=== PATIENT | female | born 1940 | race Caucasian/White ===

== ENCOUNTER 2019-09-02 13:02 | Outpatient (CLI) | payer MEDICARE, SELFPAY ==
--- NOTE | 2019-09-02 13:06 | ECG_ITS ---
Measurements Intervals [place] Rate: 77 P: 85 SD: 179 QRS: 9 QRSD: 94 T: 28 QT: 394 QTc: 448 Interpretive Statements SINUS RHYTHM SUPRAVENTRICULAR BIGEMINY BASELINE ARTIFACT- I, II, III, AVR, AVL, AVF ABNORMAL ECG Electronically Signed On 09-02-2019 16:05:01 DIRECTOR BANKING by Teodoro Azevedo D.O.
[2019-09-02 13:47] LABS: Blood Urea Nitrogen 15 mg/dL (7-17); Calcium 9.4 mg/dL (8.4-10.2); Carbon Dioxide 32 mmol/L (22-30); Chloride 91 mmol/L (98-107); Estimated Glomerular Filt Rate 43; Glucose 80 mg/dL (65-105); Potassium 3.4 mmol/L (3.4-5.0); Sodium 132 mmol/L (137-145)
== END 2019-09-02 13:03 | disposition home or self-care (01) ==
LOC: ANHSURGERY 13:06
PROVIDERS: Anesthesiology; PCP Internal Medicine; Visit Provider Surgery
DX: I10 Essential (primary) hypertension (principal); Z79.899 Other long term (current) drug therapy
CPT/HCPCS: 36415; 80048; 93005

== ENCOUNTER 2019-09-10 00:28 | Day surgery (SDC) | payer MEDICARE, SELFPAY ==
[2019-08-27 09:49] VITALS: BMI 27.9
--- NOTE | 2019-09-08 11:34 | PM.SD ---
Same Day Admit/Disch: HPI History of Present Illness Chief complaint: Left Breast Cancer, Right Nipple Discharge Narrative: Mariia Stanton is a 79 year old female Who presented to the office in June with complaints of discomfort and bloody discharge from the right breast nipple. She had also had an MRI of the breast before I saw her. This showed an abnormality in the left breast as well as subareolar erickson ductal enhancement on the right breast. A 5 mm oval mass just below the nipple on the right side was also noted. This mass demonstrated rapid enhancement and washout kinetics. The left breast lesion was a 6 mm irregular spiculated mass at the 1 at the 2 o'clock position 4-5 mm from the nipple. It demonstrated rapid enhancement and washout kinetics as well. Targeted bilateral ultrasound was then performed. On the right side, intraluminal filling defects in a mildly dilated subareolar ductal system was noted. 1 May well be a papilloma. Otherwise it may be debris. On ultrasound, the left breast showed a 6 mm irregular hypoechoic mass at the 2:00 a.m. location 4 cm from the nipple corresponding to the MRI. Ultrasound-guided core biopsy of the left breast lesion was then performed on 07/23/2019. This biopsy showed a left breast lesion to be well differentiated invasive ductal carcinoma. 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 This tumor is ER and [place] positive. After thorough discussion with the patient and her family, she is taken to surgery now for left breast lumpectomy with left axillary sentinel lymph node biopsy. She will also have right breast nipple and subareolar exploration and biopsy due to her persistent nipple discharge and the ultrasound findings in the subareolar tissue on the right breast. [facility] Past Medical History Medical History (Updated 09/08/19 @ 12:02 by Enio Arguello MD) Abnormal finding of blood chemistry, unspecified Benign essential hypertension BMI 27.0-27.9,adult Chronic recurrent sinusitis Ectatic aorta Elevated glucose FH: ANDRE-BSO (total abdominal hysterectomy and bilateral salpingo-oophorectomy) GERD (gastroesophageal reflux disease) GERD (gastroesophageal reflux disease) Glaucoma History of hypothyroidism History of trigeminal neuralgia Underwent surgical treatment in 1989 Hyperlipidemia Hyperlipidemia Ingrown toenail Lung nodule Macular degeneration Macular degeneration TIA (transient ischemic attack) Trigeminal neuralgia Venous insufficiency Surgical History Surgical History H/O medial meniscus repair of left knee History of repair of right rotator cuff Family History Family History Father Patient's father is Acute myocardial infarction Family history of heart disease in male family member before age 55 Family history of cardiovascular disease Mother Family history of dementia Sibling Family history of throat cancer Acute myocardial infarction Family history of heart disease in male family member before age 55 Family history of cardiovascular disease Family history of arthritis Multiple myeloma Other Carcinoma of colon Cerebrovascular accident Family history of malignant melanoma Family history of malignant neoplasm of stomach Family history of malignant neoplasm of urinary bladder Family history of multiple sclerosis Hypertension Social History Social History Smoking status: Never smoker Alcohol intake: never Gender identity (if verbalized by the patient): Female Same Day Admit/Disch: Med Pre-admit Medications Home Medications Medication Instructions Recorded Confirmed Type aspirin 81 mg tablet,delayed 81 mg PO DAILY 06/11/19 09/10/19 History release bimatoprost 0.01 % eye drops 1 drop EACH EYE HS 06/11/19 09/10/19 History omega-3 fat
[2019-09-10] VITALS (8 sets, daily range): BP systolic 126–166; BP diastolic 56–83; PULSE 55–84; RESP 14–18; TEMP 36.1–36.2; O2SAT 95–100
--- NOTE | ~2019-09-10 | MM_ITS ---
EXAMINATION: MM needle loc LT, MM surgical specimen LT DATE: 09/10/2019 10:31 (accession [id number]), 09/10/2019 14:36 (accession [id number]) INDICATION: Left breast cancer TECHNIQUE: The procedure for a mammography-guided needle localization was discussed with the patient. Risks and benefits were detailed including risks of bleeding and infection. The patient verbalized u nderstanding and agreed to proceed. A time out was performed to verify the patient's name, date of , and site of procedure. The nell ent was placed in mediolateral compression, and the skin overlying the outer left breast was prepare d in usual fashion. The skin and subcutaneous soft tissues were infiltrated with 1% lidocaine for loc al anesthesia. Utilizing mammography guidance, a needle was advanced into the left breast. Two confir matory films were obtained. The patient tolerated procedure without immediate complication. A specimen radiograph was performed. FINDINGS: Two view confirmatory films of the left breast demonstrate a needle with tip adjacent to th e biopsy marker in the upper outer quadrant of the breast. The wire and biopsy marker are contained w ithin the surgical specimen. IMPRESSION: 1. Successful mammography-guided left breast needle localization. Reviewed, dictated and finalized at location A. BILITATION THERAPIST IMPRESSION: 1. Successful mammography-guided left breast needle localization.
--- NOTE | ~2019-09-10 | NM_ITS ---
EXAMINATION: NM sentinel node inject only INDICATION: Left breast cancer TECHNIQUE: 0.998 mCi Tc 99m Lymphoseek were injected in 4 aliquots in the upper outer quadrant of the breast near the areola. No images were obtained. IMPRESSION: 1. Status post left breast sentinel lymph node radiopharmaceutical injection. Reviewed, dictated and finalized at location A. RONMENTAL ENGINEER SCIENTIST
--- NOTE | 2019-09-10 10:14 | SUR.PREOP ---
0933 TO MAMMS PER WHEELCHAIR
--- NOTE | 2019-09-10 10:19 | SUR.PREOP ---
1015 PT RETURNED FROM MAMMS PER W/C
[2019-09-10] MEDS: LACTATED RINGERS 1,000 ML 30 ML IV CONT ×2 (10:22→14:55)
--- NOTE | 2019-09-10 11:04 | SUR.PREOP ---
1055 PT TO NUC. MED. PER WHEELCHAIR.
--- NOTE | 2019-09-10 11:48 | SUR.PREOP ---
1122 PT RETURNEDFROM NUC. MED PER WHEELCHAIR
--- NOTE | 2019-09-10 11:49 | WPDHPUPDATE1 ---
History and Physical Update Update Date/Time: 09/10/19 11:49 History and Physical has been reviewed, including an updated exam of the patient. There are NO changes in the patient's condition. Risks, benefits, and alternatives have been discussed and questions answered. Patient agrees to proceed with procedure.
--- NOTE | 2019-09-10 12:01 | WPDANESEPPF ---
Anes - Initial Pre Proc Eval Procedure: Operation Date: 09/10/19 12:00 Proposed Procedures p Left Breast Lumpectomy, Left Axillary Palmer Lymph Node Biopsy, Right Breast Duct Exploration, - Enio Arguello MD s Ultrasound and/ or Mammogram Guided Needle Localization Left Breast - Enio Arguello MD Date/Time: 09/10/19 12:01 Surgeon: Enio Arguello MD Pre Op Diagnosis: Left Breast Cancer, Right Nipple Discharge Patient Data Age: 79 Gender: F Height: 5 ft 5 in Weight: 72.5 kg Last Vital Signs Temp 97.2 F L 09/10/19 08:58 Pulse 84 09/10/19 08:58 Resp 18 09/10/19 08:58 BP 126/56 L 09/10/19 08:58 Pulse Ox 99 09/10/19 08:58 Allergies Allergy/AdvReac Type Severity Reaction Status Date / Time almotriptan [From Axert] AdvReac Unknown Nausea and Verified 09/10/19 10:06 Vomiting cefaclor [From Ceclor] AdvReac Unknown Nausea and Verified 09/10/19 10:06 Vomiting cefuroxime AdvReac Unknown Nausea and Verified 09/10/19 10:06 Vomiting levofloxacin AdvReac Unknown Nausea And Verified 09/10/19 10:06 Vomiting morphine AdvReac Unknown Nausea and Verified 09/10/19 10:06 Vomiting Home Medications Medication Instructions Recorded Confirmed Type aspirin 81 mg tablet,delayed 81 mg PO DAILY 06/11/19 09/10/19 History release bimatoprost 0.01 % eye drops 1 drop EACH EYE HS 06/11/19 09/10/19 History omega-3 fatty acids 1,000 mg 1,000 mg PO BID 06/11/19 09/10/19 History capsule timolol maleate 0.5 % eye drops 1 drop EACH EYE DAILY 06/11/19 09/10/19 History clopidogrel 75 mg tablet 75 mg PO DAILY #90 tablet 06/12/19 09/10/19 Rx vitamin E (dl, acetate) 400 unit 400 unit PO DAILY 06/15/19 09/10/19 History capsule amlodipine 2.5 mg tablet 2.5 mg PO DAILY #90 tablet 07/08/19 09/10/19 Rx calcium carbonate-vitamin D3 1 tablet PO BID 08/27/19 09/10/19 History [Calcium 600 + D(3)] famotidine 40 mg PO DAILY 08/27/19 09/10/19 History indapamide 1.25 mg PO DAILY 08/27/19 09/10/19 History olmesartan [Benicar] 40 mg PO HS 08/27/19 09/10/19 History rosuvastatin [Crestor] 20 mg PO HS 08/27/19 09/10/19 History vit C 250 mg-E 200 unit-zinc 40 1 tablet PO BID 09/02/19 09/10/19 History mg-copper 1 [id number] capsule Patient hx anesthesia problems: post op nausea/vomiting Family hx anesthesia problems: none PMFSH Past Medical History Medical History (Updated 09/08/19 @ 12:02 by Enio Arguello MD) Abnormal finding of blood chemistry, unspecified Benign essential hypertension BMI 27.0-27.9,adult Chronic recurrent sinusitis Ectatic aorta Elevated glucose FH: ANDRE-BSO (total abdominal hysterectomy and bilateral salpingo-oophorectomy) GERD (gastroesophageal reflux disease) GERD (gastroesophageal reflux disease) Glaucoma History of hypothyroidism History of trigeminal neuralgia Underwent surgical treatment in 1989 Hyperlipidemia Hyperlipidemia Ingrown toenail Lung nodule Macular degeneration Macular degeneration TIA (transient ischemic attack) Trigeminal neuralgia Venous insufficiency Surgical History Surgical History H/O medial meniscus repair of left knee History of repair of right rotator cuff Family History Family History Father Patient's father is Acute myocardial infarction Family history of heart disease in male family member before age 55 Family history of cardiovascular disease Mother Family history of dementia Sibling Family history of throat cancer Acute myocardial infarction Family history of heart disease in male family member before age 55 Family history of cardiovascular disease Family history of arthritis Multiple myeloma Other Carcinoma of colon Cerebrovascular accident Family history of malignant melanoma Family history of malignant neoplasm of stomach Family history of malignant neoplasm of urinary bladder Fa
[2019-09-10] MEDS: ONDANSETRON INJ 4 MG/2 ML VIAL IV PUSH (12:12)
[2019-09-10] MEDS: ceFAZolin 2 GM/D5W 50 ML 2 GM/50 ML BAG IVPB (12:17)
[2019-09-10] MEDS: IBUPROFEN IV 800 MG/200 ML 800 MG/200 ML BAG 400 MG IVPB (12:25)
[2019-09-10] MEDS: BUPIVACAINE/EPINEPHRINE 0.5% 30 ML VIAL INFILTRATE (13:10)
[2019-09-10] MEDS: ISOSULFAN BLUE 1% INJ 5 ML VIAL SUB-Q (13:11)
--- NOTE | 2019-09-10 15:16 | PM.PROC ---
Procedure Note - Detailed Date of procedure: 09/10/19 Pre-op diagnosis: Left Breast Cancer, Right Nipple Discharge Bloody nipple discharge right breast, estrogen sensitive left breast upper outer quadrant invasive ductal cancer Post-op diagnosis: same Procedure performed: Subareolar exploration with duct excision of the right breast; needle localization, left breast lumpectomy with left axillary sentinel lymph node biopsy Description of procedure: The patient was taken to surgery and induced into general anesthesia. She had already been to Radiology where wire localization of the left breast tumor had been performed. She also had radioisotope injection under the left nipple in Radiology for sentinel lymph node biopsy. After induced into general anesthesia, both breasts were prepped and draped. Care was taken to avoid moving the localizing wire in the left breast. We quarantined off the left breast and started on the right side. I was able to reproduce the nipple discharge from the right breast. It was serous. I cannulated it with a lacrimal duct probe. I was able to advance the probe beyond the nipple to the offending duct. Keeping the probe in place, I then marked a circumareolar incision on the breast. Local was infiltrated into the area of this anticipated incision. Incision was made and deepened through the superficial subcutaneous tissue. I then angled the dissection towards the probe and the duct causing the discharge. I dissected distal to the probe and was able to slowly bring this tissue up to the wound. I dissected all around the area where the probe led. I dissected back up to the area of the nipple. Nearing the nipple, I went ahead and excised the ductal tissue up to the area of the probe. There was some bloody serous drainage noted during this dissection. Eventually I freed all of this tissue from the nipple. It was sent to pathology labeled subareolar ductal tissue. By palpation and inspection, there was no evidence of malignancy in the tissue. This wound was then inspected. It was made hemostatic with the cautery. The wound was closed in layers with interrupted 3 0 Monocryl suture. The skin was closed with running 4 0 Monocryl skin suture. The wound was dressed with Exofin surgical adhesive. We then changed our outer gloves and went to the patient's left side. The right breast was quarantined with a towel. I injected Isosulfan Blue dye subareolar in the left breast. General breast massage was carried out for a couple of minutes. I then used the navigator to locate the area of high isotope emission in the left axilla. This was marked on the skin. The proposed incision was marked at the edge of the hairline of the left axilla. Local was infiltrated here as well. Incision was made and then dissection was carried down through the subcutaneous and to the axillary tissue. I again used the navigator and found the general area of highest isotope emission. Dissection was carried out in this area and eventually a green stained slightly enlarged lymph node was found. It was checked again with the navigator and had very high isotope emission. I dissected around this lymph node using both sharp dissection and cautery. Vascular structures were doubly clipped and divided. Lymphatics were clipped and divided. Eventually the lymph node was harvested. I checked it again with the navigator and indeed it did have both blue staining and very high isotope emission. This was sent to pathology fresh labeled sentinel lymph node 1. I replaced the navigator and found for more sentinel lymph nodes. Each of these was found separately and dissected out separately using the same technique. None of these lymph nodes were enlarged. In fact some were quite small. None of these lymph nodes had blue dye staining. They were harvested solely based on their high isotope emission. No bleeding occurred during the dissection. After now having removed 5 sentinel
== END 2019-09-10 17:05 | disposition home or self-care (01) ==
PROVIDERS: PCP Internal Medicine; Visit Provider Surgery
PROC: (CPT 19110; principal; 2019-09-10 12:00)
PROC: (CPT 19110; 2019-09-10 12:00)
DX: C50.412 Malignant neoplasm of upper-outer quadrant of left female breast (principal); D24.1 Benign neoplasm of right breast; N60.31 Fibrosclerosis of right breast; N60.32 Fibrosclerosis of left breast; N60.41 Mammary duct ectasia of right breast; N60.42 Mammary duct ectasia of left breast; N60.82 Other benign mammary dysplasias of left breast; Z17.0 Estrogen receptor positive status [ER+]; I10 Essential (primary) hypertension; E78.5 Hyperlipidemia, unspecified; K21.9 Gastro-esophageal reflux disease without esophagitis; H40.9 Unspecified glaucoma; H35.30 Unspecified macular degeneration; Z86.73 Personal history of transient ischemic attack (TIA), and cerebral infarction without residual deficits; Z79.82 Long term (current) use of aspirin; Z79.02 Long term (current) use of antithrombotics/antiplatelets
CPT/HCPCS: 19110; 19301; 38525; 19281; 38792; 76098; 88305; 88307; A9270; A9520; C1713; C1769; J0690; J1100; J1741; J2405; J2704; J3010; J7120; Q9968

== ENCOUNTER 2019-10-13 14:26 | Outpatient (CLI) | payer MEDICARE, SELFPAY ==
[2019-10-13 14:40] LABS: Basophils Absolute Auto 0.1 K/mm3 (0.0-0.1); Eosinophils Absolute Auto 0.2 K/mm3 (0-0.3); Eosinophils Percent Auto 3.9 % (0-4.4); Hematocrit 39.1 % (37.0-47.0); Immature Granulocyte Absolute 0.01 K/mm3 (0.00-0.031); Immature Granulocyte Percent A 0.2 % (0-0.5); Lymphocytes Absolute Auto 1.55 K/mm3 (0.9-3.2); Mean Corpuscular HGB Conc 33.2 g/dl (32-36); Mean Corpuscular Hemoglobin 30.3 pg (26-34); Mean Corpuscular Volume 91.1 fl (80-100); Mean Platelet Volume 9.5 fl (7.4-10.4); Monocytes Percent Auto 19.6 % (2.6-8.5); Neutrophils Absolute Auto 2.3 K/mm3 (1.3-6.7); Neutrophils Percent Auto 45.3 % (45.5-73.1); Platelet Count Result 338 k/mm3 (150-375); Red Blood Count 4.29 M/mm3 (4.2-5.4); Red Cell Distribution Width 13.9 % (11.5-14.5); White Blood Count 5.2 K/mm3 (4.5-10.0)
[2019-10-13 16:41] LABS: Alanine Aminotransferase 18 U/L (4-35); Albumin Level 4.1 g/dL (3.5-5.1); Alkaline Phosphatase 72 U/L (38-126); Aspartate Amino Transferase 28 U/L (14-36); Bilirubin,Total 0.3 mg/dL (0.2-1.3); Blood Urea Nitrogen 18 mg/dL (7-17); Calcium 9.4 mg/dL (8.4-10.2); Carbon Dioxide 32 mmol/L (22-30); Chloride 93 mmol/L (98-107); Estimated Glomerular Filt Rate > 60; Glucose 88 mg/dL (65-105); Potassium 3.4 mmol/L (3.4-5.0); Sodium 134 mmol/L (137-145)
== END 2019-10-13 14:27 | disposition home or self-care (01) ==
PROVIDERS: Visit Provider Internal Medicine Hematology & Oncology
DX: C50.912 Malignant neoplasm of unspecified site of left female breast (principal); Z17.0 Estrogen receptor positive status [ER+]
CPT/HCPCS: 36415; 80053; 85025

== ENCOUNTER 2019-11-02 09:35 | Outpatient (CLI) | payer MEDICARE, SELFPAY ==
[2019-11-02 09:49] LABS: Basophils Percent Auto 0.8 % (0.2-1.2); Eosinophils Absolute Auto 0.2 K/mm3 (0-0.3); Eosinophils Percent Auto 3.4 % (0-4.4); Hemoglobin 12.9 g/dL (12.0-15.0); Immature Granulocyte Absolute 0.01 K/mm3 (0.00-0.031); Immature Granulocyte Percent A 0.2 % (0-0.5); Lymphocytes Absolute Auto 1.51 K/mm3 (0.9-3.2); Lymphocytes Percent Auto 28.3 % (18.3-44.2); Mean Corpuscular HGB Conc 33.9 g/dl (32-36); Mean Corpuscular Hemoglobin 30.7 pg (26-34); Mean Corpuscular Volume 90.5 fl (80-100); Mean Platelet Volume 9.8 fl (7.4-10.4); Monocytes Absolute Auto 1.1 K/mm3 (0.1-0.6); Monocytes Percent Auto 19.7 % (2.6-8.5); Neutrophils Absolute Auto 2.5 K/mm3 (1.3-6.7); Neutrophils Percent Auto 47.6 % (45.5-73.1); Platelet Count Result 313 k/mm3 (150-375); Red Cell Distribution Width 13.7 % (11.5-14.5); White Blood Count 5.3 K/mm3 (4.5-10.0)
[2019-11-02 09:53] LABS: Blood Urea Nitrogen 14 mg/dL (8-26); Carbon Dioxide 31 mmol/L (22-30); Chloride 90 mmol/L (98-109); Estimated Glomerular Filt Rate > 60; Glucose 97 mg/dL (70-105); Potassium 3.6 mmol/L (3.5-4.9); Sodium 133 mmol/L (138-146)
[2019-11-02 11:32] LABS: Alanine Aminotransferase 14 U/L (4-35); Albumin Level 4.1 g/dL (3.5-5.1); Alkaline Phosphatase 62 U/L (38-126); Aspartate Amino Transferase 25 U/L (14-36); Bilirubin,Total 0.3 mg/dL (0.2-1.3); Blood Urea Nitrogen 14 mg/dL (7-17); Calcium 9.9 mg/dL (8.4-10.2); Carbon Dioxide 34 mmol/L (22-30); Chloride 93 mmol/L (98-107); Estimated Glomerular Filt Rate > 60; Glucose 94 mg/dL (65-105); Potassium 3.6 mmol/L (3.4-5.0); Sodium 131 mmol/L (137-145)
== END 2019-11-02 09:36 | disposition home or self-care (01) ==
PROVIDERS: Visit Provider Internal Medicine Hematology & Oncology
DX: C50.912 Malignant neoplasm of unspecified site of left female breast (principal); Z17.0 Estrogen receptor positive status [ER+]
CPT/HCPCS: 36415; 80048; 80053; 85025

== ENCOUNTER 2019-11-30 10:24 | Outpatient (CLI) | payer MEDICARE, SELFPAY ==
[2019-11-30 10:37] LABS: Basophils Absolute Auto 0.1 K/mm3 (0.0-0.1); Eosinophils Absolute Auto 0.1 K/mm3 (0-0.3); Eosinophils Percent Auto 2.9 % (0-4.4); Hematocrit 38.8 % (37.0-47.0); Hemoglobin 12.9 g/dL (12.0-15.0); Immature Granulocyte Absolute 0.01 K/mm3 (0.00-0.031); Immature Granulocyte Percent A 0.2 % (0-0.5); Lymphocytes Absolute Auto 0.93 K/mm3 (0.9-3.2); Lymphocytes Percent Auto 19.3 % (18.3-44.2); Mean Corpuscular HGB Conc 33.2 g/dl (32-36); Mean Corpuscular Hemoglobin 30.8 pg (26-34); Mean Corpuscular Volume 92.6 fl (80-100); Monocytes Absolute Auto 1.3 K/mm3 (0.1-0.6); Monocytes Percent Auto 26.8 % (2.6-8.5); Neutrophils Absolute Auto 2.4 K/mm3 (1.3-6.7); Neutrophils Percent Auto 49.8 % (45.5-73.1); Platelet Count Result 312 k/mm3 (150-375); Red Blood Count 4.19 M/mm3 (4.2-5.4); Red Cell Distribution Width 14.1 % (11.5-14.5); White Blood Count 4.8 K/mm3 (4.5-10.0)
[2019-11-30 10:43] LABS: Blood Urea Nitrogen 13 mg/dL (8-26); Carbon Dioxide 32 mmol/L (22-30); Chloride 91 mmol/L (98-109); Estimated Glomerular Filt Rate 60; Glucose 91 mg/dL (70-105); Potassium 3.2 mmol/L (3.5-4.9); Sodium 135 mmol/L (138-146)
[2019-11-30 12:31] LABS: Alanine Aminotransferase 15 U/L (4-35); Alkaline Phosphatase 67 U/L (38-126); Aspartate Amino Transferase 26 U/L (14-36); Bilirubin,Total 0.3 mg/dL (0.2-1.3); Blood Urea Nitrogen 13 mg/dL (7-17); Calcium 9.8 mg/dL (8.4-10.2); Carbon Dioxide 35 mmol/L (22-30); Chloride 93 mmol/L (98-107); Estimated Glomerular Filt Rate > 60; Glucose 89 mg/dL (65-105); Potassium 3.4 mmol/L (3.4-5.0); Sodium 133 mmol/L (137-145)
== END 2019-11-30 10:25 | disposition home or self-care (01) ==
LOC: ANHLAB 10:26
PROVIDERS: Visit Provider Internal Medicine Hematology & Oncology
DX: C50.912 Malignant neoplasm of unspecified site of left female breast (principal); Z17.0 Estrogen receptor positive status [ER+]
CPT/HCPCS: 36415; 80048; 80053; 85025

== ENCOUNTER 2019-12-07 14:17 | Outpatient (CLI) | payer MEDICARE, SELFPAY ==
--- NOTE | ~2019-12-07 | XR_ITS ---
EXAMINATION: XR ankle RT min 3V, XR foot RT standing 2V DATE: 12/07/2019 14:55 INDICATION: Lateral right foot and ankle pain post fall TECHNIQUE: 1. Anteroposterior, mortise, additional oblique and lateral view of the right ankle were obtained. 2. Dorsoplantar and lateral views of the right foot were obtained. COMPARISON: None. FINDINGS: Mild displacement with up to 304 mm separation of the cortical margins at an oblique intra-articular fracture at the lateral base of the right fifth metatarsal. There appears be a hammertoe deformity at the right second toe as well as mild joint space widening and lateral subluxation at the second dist al interphalangeal joint. Alignment of the remainder of the right foot and ankle remain normal. No ot her fractures identified. Mild polyarticular osteoarthritis at the first metatarsophalangeal and summer ral interphalangeal joints. Bone island at the neck of the fourth metatarsal. Small plantar calcaneal spur. No ankle joint effusion. IMPRESSION: 1. Mildly displaced articular fracture at the base of the right fifth metatarsal. 2. Suggestion of hammertoe deformity at the second toe including mild lateral subluxation and widenin g of the second distal interphalangeal joint. Reviewed, dictated and finalized at location A. IMPRESSION: 1. Mildly displaced articular fracture at the base of the right fifth metatarsa l. 2. Suggestion of hammertoe deformity at the second toe including mild lateral s ubluxation and widening of the second distal interphalangeal joint.
== END 2019-12-07 14:18 | disposition home or self-care (01) ==
LOC: ANHIMG 14:22
PROVIDERS: PCP Internal Medicine; Visit Provider Internal Medicine
DX: S92.351A Displaced fracture of fifth metatarsal bone, right foot, initial encounter for closed fracture (principal); X58.XXXA Exposure to other specified factors, initial encounter
CPT/HCPCS: 73610; 73620

== ENCOUNTER 2019-12-23 09:40 | Outpatient (CLI) | payer MEDICARE, SELFPAY ==
[2019-12-23 10:37] LABS: Hemoglobin A1C 5.4 % (<5.7)
[2019-12-23 10:46] LABS: Blood Urea Nitrogen 14 mg/dL (7-17); Calcium 9.3 mg/dL (8.4-10.2); Carbon Dioxide 32 mmol/L (22-30); Chloride 93 mmol/L (98-107); Cholesterol 141 mg/dL (0-200); Estimated Glomerular Filt Rate > 60; Glucose 100 mg/dL (65-105); HDL Direct 55 mg/dL; Potassium 3.4 mmol/L (3.4-5.0); Sodium 133 mmol/L (137-145); Triglycerides 121 mg/dL (<150)
[2019-12-23 10:57] LABS: LDL Cholesterol Direct 57 mg/dL
== END 2019-12-23 09:41 | disposition home or self-care (01) ==
PROVIDERS: PCP Internal Medicine; Visit Provider Internal Medicine
DX: R73.09 Other abnormal glucose (principal); E78.2 Mixed hyperlipidemia; I10 Essential (primary) hypertension; Z79.899 Other long term (current) drug therapy
CPT/HCPCS: 36415; 80048; 80061; 83036; 84443

== ENCOUNTER 2020-01-21 16:26 | Outpatient (CLI) | payer MEDICARE, SELFPAY ==
--- NOTE | ~2020-01-21 | US_ITS ---
EXAMINATION: US carotid duplex BI DATE: 01/21/2020 16:58 INDICATION: Carotid atherosclerosis and stenosis. Transient ischemic episode. TECHNIQUE: Grayscale, color Doppler, and pulsed Doppler images of the cervical carotid arteries were obtained. The degree of vessel stenosis is placed in one of the following categories: normal, <50%, 5 0-69%, >=70% but less than near-occlusion, near-occlusion, or total occlusion. Note that percent sten osis relative to normal distal artery lumen diameter is indirectly measured from velocity measurement s as described by Noel, et al. Radiology 2003; 229:340-346. COMPARISON: 05/19/2019 FINDINGS: RIGHT: The right common carotid artery (CCA) peak systolic velocity (PSV) is 60 cm/s. The right internal car otid artery (ICA) PSV is 119 cm/s. The right ICA end-diastolic velocity (EDV) is 28 cm/s. The right I CA/CCA PSV ratio is 2.0. Grayscale and color Doppler images yield an estimate of <50% diameter reduct ion from plaque in the ICA. The external carotid artery (ECA) PSV is 72 cm/s. There is antegrade flow in the right vertebral artery. LEFT: The left CCA PSV is 52 cm/s. The left ICA PSV is 97 cm/s. The left ICA EDV is 23 cm/s. The left ICA/C CA PSV ratio is 1.9. Grayscale and color Doppler images yield an estimate of <50% diameter reduction from plaque in the ICA. The ECA PSV is 88 cm/s. There is antegrade flow in the left vertebral artery. IMPRESSION: 1. <50% stenosis in the right internal carotid artery. 2. <50% stenosis in the left internal carotid artery. 3. Cardiac arrhythmias present. Correlate with EKG. Reviewed, dictated and finalized at location A.
== END 2020-01-21 16:27 | disposition home or self-care (01) ==
PROVIDERS: PCP Internal Medicine; Visit Provider Internal Medicine
DX: I65.23 Occlusion and stenosis of bilateral carotid arteries (principal)
CPT/HCPCS: 93880

== ENCOUNTER 2020-02-01 00:05 | Outpatient (CLI) | payer MEDICARE, SELFPAY ==
[2020-02-01 18:54] LABS: SARS-CoV-2 RNA PCR Negative
== END 2020-02-01 00:06 | disposition home or self-care (01) ==
LOC: ANHCOVIDDT 00:06
PROVIDERS: PCP Internal Medicine; Visit Provider Internal Medicine Gastroenterology
DX: Z01.818 Encounter for other preprocedural examination (principal); Z11.59 Encounter for screening for other viral diseases
CPT/HCPCS: 87635; C9803; U0003

== ENCOUNTER 2020-02-03 01:48 | Day surgery (SDC) | payer MEDICARE, SELFPAY ==
[2020-01-27 13:53] VITALS: BMI 25.9
[2020-02-03 07:26] VITALS: BP 124/63; PULSE 55; RESP 14; TEMP 36.7; O2SAT 100
[2020-02-03] MEDS: LACTATED RINGERS 1,000 ML 150 ML IV CONT (07:47)
--- NOTE | 2020-02-03 07:49 | ECG_ITS ---
Measurements Intervals [place] Rate: 66 P: 81 [place]: 197 QRS: -7 QRSD: 97 T: 20 QT: 398 QTc: 417 Interpretive Statements SINUS RHYTHM SUPRAVENTRICULAR BIGEMINY INCOMPLETE RIGHT BUNDLE BRANCH BLOCK ABNORMAL ECG Electronically Signed On 02-03-2020 8:47:49 CDT by Teodoro Azevedo D.O.
--- NOTE | 2020-02-03 07:55 | PM.HPGS ---
History of Present Illness History of Present Illness Consent: Risks, benefits, and alternatives have been discussed and questions answered. Patient agrees to proceed with procedure. Chief complaint: hx of polyps Narrative: Mariia Stanton is a 79 year old female with a history of colon polyps [facility] Past Medical History Medical History Abnormal finding of blood chemistry, unspecified Ankle pain, right Benign essential hypertension Chronic recurrent sinusitis Colon cancer screening Ectatic aorta Elevated glucose Encounter for routine adult health examination without abnormal findings FH: ANDRE-BSO (total abdominal hysterectomy and bilateral salpingo-oophorectomy) GERD (gastroesophageal reflux disease) GERD (gastroesophageal reflux disease) Glaucoma History of hypothyroidism History of trigeminal neuralgia Underwent surgical treatment in 1989 Hx of colonic polyps Hyperlipidemia Hyperlipidemia Ingrown toenail Lung nodule Macular degeneration Macular degeneration 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 TIA (transient ischemic attack) Trigeminal neuralgia Venous insufficiency Family History Family History Father Patient's father is Acute myocardial infarction Family history of heart disease in male family member before age 55 Family history of cardiovascular disease Mother Family history of dementia Sibling Family history of throat cancer Acute myocardial infarction Family history of heart disease in male family member before age 55 Family history of cardiovascular disease Family history of arthritis Multiple myeloma Other Carcinoma of colon Cerebrovascular accident Family history of malignant melanoma Family history of malignant neoplasm of stomach Family history of malignant neoplasm of urinary bladder Family history of multiple sclerosis Hypertension Social History Social History Smoking status: Never smoker Alcohol intake: never Gender identity (if verbalized by the patient): Female Spiritual care concerns: No Meds Home Medications and Allergies Home Medications Medication Instructions Recorded Confirmed Type aspirin 81 mg tablet,delayed 81 mg PO DAILY 06/11/19 02/03/20 History release bimatoprost 0.01 % eye drops 1 drop EACH EYE HS 06/11/19 02/03/20 History omega-3 fatty acids 1,000 mg 1,000 mg PO BID 06/11/19 02/03/20 History capsule timolol maleate 0.5 % eye drops 1 drop EACH EYE DAILY 06/11/19 02/03/20 History vitamin E (dl, acetate) 400 unit 400 unit PO DAILY 06/15/19 02/03/20 History capsule amlodipine 2.5 mg tablet 2.5 mg PO DAILY #90 tablet 07/08/19 02/03/20 Rx calcium carbonate-vitamin D3 1 tablet PO BID 08/27/19 02/03/20 History [Calcium 600 + D(3)] rosuvastatin [Crestor] 20 mg PO HS 08/27/19 02/03/20 History anastrozole 1 mg tablet 1 mg PO DAILY 12/07/19 02/03/20 History potassium chloride 10 mEq 10 meq PO DAILY #90 cap 12/24/19 02/03/20 Rx capsule,extended release clopidogrel 75 mg tablet 75 mg PO DAILY #90 tablet 01/05/20 02/03/20 Rx vit C 250 mg-E 200 unit-zinc 40 1 tablet PO BID 01/13/20 02/03/20 History mg-copper 1 [id number] capsule indapamide 1.25 mg tablet See Rx Instructions .ROUTE 01/14/20 02/03/20 Rx .COMPLEX #30 tablet olmesartan 40 mg tablet 40 mg PO DAILY #90 tablet 02/01/20 02/03/20 Rx Allergies Allergy/AdvReac Type Severity Reaction Status Date / Time almotriptan [From Axert] AdvReac Unknown Nausea and Verified 02/03/20 07:22 Vomiting cefaclor [From Ceclor] AdvReac Unknown Nausea and Verified 02/03/20 07:22 Vomiting cefuroxime AdvReac Unknown Nausea and Verified 02/03/20 07:22 Vomiting levofloxacin AdvReac Unknown Nausea And Verified 02/03/20 07:22 Vomiting morphine AdvReac Unknown Nausea and Verified 02/03/20 07:22 Vomiting
--- NOTE | 2020-02-03 07:57 | SUR.PREOP ---
PATIENTS HEART RATE FROM HIGH 30'S TO 70'S. DR. CASTELLANOS AWARE. EKG ORDERED. 0750 -EKG BEING PERFORMED
--- NOTE | 2020-02-03 08:22 | WPDANESEPPF ---
Anes - Initial Pre Proc Eval Procedure: Operation Date: 02/03/20 08:30 Proposed Procedures p Screening Colonoscopy - Jose Bedolla MD Date/Time: 02/03/20 08:22 Surgeon: Jose Bedolla MD Pre Op Diagnosis: hx of polyps Patient Data Age: 79 Gender: F Height: 5 ft 6 in Weight: 70.6 kg Last Vital Signs Temp 98.1 F 02/03/20 07:26 Pulse 55 L 02/03/20 07:26 Resp 14 02/03/20 07:26 BP 124/63 02/03/20 07:26 Pulse Ox 100 02/03/20 07:26 Allergies Allergy/AdvReac Type Severity Reaction Status Date / Time almotriptan [From Axert] AdvReac Unknown Nausea and Verified 02/03/20 07:22 Vomiting cefaclor [From Ceclor] AdvReac Unknown Nausea and Verified 02/03/20 07:22 Vomiting cefuroxime AdvReac Unknown Nausea and Verified 02/03/20 07:22 Vomiting levofloxacin AdvReac Unknown Nausea And Verified 02/03/20 07:22 Vomiting morphine AdvReac Unknown Nausea and Verified 02/03/20 07:22 Vomiting Home Medications Medication Instructions Recorded Confirmed Type aspirin 81 mg tablet,delayed 81 mg PO DAILY 06/11/19 02/03/20 History release bimatoprost 0.01 % eye drops 1 drop EACH EYE HS 06/11/19 02/03/20 History omega-3 fatty acids 1,000 mg 1,000 mg PO BID 06/11/19 02/03/20 History capsule timolol maleate 0.5 % eye drops 1 drop EACH EYE DAILY 06/11/19 02/03/20 History vitamin E (dl, acetate) 400 unit 400 unit PO DAILY 06/15/19 02/03/20 History capsule amlodipine 2.5 mg tablet 2.5 mg PO DAILY #90 tablet 07/08/19 02/03/20 Rx calcium carbonate-vitamin D3 1 tablet PO BID 08/27/19 02/03/20 History [Calcium 600 + D(3)] rosuvastatin [Crestor] 20 mg PO HS 08/27/19 02/03/20 History anastrozole 1 mg tablet 1 mg PO DAILY 12/07/19 02/03/20 History potassium chloride 10 mEq 10 meq PO DAILY #90 cap 12/24/19 02/03/20 Rx capsule,extended release clopidogrel 75 mg tablet 75 mg PO DAILY #90 tablet 01/05/20 02/03/20 Rx vit C 250 mg-E 200 unit-zinc 40 1 tablet PO BID 01/13/20 02/03/20 History mg-copper 1 pm-ebcugg-ldiyhp capsule indapamide 1.25 mg tablet See Rx Instructions .ROUTE 01/14/20 02/03/20 Rx .COMPLEX #30 tablet olmesartan 40 mg tablet 40 mg PO DAILY #90 tablet 02/01/20 02/03/20 Rx Patient hx anesthesia problems: none Family hx anesthesia problems: none PMFSH Past Medical History Medical History Abnormal finding of blood chemistry, unspecified Ankle pain, right Benign essential hypertension Chronic recurrent sinusitis Colon cancer screening Ectatic aorta Elevated glucose Encounter for routine adult health examination without abnormal findings FH: ANDRE-BSO (total abdominal hysterectomy and bilateral salpingo-oophorectomy) GERD (gastroesophageal reflux disease) GERD (gastroesophageal reflux disease) Glaucoma History of hypothyroidism History of trigeminal neuralgia Underwent surgical treatment in 1989 Hx of colonic polyps Hyperlipidemia Hyperlipidemia Ingrown toenail Lung nodule Macular degeneration Macular degeneration On intermediate designer drug therapy TIA (transient ischemic attack) Trigeminal neuralgia Venous insufficiency Family History Family History Father Patient's father is Acute myocardial infarction Family history of heart disease in male family member before age 55 Family history of cardiovascular disease Mother Family history of dementia Sibling Family history of throat cancer Acute myocardial infarction Family history of heart disease in male family member before age 55 Family history of cardiovascular disease Family history of arthritis Multiple myeloma Other Carcinoma of colon Cerebrovascular accident Family history of malignant melanoma Family history of malignant neoplasm of stomach Family history of malignant neoplasm of urinary bladder Family history of multiple sclerosis Hypertension Social History So
[2020-02-03 08:42] VITALS: BP 96/47; PULSE 67; RESP 28; O2SAT 99
[2020-02-03 08:52] VITALS: BP 113/48; PULSE 58; RESP 15; O2SAT 98
[2020-02-03 09:07] VITALS: BP 127/64; PULSE 56; RESP 16; O2SAT 98
--- NOTE | 2020-02-03 09:27 | SUR.PHASEII ---
Addendum entered by Maricarmen Funk RN 02/03/20 09:36: Ok to discharge Original Note: pt's heart rate stable post operatively. Updated Dr. Rand (anesthesiologist). No further order for discharge per Dr. Rand.
== END 2020-02-03 09:24 | disposition home or self-care (01) ==
PROVIDERS: PCP Internal Medicine; Visit Provider Internal Medicine Gastroenterology
PROC: 0DJD8ZZ Inspection of Lower Intestinal Tract, Via Natural or Artificial Opening Endoscopic (ICD-10-PCS; CPT 45378; principal; 2020-02-03 08:30)
DX: Z12.11 Encounter for screening for malignant neoplasm of colon (principal); K63.89 Other specified diseases of intestine; Z86.010 Personal history of colon polyps; E78.5 Hyperlipidemia, unspecified; I10 Essential (primary) hypertension; K21.9 Gastro-esophageal reflux disease without esophagitis; Z86.73 Personal history of transient ischemic attack (TIA), and cerebral infarction without residual deficits; Z79.02 Long term (current) use of antithrombotics/antiplatelets; Z79.82 Long term (current) use of aspirin
CPT/HCPCS: 45378; 93005; J2704; J7120

== ENCOUNTER 2020-02-10 10:24 | Outpatient (CLI) | payer MEDICARE, SELFPAY ==
--- NOTE | 2020-02-16 15:43 | WPDHOLTEREM ---
Holter/Event Monitor Holter/Event Monitor Date of procedure: 02/10/20 Procedure Type: 48 hour holter monitor Indications: Bradycardia Conclusion: 1. 48 hour holter monitor on 02/10/20. 2. Predominant rhythm is sinus rhythm. HR range 44-121 bpm; average HR 79 bpm. 3. There are 13,571 premature supraventricular complexes, 2,108 supraventricular couplets, 35,057 supraventricular bigeminy and 116 supraventricular trigeminy. There are 138 runs of atrial tachycardia; fastest at 169 bpm and longest lasting 7 beats. 4. There are 516 premature ventricular complexes, 4 ventricular couplets, 9 ventricular bigeminy and 6 ventricular trigeminy. No ventricular tachycardia. 5. No sinoatrial or atrioventricular blocks. No significant pauses greater than 2 seconds. 6. Patient reports symptoms of fatigue, heartburn, shortness of breath, chest pressure, squeezing episode and nausea which demonstrate Sinus rhythm, HR range 65-110 bpm with PAC's and supraventricular bigeminy.
== END 2020-02-10 10:25 | disposition home or self-care (01) ==
PROVIDERS: PCP Internal Medicine; Visit Provider Internal Medicine
DX: R00.1 Bradycardia, unspecified (principal)
CPT/HCPCS: 93225; 93226

== ENCOUNTER 2020-02-24 07:56 | Outpatient (CLI) | payer MEDICARE, SELFPAY ==
--- NOTE | 2020-02-24 | EST_ITS ---
Patient Info Name: Mariia Stanton Age: 79 years : 1940 Gender: Female Ht: 66 in Wt: 155 lbs BSA: 1.82 m2 HR: 64 bpm BP: 144 / 87 mmHg Heart Rhythm: Sinus Rhythm Exam Date: 02/24/2020 9:51 AM Exam Location: [facility] Stress Patient Status: Outpatient Admit Date: 02/24/2020 Staff Ordering Physician: Jordy Connolly MD Attending Provider: Jordy Connolly MD Exercise Technologist: Tami Ellison RDCS Nurse: Dorina Guillermo, EMILEE, ACNP-BC Exam Type: CA stress royer w NM Study Info Indications R06.02 - Shortness of breath R07.89 - Other chest pain A regadenoson stress test was performed. Summary 1. Please correlate with nuclear medicine images, reported separately. 2. No abnormal ST-T wave changes with lexiscan. Protocol: Lexiscan Stress ECG Details Stage: REST Duration (min): 5 min : 12 sec HR (bpm): 65 SBP (mmHg): 144 DBP (mmHg): 87 Stage: REST Duration (min): 10 min : 49 sec HR (bpm): 68 SBP (mmHg): 144 DBP (mmHg): 87 Stage: STAGE 1 Duration (min): 1 min : 0 sec HR (bpm): 81 SBP (mmHg): 144 DBP (mmHg): 87 Stage: RECOVERY Duration (min): 1 min : 0 sec HR (bpm): 89 SBP (mmHg): 144 DBP (mmHg): 87 Stage: RECOVERY Duration (min): 2 min : 0 sec HR (bpm): 85 SBP (mmHg): 100 DBP (mmHg): 60 Stage: RECOVERY Duration (min): 3 min : 0 sec HR (bpm): 80 SBP (mmHg): 110 DBP (mmHg): 61 Stage: RECOVERY Duration (min): 4 min : 0 sec HR (bpm): 83 SBP (mmHg): 110 DBP (mmHg): 61 Stage: RECOVERY Duration (min): 5 min : 0 sec HR (bpm): 77 SBP (mmHg): 116 DBP (mmHg): 63 Stage: RECOVERY Duration (min): 6 min : 0 sec HR (bpm): 85 SBP (mmHg): 116 DBP (mmHg): 63 Stage: RECOVERY Duration (min): 6 min : 42 sec HR (bpm): 75 SBP (mmHg): 125 DBP (mmHg): 63 Rest HR: 68 bpm Peak HR: 91 bpm Rest Sys BP: 144 mmHg Peak Sys BP: 125 mmHg Max Pred HR: 140 bpm % Max Pred HR: 65 % Target HR: 119 bpm Max RPP: 11,375 bpm*mmHg Target HR Summary: Hemodynamic response to exercise was normal BP Response: Normal blood pressure response Termination Reason: Completed protocol Cardiac Symptoms: None Total Time: 1 min : 0 sec Rest Self BP: 87 mmHg Peak Self BP: 63 mmHg Total Dose: 0.4 mg Resting ECG Normal sinus rhythm. PACs. Stress ECG No abnormal ST/T wave changes with exercise. Arrhythmias Frequent PACs. Report Signatures
--- NOTE | ~2020-02-24 | NM_ITS ---
EXAMINATION: NM royer stress w perfusion DATE: 02/24/2020 11:30 INDICATION: Chest pressure. TECHNIQUE: Rest images were obtained following intravenous administration of 11.5 mCi Tc99m tetrofosm in (Myoview). The patient was infused intravenously with Lexiscan (regadenoson). Then, 33.2 mCi Tc99m tetrofosmin (Myoview) was administered intravenously, and stress images were obtained. Data was keyanna nstructed into short axis and horizontal and vertical long axis SPECT images. Gated SPECT images were also obtained. COMPARISON: Chest CT 02/28/2015 FINDINGS: There is no definite reversible or fixed perfusion abnormality to suggest ischemia or infar ction. There is no segmental wall motion abnormality. Left ventricular ejection fraction measures > 70%. IMPRESSION: 1. No definite ischemia or infarct. 2. Normal left ventricular ejection fraction measuring >70%. Reviewed, dictated and finalized at location A.
== END 2020-02-24 07:57 | disposition home or self-care (01) ==
PROVIDERS: PCP Internal Medicine; Visit Provider Internal Medicine
DX: R06.02 Shortness of breath (principal); R07.89 Other chest pain
CPT/HCPCS: 78452; 93017; A9502; J2785

== ENCOUNTER 2020-04-06 09:35 | Outpatient (CLI) | payer MEDICARE, SELFPAY ==
[2020-04-06 11:05] LABS: Anion Gap 6 mmol/L (8-16); Blood Urea Nitrogen 13 mg/dL (7-17); Calcium 9.7 mg/dL (8.4-10.2); Carbon Dioxide 32 mmol/L (22-30); Chloride 95 mmol/L (98-107); Cholesterol 132 mg/dL (0-200); Estimated Glomerular Filt Rate 60; Glucose 103 mg/dL (65-105); HDL Direct 55 mg/dL; Sodium 133 mmol/L (137-145); Triglycerides 92 mg/dL (<150)
[2020-04-06 11:10] LABS: Hemoglobin A1C 5.4 % (<5.7)
[2020-04-06 11:15] LABS: LDL Cholesterol Direct 49 mg/dL
== END 2020-04-06 09:36 | disposition home or self-care (01) ==
PROVIDERS: PCP Internal Medicine; Visit Provider Internal Medicine
DX: R73.09 Other abnormal glucose (principal); I10 Essential (primary) hypertension; E78.2 Mixed hyperlipidemia
CPT/HCPCS: 36415; 80048; 80061; 83036

== ENCOUNTER 2020-05-31 11:14 | Outpatient (CLI) | payer MEDICARE, SELFPAY ==
[2020-05-31 11:30] LABS: Basophils Absolute Auto 0.1 K/mm3 (0.0-0.1); Eosinophils Absolute Auto 0.2 K/mm3 (0-0.3); Eosinophils Percent Auto 2.9 % (0-4.4); Hematocrit 38.5 % (37.0-47.0); Hemoglobin 12.8 g/dL (12.0-15.0); Lymphocytes Absolute Auto 1.25 K/mm3 (0.9-3.2); Lymphocytes Percent Auto 24.4 % (18.3-44.2); Mean Corpuscular HGB Conc 33.2 g/dl (32-36); Mean Corpuscular Hemoglobin 30.5 pg (26-34); Mean Corpuscular Volume 91.9 fl (80-100); Mean Platelet Volume 9.8 fl (7.4-10.4); Monocytes Absolute Auto 0.9 K/mm3 (0.1-0.6); Monocytes Percent Auto 17.4 % (2.6-8.5); Neutrophils Absolute Auto 2.8 K/mm3 (1.3-6.7); Neutrophils Percent Auto 54.3 % (45.5-73.1); Platelet Count Result 316 k/mm3 (150-375); Red Blood Count 4.19 M/mm3 (4.2-5.4); Red Cell Distribution Width 13.8 % (11.5-14.5); White Blood Count 5.1 K/mm3 (4.5-10.0)
[2020-05-31 16:43] LABS: Alanine Aminotransferase 20 U/L (4-35); Albumin Level 4.1 g/dL (3.5-5.1); Alkaline Phosphatase 70 U/L (38-126); Anion Gap 6 mmol/L (8-16); Aspartate Amino Transferase 32 U/L (14-36); Bilirubin,Total 0.4 mg/dL (0.2-1.3); Blood Urea Nitrogen 13 mg/dL (7-17); Calcium 9.9 mg/dL (8.4-10.2); Carbon Dioxide 35 mmol/L (22-30); Chloride 93 mmol/L (98-107); Estimated Glomerular Filt Rate > 60; Glucose 91 mg/dL (65-105); Potassium 3.5 mmol/L (3.4-5.0); Sodium 134 mmol/L (137-145)
[2020-06-03 06:24] LABS: CA 27.29 23 U/mL (<38)
== END 2020-05-31 11:15 | disposition home or self-care (01) ==
PROVIDERS: PCP Internal Medicine; Visit Provider Internal Medicine Hematology & Oncology
DX: C50.912 Malignant neoplasm of unspecified site of left female breast (principal); Z17.0 Estrogen receptor positive status [ER+]
CPT/HCPCS: 36415; 80053; 85025; 86300

== ENCOUNTER 2020-05-31 11:30 | Outpatient (CLI) | payer MEDICARE, SELFPAY ==
--- NOTE | ~2020-05-31 | MM_ITS ---
EXAMINATION: MM diagnostic wiliam BI w joel HISTORY: History of interval lumpectomy for left breast cancer and duct exploration on the right. TECHNIQUE: Craniocaudal, mediolateral, and mediolateral oblique 3-D tomosynthesis images of the breas ts were performed and synthetic 2-D images were generated. CAD analysis was submitted and interpreted . COMPARISON: 05/28/2019, 12/24/2018, 12/17/2017, 11/20/2016 BREAST PARENCHYMAL COMPOSITION: There are scattered areas of fibroglandular density. FINDINGS: There are expected changes of interval lumpectomy and axillary lymph node dissection on the left and duct exploration of the right breast. No suspicious mass, calcification, or architectural d istortion are identified. There has been no suspicious interval change. IMPRESSION: 1. Expected postsurgical changes without mammographic evidence of malignancy. 2. Routine follow-up is recommended. BI-RADS Category 2: Benign finding(s). Reviewed, dictated and finalized at location A.
== END 2020-05-31 11:31 | disposition home or self-care (01) ==
PROVIDERS: PCP Internal Medicine; Visit Provider Internal Medicine Hematology & Oncology
DX: C50.912 Malignant neoplasm of unspecified site of left female breast (principal); Z17.0 Estrogen receptor positive status [ER+]; R92.8 Other abnormal and inconclusive findings on diagnostic imaging of breast; Z98.890 Other specified postprocedural states
CPT/HCPCS: 36415; 77062; 77066; 80053; 85025; 86300; G0279

== ENCOUNTER 2020-06-03 16:09 | Outpatient (CLI) | payer MEDICARE, SELFPAY ==
--- NOTE | ~2020-06-03 | CT_ITS ---
EXAMINATION: CT chest wo con DATE: 06/03/2020 16:49 INDICATION: Follow-up pulmonary nodule TECHNIQUE: Computed tomography (CT) of the chest was performed without intravenous contrast. The dose -length product was 68.77 mGy-cm. Automated exposure control and iterative reconstruction technique w ere employed. COMPARISON: CT dated 02/28/2015 FINDINGS: No thoracic lymphadenopathy. Heart size normal. No pleural or pericardial effusion. 2.9 cm left renal cyst. There are multiple calcified granulomas in the left lung. Atherosclerosis without an eurysm. There are multiple small subpleural nodules of the left upper lobe, largest measuring 8 mm, i mage 64. There is an 8 mm nodule in the right middle lobe, image 64. There are densely calcified nodu les in the left lower lobe. There is a cluster of nodules in the lingula as well as multiple subpleur al nodules in the lower lobes. No osteolytic or osteoblastic lesions. IMPRESSION: 1. Multiple bilateral pulmonary nodules, largest measuring up to 8 mm in the left upper and right mid dle lobes. Follow-up low dose CT chest in 3 months or PET/CT scan may be performed. Differential diag nosis includes infectious/inflammatory etiologies versus neoplasm/metastatic disease. Reviewed, dictated and finalized at location A. IMPRESSION: 1. Multiple bilateral pulmonary nodules, largest measuring up to 8 mm in the le ft upper and right middle lobes. Follow-up low dose CT chest in 3 months or PET /CT scan may be performed. Differential diagnosis includes infectious/inflammat ory etiologies versus neoplasm/metastatic disease.
== END 2020-06-03 16:10 | disposition home or self-care (01) ==
PROVIDERS: PCP Internal Medicine; Visit Provider Internal Medicine
DX: R91.8 Other nonspecific abnormal finding of lung field (principal)
CPT/HCPCS: 71250

== ENCOUNTER 2020-06-09 09:04 | Outpatient (CLI) | payer MEDICARE, SELFPAY ==
--- NOTE | ~2020-06-09 | PE_ITS ---
EXAMINATION: PET skull to mid thigh DATE: 06/09/2020 11:11 INDICATION: Lung nodule TECHNIQUE: Blood glucose level was 105 mg/dL. 9.42 mCi of 18-fluorodeoxyglucose (18-FDG) was administ ered i.v. Low dose computed tomography (CT) images were acquired from the base of the brain to the pr oximal thighs for attenuation correction and anatomic localization. Positron emission tomography (PET ) images were acquired in the same distribution beginning 66 minutes after injection. Images includin g fused PET/CT images were reconstructed in axial, coronal, and sagittal planes. Automated exposure c ontrol technique was employed. The dose-length product was 512.65mGy-cm. COMPARISON: Chest CT dated 06/03/2020 and 02/28/2015 FINDINGS: Head/neck: There is symmetric increased activity in the oral and nasal cavities, palatine tonsils, parotid gland s, submandibular glands, laryngeal muscles and ocular muscles without CT correlate, likely physiolog ic. No pathologically enlarged cervical lymphadenopathy or suspicious foci of increased FDG uptake in the visualized head or neck. Chest: Minimal FDG activity with maximal SUV of 1.5 associated with the 8 mm nodule at the posterior inferio r left lower lobe. No evident FDG activity associated with the remaining smaller nodules clustered th roughout predominantly peripheral regions of the left and right lung. No increased FDG uptake is fiss ure with a second 8 mm flat lenticular nodule along the right minor fissure likely representing an a normal intrafissural lymph node. Couple calcified nodules in the left lower lobe along with calcified bilateral hilar and mediastinal lymph nodes consistent with old granulomatous disease. No pleural ef fusion. Heart size is normal. No pericardial effusion. Ectatic ascending thoracic aorta measuring up to 4.0 cm in diameter. There is mild FDG activity with maximal SUV of 1.8 on a linear band of likely postoperative scarring at the lateral left breast. The more discrete nodular soft tissue density or m ore intense FDG uptake to suggest residual/recurrent breast cancer. No pathologically enlarged or FDG avid thoracic lymphadenopathy. Abdomen/pelvis/proximal thighs: Physiologic renal accumulation and excretion of FDG activity in the kidneys, bladder and along portio ns of ureters. Bilateral renal cysts the largest on the left measuring 2.7 cm. Normal degree and hete rogenous pattern of increased uptake throughout the liver without radiologic correlate or dominant FD G avid lesion. The gallbladder, pancreas, spleen and bilateral adrenal glands are normal. 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 Mild uptake scattered throughout the bowels without radiologic corre late, also likely physiologic. Scattered predominantly sigmoid diverticulosis. The uterus is not iden tified and has likely been surgically resected. No other abnormal foci of increased FDG uptake or pathologically enlarged lymphadenopathy in the abdomen, pelvis or proximal thighs. Musculoskeletal: Mild thoracolumbar levorotoscoliosis with mild compensatory thoracic dextrocurvature. Moderate cervic al and lumbar spondylosis. 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 No suspicious lytic, b lastic or FDG avid bone lesions. IMPRESSION: 1. Minimal uptake associated with the largest 8 mm nodule at the left upper lobe with the remaining s maller nodules demonstrating no discernible FDG activity. While reassuring and suggesting an infectio us etiology would recommend 3 month follow-up low-dose noncontrast chest CT. 2. Minimal uptake along a likely postoperative scar at the left breast at the site of a reported prio r excisional biopsy for breast cancer. No discrete soft tissue nodule or more focal uptake to suggest residual/recurrent disease. Recommend continued mammographic fo
[2020-06-09 09:45] LABS: Glucose Point of Care 105 (65-105)
== END 2020-06-09 09:05 | disposition home or self-care (01) ==
PROVIDERS: PCP Internal Medicine; Visit Provider Internal Medicine
DX: R91.8 Other nonspecific abnormal finding of lung field (principal)
CPT/HCPCS: 78815; A9552

== ENCOUNTER 2020-07-06 07:32 | Outpatient (CLI) | payer MEDICARE, SELFPAY ==
--- NOTE | ~2020-07-06 | XR_ITS ---
EXAMINATION: XR UGIAC sm bowel esophagram EXAM DATE: 07/06/2020 09:16 INDICATION: K21.9 - Gastro-esophageal reflux disease without esophagitis. TECHNIQUE: Skip Tracer radiograph was acquired. Standard single and double contrast barium esophagram, uppe r GI examination was performed followed by small bowel series. Spot images of the terminal ileum wer e acquired. The DAP for this procedure was 6.8 Gycm2. Comparison is made to prior examination from 02/18/2014. FINDINGS: There is no esophageal stricture, diverticulum or mass identified. There is small sliding gastroesophageal hiatal hernia. Gastroesophageal reflux was demonstrated during the examination. The stomach has a normal appearance without evidence of mass lesion, ulceration or filling defect. T here is normal rugal fold pattern. The duodenum and duodenal sweep are normal in appearance. Ileal and jejunal fold patterns are normal. There is no small bowel wall thickening or mass effect d isplacing small bowel. There are no intraluminal filling defects identified. There is no small mt l dilation. Terminal ileum is normal in appearance. Contrast reached the colon by 15 minutes, rapid transit time. IMPRESSION: 1. Small sliding gastroesophageal hiatal hernia. Reflux. 2. Rapid transit time. Reviewed, dictated and finalized at location A. ANALYST
--- NOTE | ~2020-07-06 | US_ITS ---
EXAMINATION: US abdomen complete EXAM DATE: 07/06/2020 08:13 INDICATION: R10.11 - Right upper quadrant pain . TECHNIQUE: Multiple grayscale and Doppler images of the complete abdomen were obtained (by a technolo gist who performed the scan) and subsequently reviewed. Comparison is made to prior examination from 02/18/2014. FINDINGS: The abdominal aorta is normal in caliber. Visualized portion IVC is patent. The pancreatic head a nd body are normal in appearance. The pancreatic tail is not visualized. The liver has normal echogenicity and contour. There are no focal liver lesions identified. There is no evidence of intrahepatic biliary duct dilation. Portal venous flow was seen in the hepatopedal , normal direction and has normal Doppler waveform. Common bile duct measures 4 mm, which is normal. The gallbladder wall is normal in thickness, with ex pected amount of distention. No sonographic evidence of pericholecystic fluid. There is no cholelit hiases. Technologist performing exam reports patient did not demonstrate sonographic Rodriguez's sign. Please note that this sign is less reliable in patients who have received pain medication. Right kidney: There is normal contour and echogenicity. It measures 10.1 x 4.3 x 4.5 centimeters. There are no focal renal lesions identified. There is no hydronephrosis. Left kidney: There is normal contour and echogenicity. It measures 9.6 x 4.5 x 4.4 centimeters. The re is a cyst measuring 2.8 cm. There is no hydronephrosis. The spleen measures 7.7 centimeters and is morphologically normal. IMPRESSION: 1. Unremarkable complete abdominal ultrasound exam. Reviewed, dictated and finalized at location A. RESS FILLING MACHINE TENDER
== END 2020-07-06 07:33 | disposition home or self-care (01) ==
PROVIDERS: PCP Internal Medicine; Visit Provider Internal Medicine
DX: R10.11 Right upper quadrant pain (principal); K21.9 Gastro-esophageal reflux disease without esophagitis; K44.9 Diaphragmatic hernia without obstruction or gangrene
CPT/HCPCS: 74246; 74248; 76700

== ENCOUNTER 2020-08-09 10:28 | Outpatient (CLI) | payer MEDICARE, SELFPAY ==
--- NOTE | ~2020-08-09 | XR_ITS ---
XR abdomen/kub 1V 08/09/2020 11:02 Indication: Hematuria Procedure: KUB Comparison: No prior studies for comparison. Findings: Bowel gas pattern is nonobstructive. Moderate colonic fecal loading. There are pelvic calci fications, most of which are compatible with phleboliths. There is a shelflike calcification in the u pper pelvis, likely calcified fibroid. Levoscoliosis of the lumbar spine. No acute osseous abnormalit y. Impression: 1: No acute abdominal abnormality. Reviewed, dictated and finalized at location A. CIATE CHIEF NURSE Impression: 1: No acute abdominal abnormality.
[2020-08-09 10:53] LABS: Basophils Percent Auto 0.6 % (0.2-1.2); Eosinophils Absolute Auto 0.1 K/mm3 (0-0.3); Eosinophils Percent Auto 1.6 % (0-4.4); Hematocrit 39.3 % (37.0-47.0); Hemoglobin 12.9 g/dL (12.0-15.0); Immature Granulocyte Absolute 0.02 K/mm3 (0.00-0.031); Immature Granulocyte Percent A 0.3 % (0-0.5); Lymphocytes Absolute Auto 1.15 K/mm3 (0.9-3.2); Lymphocytes Percent Auto 18.2 % (18.3-44.2); Mean Corpuscular HGB Conc 32.8 g/dl (32-36); Mean Corpuscular Hemoglobin 31.1 pg (26-34); Mean Corpuscular Volume 94.7 fl (80-100); Mean Platelet Volume 10.5 fl (7.4-10.4); Monocytes Absolute Auto 0.9 K/mm3 (0.1-0.6); Monocytes Percent Auto 14.9 % (2.6-8.5); Neutrophils Absolute Auto 4.1 K/mm3 (1.3-6.7); Neutrophils Percent Auto 64.4 % (45.5-73.1); Platelet Count Result 264 k/mm3 (150-375); Red Blood Count 4.15 M/mm3 (4.2-5.4); Red Cell Distribution Width 13.8 % (11.5-14.5); White Blood Count 6.3 K/mm3 (4.5-10.0)
[2020-08-09 10:57] LABS: Add Urine Microscopic? YES; Appearance Urine Cloudy (Clear); Bacteria Urine 4+ /hpf; Bilirubin Urine Negative (Negative); Blood Urine 1+ (Negative); Color Urine Yellow (Yellow); Glucose Urine UA Negative (Negative); Ketones Urine Negative (Negative); Leukocyte Esterase Ur 3+ LEU/UL (NEGATIVE); Mucus Urine Rare /lpf; Nitrate Urine Negative (Negative); Protein Urine Negative (Negative); Specific Grav Ur 1.006 (1.001-1.035); Squamous Epithelial Cell Urine Rare /hpf (Few); Urobilinogen Urine Negative mg/dL (<2.0); WBC Urine >75 /hpf (0-3)
== END 2020-08-09 10:29 | disposition home or self-care (01) ==
PROVIDERS: PCP Internal Medicine; Visit Provider Internal Medicine
DX: R39.9 Unspecified symptoms and signs involving the genitourinary system (principal); R31.9 Hematuria, unspecified
CPT/HCPCS: 36415; 74018; 81001; 85025; 87077; 87086; 87088; 87186

== ENCOUNTER 2020-08-29 08:24 | Outpatient (CLI) | payer MEDICARE, SELFPAY ==
--- NOTE | ~2020-08-29 | DEXA_ITS ---
Bone Density Report Name: Mariia Stanton Age: 80 Sex: Female Ethnicity: White Date of : 1940 Indication: osteopenia; parental hip fracture; height loss; prior fracture; cancer; hysterectomy; postmenopausal Referring Provider: Bob Price Study: Bone densitometry was performed. Exam Date: August 29, 2020 Accession number: [id number] Bone Density: Region BMD T-score Z-score Classification AP Spine (L1, L2, L3) 0.928 -0.8 1.8 Normal Femoral Neck (Left) 0.620 -2.1 0.3 Osteopenia Total Hip (Left) 0.697 -2.0 0.1 Osteopenia Total Hip Bilateral Avg 0.741 -1.7 0.5 Osteopenia Femoral Neck (Right) 0.661 -1.7 0.7 Osteopenia Total Hip (Right) 0.784 -1.3 0.8 Osteopenia World Health Organization criteria for BMD impression classify patients as: Normal (T-score at or above -1.0), Osteopenia (T-score between -1.0 and -2.5), or Osteoporosis (T-score at or below -2.5). 10-year Fracture Risk(1): Major Osteoporotic Fracture 39% Hip Fracture 25% Reported Risk Factors: [place] (), Neck BMD=0.620, BMI=26.3, previous fracture, parental fracture (1) FRAX(R) Version 3.08. Fracture probability calculated for an untreated patient. Fracture probability may be lower if the patient has received treatment. Previous Exams: Region Exam Age BMD T-score BMD Change BMD Change Date g/cm2 vs Baseline vs Previous AP Spine(L1, L2, L3) 08/29/2020 80 0.928 -0.8 -0.107(-10.4%) -0.060(-6.1%)# 04/04/2018 77 0.988 -0.3 -0.047(-4.5%)# -0.015(-1.5%)# 03/21/2016 75 1.004 -0.1 -0.032(-3.1%)# 0.052(5.4%)* 03/09/2014 73 0.952 -0.6 -0.083(-8.1%)# 0.008(0.8%) 02/19/2012 71 0.944 -0.7 -0.091(-8.8%)# -0.029(-3.0%)# 01/21/2008 67 0.973 -0.4 -0.062(-6.0%)* -0.002(-0.2%) 01/18/2006 65 0.975 -0.4 -0.060(-5.8%)* -0.037(-3.6%)* 02/10/2003 62 1.012 -0.1 -0.023(-2.3%)* -0.023(-2.3%)* 01/26/2002 61 1.035 0.2 Total Hip(Left) 08/29/2020 80 0.697 -2.0 -0.152(-17.9%) -0.100(-12.5%) 04/04/2018 77 0.797 -1.2 -0.052(-6.1%)# -0.013(-1.6%)# 03/21/2016 75 0.810 -1.1 -0.039(-4.6%)# 0.005(0.7%) 03/09/2014 73 0.805 -1.1 -0.044(-5.2%)# 0.027(3.4%) 02/19/2012 71 0.778 -1.3 -0.071(-8.4%)# -0.016(-2.0%)# 02/16/2010 69 0.794 -1.2 -0.055(-6.5%)* 0.009(1.1%) 01/21/2008 67 0.785 -1.3 -0.064(-7.6%)* -0.051(-6.1%)* 01/18/2006 65 0.836 -0.9 -0.013(-1.6%) -0.008(-0.9%) 02/10/2003 62 0.844 -0.8 -0.006(-0.7%) -0.006(-0.7%) 01/26/2002 61 0.849 -0.8 Total Hip(Right) 08/29/2020 80 0.784 -1.3 -0.113(-12.6%) -0.078(-9.0%)# 04/04/2018 77 0.862 -0.7 -0.035(-3.9%)# -0.044
== END 2020-08-29 08:25 | disposition home or self-care (01) ==
PROVIDERS: Family Provider Internal Medicine; PCP Internal Medicine; Visit Provider Internal Medicine Hematology & Oncology
DX: M85.852 Other specified disorders of bone density and structure, left thigh (principal); M85.851 Other specified disorders of bone density and structure, right thigh
CPT/HCPCS: 77080

== ENCOUNTER 2020-09-06 13:19 | Outpatient (CLI) | payer MEDICARE, SELFPAY ==
[2020-09-06 13:39] LABS: Basophils Percent Auto 0.8 % (0.2-1.2); Eosinophils Absolute Auto 0.2 K/mm3 (0-0.3); Eosinophils Percent Auto 3.1 % (0-4.4); Hematocrit 40.5 % (37.0-47.0); Hemoglobin 13.2 g/dL (12.0-15.0); Lymphocytes Absolute Auto 1.09 K/mm3 (0.9-3.2); Lymphocytes Percent Auto 22.8 % (18.3-44.2); Mean Corpuscular HGB Conc 32.6 g/dl (32-36); Mean Corpuscular Hemoglobin 30.4 pg (26-34); Mean Corpuscular Volume 93.3 fl (80-100); Mean Platelet Volume 10.2 fl (7.4-10.4); Monocytes Absolute Auto 1.2 K/mm3 (0.1-0.6); Monocytes Percent Auto 24.4 % (2.6-8.5); Neutrophils Absolute Auto 2.3 K/mm3 (1.3-6.7); Neutrophils Percent Auto 48.9 % (45.5-73.1); Platelet Count Result 266 k/mm3 (150-375); Red Blood Count 4.34 M/mm3 (4.2-5.4); White Blood Count 4.8 K/mm3 (4.5-10.0)
[2020-09-06 13:42] LABS: Blood Urea Nitrogen 15 mg/dL (8-26); Carbon Dioxide 32 mmol/L (22-30); Chloride 98 mmol/L (98-109); Estimated Glomerular Filt Rate 48; Glucose 68 mg/dL (70-105); Potassium 3.7 mmol/L (3.5-4.9); Sodium 139 mmol/L (138-146)
[2020-09-06 16:48] LABS: Alanine Aminotransferase 24 U/L (4-35); Alkaline Phosphatase 71 U/L (38-126); Anion Gap 6 mmol/L (8-16); Aspartate Amino Transferase 36 U/L (14-36); Bilirubin,Total 0.4 mg/dL (0.2-1.3); Blood Urea Nitrogen 16 mg/dL (7-17); Calcium 9.6 mg/dL (8.4-10.2); Carbon Dioxide 34 mmol/L (22-30); Chloride 100 mmol/L (98-107); Estimated Glomerular Filt Rate 53; Glucose 70 mg/dL (65-105); Sodium 140 mmol/L (137-145)
[2020-09-08 10:30] LABS: CA 15-3 10 U/mL (<32)
== END 2020-09-06 13:20 | disposition home or self-care (01) ==
LOC: ANHLAB 13:21
PROVIDERS: PCP Internal Medicine; Visit Provider Internal Medicine Hematology & Oncology
DX: C50.412 Malignant neoplasm of upper-outer quadrant of left female breast (principal); Z17.0 Estrogen receptor positive status [ER+]
CPT/HCPCS: 36415; 80048; 80053; 85025; 86300

== ENCOUNTER 2020-09-29 08:25 | Outpatient (CLI) | payer MEDICARE, SELFPAY ==
[2020-09-29 09:07] LABS: Basophils Absolute Auto 0.1 K/mm3 (0.0-0.1); Basophils Percent Auto 1.2 % (0.2-1.2); Eosinophils Absolute Auto 0.2 K/mm3 (0-0.3); Eosinophils Percent Auto 3.6 % (0-4.4); Hematocrit 40.7 % (37.0-47.0); Hemoglobin 13.2 g/dL (12.0-15.0); Immature Granulocyte Absolute 0.01 K/mm3 (0.00-0.031); Immature Granulocyte Percent A 0.2 % (0-0.5); Lymphocytes Absolute Auto 1.08 K/mm3 (0.9-3.2); Lymphocytes Percent Auto 26.2 % (18.3-44.2); Mean Corpuscular HGB Conc 32.4 g/dl (32-36); Mean Corpuscular Hemoglobin 30.6 pg (26-34); Mean Corpuscular Volume 94.2 fl (80-100); Mean Platelet Volume 10.5 fl (7.4-10.4); Monocytes Absolute Auto 0.8 K/mm3 (0.1-0.6); Monocytes Percent Auto 18.2 % (2.6-8.5); Neutrophils Absolute Auto 2.1 K/mm3 (1.3-6.7); Neutrophils Percent Auto 50.6 % (45.5-73.1); Platelet Count Result 284 k/mm3 (150-375); Red Blood Count 4.32 M/mm3 (4.2-5.4); Red Cell Distribution Width 13.8 % (11.5-14.5); White Blood Count 4.1 K/mm3 (4.5-10.0)
[2020-09-29 09:23] LABS: Anion Gap 2 mmol/L (8-16); Blood Urea Nitrogen 13 mg/dL (7-17); Calcium 9.4 mg/dL (8.4-10.2); Carbon Dioxide 35 mmol/L (22-30); Chloride 102 mmol/L (98-107); Cholesterol 127 mg/dL (0-200); Estimated Glomerular Filt Rate 60; Glucose 98 mg/dL (65-105); HDL Direct 54 mg/dL; Potassium 3.8 mmol/L (3.4-5.0); Sodium 139 mmol/L (137-145); Triglycerides 99 mg/dL (<150)
[2020-09-29 09:25] LABS: Hemoglobin A1C 5.1 % (<5.7)
[2020-09-29 09:33] LABS: LDL Cholesterol Direct 48 mg/dL
[2020-09-29 10:17] LABS: Free T4 Free Thyroxine 1.06 ng/mL (0.78-2.19); Vitamin D 25 Hydroxy 59.1 ng/mL
== END 2020-09-29 08:26 | disposition home or self-care (01) ==
PROVIDERS: PCP Internal Medicine; Visit Provider Internal Medicine
DX: E78.2 Mixed hyperlipidemia (principal); G45.9 Transient cerebral ischemic attack, unspecified; Z78.0 Asymptomatic menopausal state; R73.09 Other abnormal glucose; Z79.899 Other long term (current) drug therapy
CPT/HCPCS: 36415; 80048; 80061; 82306; 83036; 84439; 84443; 85025

== ENCOUNTER 2020-10-03 11:47 | Outpatient (CLI) | payer MEDICARE, SELFPAY ==
--- NOTE | ~2020-10-03 | MMUS_ITS ---
EXAMINATION: MM diagnostic wiliam LT w joel, US breast LT limited HISTORY: Follow-up cancer surgery in 09/2019. TECHNIQUE: Additional 3-D tomosynthesis images of the left breast were performed and synthetic 2-D im ages were generated. CAD analysis was submitted and interpreted. High resolution Limited left breast ultrasound was performed. COMPARISON: 12/24/2018 BREAST PARENCHYMAL COMPOSITION: Breast composed of scattered areas of fibroglandular density. FINDINGS: MAMMOGRAPHIC FINDINGS: There is focal asymmetry in the upper aspect of the left breast in the area of previous surgery, like ly fibrosis. No significant change from 05/31/2020 allowing differences of technique. No new masses o r calcifications. ULTRASOUND: Left breast ultrasound: At 1-2:00, 4 cm from the nipple in the area of surgical scarring there is irr egular hypoechoic soft tissue with mixed posterior attenuation and ill-defined margins, likely postsu rgical scarring/fibrosis. This corresponds to the area of asymmetry seen on mammography. IMPRESSION: 1. Probable benign postsurgical changes at the 1-2:00 position of the left breast, 4 cm from the nipp le. 2. Recommend 6 month follow-up diagnostic left mammogram. BI-RADS category 3, probably benign findings. Reviewed, dictated and finalized at location A. NHOUSE GROWER IMPRESSION: 1. Probable benign postsurgical changes at the 1-2:00 position of the left sabrina st, 4 cm from the nipple. 2. Recommend 6 month follow-up diagnostic left mammogram. BI-RADS category 3, probably benign findings.
== END 2020-10-03 11:48 | disposition home or self-care (01) ==
PROVIDERS: PCP Internal Medicine; Visit Provider Internal Medicine Hematology & Oncology
DX: C50.412 Malignant neoplasm of upper-outer quadrant of left female breast (principal); Z17.0 Estrogen receptor positive status [ER+]
CPT/HCPCS: 76642; 77061; 77065; G0279

== ENCOUNTER 2020-10-05 16:59 | Outpatient (CLI) | payer MEDICARE, SELFPAY | END 2020-10-05 17:00 | disposition home or self-care (01) | LOC: ANHCOVIDVC 16:59 | PROVIDERS: PCP Internal Medicine | DX: Z23 Encounter for immunization (principal) | CPT/HCPCS: 0001A; 91300 ==

== ENCOUNTER 2020-10-06 09:41 | Outpatient (CLI) | payer MEDICARE, SELFPAY ==
--- NOTE | ~2020-10-06 | CT_ITS ---
EXAMINATION:CT diagnostic chest wo con DATE: 10/06/2020 10:01 INDICATION: Solitary pulmonary nodule. TECHNIQUE: Computed tomography (CT) of the chest was performed without intravenous contrast. Automate d exposure control and iterative reconstruction technique were employed. The dose-length product (DLP ) was 62.07 mGy-cm. COMPARISON: PET/CT 06/09/2020, chest CT 06/03/2020, 02/28/2015 FINDINGS: There is mild scarring at the lung apices. There are scattered centrilobular nodules and tr ee-in-bud opacities involving all lobes measuring up to 9 mm in the lingula, likely infection. Calcif ied left lung nodules and calcified left hilar lymph nodes are consistent with old granulomatous dise ase. There is mild bronchiectasis in the inferior lungs. No pleural effusion. The heart size is jose r l. No pericardial effusion. There is a 2.8 cm cyst in left kidney. There is thoracic dextrocurvature and moderate thoracic spondylosis. IMPRESSION: 1. Stable pulmonary nodules, likely benign. Noncontrast low-dose chest CT is recommended in one year. Reviewed, dictated and finalized at location A. O REPAIRER IMPRESSION: 1. Stable pulmonary nodules, likely benign. Noncontrast low-dose chest CT is re commended in one year.
== END 2020-10-06 09:42 | disposition home or self-care (01) ==
PROVIDERS: PCP Internal Medicine; Visit Provider Internal Medicine
DX: R91.8 Other nonspecific abnormal finding of lung field (principal)
CPT/HCPCS: 71250

== ENCOUNTER 2020-10-26 16:51 | Outpatient (CLI) | payer MEDICARE, SELFPAY | END 2020-10-26 16:52 | disposition home or self-care (01) | LOC: ANHCOVIDVC 16:51 | PROVIDERS: PCP Internal Medicine | DX: Z23 Encounter for immunization (principal) | CPT/HCPCS: 0002A; 91300 ==

== ENCOUNTER 2020-11-29 09:54 | Outpatient (CLI) | payer MEDICARE, SELFPAY ==
[2020-11-29 10:19] LABS: Basophils Percent Auto 0.9 % (0.2-1.2); Eosinophils Absolute Auto 0.1 K/mm3 (0-0.3); Eosinophils Percent Auto 2.9 % (0-4.4); Hematocrit 39.5 % (37.0-47.0); Hemoglobin 12.8 g/dL (12.0-15.0); Immature Granulocyte Absolute 0.01 K/mm3 (0.00-0.031); Immature Granulocyte Percent A 0.2 % (0-0.5); Lymphocytes Absolute Auto 1.18 K/mm3 (0.9-3.2); Mean Corpuscular HGB Conc 32.4 g/dl (32-36); Mean Corpuscular Hemoglobin 30.4 pg (26-34); Mean Corpuscular Volume 93.8 fl (80-100); Mean Platelet Volume 10.3 fl (7.4-10.4); Monocytes Absolute Auto 0.8 K/mm3 (0.1-0.6); Neutrophils Absolute Auto 2.4 K/mm3 (1.3-6.7); Platelet Count Result 288 k/mm3 (150-375); Red Blood Count 4.21 M/mm3 (4.2-5.4); Red Cell Distribution Width 14.1 % (11.5-14.5); White Blood Count 4.5 K/mm3 (4.5-10.0)
[2020-11-29 12:18] LABS: Anion Gap 4 mmol/L (8-16); Blood Urea Nitrogen 14 mg/dL (7-17); Calcium 9.2 mg/dL (8.4-10.2); Carbon Dioxide 34 mmol/L (22-30); Chloride 103 mmol/L (98-107); Estimated Glomerular Filt Rate > 60; Glucose 95 mg/dL (65-105); Potassium 3.9 mmol/L (3.4-5.0); Sodium 141 mmol/L (137-145)
[2020-12-02 08:52] LABS: CA 15-3 13 U/mL (<32)
== END 2020-11-29 09:55 | disposition home or self-care (01) ==
LOC: ANHLAB 09:57
PROVIDERS: PCP Internal Medicine; Visit Provider Internal Medicine Hematology & Oncology
DX: C50.412 Malignant neoplasm of upper-outer quadrant of left female breast (principal); Z17.0 Estrogen receptor positive status [ER+]
CPT/HCPCS: 36415; 80048; 85025; 86300

== ENCOUNTER 2021-02-13 09:42 | Outpatient (CLI) | payer MEDICARE, SELFPAY ==
[2021-02-13 17:20] LABS: Potassium 4.5 mmol/L (3.4-5.0)
[2021-02-13 17:27] LABS: Alanine Aminotransferase 15 U/L (4-35); Albumin Level 4.1 g/dL (3.5-5.1); Alkaline Phosphatase 74 U/L (38-126); Anion Gap 6 mmol/L (8-16); Aspartate Amino Transferase 27 U/L (14-36); Bilirubin,Total 0.4 mg/dL (0.2-1.3); Blood Urea Nitrogen 14 mg/dL (7-17); Calcium 9.8 mg/dL (8.4-10.2); Carbon Dioxide 31 mmol/L (22-30); Chloride 103 mmol/L (98-107); Cholesterol 130 mg/dL (0-200); Estimated Glomerular Filt Rate > 60; Glucose 96 mg/dL (65-105); HDL Direct 63 mg/dL; Sodium 140 mmol/L (137-145); Triglycerides 96 mg/dL (<150)
[2021-02-13 17:31] LABS: LDL Cholesterol Direct 47 mg/dL
[2021-02-13 19:18] LABS: Hemoglobin A1C 5.2 % (<5.7)
== END 2021-02-13 09:43 | disposition home or self-care (01) ==
LOC: ANHWCLAB 09:48
PROVIDERS: PCP Internal Medicine; Visit Provider Internal Medicine
DX: G45.9 Transient cerebral ischemic attack, unspecified (principal); E78.2 Mixed hyperlipidemia; I10 Essential (primary) hypertension; Z79.899 Other long term (current) drug therapy; R73.09 Other abnormal glucose
CPT/HCPCS: 36415; 80053; 80061; 83036

== ENCOUNTER 2021-03-03 10:48 | Outpatient (CLI) | payer MEDICARE, SELFPAY ==
--- NOTE | ~2021-03-03 | XR_ITS ---
EXAMINATION:XR cervical spine min 6V DATE: 03/03/2021 11:26 INDICATION: Right hand pencil sorter weakness and right hand tremor TECHNIQUE: AP, lateral in neutral, flexion, extension, lateral swimmers and odontoid views of the cer vical spine are provided. COMPARISON: None FINDINGS: Alignment is normal. There is no laxity with flexion or extension. There is reversal of the normal cervical lordosis. The odontoid is intact. No fracture is identified. The vertebral body heig hts are normal. There is unchanged severe loss of intervertebral disc space height throughout the cer vical spine. Small degenerative osteophytes project from the anterior endplates of multiple vertebral bodies. There is severe multilevel facet and uncovertebral joint osteoarthritis. Prevertebral soft t issues are normal. IMPRESSION: 1. Severe cervical spondylosis without acute findings or significant interval change. Reviewed, dictated and finalized at location A. IMPRESSION: 1. Severe cervical spondylosis without acute findings or significant interval garo silva
== END 2021-03-03 10:49 | disposition home or self-care (01) ==
LOC: ANHIMG 10:57
PROVIDERS: PCP Internal Medicine; Visit Provider Internal Medicine
DX: M47.812 Spondylosis without myelopathy or radiculopathy, cervical region (principal); R29.898 Other symptoms and signs involving the musculoskeletal system; R25.1 Tremor, unspecified
CPT/HCPCS: 72052

== ENCOUNTER 2021-04-05 12:53 | Outpatient (CLI) | payer MEDICARE, SELFPAY ==
[2021-04-05 13:09] LABS: Basophils Absolute Auto 0.1 K/mm3 (0.0-0.1); Basophils Percent Auto 1.1 % (0.2-1.2); Eosinophils Absolute Auto 0.1 K/mm3 (0-0.3); Eosinophils Percent Auto 2.1 % (0-4.4); Hematocrit 40.6 % (37.0-47.0); Hemoglobin 13.3 g/dL (12.0-15.0); Immature Granulocyte Absolute 0.01 K/mm3 (0.00-0.031); Immature Granulocyte Percent A 0.2 % (0-0.5); Lymphocytes Absolute Auto 1.26 K/mm3 (0.9-3.2); Mean Corpuscular HGB Conc 32.8 g/dl (32-36); Mean Corpuscular Hemoglobin 30.5 pg (26-34); Mean Corpuscular Volume 93.1 fl (80-100); Mean Platelet Volume 10.3 fl (7.4-10.4); Monocytes Absolute Auto 0.9 K/mm3 (0.1-0.6); Monocytes Percent Auto 17.1 % (2.6-8.5); Neutrophils Absolute Auto 2.9 K/mm3 (1.3-6.7); Neutrophils Percent Auto 55.5 % (45.5-73.1); Platelet Count Result 279 k/mm3 (150-375); Red Blood Count 4.36 M/mm3 (4.2-5.4); Red Cell Distribution Width 13.6 % (11.5-14.5); White Blood Count 5.3 K/mm3 (4.5-10.0)
[2021-04-05 16:47] LABS: Alanine Aminotransferase 19 U/L (4-35); Albumin Level 4.2 g/dL (3.5-5.1); Alkaline Phosphatase 76 U/L (38-126); Anion Gap 7 mmol/L (8-16); Aspartate Amino Transferase 28 U/L (14-36); Bilirubin,Total 0.5 mg/dL (0.2-1.3); Blood Urea Nitrogen 20 mg/dL (7-17); Calcium 9.8 mg/dL (8.4-10.2); Carbon Dioxide 29 mmol/L (22-30); Chloride 101 mmol/L (98-107); Estimated Glomerular Filt Rate > 60; Glucose 91 mg/dL (65-110); Potassium 4.6 mmol/L (3.4-5.0); Sodium 137 mmol/L (137-145)
[2021-04-08 08:10] LABS: CA 15-3 14 U/mL (<32)
== END 2021-04-05 12:54 | disposition home or self-care (01) ==
LOC: ANHLAB 12:58
PROVIDERS: PCP Internal Medicine; Visit Provider Internal Medicine Hematology & Oncology
DX: C50.412 Malignant neoplasm of upper-outer quadrant of left female breast (principal); Z17.0 Estrogen receptor positive status [ER+]
CPT/HCPCS: 36415; 80053; 85025; 86300

== ENCOUNTER 2021-05-02 11:53 | Outpatient (CLI) | payer MEDICARE, SELFPAY ==
--- NOTE | ~2021-05-02 | MM_ITS ---
EXAMINATION: MM diagnostic wiliam BI w joel HISTORY: History of left breast cancer TECHNIQUE: Additional 3-D tomosynthesis images of the breasts were performed and synthetic 2-D images were generated. CAD analysis was submitted and interpreted. COMPARISON: Comparison to multiple prior studies sequentially, with oldest reviewed study dated 07/05. BREAST PARENCHYMAL COMPOSITION: Breast composed of scattered areas of fibroglandular density. FINDINGS: There are no suspicious masses, calcifications or architectural distortion in either breast to suggest malignancy. Stable distortion in the outer aspect of the left breast, consistent with pre vious lumpectomy. IMPRESSION: 1. No mammographic evidence for malignancy in either breast. 2. Routine yearly screening mammogram and regular clinical breast examination are recommended. BI-RADS Category 2: Benign finding(s). Reviewed, dictated and finalized at location A. IMPRESSION: 1. No mammographic evidence for malignancy in either breast. 2. Routine yearly screening mammogram and regular clinical breast examination a re recommended. BI-RADS Category 2: Benign finding(s).
== END 2021-05-02 11:54 | disposition home or self-care (01) ==
LOC: ANHIMG 11:56
PROVIDERS: PCP Internal Medicine; Visit Provider Internal Medicine Hematology & Oncology
DX: C50.412 Malignant neoplasm of upper-outer quadrant of left female breast (principal); Z17.0 Estrogen receptor positive status [ER+]
CPT/HCPCS: 77062; 77066; G0279

== ENCOUNTER 2021-05-10 10:16 | Outpatient (CLI) | payer MEDICARE, SELFPAY ==
--- NOTE | 2021-05-10 08:36 | NEURO_ITS ---
PATIENT NUMBER: [id number] IMPRESSION: # Complains of pain and numbness. History of left sided radiation therapy for malignancy.. # Mild left Carpal tunnel syndrome. # Normal needle exam particularly of left upper extremity. Nerve Conduction Studies Anti Sensory Summary Table Stim Site NR Peak (ms) P-T Amp (?V) Site1 Site2 Delta-P (ms) Dist (cm) Travis (m/s) Left Median Anti Sensory (2-3nd Digit) Wrist 3.9 54.5 Wrist 2-3nd Digit 3.9 14.0 36 Wrist 4.1 81.8 Wrist 2-3nd Digit 3.9 14.0 36 Right Median Anti Sensory (2-3nd Digit) Wrist 4.1 65.5 Wrist 2-3nd Digit 4.1 14.0 34 Wrist 3.5 71.6 Wrist 2-3nd Digit 4.1 14.0 34 Left Radial Anti Sensory (Base 1st Digit) Wrist 2.4 30.1 Wrist Base 1st Digit 2.4 0.0 Right Radial Anti Sensory (Base 1st Digit) Wrist 3.0 39.5 Wrist Base 1st Digit 3.0 0.0 Left Ulnar Anti Sensory (5th Digit) Wrist 3.6 61.4 Wrist 5th Digit 3.6 14.0 39 Right Ulnar Anti Sensory (5th Digit) Wrist 3.2 94.6 Wrist 5th Digit 3.2 14.0 44 Motor Summary Table Stim Site NR Onset (ms) O-P Amp (mV) Site1 Site2 Delta-0 (ms) Dist (cm) Travis (m/s) Left Median Motor (Abd Poll Brev) Wrist 4.5 3.2 Elbow Wrist 6.0 30.0 50 Elbow 10.5 2.9 Right Median Motor (Abd Poll Brev) Wrist 3.4 3.5 Elbow Wrist 5.4 29.0 54 Elbow 8.8 3.6 Left Ulnar Motor (Abd Dig Minimi) Wrist 3.0 5.2 A Elbow Wrist 5.8 32.0 55 A Elbow 8.8 3.4 Right Ulnar Motor (Abd Dig Minimi) Wrist 3.6 3.0 A Elbow Wrist 4.5 29.0 64 A Elbow 8.1 2.4 F Wave Studies NR F-Lat (ms) L-R F-Lat (ms) Left Median (Mrkrs) (Abd Poll Brev) 30.47 1.35 Right Median (Mrkrs) (Abd Poll Brev) 29.12 1.35 Left Ulnar (Mrkrs) (Abd Dig Min) 30.55 0.00 Right Ulnar (Mrkrs) (Abd Dig Min) 30.55 0.00 EMG Side Muscle Nerve Root Ins Act Fibs Amp Dur Recrt Comment Right 1stDorInt Ulnar C8-T1 Nml Nml Nml Nml Nml Right Ext Indicis Radial (Post Int) C7-8 Nml Nml Nml Nml Nml Right Ext Digitorum Radial (Post Int) C7-8 Nml Nml Nml Nml Nml Right BrachioRad Radial C5-6 Nml Nml Nml Nml Nml Right PronatorTeres Median C6-7 Nml Nml Nml Nml Nml Right Abd Poll Brev Median C8-T1 Nml Nml Nml Nml Nml Left 1stDorInt Ulnar C8-T1 Nml Nml Nml Nml Nml Left Ext Indicis Radial (Post Int) C7-8 Nml Nml Nml Nml Nml Left Ext Digitorum Radial (Post Int) C7-8 Nml Nml Nml Nml Nml Left BrachioRad Radial C5-6 Nml Nml Nml Nml Nml Left PronatorTeres Median C6-7 Nml Nml Nml Nml Nml Left Abd Poll Brev Median C8-T1 Nml Nml Nml Nml Nml Left Deltoid Axillary C5-6 Nml Nml Nml Nml Nml Right Deltoid Axillary C5-6 Nml Nml Nml Nml Nml Right Biceps Musculocut C5-6 Nml Nml Nml Nml Nml Left Biceps Musculocut C5-6 Nml Nml Nml Nml Nml Left Triceps Radial C6-7-8 Nml Nml Nml Nml Nml Right Triceps Radial C6-7-8 Nml Nml Nml Nml Nml Right ABD Dig Min Ulnar C8-T1 Nml Nml Nml Nml Nml Right Abd Poll Long Radial (Post Int) C7-8 Nml Nml Nml Nml Nml Left Abd Poll Long Radial (Post Int) C7-8 Nml Nml Nml Nml Nml MTDD
== END 2021-05-10 10:17 | disposition home or self-care (01) ==
PROVIDERS: PCP Internal Medicine; Visit Provider Internal Medicine
DX: M62.81 Muscle weakness (generalized) (principal); G56.02 Carpal tunnel syndrome, left upper limb
CPT/HCPCS: 95886; 95911

== ENCOUNTER 2021-07-14 08:06 | Outpatient (CLI) | payer MEDICARE, SELFPAY ==
[2021-07-14 09:21] LABS: Alanine Aminotransferase 18 U/L (4-35); Albumin Level 4.2 g/dL (3.5-5.1); Alkaline Phosphatase 71 U/L (38-126); Anion Gap 7 mmol/L (8-16); Aspartate Amino Transferase 30 U/L (14-36); Bilirubin,Total 0.4 mg/dL (0.2-1.3); Blood Urea Nitrogen 13 mg/dL (7-17); Calcium 9.6 mg/dL (8.4-10.2); Carbon Dioxide 29 mmol/L (22-30); Chloride 100 mmol/L (98-107); Cholesterol 126 mg/dL (0-200); Estimated Glomerular Filt Rate > 60; Glucose 104 mg/dL (65-110); HDL Direct 61 mg/dL; Potassium 3.7 mmol/L (3.4-5.0); Sodium 136 mmol/L (137-145); Triglycerides 76 mg/dL (<150)
[2021-07-14 09:32] LABS: LDL Cholesterol Direct 45 mg/dL
[2021-07-14 09:41] LABS: Hemoglobin A1C 5.2 % (<5.7)
[2021-07-22 09:19] LABS: Folic Acid 12.8 ng/mL (2.76->20)
== END 2021-07-14 08:07 | disposition home or self-care (01) ==
PROVIDERS: PCP Internal Medicine; Visit Provider Internal Medicine
DX: E78.2 Mixed hyperlipidemia (principal); I10 Essential (primary) hypertension; Z79.899 Other long term (current) drug therapy; E53.8 Deficiency of other specified B group vitamins; R73.09 Other abnormal glucose
CPT/HCPCS: 36415; 80053; 80061; 82607; 82746; 83036; 84439; 84443

== ENCOUNTER 2021-07-17 12:47 | Outpatient (NON) | payer MEDICARE, SELFPAY ==
[2021-07-17 13:40] LABS: Creatinine Urine 77.5 mg/dL
[2021-07-17 13:45] LABS: MALB Creatinine Ratio 39.7 mg/g (0-30); Microalbumin Urine Random 30.8 mg/L (0-16.7)
== END 2021-07-17 12:48 | disposition home or self-care (01) ==
PROVIDERS: PCP Internal Medicine; Visit Provider Internal Medicine
DX: Z51.81 Encounter for therapeutic drug level monitoring (principal); Z79.899 Other long term (current) drug therapy
CPT/HCPCS: 82043

== ENCOUNTER 2021-08-07 10:44 | Outpatient (CLI) | payer MEDICARE, SELFPAY ==
--- NOTE | ~2021-08-07 | MR_ITS ---
EXAMINATION: MR cervical spine wo con DATE: 08/07/2021 11:52 INDICATION: Other symptoms and signs involving the musculoskeletal system. Right hand tremor. TECHNIQUE: Magnetic resonance imaging (MRI) of the cervical spine was performed without intravenous c ontrast. Sequences included sagittal T2-weighted FSE, sagittal T2-weighted FS FSE, sagittal T1-weight ed FSE, axial MERGE, and axial T2-weighted FSE. COMPARISON: Cervical spine MRI 05/21/2005, radiographs 03/03/2021 FINDINGS: There is 12 degrees levoscoliosis of cervical spine. There is kyphosis of cervical spine. V ertebral body heights are normal. There is severely decreased disc height at C3-C4 and C4-C5 with int erbody fusion. There is severely decreased disc height at C5-C6 and moderately decreased disc height at C6-C7 and C7-T1 with endplate remodeling. The spinal cord signal intensity is normal. The followin g disc levels are specifically discussed: C2-C3: There is a central protrusion. There is mild bilateral uncovertebral joint osteoarthritis. The re is severe bilateral facet joint osteoarthritis. There is no neural foraminal stenosis. There is no central canal stenosis. C3-C4: The disc does not extend beyond the endplate margin. There is ankylosis of the uncovertebral j oints without hypertrophy. There is ankylosis of the facet joints with mild hypertrophy. There is mil d bilateral neural foraminal stenosis. There is no central canal stenosis. C4-C5: The disc does not extend beyond the endplate margin. There is ankylosis of the uncovertebral j oints with mild hypertrophy. There is mild left facet joint osteoarthritis. There is ankylosis of rig ht facet joint with moderate hypertrophy. There is mild right neural foraminal stenosis. There is mil d central canal stenosis. C5-C6: The disc is bulging. There is severe right and moderate left uncovertebral joint osteoarthriti s. There is severe right and mild left facet joint osteoarthritis. There is mild bilateral neural for aminal stenosis. There is mild central canal stenosis. C6-C7: The disc is bulging. There is mild bilateral uncovertebral joint osteoarthritis. There is mode rate right and mild left facet joint osteoarthritis. There is no neural foraminal stenosis. There is mild central canal stenosis. C7-T1: The disc is bulging. There is mild bilateral uncovertebral joint osteoarthritis. There is mode rate bilateral facet joint osteoarthritis. There is mild bilateral neural foraminal stenosis. There i s no central canal stenosis. IMPRESSION: 1. Severe cervical spondylosis. 2. Anterior and posterior fusion from C3 to C5. Reviewed, dictated and finalized at location A. STER
== END 2021-08-07 10:45 | disposition home or self-care (01) ==
LOC: ANHIMG 10:53
PROVIDERS: PCP Internal Medicine; Visit Provider Internal Medicine
DX: R29.898 Other symptoms and signs involving the musculoskeletal system (principal); R20.2 Paresthesia of skin; M47.812 Spondylosis without myelopathy or radiculopathy, cervical region; Z98.1 Arthrodesis status
CPT/HCPCS: 72141

== ENCOUNTER 2021-08-09 12:34 | Outpatient (CLI) | payer MEDICARE, SELFPAY ==
[2021-08-09 13:13] LABS: Basophils Percent Auto 0.8 % (0.2-1.2); Eosinophils Absolute Auto 0.1 K/mm3 (0-0.3); Eosinophils Percent Auto 2.5 % (0-4.4); Hematocrit 40.7 % (37.0-47.0); Hemoglobin 12.8 g/dL (12.0-15.0); Immature Granulocyte Absolute 0.01 K/mm3 (0.00-0.031); Immature Granulocyte Percent A 0.2 % (0-0.5); Lymphocytes Absolute Auto 1.34 K/mm3 (0.9-3.2); Lymphocytes Percent Auto 27.5 % (18.3-44.2); Mean Corpuscular HGB Conc 31.4 g/dl (32-36); Mean Corpuscular Hemoglobin 30.5 pg (26-34); Mean Corpuscular Volume 97.1 fl (80-100); Mean Platelet Volume 10.1 fl (7.4-10.4); Monocytes Absolute Auto 0.8 K/mm3 (0.1-0.6); Monocytes Percent Auto 16.2 % (2.6-8.5); Neutrophils Absolute Auto 2.6 K/mm3 (1.3-6.7); Neutrophils Percent Auto 52.8 % (45.5-73.1); Platelet Count Result 297 k/mm3 (150-375); Red Blood Count 4.19 M/mm3 (4.2-5.4); Red Cell Distribution Width 13.9 % (11.5-14.5); White Blood Count 4.9 K/mm3 (4.5-10.0)
[2021-08-09 15:10] LABS: Alanine Aminotransferase 21 U/L (4-35); Albumin Level 4.4 g/dL (3.5-5.1); Alkaline Phosphatase 77 U/L (38-126); Anion Gap 7 mmol/L (8-16); Aspartate Amino Transferase 29 U/L (14-36); Bilirubin,Total 0.4 mg/dL (0.2-1.3); Blood Urea Nitrogen 15 mg/dL (7-17); Calcium 9.9 mg/dL (8.4-10.2); Carbon Dioxide 31 mmol/L (22-30); Chloride 100 mmol/L (98-107); Estimated Glomerular Filt Rate 53; Glucose 88 mg/dL (65-110); Potassium 3.5 mmol/L (3.4-5.0); Sodium 138 mmol/L (137-145)
[2021-08-12 15:13] LABS: CA 15-3 14 U/mL (<32)
== END 2021-08-09 12:35 | disposition home or self-care (01) ==
PROVIDERS: PCP Internal Medicine; Visit Provider Internal Medicine Hematology & Oncology
DX: C50.412 Malignant neoplasm of upper-outer quadrant of left female breast (principal); Z17.0 Estrogen receptor positive status [ER+]
CPT/HCPCS: 36415; 80053; 85025; 86300

== ENCOUNTER 2021-10-02 13:59 | Outpatient (CLI) | payer MEDICARE, SELFPAY ==
--- NOTE | ~2021-10-02 | MR_ITS ---
EXAMINATION: MR lumbar spine wo con DATE: 10/02/2021 14:55 INDICATION: Right lower limb pain. Right-sided tremors. TECHNIQUE: Magnetic resonance imaging (MRI) of the lumbar spine was performed without intravenous con trast. Sequences included sagittal T2-weighted FSE, sagittal T2-weighted FS FSE, sagittal T1-weighted FSE, and axial T2-weighted FSE. COMPARISON: PET/CT 06/09/20 FINDINGS: There is 13 degrees levoscoliosis of lumbar spine. There is 4 mm anterolisthesis of L4 on L 5. Vertebral body heights are normal. There is moderately decreased disc height at L1-L2 and L2-L3, s everely decreased disc height at L3-L4, and moderately decreased disc height at L4-L5 and L5-S1 with endplate remodeling. The distal spinal cord signal intensity is normal. The conus medullaris is at L2 . 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 At S3, there is a chronic 3.5 x 3.6 x 1.7 cm nonaggressive lytic lesi on containing fat, likely a hemangioma. The following disc levels are specifically discussed: L1-L2: The disc is bulging. There is severe bilateral facet joint osteoarthritis. There is mild bilat eral neural foraminal stenosis. There is mild central canal stenosis. L2-L3: The disc is bulging. There is severe bilateral facet joint osteoarthritis. There is mild bilat eral neural foraminal stenosis. There is mild central canal stenosis. L3-L4: The disc is bulging and has an annular fissure. There is severe bilateral facet joint osteoart hritis. There is mild bilateral neural foraminal stenosis. There is mild central canal stenosis. L4-L5: The disc is bulging and has an annular fissure. There is severe bilateral facet joint osteoart hritis. There is mild bilateral neural foraminal stenosis. There is mild central canal stenosis. L5-S1: The disc is bulging and has an annular fissure. There is severe bilateral facet joint osteoart hritis. There is mild bilateral neural foraminal stenosis. There is mild central canal stenosis. IMPRESSION: 1. Severe lumbar spondylosis. 2. Lumbar levoscoliosis. Reviewed, dictated and finalized at location A. OLOGY TECHNOLOGIST
--- NOTE | ~2021-10-02 | MR_ITS ---
EXAMINATION: MR brain/brain stem wo con DATE: 10/02/2021 14:55 INDICATION: Right hand paresthesias. Right leg pain. TECHNIQUE: Magnetic resonance imaging (MRI) of the brain and brainstem was performed without intraven ous contrast. Sequences included sagittal and axial T1-weighted FSE, axial diffusion-weighted FS EPI, axial T2*-weighted GRE, axial T2-weighted FLAIR Propeller, and axial T2-weighted Propeller. Apparent diffusion coefficient (ADC) maps were created. COMPARISON: Brain MRI 06/16/2018 FINDINGS: There are scattered areas of nonspecific increased T2-weighted signal intensity in the cere bral white matter and federico, which is within normal limits for the patient's age. Again seen is a 12 x 3 mm extra-axial mass overlying left frontal lobe that enhanced on the prior MRI, consistent with a meningioma. There is no intracranial hemorrhage or acute infarction. The ventricles are normal in siz e. The paranasal sinuses are clear. The mastoid air cells are normal. There are likely changes of ocu lar lens replacement surgeries. IMPRESSION: 1. Stable 12 x 3 mm meningioma overlying left frontal lobe. Reviewed, dictated and finalized at location A. SSMENT CONSULTANT
== END 2021-10-02 14:00 | disposition home or self-care (01) ==
LOC: ANHIMG 14:00
PROVIDERS: PCP Internal Medicine
DX: R20.2 Paresthesia of skin (principal); M79.604 Pain in right leg; M47.816 Spondylosis without myelopathy or radiculopathy, lumbar region; M41.86 Other forms of scoliosis, lumbar region; D32.0 Benign neoplasm of cerebral meninges
CPT/HCPCS: 70551; 72148

== ENCOUNTER 2021-11-23 09:11 | Outpatient (CLI) | payer MEDICARE, SELFPAY ==
[2021-11-23 13:08] LABS: Basophils Percent Auto 0.7 % (0.2-1.2); Eosinophils Absolute Auto 0.1 K/mm3 (0-0.3); Eosinophils Percent Auto 1.7 % (0-4.4); Hematocrit 41.7 % (37.0-47.0); Hemoglobin 13.4 g/dL (12.0-15.0); Immature Granulocyte Absolute 0.01 K/mm3 (0.00-0.031); Immature Granulocyte Percent A 0.2 % (0-0.5); Lymphocytes Absolute Auto 1.12 K/mm3 (0.9-3.2); Lymphocytes Percent Auto 20.7 % (18.3-44.2); Mean Corpuscular HGB Conc 32.1 g/dl (32-36); Mean Corpuscular Hemoglobin 31.2 pg (26-34); Mean Platelet Volume 10.7 fl (7.4-10.4); Monocytes Absolute Auto 0.8 K/mm3 (0.1-0.6); Neutrophils Absolute Auto 3.3 K/mm3 (1.3-6.7); Neutrophils Percent Auto 61.7 % (45.5-73.1); Platelet Count Result 328 k/mm3 (150-375); Red Cell Distribution Width 14.2 % (11.5-14.5); White Blood Count 5.4 K/mm3 (4.5-10.0)
[2021-11-23 13:32] LABS: Hemoglobin A1C 5.3 % (<5.7)
[2021-11-23 13:33] LABS: Free T4 Free Thyroxine 1.16 ng/mL (0.78-2.19); LDL Cholesterol Direct 45 mg/dL; Vitamin D 25 Hydroxy 51.9 ng/mL
[2021-11-23 13:35] LABS: Alanine Aminotransferase 20 U/L (4-35); Albumin Level 4.6 g/dL (3.5-5.1); Alkaline Phosphatase 79 U/L (38-126); Anion Gap 4 mmol/L (8-16); Aspartate Amino Transferase 82 U/L (14-36); Bilirubin,Total 0.6 mg/dL (0.2-1.3); Blood Urea Nitrogen 16 mg/dL (7-17); Calcium 9.2 mg/dL (8.4-10.2); Carbon Dioxide 31 mmol/L (22-30); Chloride 101 mmol/L (98-107); Cholesterol 159 mg/dL (0-200); Estimated Glomerular Filt Rate > 60; Glucose 104 mg/dL (65-110); HDL Direct 73 mg/dL; Potassium 3.4 mmol/L (3.4-5.0); Sodium 136 mmol/L (137-145); Triglycerides 72 mg/dL (<150)
== END 2021-11-23 09:12 | disposition home or self-care (01) ==
LOC: ANHWCLAB 09:15
PROVIDERS: PCP Internal Medicine; Referring Provider Internal Medicine; Visit Provider Internal Medicine
DX: R73.09 Other abnormal glucose (principal); Z51.81 Encounter for therapeutic drug level monitoring; Z79.899 Other long term (current) drug therapy; E55.9 Vitamin D deficiency, unspecified; I10 Essential (primary) hypertension
CPT/HCPCS: 36415; 80053; 80061; 82306; 83036; 84439; 84443; 85025

== ENCOUNTER 2021-12-22 08:48 | Outpatient (CLI) | payer MEDICARE, SELFPAY ==
[2021-12-22 09:16] LABS: Alanine Aminotransferase 18 U/L (6-35); Albumin Level 4.2 g/dL (3.5-5.1); Alkaline Phosphatase 71 U/L (38-126); Aspartate Amino Transferase 31 U/L (14-36); Bilirubin,Total 0.6 mg/dL (0.2-1.3)
[2021-12-22 10:36] LABS: Hepatitis B Surface Antigen Negative (Negative)
[2021-12-22 10:42] LABS: HAV RESULT Negative (Negative); Hepatitis B Core IgM Result Negative (Negative)
[2021-12-22 10:53] LABS: Hepatitis C Virus Antibody Negative (Negative)
[2021-12-24 13:20] LABS: GGT 9 U/L (3-65)
== END 2021-12-22 08:49 | disposition home or self-care (01) ==
PROVIDERS: PCP Internal Medicine; Visit Provider Internal Medicine
DX: R79.89 Other specified abnormal findings of blood chemistry (principal); R10.11 Right upper quadrant pain; Z51.81 Encounter for therapeutic drug level monitoring; Z79.899 Other long term (current) drug therapy
CPT/HCPCS: 36415; 80074; 80076; 82977

== ENCOUNTER 2022-02-06 09:22 | Outpatient (CLI) | payer MEDICARE, SELFPAY ==
[2022-02-06 09:58] LABS: Basophils Absolute Auto 0.1 K/mm3 (0.0-0.1); Eosinophils Absolute Auto 0.1 K/mm3 (0-0.3); Eosinophils Percent Auto 2.4 % (0-4.4); Hemoglobin 13.6 g/dL (12.0-15.0); Immature Granulocyte Absolute 0.01 K/mm3 (0.00-0.031); Immature Granulocyte Percent A 0.2 % (0-0.5); Lymphocytes Absolute Auto 1.28 K/mm3 (0.9-3.2); Mean Corpuscular HGB Conc 32.4 g/dl (32-36); Mean Corpuscular Hemoglobin 30.8 pg (26-34); Mean Corpuscular Volume 95.2 fl (80-100); Mean Platelet Volume 9.7 fl (7.4-10.4); Monocytes Absolute Auto 0.8 K/mm3 (0.1-0.6); Monocytes Percent Auto 16.7 % (2.6-8.5); Neutrophils Absolute Auto 2.6 K/mm3 (1.3-6.7); Neutrophils Percent Auto 53.7 % (45.5-73.1); Platelet Count Result 277 k/mm3 (150-375); Red Blood Count 4.41 M/mm3 (4.2-5.4); Red Cell Distribution Width 13.8 % (11.5-14.5); White Blood Count 4.9 K/mm3 (4.5-10.0)
[2022-02-06 14:03] LABS: Alanine Aminotransferase 22 U/L (6-35); Albumin Level 4.1 g/dL (3.5-5.1); Alkaline Phosphatase 73 U/L (38-126); Anion Gap 3 mmol/L (8-16); Aspartate Amino Transferase 31 U/L (14-36); Bilirubin,Total 0.3 mg/dL (0.2-1.3); Blood Urea Nitrogen 16 mg/dL (7-17); Calcium 9.3 mg/dL (8.4-10.2); Carbon Dioxide 33 mmol/L (22-30); Chloride 102 mmol/L (98-107); Estimated Glomerular Filt Rate 60; Glucose 102 mg/dL (65-110); Potassium 4.2 mmol/L (3.4-5.0); Sodium 138 mmol/L (137-145)
[2022-02-09 14:43] LABS: CA 15-3 16 U/mL (<32)
== END 2022-02-06 09:23 | disposition home or self-care (01) ==
LOC: ANHLAB 09:26
PROVIDERS: PCP Internal Medicine; Visit Provider Internal Medicine Hematology & Oncology
DX: C50.412 Malignant neoplasm of upper-outer quadrant of left female breast (principal); Z17.0 Estrogen receptor positive status [ER+]
CPT/HCPCS: 36415; 80053; 85025; 86300

== ENCOUNTER 2022-04-17 12:25 | Outpatient (NON) | payer MEDICARE, SELFPAY ==
[2022-04-17 12:44] LABS: Hematocrit 34.2 % (35.0-42.0); Hemoglobin 10.9 g/dL (11.7-13.8); Mean Corpuscular HGB Conc 31.9 g/dL (32.0-36.0); Mean Corpuscular Hemoglobin 32.6 pg (27.0-31.0); Mean Corpuscular Volume 102.4 fL (78.0-102.0); Mean Platelet Volume 10.2 fl (9.2-11.8); Platelet Count Result 505 K/mm3 (150-420); Red Blood Count 3.34 M/mm3 (4.20-5.40); Red Cell Distribution Width 17.2 % (11.6-14.4); White Blood Count 4.8 K/mm3 (4.8-10.8)
[2022-04-17 13:03] LABS: Band Neutrophils Percent 0 % (0-6); Eosinophils Absolute Manual 0.09 K/mm3 (0.02-0.5); Eosinophils Percent Manual 2 % (1-6); Lymphocytes Percent Manual 25 % (18-44); Monocytes Absolute Manual 0.72 K/mm3 (0.1-0.90); Monocytes Percent Manual 15 % (3-9); Neutrophils Absolute Manual 2.78 K/mm3 (1.7-7.2); Neutrophils Percent Manual 58 % (46-73); Total Cells Counted 100
[2022-04-17 13:22] LABS: Cholesterol 129 mg/dL (0-200); Free T4 Free Thyroxine 1.05 ng/dL (0.76-1.46); HDL Direct 57 mg/dL (40-60); LDL Cholesterol Calculated 59 mg/dL (<130); Thyroid Stimulating Hormone 1.71 uIU/mL (0.36-3.74); Triglycerides 66 mg/dL (0-150)
[2022-04-17 13:26] LABS: Hemoglobin A1C 5.2 % (<5.7)
[2022-04-17 14:04] LABS: Platelet Estimate Adequate (Adequate)
== END 2022-04-17 12:26 | disposition home or self-care (01) ==
LOC: CHSHH 12:29
PROVIDERS: PCP Internal Medicine; Visit Provider Internal Medicine
DX: E78.2 Mixed hyperlipidemia (principal); R79.89 Other specified abnormal findings of blood chemistry; R73.09 Other abnormal glucose; I10 Essential (primary) hypertension
CPT/HCPCS: 36415; 80061; 83036; 84439; 84443; 85025

== ENCOUNTER 2022-04-24 11:40 | Outpatient (CLI) | payer MEDICARE, SELFPAY ==
[2022-04-24 12:27] LABS: Add Urine Microscopic? YES; Appearance Urine Cloudy (Clear); Bilirubin Urine Negative (Negative); Blood Urine Trace-Intact (Negative); Color Urine Yellow (Yellow); Glucose Urine UA Negative (Negative); Ketones Urine Negative (Negative); Leukocyte Esterase Ur 3+ LEU/UL (NEGATIVE); Nitrate Urine Negative (Negative); Protein Urine Negative (Negative); Urobilinogen Urine 0.2 mg/dL (<2.0)
[2022-04-24 12:35] LABS: Squamous Epithelial Cell Urine Few /hpf (Few); WBC Urine >75 /hpf (0-3)
== END 2022-04-24 11:41 | disposition home or self-care (01) ==
PROVIDERS: PCP Internal Medicine; Visit Provider Internal Medicine
DX: R30.0 Dysuria (principal)
CPT/HCPCS: 81001; 87077; 87086; 87186

== ENCOUNTER 2022-04-30 10:55 | Outpatient (RCR) | payer MEDICARE, SELFPAY ==
--- NOTE | 2022-04-30 12:58 | PTOPEVAL1 ---
Assessment and note entered by Deshawn Burt Evaluation Information Assessment Status Evaluation Diagnosis right clavicle fx Onset 03/27/22 Subjective Information Pt. reports that she fell on 03/27/22 onto her right shoulder. She reports that she fell down steps in her home, but does not recall how she fell. She did not have to have surgery on her collarbone. She states that she was wearing a sling up until last week. She states that she notices stiffness in the right shoulder. She reports that she cannot reach overhead. She states that she is right handed. 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 She reports that her goal is to improve her shoulder mobility and right arm strength. Reported Pain Level Pain Score 2: Self Report Assessment PT Clinical Summary Pt. is an 82 year old female who enters the clinic post right clavicle fx. She presents with impaired ROM, impaired strength, pain and functional decline. Continued treatment is indicated in order to improve these areas to allow the pt. to be able to complete all IADL's with improved comfort and efficiency. Plan of Care Interventions Electrical Stimulation,Hot Pack/Cold Pack,Manual Therapy,Therapeutic Activities,Therapeutic Exercise PT Services Indicated Yes Treatment Frequency and 2x/week x 12 visits Duration These treatments will address the objective and functional deficits as defined above. The patient will be advanced safely and appropriately in order for the patient to progress towards his/her prior level of function. Additional exercises will be introduced and as well as a comprehensive home exercise program upon discharge, if needed, ?to ensure carryover of functional gains achieved in the clinic. This treatment plan has been reviewed and agreement upon by the patient.
--- NOTE | 2022-06-13 21:38 | BUPTOPEVAL1 ---
Assessment and note entered by JT File, PT Evaluation Information Assessment Status Discharge Diagnosis right clavicle fx Onset 03/27/22 Subjective Information patient reports she feels Good this date. she reports she is very happy with her ability to use the shoulder. she reports she is back to doing all activities she was doing prior to her injury. she reports she is compliant with her HEP at home . Reported Pain Level Pain Score 0: Self Report Assessment PT Clinical Summary mrs. gomez presents to skilled PT services with no pain, improved rom, and improved funcitonal reach/use of the R hand. she has met over 50% of goals, and nearly met all others. as of this date, she will DC skilled PT and continue with HEP at home to further strengthen the R shoulder. Plan of Care Interventions Electrical Stimulation,Hot Pack/Cold Pack,Manual Therapy,Therapeutic Activities,Therapeutic Exercise PT Services Indicated Yes Treatment Frequency and DC to independent HEP Duration These treatments will address the objective and functional deficits as defined above. The patient will be advanced safely and appropriately in order for the patient to progress towards his/her prior level of function. Additional exercises will be introduced and as well as a comprehensive home exercise program upon discharge, if needed, ?to ensure carryover of functional gains achieved in the clinic. This treatment plan has been reviewed and agreement upon by the patient.
== END 2022-06-06 18:00 | disposition home or self-care (01) ==
LOC: CHSPT 10:55
DX: S42.001D Fracture of unspecified part of right clavicle, subsequent encounter for fracture with routine healing (principal)
CPT/HCPCS: 97110; 97140; 97161

== ENCOUNTER 2022-05-24 12:34 | Outpatient (CLI) | payer MEDICARE, SELFPAY ==
[2022-05-24 13:23] LABS: Add Urine Microscopic? YES; Appearance Urine Clear (Clear); Bilirubin Urine Negative (Negative); Blood Urine Negative (Negative); Color Urine Yellow (Yellow); Glucose Urine UA Negative (Negative); Ketones Urine Negative (Negative); Leukocyte Esterase Ur Negative LEU/UL (NEGATIVE); Nitrate Urine Negative (Negative); Protein Urine Negative (Negative); RBC Urine 0-2 /hpf (0-2); Specific Grav Ur 1.014 (1.001-1.035); Squamous Epithelial Cell Urine Rare /hpf (Few); Urobilinogen Urine Negative mg/dL (<2.0); WBC Urine 0-3 /hpf (0-3)
== END 2022-05-24 12:35 | disposition home or self-care (01) ==
LOC: ANHLAB 12:39
PROVIDERS: PCP Internal Medicine; Visit Provider Internal Medicine
DX: N39.0 Urinary tract infection, site not specified (principal); R30.0 Dysuria
CPT/HCPCS: 81001; 87086

== ENCOUNTER 2022-07-23 10:52 | Outpatient (CLI) | payer MEDICARE, SELFPAY ==
--- NOTE | ~2022-07-23 | MM_ITS ---
EXAMINATION: MM screening wiliam BI w joel HISTORY: Screening TECHNIQUE: Craniocaudal and mediolateral oblique 3-D tomosynthesis images were obtained and synthetic 2-D images were generated. CAD analysis was submitted and interpreted. COMPARISON: Comparison to multiple prior studies sequentially, with oldest reviewed study dated 05/06. BREAST PARENCHYMAL COMPOSITION: The breasts are heterogeneously dense, which may obscure small masses . FINDINGS: There are benign-appearing areas of fat necrosis in both breasts from previous biopsies. Th ere is no evidence of suspicious mass, calcification, or architectural distortion to suggest malignan cy in either breast. There has been no suspicious interval change. IMPRESSION: 1. No mammographic evidence of malignancy. 2. Recommend routine screening mammography in one year. BI-RADS Category 2: Benign finding(s). Reviewed, dictated and finalized at location A. STRATION CLERK
== END 2022-07-23 10:53 | disposition home or self-care (01) ==
LOC: ANHIMG 10:53
PROVIDERS: PCP Internal Medicine; Visit Provider Internal Medicine Hematology & Oncology
DX: Z12.31 Encounter for screening mammogram for malignant neoplasm of breast (principal)
CPT/HCPCS: 77063; 77067

== ENCOUNTER 2022-08-07 09:37 | Outpatient (CLI) | payer MEDICARE, SELFPAY ==
[2022-08-07 10:27] LABS: Basophils Absolute Auto 0.1 K/mm3 (0.0-0.1); Basophils Percent Auto 1.1 % (0.2-1.2); Eosinophils Absolute Auto 0.1 K/mm3 (0-0.3); Eosinophils Percent Auto 1.7 % (0-4.4); Hematocrit 43.5 % (37.0-47.0); Hemoglobin 14.1 g/dL (12.0-15.0); Immature Granulocyte Absolute 0.01 K/mm3 (0.00-0.031); Immature Granulocyte Percent A 0.2 % (0-0.5); Lymphocytes Absolute Auto 1.28 K/mm3 (0.9-3.2); Lymphocytes Percent Auto 23.9 % (18.3-44.2); Mean Corpuscular HGB Conc 32.4 g/dl (32-36); Mean Corpuscular Hemoglobin 31.1 pg (26-34); Mean Platelet Volume 10.4 fl (7.4-10.4); Monocytes Absolute Auto 0.7 K/mm3 (0.1-0.6); Monocytes Percent Auto 12.5 % (2.6-8.5); Neutrophils Absolute Auto 3.3 K/mm3 (1.3-6.7); Neutrophils Percent Auto 60.6 % (45.5-73.1); Platelet Count Result 321 k/mm3 (150-375); Red Blood Count 4.53 M/mm3 (4.2-5.4); White Blood Count 5.4 K/mm3 (4.5-10.0)
[2022-08-07 19:42] LABS: Hemoglobin A1C 5.3 % (<5.7)
[2022-08-07 20:36] LABS: Free T4 Free Thyroxine 1.18 ng/mL (0.78-2.19)
[2022-08-07 20:37] LABS: Vitamin D 25 Hydroxy 42.1 ng/mL
[2022-08-07 21:11] LABS: Alanine Aminotransferase 22 U/L (6-35); Albumin Level 4.8 g/dL (3.5-5.1); Alkaline Phosphatase 95 U/L (38-126); Anion Gap 11 mmol/L (8-16); Aspartate Amino Transferase 30 U/L (14-36); Bilirubin,Total 0.6 mg/dL (0.2-1.3); Blood Urea Nitrogen 14 mg/dL (7-17); Calcium 9.8 mg/dL (8.4-10.2); Carbon Dioxide 27 mmol/L (22-30); Chloride 102 mmol/L (98-107); Cholesterol 185 mg/dL (0-200); Estimated Glomerular Filt Rate 60; Glucose 78 mg/dL (65-110); HDL Direct 80 mg/dL; Potassium 3.8 mmol/L (3.4-5.0); Sodium 140 mmol/L (137-145); Triglycerides 107 mg/dL (<150)
[2022-08-07 21:22] LABS: LDL Cholesterol Direct 61 mg/dL
[2022-08-07 22:22] LABS: Folic Acid 16.1 ng/mL (2.76->20)
[2022-08-09 10:27] LABS: Methylmalonic Acid 175 nmol/L (87-318)
[2022-08-10 14:34] LABS: CA 15-3 18 U/mL (<32)
== END 2022-08-07 09:38 | disposition home or self-care (01) ==
PROVIDERS: PCP Internal Medicine; Visit Provider Internal Medicine Hematology & Oncology
DX: R73.09 Other abnormal glucose (principal); C50.412 Malignant neoplasm of upper-outer quadrant of left female breast; G25.81 Restless legs syndrome; M85.80 Other specified disorders of bone density and structure, unspecified site; E53.9 Vitamin B deficiency, unspecified; Z79.899 Other long term (current) drug therapy; E78.2 Mixed hyperlipidemia; I10 Essential (primary) hypertension
CPT/HCPCS: 36415; 80053; 80061; 82306; 82746; 83036; 83921; 84439; 84443; 85025; 86300

== ENCOUNTER 2022-08-09 19:03 | Inpatient (IN) | payer MEDICARE, SELFPAY ==
--- NOTE | ~2022-08-09 | US_ITS ---
EXAMINATION: US abdomen limited DATE: 08/10/2022 08:22 INDICATION: Right upper quadrant abdominal pain. TECHNIQUE: Multiple grayscale and Doppler ultrasound images of the abdomen were obtained. COMPARISON: CT abdomen and pelvis 08/09/2022 FINDINGS: The visualized portions of the head, body, and tail of the pancreas are normal. The liver i s normal without focal lesion. No liver surface nodularity. There is normal flow in main portal vein. The gallbladder is normal in size. No gallstones or gallbladder wall thickening. There is no sonogra phic Rodriguez sign. The common duct is normal and measures 3 mm. IMPRESSION: 1. Normal right upper quadrant ultrasound. Reviewed, dictated and finalized at location A. OPRACTIC PHYSICIAN
--- NOTE | ~2022-08-09 | XR_ITS ---
EXAMINATION: XR abdomen/kub 1V INDICATION: Possible cecal volvulus, abnormal CT scan TECHNIQUE: Supine views of the abdomen were obtained on 2 radiographs. COMPARISON: 08/10/[address] from yesterday FINDINGS: Patient presents for water-soluble enema to evaluate for cecal volvulus. Auricular Detoxification Specialist image demons trates a large volume of stool throughout the transverse and descending colon. It is felt that the vo lume of stool in the colon would likely prevent retrograde filling of the cecum with contrast materia l for evaluation of possible volvulus. Contrast from yesterday's CT examination partially opacifies t he urinary bladder. There are no dilated loops of bowel. The nasogastric tube is in the stomach. IMPRESSION: 1. Constipation. Reviewed, dictated and finalized at location A. CASTING MACHINE OPERATOR IMPRESSION: 1. Constipation.
--- NOTE | ~2022-08-09 | XR_ITS ---
EXAMINATION: XR abdomen NG/feed tube insert DATE: 08/10/2022 11:31 INDICATION: Nasogastric tube placement. TECHNIQUE: An upright view of the abdomen was obtained. COMPARISON: CT abdomen and pelvis 08/09/2022 FINDINGS: The lower abdomen is excluded. The nasogastric tube tip is in the stomach. Calcified left l jimi nodules are consistent with old granulomatous disease. IMPRESSION: 1. Nasogastric tube tip in the stomach. Reviewed, dictated and finalized at location A. NG INSPECTOR
--- NOTE | ~2022-08-09 | CT_ITS ---
CT Abdomen and Pelvis with contrast. History: Abdominal pain. Spiral CT of the abdomen and pelvis was performed after the administration of intravenous contrast. 1 00 cc of Omnipaque 350 was administered intravenously without complication. Dose reduction technique was used on this scan by utilizing automated exposure control and iterative reconstruction technique. The dose-length product (DLP) was 479.37 mGy-cm. COMPARISON: PET/CT dated 06/09/2020 Findings: Scans through the lung bases demonstrate calcified left basilar pulmonary nodules. Multiple subcentimeter subpleural nodules in the right lung base are present, similar to prior exam.. The liver, spleen, pancreas, gallbladder, and adrenal glands are within normal limits. Bilateral jose luis l cysts noted. 1 cm densely calcified splenic artery aneurysm noted near the splenic hilum. No eviden ce of aortic aneurysm. No lymphadenopathy is seen. There are multiple mildly dilated loops of distal small bowel, with equalization of contents. There i s apparent focal high-grade luminal narrowing at the terminal ileum (axial image 94). The cecum is al so medially directed and distended, with suggestion of focal area of luminal narrowing at the ascendi ng colon or proximal transverse colon. More distal large bowel is filled with stool but not distended . Images through the pelvis were performed. Urinary bladder unremarkable. Patient is status post hyster ectomy. No pelvic mass identified. No ascites is seen. Impression: Findings suggestive of small bowel obstruction with suspected transition point of the terminal ileum. Mobile, distended cecum, with possible area of luminal narrowing at the ascending colon and proximal transverse colon. Consider cecal bascule versus any possibility of poorly delineated obstructing mass . Consider colonoscopy or contrast enema study to further evaluate. Reviewed, dictated and finalized at [facility]. 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 Mobile, distended cecum, with possible area of luminal narrowing at the ascendi ng colon and proximal transverse colon. Consider cecal bascule versus any possi bility of poorly delineated obstructing mass. Consider colonoscopy or contrast enema study to further evaluate.
[2022-08-09 19:15] VITALS: BP 175/95; PULSE 93; RESP 16; TEMP 36.8; O2SAT 99
[2022-08-09 19:28] LABS: Basophils Percent Auto 0.5 % (0.2-1.2); Eosinophils Absolute Auto 0.1 K/mm3 (0-0.3); Eosinophils Percent Auto 0.6 % (0-4.4); Hematocrit 43.2 % (37.0-47.0); Hemoglobin 14.1 g/dL (12.0-15.0); Immature Granulocyte Absolute 0.03 K/mm3 (0.00-0.031); Immature Granulocyte Percent A 0.3 % (0-0.5); Lymphocytes Absolute Auto 1.12 K/mm3 (0.9-3.2); Lymphocytes Percent Auto 12.7 % (18.3-44.2); Mean Corpuscular HGB Conc 32.6 g/dl (32-36); Mean Corpuscular Hemoglobin 31.1 pg (26-34); Mean Corpuscular Volume 95.2 fl (80-100); Mean Platelet Volume 9.5 fl (7.4-10.4); Monocytes Absolute Auto 1.1 K/mm3 (0.1-0.6); Monocytes Percent Auto 12.4 % (2.6-8.5); Neutrophils Absolute Auto 6.5 K/mm3 (1.3-6.7); Neutrophils Percent Auto 73.5 % (45.5-73.1); Platelet Count Result 317 k/mm3 (150-375); Red Blood Count 4.54 M/mm3 (4.2-5.4); White Blood Count 8.8 K/mm3 (4.5-10.0)
[2022-08-09 19:39] LABS: Alanine Aminotransferase 20 U/L (6-35); Albumin Level 4.7 g/dL (3.5-5.1); Alkaline Phosphatase 98 U/L (38-126); Anion Gap 10 mmol/L (8-16); Aspartate Amino Transferase 24 U/L (14-36); Bilirubin,Total 0.5 mg/dL (0.2-1.3); Blood Urea Nitrogen 15 mg/dL (7-17); Calcium 9.4 mg/dL (8.4-10.2); Carbon Dioxide 27 mmol/L (22-30); Chloride 100 mmol/L (98-107); Estimated CRCL calculation 40 ml/min; Estimated Glomerular Filt Rate > 60; Glucose 113 mg/dL (65-110); Lipase 65 U/L (23-300); Potassium 3.8 mmol/L (3.4-5.0); Sodium 137 mmol/L (137-145)
--- NOTE | 2022-08-09 21:24 | PC.NURSE ---
Pt's daughter reports to this RN that pt has had an episode of vomiting with streaks of blood and she has been incontinent of urine so she is unable to provide urine sample.
[2022-08-09 23:02] VITALS: BP 167/79; PULSE 86; RESP 22; O2SAT 100
[2022-08-09] MEDS: ONDANSETRON INJ 4 MG/2 ML VIAL IV PUSH (23:18)
[2022-08-09] MEDS: SODIUM CHLORIDE 0.9% IV 1,000 ML 999 ML IV CONT (23:18)
--- NOTE | 2022-08-09 23:47 | ED.ABDPAIN ---
HPI - Abdominal Pain General Chief Complaint: Abdominal Pain Stated Complaint: abd cramps/pain Time Seen by Provider: 08/09/22 22:34 Source: patient and family Mode of arrival: ambulatory Limitations: no limitations History of Present Illness HPI narrative: This 82 year old female patient with significant PMH of Breast CA that she is seeing Oncology for, chronic constipation that requires daily suppository to have BM, lung nodule, Right carotid artery stenosis, TIA, A-fib, HTN, HLD, GERD presents to the ER with complaints of having abdominal pain for the past two days and N/V that started today. She endorses having specks of Bright red blood in her vomitus this evening. She also has a history of chronic constipation and states she has to use a suppository daily in the morning to get her bowels to move. She last used one this morning and had a small BM that was hard round balls. She denies any melena or hematochezia. Her pain is in the RUQ of the abdomen and is described as a sharp pain that is not exacerbated or relieved by anything. Related Data Home Medications Medication Instructions Recorded Confirmed vitamin E (dl, acetate) 180 mg 400 unit PO DAILY 06/15/19 05/28/22 (400 unit) capsule calcium carbonate 600 mg-vitamin 1 tablet PO BID 08/27/19 05/28/22 D3 10 mcg (400 unit) tablet (Calcium 600 + D(3)) anastrozole 1 mg tablet 1 mg PO DAILY 12/07/19 05/28/22 vit C 250 mg-vit E 90 mg-zinc 40 1 tablet PO BID 01/13/20 05/28/22 mg-copper 1 [id number] capsule (PreserVision AREDS-2) famotidine 20 mg tablet (Pepcid AC) 20 mg PO DAILY 05/30/20 05/28/22 diltiazem HCl 240 mg 240 mg PO DAILY 05/25/22 05/28/22 capsule,extended release 24 hr Allergies Allergy/AdvReac Type Severity Reaction Status Date / Time almotriptan [From Axert] AdvReac Unknown Nausea and Verified 05/24/22 11:35 Vomiting cefaclor [From Ceclor] AdvReac Unknown Nausea and Verified 05/24/22 11:35 Vomiting cefuroxime AdvReac Unknown Nausea and Verified 05/24/22 11:35 Vomiting levofloxacin AdvReac Unknown Nausea And Verified 05/24/22 11:35 Vomiting morphine AdvReac Unknown Nausea and Verified 05/24/22 11:35 Vomiting Review of Systems Review of Systems: All systems reviewed & are unremarkable except as noted in HPI and below [facility] Past Medical History Medical History A-fib Abnormal finding of blood chemistry, unspecified Ankle pain, right Arm paresthesia, right Ascending aortic aneurysm Benign essential hypertension Bloody discharge from nipple BMI 22.0-22.9, adult BMI 23.0-23.9, adult BMI 24.0-24.9, adult BMI 26.0-26.9,adult BMI 28.0-28.9,adult Breast pain Cervical spondylosis Chronic recurrent sinusitis Chronic sinusitis Clavicle fracture Cognitive changes Colon cancer screening CTS (carpal tunnel syndrome) Decreased marine geologist strength Dizziness DJD (degenerative joint disease) Dysuria Ear pain Ectatic aorta Elevated blood protein Elevated glucose Elevated LFTs Encounter for Medicare annual wellness exam Encounter for routine adult health examination with abnormal findings Encounter for routine adult health examination without abnormal findings Fall FH: ANDRE-BSO (total abdominal hysterectomy and bilateral salpingo-oophorectomy) Follow up Fullness of breast GERD (gastroesophageal reflux disease) GERD (gastroesophageal reflux disease) Glaucoma History of breast cancer History of hypothyroidism History of TIA (transient ischemic attack) History of trigeminal neuralgia Underwent surgical treatment in 1989 Hospital discharge follow-up Hx of colonic polyps Hyperlipidemia Hyperlipidemia Ingrown toenail Irregular heart beat Lung nodule Macular degeneration Macular degeneration Need for second dose of COVID-19 vaccine Neural foraminal stenosis of cervical spine On snf drug therapy Orthostatic hypotension Osteopenia Otitis media Right arm weak
[2022-08-09] MEDS: PANTOPRAZOLE SODIUM IV 40 MG VIAL IV PUSH (23:51)
[2022-08-09] MEDS: DICYCLOMINE HCL INJ 20 MG/2 ML VIAL IM (23:51)
[2022-08-10] VITALS (8 sets, daily range): BP systolic 122–191; BP diastolic 61–83; PULSE 83–104; RESP 16–24; TEMP 36.6–37; O2SAT 95–99; BMI 22.6
[2022-08-10 00:18] LABS: Add Urine Microscopic? YES; Appearance Urine Clear (Clear); Bilirubin Urine Negative (Negative); Blood Urine Negative (Negative); Color Urine Yellow (Yellow); Glucose Urine UA Negative (Negative); Ketones Urine Negative (Negative); Leukocyte Esterase Ur 1+ LEU/UL (Negative); Nitrate Urine Negative (Negative); Protein Urine Negative (Negative); Urobilinogen Urine 0.2 mg/dL (<2.0)
[2022-08-10 00:20] LABS: RBC Urine 0-2 /hpf (0-2); Squamous Epithelial Cell Urine Rare /hpf (Few)
[2022-08-10] MEDS: hydrALAZINE HCL 20 MG/ML VIAL 10 MG IV PUSH (02:02)
--- NOTE | 2022-08-10 04:28 | PC.NURSE ---
After retaining approx 900ml of soap suds enema for 45 minutes pt is still unable to move her bowels. States she uses suppositories at home which are usually effective.
[2022-08-10] MEDS: SODIUM CHLORIDE 0.9% IV 1,000 ML 75 ML IV CONT ×2 (04:48→23:55)
--- NOTE | 2022-08-10 05:34 | ADMGEN ---
This patient, Mariia Stanton, was admitted to 2 Medical Room 241-01. Patient/family oriented to hospital policies and general routines including ID bracelet, bed and alarms, visiting hours, pain management, procedures, bathroom and other care routines, personal items, smoking policy, room service/diet, and visiting hours. Information on how to activate the Rapid Response Team has been discussed. Patient/Family are encouraged to report perceived risks to care and to ask questions if they do not understand what they are told or what they should do.
--- NOTE | 2022-08-10 07:11 | PM.IMHP ---
H&P: HPI History of Present Illness Date/Time: 08/10/22 07:11 Chief Complaint: Abdominal pain, nausea vomiting Narrative: This is a 82 year old female patient with significant PMH of Breast CA that she is seeing Oncology for, chronic constipation that requires daily suppository to have BM, lung nodule, Right carotid artery stenosis, TIA, A-fib, HTN, HLD, GERD presents to the ER with complaints of having right upper quadrant abdominal pain for the past three days and N/V that started yesterday. Patient states that she did not take any meds at home for her abdominal pain nausea or vomiting. Patient denies fever. Stated that abdominal pain did start after a meal not state what meal she had. Patient had 1 episode of emesis yesterday in the ER and states that there was no blood in the emesis. Patient describes the abdominal pain is aching that was constant for the past several days but today states that with movement as well as touching the abdomen causes the pain. Patient was found to have UTI and was started on Rocephin. Patient put on bowel rest as well as rehydration. CT abdomen pelvis revealed possible small-bowel obstruction, cecal bascule verses a poorly delineated obstructing mass. GI and General surgery consulted. Right upper quadrant ultrasound normal. NG tube placed due to small-bowel obstruction and confirmed with abdominal x-ray. Patient's p.o. meds put on hold. When talking with the patient patient states that she is nauseous and continuing have abdominal pain. She denies chest pain, shortness a breath, diarrhea, fever, dizziness, and lower extremity swelling. Review of Systems Review of Systems: All systems reviewed & are unremarkable except as noted in HPI and below [facility] Past Medical History Medical History A-fib Abnormal finding of blood chemistry, unspecified Ankle pain, right Arm paresthesia, right Ascending aortic aneurysm Benign essential hypertension Bloody discharge from nipple BMI 22.0-22.9, adult BMI 23.0-23.9, adult BMI 24.0-24.9, adult BMI 26.0-26.9,adult BMI 28.0-28.9,adult Breast pain Cervical spondylosis Chronic recurrent sinusitis Chronic sinusitis Clavicle fracture Cognitive changes Colon cancer screening CTS (carpal tunnel syndrome) 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 Dizziness DJD (degenerative joint disease) Dysuria Ear pain Ectatic aorta Elevated blood protein Elevated glucose Elevated LFTs Encounter for Medicare annual wellness exam Encounter for routine adult health examination with abnormal findings Encounter for routine adult health examination without abnormal findings Fall FH: ANDRE-BSO (total abdominal hysterectomy and bilateral salpingo-oophorectomy) Follow up Fullness of breast GERD (gastroesophageal reflux disease) GERD (gastroesophageal reflux disease) Glaucoma History of breast cancer History of hypothyroidism History of TIA (transient ischemic attack) History of trigeminal neuralgia Underwent surgical treatment in 1989 Hospital discharge follow-up Hx of colonic polyps Hyperlipidemia Hyperlipidemia Ingrown toenail Irregular heart beat Lung nodule Macular degeneration Macular degeneration Need for second dose of COVID-19 vaccine Neural foraminal stenosis of cervical spine On rn long term care drug therapy Orthostatic hypotension Osteopenia Otitis media Right arm weakness Right leg paresthesias Right leg weakness RUQ abdominal pain Seborrheic dermatitis Sensation of plugged ear on both sides Skin lesion of right arm Tachy-roscoe syndrome TIA (transient ischemic attack) Tremor Trigeminal neuralgia UTI (urinary tract infection) Varicose veins of both lower extremities Venous insufficiency Surgical History Surgical History H/O lumpectomy Breast cancer, sep 2019, radiation H/O medial meniscus repair of left knee H/O: hysterectomy History of repair of right rotator
--- NOTE | 2022-08-10 07:47 | PC.NURSE ---
Patient to US per stretcher 08/10/22 0748.
[2022-08-10] MEDS: ONDANSETRON INJ 4 MG/2 ML VIAL IV PUSH ×2 (08:42→12:40)
[2022-08-10 09:20] LABS: Basophils Percent Auto 0.3 % (0.2-1.2); Hemoglobin 13.3 g/dL (12.0-15.0); Immature Granulocyte Absolute 0.02 K/mm3 (0.00-0.031); Immature Granulocyte Percent A 0.3 % (0-0.5); Lymphocytes Absolute Auto 0.72 K/mm3 (0.9-3.2); Lymphocytes Percent Auto 9.6 % (18.3-44.2); Mean Corpuscular HGB Conc 32.4 g/dl (32-36); Mean Corpuscular Hemoglobin 31.1 pg (26-34); Mean Corpuscular Volume 95.8 fl (80-100); Mean Platelet Volume 10.1 fl (7.4-10.4); Monocytes Absolute Auto 0.9 K/mm3 (0.1-0.6); Monocytes Percent Auto 11.7 % (2.6-8.5); Neutrophils Absolute Auto 5.9 K/mm3 (1.3-6.7); Neutrophils Percent Auto 78.1 % (45.5-73.1); Platelet Count Result 287 k/mm3 (150-375); Red Blood Count 4.28 M/mm3 (4.2-5.4); Red Cell Distribution Width 14.3 % (11.5-14.5); White Blood Count 7.5 K/mm3 (4.5-10.0)
[2022-08-10] MEDS: PANTOPRAZOLE SODIUM IV 40 MG VIAL IV PUSH (09:20)
[2022-08-10 09:31] LABS: Alanine Aminotransferase 18 U/L (6-35); Albumin Level 4.2 g/dL (3.5-5.1); Alkaline Phosphatase 80 U/L (38-126); Aspartate Amino Transferase 26 U/L (14-36); Bilirubin,Total 0.5 mg/dL (0.2-1.3)
[2022-08-10 09:33] LABS: Alanine Aminotransferase 19 U/L (6-35); Albumin Level 4.5 g/dL (3.5-5.1); Alkaline Phosphatase 91 U/L (38-126); Anion Gap 10 mmol/L (8-16); Aspartate Amino Transferase 25 U/L (14-36); Bilirubin,Total 0.5 mg/dL (0.2-1.3); Blood Urea Nitrogen 11 mg/dL (7-17); Calcium 9.3 mg/dL (8.4-10.2); Carbon Dioxide 25 mmol/L (22-30); Chloride 101 mmol/L (98-107); Estimated CRCL calculation 52 ml/min; Estimated Glomerular Filt Rate > 60; Glucose 108 mg/dL (65-110); Potassium 3.5 mmol/L (3.4-5.0); Sodium 136 mmol/L (137-145)
--- NOTE | 2022-08-10 10:55 | WPDGICN ---
Assessment and Plan Assessment and plan (1) Right sided abdominal pain: Code(s): R10.9 - Unspecified abdominal pain Status: Acute Assessment and Plan: Patient has right-sided abdominal pain. This appears to correlate with finding on CT scan. Suspicious for cecal volvulus. (2) Abnormal CT scan: Code(s): R93.89 - Abnormal findings on diagnostic imaging of other specified body structures Status: Acute Assessment and Plan: CT scan suggests cecal volvulus. Described as a cecal bascule. There is question of small-bowel obstruction in the area of the terminal ileum and cecum. Will place patient NPO with NG tube decompression. Will obtain surgery consult. This is unlikely to be evaluated with colonoscopy because of recent colonoscopy was limited by abnormality in left sigmoid colon. Plan for Gastrografin lower GI in the interim. Surgery consult will be obtained to evaluate for possible decompression. If lower GI fails to delineate difficulty near the cecum then small-bowel follow-through can subsequently be obtained. Cecal volvulus would be very difficult to decompression endoscopically. Plan for surgical opinion at this point. (3) Breast cancer screening: Code(s): Z12.39 - Encounter for other screening for malignant neoplasm of breast Status: Acute (4) History of colon polyps: Code(s): Z86.010 - Personal history of colonic polyps Status: Acute Assessment and Plan: Most recent colonoscopy in 2019 limited in the sigmoid colon by deformity of the left colon. This would limit endoscopic evaluation of cecal abnormality. GI Consult Note Consult date/time: 08/10/22 10:55 Reason for consult: Abnormal CT scan of the abdomen. Rule out cecal volvulus. HPI: Mariia Stanton is a 82 year old female I am asked to see at the request of the hospitalist service because of possible cecal volvulus. Patient reports she was in her usual state of health till yesterday when she developed right-sided abdominal pain. She states pain hurt diffusely across her abdomen. She subsequently developed significant nausea. She reports she has been constipated with only ball like stools may pass some yesterday. She denies any bleeding. She has had no fever. Patient's past medical history is significant for breast carcinoma followed by Oncology. Apparently she is chronically constipated and has been treated with suppositories. Additionally she has felt to have right carotid artery stenosis, TIA, atrial fibrillation and hypertension. Upon presenting to the emergency room this morning an ultrasound of the right upper quadrant was performed found to be unremarkable. A CT scan raised the question of a cecal volvulus. There with question of small-bowel obstruction in this area. Review of old records reveals that she has been followed by Dr. Richard Campbell over the last 15 years. She has a distant history of colon polyps. Patient has most recent colonoscopy 2020 was limited by a twist or limiting deformity in the left colon. I can find no recent imaging studies to further define the colon anatomy. Review of Systems Review of Systems: Review of systems noncontributory. 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
--- NOTE | 2022-08-10 16:56 | PM.CNGS ---
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 Neff in Radiology and I have discussed the findings with the patient. She has evidence of a cecal volvulus which appears to be causing a small-bowel obstruction. There are no signs of ischemia on the CT and clinically patient shows no further signs of peritonitis or ischemia. I discussed with patient that as the bowel was twisted and becomes more dilated there are very high chances of the bowel eventually becoming ischemic. I have recommended proceeding with urgent hand assisted laparoscopic right hemicolectomy, possible open, to resect the involved portion of the terminal ileum and ascending colon. The patient has been on Eliquis for anticoagulation. She has not received a dose today. This does increase her bleeding risk, but hopefully by delaying the surgery until tomorrow, this will limit the affects of the Eliquis and still be safe to perform without too much risk of bowel ischemia. Will continue NG decompression at this time. I discussed the procedure, risks, benefits, and alternatives. Questions were answered. Patient is agreeable to proceeding. (2) Small bowel obstruction: Code(s): K56.609 - Unspecified intestinal obstruction, unspecified as to partial versus complete obstruction Status: Acute (3) A-fib: Code(s): I48.91 - Unspecified atrial fibrillation Status: Acute Assessment and Plan: Eliquis on hold. 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 The patient has had abdominal pain for the past 2 days. Her pain was becoming more severe and she presented to the emergency department. A CT abdomen/ pelvis showed evidence distal small bowel obstruction and likely cecal volvulus. She is not currently passing any flatus and her last bowel movement was yesterday morning. She has never experienced anything like this in the past. She does report a weight loss of about 40 lb over the past year. She has had a colonoscopy before, but the most recent 1 was aborted due to a tortuous sigmoid colon. An NG tube was placed and a Gastrografin enema was ordered but this was not completed due to significant amount of stool throughout the distal colon. She reports that her pain is minimal now. She denies any fevers. Review of Systems Review of Systems: All systems reviewed & are unremarkable except as noted in HPI and below Constitutional: Constitutional: Reports as per HPI, Denies chills and Denies fever(s) Eyes: Eyes: Denies change in vision ENT: Denies hearing loss, Denies neck pain and Denies sore throat Cardiovascular: Cardiovascular: Denies chest pain and Denies dyspnea Respiratory: Respiratory: Denies cough, Denies dyspnea and Denies wheezing Gastrointestinal: Gastrointestinal: Reports as per HPI Genitourinary: Genitourinary: Denies hematuria and Denies dysuria Musculoskeletal: Musculoskeletal: Denies arthralgias, Denies joint swelling and Denies neck pain Allergic/Immunologic: Allergic/Immunologic: Denies wheezing [facility] Past Medical History Medical History A-fib Abnormal finding of blood chemistry, unspecified Ankle pain, right Arm paresthesia, right Ascending aortic aneurysm Benign essential hypertension Bloody discharge from nipple BMI 22.0-22.9, adult BMI 23.0-23.9, adult BMI 24.0-24.9, adult BMI 26.0-26.9,
--- NOTE | 2022-08-10 18:35 | WPDANESEPP ---
Anes - Eval Pre Procedure Procedure: Hand assisted right hemicolectomy Date/Time: 08/10/22 18:35 Surgeon: Dianne Preop Diagnosis: Cecal volvulus Pre Op Diagnosis: Abdominal Pain Patient Data Age: 82 Gender: F Height: 1.63 m Weight: 59.8 kg Last Vital Signs Temp 98.3 F 08/10/22 14:00 Pulse 88 08/10/22 14:00 Resp 18 08/10/22 14:00 BP 140/68 08/10/22 14:00 Pulse Ox 98 08/10/22 14:00 O2 Del Method Room Air 08/09/22 19:15 Allergies Allergy/AdvReac Type Severity Reaction Status Date / Time almotriptan [From Axert] AdvReac Unknown Nausea and Verified 05/24/22 11:35 Vomiting cefaclor [From Ceclor] AdvReac Unknown Nausea and Verified 05/24/22 11:35 Vomiting cefuroxime AdvReac Unknown Nausea and Verified 05/24/22 11:35 Vomiting levofloxacin AdvReac Unknown Nausea And Verified 05/24/22 11:35 Vomiting morphine AdvReac Unknown Nausea and Verified 05/24/22 11:35 Vomiting Home Medications Medication Instructions Recorded Confirmed Type vitamin E (dl, acetate) 180 mg 400 unit PO DAILY 06/15/19 08/10/22 History (400 unit) capsule calcium carbonate 600 mg-vitamin 1 tablet PO BID 08/27/19 08/10/22 History D3 10 mcg (400 unit) tablet (Calcium 600 + D(3)) anastrozole 1 mg tablet 1 mg PO DAILY 12/07/19 08/10/22 History vit C 250 mg-vit E 90 mg-zinc 40 1 tablet PO BID 01/13/20 08/10/22 History mg-copper 1 [id number] capsule (PreserVision AREDS-2) diltiazem HCl 240 mg 240 mg PO DAILY 05/25/22 08/10/22 History capsule,extended release 24 hr apixaban 5 mg tablet (Eliquis) 5 mg PO BID 08/10/22 08/10/22 History bimatoprost 0.01 % eye drops 1 drp EACH EYE HS 08/10/22 08/10/22 History (Savage) omega-3 fatty acids-vitamin E 1,000 cap PO BID 08/10/22 08/10/22 History 1,000 mg capsule rosuvastatin 20 mg tablet 20 mg PO HS 08/10/22 08/10/22 History Laboratory Tests 08/09/22 08/09/22 08/09/22 19:23 19:23 23:54 WBC 8.8 K/mm3 K/mm3 (4.5-10.0) RBC 4.54 M/mm3 M/mm3 (4.2-5.4) Hgb 14.1 g/dL g/dL (12.0-15.0) Hct 43.2 % % (37.0-47.0) MCV 95.2 fl fl (80-100) MCH 31.1 pg pg (26-34) MCHC 32.6 g/dl g/dl (32-36) RDW 14.0 % % (11.5-14.5) Plt Count 317 k/mm3 k/mm3 (150-375) MPV 9.5 fl fl (7.4-10.4) Immature Gran % (Auto) 0.3 % % (0-0.5) Neut % (Auto) 73.5 % H % (45.5-73.1) Lymph % (Auto) 12.7 % L % (18.3-44.2) Towns % (Auto) 12.4 % H % (2.6-8.5) Eos % (Auto) 0.6 % % (0-4.4) Baso % (Auto) 0.5 % % (0.2-1.2) Lymph # (Auto) 1.12 K/mm3 K/mm3 (0.9-3.2) Towns # (Auto) 1.1 K/mm3 H K/mm3 (0.1-0.6) Eos # (Auto) 0.1 K/mm3 K/mm3 (0-0.3) Baso # (Auto) 0.0 K/mm3 K/mm3 (0.0-0.1) Abs Immat Gran (auto) 0.03 K/mm3 K/mm3 (0.00-0.031) Absolute Neuts (auto) 6.5 K/mm3 K/mm3 (1.3-6.7) Absolute Nucleated RBC 0.0 K/mm3 K/mm3 (0.0-0.012) Nucleated RBC % 0.0 % % (0.0-0.2) Sodium 137 mmol/L mmol/L (137-145) Potassium 3.8 mmol/L mmol/L (3.4-5.0) Chloride 100 mmol/L mmol/L (98-107) Carbon Dioxide 27 mmol/L mmol/L (22-30) Anion Gap 10 mmol/L mmol/L (8-16) BUN 15 mg/dL mg/dL (7-17) Creatinine 0.80 mg/dL mg/dL (0.7-1.0) Estim Creat Clear Calc 40 ml/min ml/min Estimated GFR > 60 (59 - ) Glucose 113 mg/dL H mg/dL (65-110) Lactic Acid Calcium 9.4 mg/dL mg/dL (8.4-10.2) Total Bilirubin 0.5 mg/dL mg/dL (0.2-1.3) Direct Bilirubin AST 24 U/L U/L (14-36) ALT 20 U/L U/L (6-35) Alkaline Phosphatase 98 U/L U/L (38-126) Total Protein 8.0 g/dL g/dL (6.3-8.2) Albumin 4.7 g/dL g/dL (3.5-5.1) Lipase 65
[2022-08-10] MEDS: LATANOPROST 0.005% OP SOLN 2.5 ML BTL 1 DROP EACH EYE (20:20)
[2022-08-11] VITALS (23 sets, daily range): BP systolic 131–189; BP diastolic 65–90; PULSE 64–122; RESP 10–18; TEMP 36.2–36.9; O2SAT 94–100
--- NOTE | 2022-08-11 03:27 | ECG_ITS ---
Measurements Intervals [place] Rate: 116 P: LA: 0 QRS: -50 QRSD: 93 T: 11 QT: 308 QTc: 428 Interpretive Statements ATRIAL FIBRILLATION WITH RAPID VENTRICULAR RESPONSE INCOMPLETE RIGHT BUNDLE BRANCH BLOCK LEFT ANTERIOR FASCICULAR BLOCK ABNORMAL ECG COMPARED TO ECG 02/03/2020 08:13:27 ATRIAL FIBRILLATION NOW PRESENT LEFT ANTERIOR FASCICULAR BLOCK NOW PRESENT Electronically Signed On 08-11-2022 9:45:28 [employer] by Teodoro Azevedo D.O.
[2022-08-11] MEDS: METOPROLOL TARTRATE INJ 5 MG/5 ML VIAL IV PUSH ×3 (04:04→17:11)
[2022-08-11] MEDS: ONDANSETRON INJ 4 MG/2 ML VIAL IV PUSH ×2 (04:04→11:56)
[2022-08-11 06:01] LABS: Hematocrit 39.6 % (37.0-47.0); Hemoglobin 13.3 g/dL (12.0-15.0); Mean Corpuscular HGB Conc 33.6 g/dl (32-36); Mean Corpuscular Hemoglobin 31.5 pg (26-34); Mean Corpuscular Volume 93.8 fl (80-100); Mean Platelet Volume 10.4 fl (7.4-10.4); Platelet Count Result 306 k/mm3 (150-375); Red Blood Count 4.22 M/mm3 (4.2-5.4); Red Cell Distribution Width 14.3 % (11.5-14.5); White Blood Count 7.2 K/mm3 (4.5-10.0)
[2022-08-11 06:17] LABS: Alanine Aminotransferase 16 U/L (6-35); Albumin Level 3.8 g/dL (3.5-5.1); Alkaline Phosphatase 69 U/L (38-126); Anion Gap 6 mmol/L (8-16); Aspartate Amino Transferase 24 U/L (14-36); Bilirubin,Total 0.6 mg/dL (0.2-1.3); Blood Urea Nitrogen 14 mg/dL (7-17); Calcium 8.8 mg/dL (8.4-10.2); Carbon Dioxide 29 mmol/L (22-30); Chloride 102 mmol/L (98-107); Estimated CRCL calculation 52 ml/min; Estimated Glomerular Filt Rate > 60; Glucose 106 mg/dL (65-110); Potassium 2.9 mmol/L (3.4-5.0); Sodium 137 mmol/L (137-145)
[2022-08-11] MEDS: POTASSIUM CHLORIDE INJ 40 MEQ in SODIUM CHLORIDE 0.9% IV 500 ML 130 MEQ IVPB (06:43)
[2022-08-11 06:47] LABS: Magnesium 2.1 mg/dL (1.6-2.3)
--- NOTE | 2022-08-11 07:05 | PM.IMPN ---
Progress Note: A&P Assessment and Plan (1) RUQ abdominal pain: Code(s): R10.11 - Right upper quadrant pain Status: Acute Assessment and Plan: Pt presented with RUQ pain. CT revealed normal gallbladder and liver. CT findings suggestive of SBO and cecal bascule vs. obstructing mass GI consulted and appreciate recommendations Patient unable to complete last colonoscopy due to torturous bowel. NG tube placement Talked to Dr. Gambino and he recommended a general surgery consult due to cecal bascule. General Surgery recommended laparoscopic right hemicolectomy to be performed today08/11/22 RUQ US normal X-ray abdomen: constipation hepatic panel ordered bilirubin, lipase, liver enzymes, lipid panel WNL Patient doing well after surgery and is passing gas. Has not had a bowel movement yet. (2) Acute UTI (urinary tract infection): Code(s): N39.0 - Urinary tract infection, site not specified Status: Acute Assessment and Plan: UA positive for leukocyte esterase and 4-6 white blood cells ceftriaxone 1 g q24h Urine culture pending (3) Constipation: Code(s): K59.00 - Constipation, unspecified Status: Chronic Assessment and Plan: Chronic docusate q12h bisacodyl suppository QAM Miralax PRN Subjective Date/time seen: 08/11/22 07:05 Interval history: 82-year-old female patient with significant PMH of Breast CA that she is seeing Oncology for, chronic constipation that requires daily suppository to have BM, lung nodule, Right carotid artery stenosis, TIA, A-fib, HTN, HLD, GERD presents to the ER with complaints of having right upper quadrant abdominal pain and N/V. Patient had surgery today and was seen postop patient states that she is not having any abdominal pain although she has not moved. Patient feeling okay although she has still not had a bowel movement. Patient denies chest pain, shortness a breath, nausea, vomiting, fever, dizziness and headache. Patient does states that she does have chronic constipation. Review of Systems Review of Systems: All systems reviewed & are unremarkable except as noted in HPI and below Exam Narrative: GENERAL: Comfortable, no acute distress HENMT: moist mucous membranes EYES: EOM intact b/l NECK: no lymphadenopathy RESPIRATORY: clear to auscultation CARDIO: RRR GI: soft, upper abdominal tenderness, no guarding or rebound tenderness. Bowel sounds present SKIN: no rashes EXTREMITIES: no edema, redness or tenderness Objective Data Vital Signs Vital Signs: Vital Signs - 24 hr 08/10/22 10:05 08/10/22 14:00 08/10/22 18:10 Temperature 98.6 F 98.3 F 98.4 F Pulse Rate 90 88 84 Respiratory Rate 18 18 18 Blood Pressure 145/72 H 140/68 138/62 Pulse Oximetry 98 98 96 Oxygen Delivery 08/10/22 20:41 08/10/22 20:00 08/11/22 00:32 Temperature 98.2 F 98.5 F Pulse Rate 91 122 H Respiratory Rate 16 16 Blood Pressure 141/61 H 135/90 Pulse Oximetry 95 96 Oxygen Delivery Room Air 08/11/22 01:50 08/11/22 04:04 08/11/22 04:05 Temperature 98.2 F Pulse Rate 105 H 120 H 115 H Respiratory Rate 16 Blood Pressure 147/77 H Pulse Oximetry 95 Oxygen Delivery 08/11/22 05:04 08/11/22 06:24 Temperature 97.8 F 97.8 F Pulse Rate 100 95 Respiratory Rate 16 16 Blood Pressure 145/79 H 142/81 H Pulse Oximetry 96 96 Oxygen Delivery Intake/Output Intake/Output: Intake & Output 08/08/22 08/09/22 08/10/22 08/11/22 23:59 23:59 23:59 23:59 Intake Total 2100 0 Output Total 850 1000 Balance 1250 -1000 Meds/Results Medications: Active Medications Generic Name Dose Route Start Last Admin Trade Name Freq PRN Reason Stop Dose Admin Anastrozole 1 mg 08/10/22 09:00 08/10/22 14:51 Anastrozole (*Chemo) 1 Mg Tablet PO 09/09/22 08:59 Not Given DAILY AGUEDA Bisacodyl 10 mg 08/10/22 07:08 Bisacodyl 10 Mg Suppository RECTAL QAM PRN Constipation Calcium Ca
--- NOTE | 2022-08-11 07:42 | PC.NURSE ---
pt. left floor at 07:42 to OR via bed. IV potassium remains infusing.
--- NOTE | 2022-08-11 07:48 | WPDHPUPDATE1 ---
History and Physical Update Update Date/Time: 08/11/22 07:48 History and Physical has been reviewed, including an updated exam of the patient. There are NO changes in the patient's condition. Risks, benefits, and alternatives have been discussed and questions answered. Patient agrees to proceed with procedure.
--- NOTE | 2022-08-11 07:57 | WPDANESEFPP ---
Anes - Eval Final PreProcedure Day of Procedure 08/11/22 07:57 Patient weight: normal Heart: regular rate and rhythm Lungs: clear to auscultation Airway: Mallampati scale class III Neurological: alert and oriented Last oral intake: >/= 8 hours ASA classification: IV Emergent: yes Anesthetic plan: proceed Anesthesia type and monitoring: general ETT Results Review: All pre-operative results and documents have been reviewed as part of the pre-operative evaluation. Informed Consent: The patient's anesthetic plan and its attendant risks and benefits were discussed with the patient/family/POA. Questions were solicited and answers provided to the satisfaction of the patient/family/POA.
[2022-08-11] MEDS: LACTATED RINGERS 1,000 ML 30 ML IV CONT (08:05)
[2022-08-11] MEDS: ceFAZolin 2 GM/D5W 50 ML 2 GM/50 ML BAG IVPB (08:08)
[2022-08-11] MEDS: metroNIDAZOLE 500 MG/ISO 100ML 500 MG/100 ML BAG 100 MG IVPB (08:19)
--- NOTE | 2022-08-11 10:01 | W.PM.PROC2 ---
Procedure Note - Detailed Date of Procedure 08/11/22 Pre-op Diagnosis Cecal volvulus, small bowel obstruction Post-op Diagnosis Same Procedure Performed Hand assisted laparoscopic right hemicolectomy with ileocolic anastomosis Surgeon Adonis Dean, Anesthesia General and Local (Exparel) Indications This is an 82-year-old woman who presented to the emergency department with abdominal pain and nausea and vomiting that started 2 days ago. She had never experienced anything like this before, but does admit to chronic constipation. CT in the emergency department showed evidence of small-bowel obstruction secondary to what appears likely to be a cecal volvulus. She is showing signs of complete bowel obstruction but does not have any signs of bowel ischemia at this time. Discussions were made with the patient about treatment options and decision was made to proceed with hand assisted laparoscopic right hemicolectomy. Findings Hand assisted laparoscopic right hemicolectomy with ileocolic anastomosis was performed. Upon entering the abdomen, the small bowel was mildly dilated and the transition point was visualized in the right lower quadrant. The small bowel and cecum were twisted upon the mesentery, but there also appeared to be an adhesive band involving a sigmoid epiploic appendage to the right pelvis. This adhesive band was taken down using LigaSure bipolar cautery and this allowed me to untwist the cecum and small bowel. The bowel appeared healthy and viable, but to prevent recurrent volvulus in the future, decision was made to proceed with right hemicolectomy. A [id number] stapled anastomosis was performed. The anastomosis appeared healthy and viable. No other intra-abdominal abnormalities were noted except for a significant amount of solid stool throughout the transverse and distal colon. Description of Procedure Procedure as well as risks benefits and alternatives were explained to the patient. Written consent was obtained and placed in chart prior to procedure. Patient was brought back to surgical suite. She was placed supine on operating table. Time-out was done to confirm patient procedure. She was then intubated by the anesthesia department. Her abdomen was prepped and draped in sterile fashion using chlorhexidine prep. A 7 centimeter vertical incision was made centered on the umbilicus using a 15 blade scalpel. Electrocautery was used for hemostasis and for dissection down through Aurelio's fascia. The linea alba was identified, and incised using electrocautery. Two Emre clamps were used to lift the fascia anteriorly, and the peritoneum was then entered using electrocautery. The abdomen was inspected and no acute abnormalities were noted. The wound protector was placed at this incision, and the GelPort was applied with a 5 millimeter port placed through it. Carbon dioxide insufflation was used to create a pneumoperitoneum. The camera was inserted and the abdominal cavity was inspected. The dilated cecum was identified in the right lower quadrant and there appeared to be an adhesive band overlying the cecum and terminal ileum. The patient was placed in Trendelenburg position and rotated slightly to the left. A 5 millimeter incision was made in the lower midline and a 5 millimeter trocar was inserted under direct visualization. Another 5 millimeter incision was made in the left lower quadrant, and a 5 millimeter trocar was inserted under direct visualization. A transversus abdominis plane block with Exparel was performed under laparoscopic visualization bilaterally. I carefully untwisted the cecum and terminal ileum in a counter-clockwise direction and then was able to reduce the bowel through the adhesive band that appeared to be tethering at. The adhesive band appeared to be from an epiploic appendage on the sigmoid colon to the right pelvic sidewall. This adhesive band was taken down using LigaSure bipolar cautery. Due to the r
--- NOTE | 2022-08-11 11:44 | PC.NURSE ---
pt. returned from post-op via bed at 11:43.
[2022-08-11] MEDS: PANTOPRAZOLE SODIUM IV 40 MG VIAL IV PUSH (11:59)
[2022-08-11 16:04] LABS: Anion Gap 8 mmol/L (8-16); Blood Urea Nitrogen 16 mg/dL (7-17); Calcium 8.4 mg/dL (8.4-10.2); Carbon Dioxide 23 mmol/L (22-30); Chloride 105 mmol/L (98-107); Estimated CRCL calculation 45 ml/min; Estimated Glomerular Filt Rate > 60; Glucose 111 mg/dL (65-110); Potassium 3.8 mmol/L (3.4-5.0); Sodium 136 mmol/L (137-145)
[2022-08-11] MEDS: SODIUM CHLORIDE 0.9% IV 1,000 ML 75 ML IV CONT (17:57)
[2022-08-11] MEDS: ROSUVASTATIN 10 MG TABLET 20 MG PO (20:18)
[2022-08-11] MEDS: LATANOPROST 0.005% OP SOLN 2.5 ML BTL 1 DROP EACH EYE (20:18)
[2022-08-12] VITALS (14 sets, daily range): BP systolic 132–158; BP diastolic 56–75; PULSE 63–88; RESP 16–20; TEMP 36.2–37.3; O2SAT 95–98
[2022-08-12] MEDS: METOPROLOL TARTRATE INJ 5 MG/5 ML VIAL IV PUSH ×4 (00:18→17:25)
[2022-08-12 05:32] LABS: Hematocrit 37.8 % (37.0-47.0); Hemoglobin 12.5 g/dL (12.0-15.0); Mean Corpuscular HGB Conc 33.1 g/dl (32-36); Mean Corpuscular Volume 93.8 fl (80-100); Mean Platelet Volume 10.4 fl (7.4-10.4); Platelet Count Result 264 k/mm3 (150-375); Red Blood Count 4.03 M/mm3 (4.2-5.4); Red Cell Distribution Width 14.2 % (11.5-14.5); White Blood Count 11.8 K/mm3 (4.5-10.0)
[2022-08-12 05:47] LABS: Anion Gap 4 mmol/L (8-16); Blood Urea Nitrogen 18 mg/dL (7-17); Calcium 8.7 mg/dL (8.4-10.2); Carbon Dioxide 27 mmol/L (22-30); Chloride 101 mmol/L (98-107); Estimated CRCL calculation 40 ml/min; Estimated Glomerular Filt Rate > 60; Glucose 98 mg/dL (65-110); Potassium 3.3 mmol/L (3.4-5.0); Sodium 132 mmol/L (137-145)
--- NOTE | 2022-08-12 07:17 | P.PNIM_ITS ---
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 * Patient passing gas post op. No bowel movement. * States she does not have any pain post op * Advised patient to start taking daily Miralax to help with chronic constipation. 08/12/22 * Patient doing well and only having mild pain with movements such as walking or using abdominal muscles sit up. * Restarted patient's constipation medications - MiraLax, Colace and bisacodyl suppositories * Patient put on clear liquid diet * Patient passing gas and belching. * Has not had bowel movement yet. * Surgery continue to follow patient. (2) RUQ abdominal pain: Code(s): R10.11 - Right upper quadrant pain Status: Acute Assessment and Plan: Pt presented with RUQ pain. CT revealed normal gallbladder and liver. * CT findings suggestive of SBO and cecal bascule vs. obstructing mass * GI consulted and appreciate recommendations * Patient unable to complete last colonoscopy due to torturous bowel. * NG tube placement * Talked to Dr. Gambino and he recommended a general surgery consult due to cecal bascule. * General Surgery recommended laparoscopic right hemicolectomy to be performed today08/11/22 * RUQ US normal * X-ray abdomen: constipation * hepatic panel negative * bilirubin, lipase, liver enzymes, lipid panel WNL * (3) Constipation: Code(s): K59.00 - Constipation, unspecified Status: Chronic Assessment and Plan: Chronic * docusate q12h * bisacodyl suppository QAM * Miralax PRN (4) Acute UTI (urinary tract infection): Code(s): N39.0 - Urinary tract infection, site not specified Status: Acute Assessment and Plan: UA positive for leukocyte esterase and 4-6 white blood cells * ceftriaxone 1 g q24h * Urine culture final results no growth * Discontinue antibiotics - 08/12/22 Subjective Date/time seen: 08/12/22 07:17 Interval history: 82-year-old female patient with significant PMH of Breast CA that she is seeing Oncology for, chronic constipation that requires daily suppository to have BM, lung nodule, Right carotid artery stenosis, TIA, A-fib, HTN, HLD, GERD presents to the ER with complaints of having right upper quadrant abdominal pain and N/V. Patient is resting comfortably in bed. , daughter and son-in-law on the room and patient confirmed is located talk freely in front of everyone. Patient states that she has abdominal discomfort when she gets up out of bed to go to the bathroom. Patient has not had a bowel movement and is waiting for suppository due to family being there. Review of Systems Review of Systems: All systems reviewed & are unremarkable except as noted in HPI and below Exam Narrative: GENERAL: Comfortable, no acute distress HENMT: moist mucous membranes EYES: EOM intact b/l NECK: no lymphadenopathy RESPIRATORY: clear to auscultation CARDIO: RRR GI: soft, upper abdominal tenderness, no guarding or rebound tenderness. Bowel sounds present. Surgical incision over umbilicus clean without signs of infection. Mild bruising around incision site. SKIN: no rashes EXTREMITIES: no edema, redness or tenderness Objective Data Vital Signs Vital Signs: Vital Signs - 24 hr 08/11/22 10:05 08/11/22 10:20 08/11/22 10:35 Temperature 97.2 F L
--- NOTE | 2022-08-12 07:17 | PM.IMPN ---
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 Patient passing gas post op. No bowel movement. States she does not have any pain post op Advised patient to start taking daily Miralax to help with chronic constipation. 08/12/22 Patient doing well and only having mild pain with movements such as walking or using abdominal muscles sit up. Restarted patient's constipation medications - MiraLax, Colace and bisacodyl suppositories Patient put on clear liquid diet Patient passing gas and belching. Has not had bowel movement yet. Surgery continue to follow patient. (2) RUQ abdominal pain: Code(s): R10.11 - Right upper quadrant pain Status: Acute Assessment and Plan: Pt presented with RUQ pain. CT revealed normal gallbladder and liver. CT findings suggestive of SBO and cecal bascule vs. obstructing mass GI consulted and appreciate recommendations Patient unable to complete last colonoscopy due to torturous bowel. NG tube placement Talked to Dr. Gambino and he recommended a general surgery consult due to cecal bascule. General Surgery recommended laparoscopic right hemicolectomy to be performed today08/11/22 RUQ US normal X-ray abdomen: constipation hepatic panel negative bilirubin, lipase, liver enzymes, lipid panel WNL (3) Constipation: Code(s): K59.00 - Constipation, unspecified Status: Chronic Assessment and Plan: Chronic docusate q12h bisacodyl suppository QAM Miralax PRN (4) Acute UTI (urinary tract infection): Code(s): N39.0 - Urinary tract infection, site not specified Status: Acute Assessment and Plan: UA positive for leukocyte esterase and 4-6 white blood cells ceftriaxone 1 g q24h Urine culture final results no growth Discontinue antibiotics - 08/12/22 Subjective Date/time seen: 08/12/22 07:17 Interval history: 82-year-old female patient with significant PMH of Breast CA that she is seeing Oncology for, chronic constipation that requires daily suppository to have BM, lung nodule, Right carotid artery stenosis, TIA, A-fib, HTN, HLD, GERD presents to the ER with complaints of having right upper quadrant abdominal pain and N/V. Patient is resting comfortably in bed. , daughter and son-in-law on the room and patient confirmed is located talk freely in front of everyone. Patient states that she has abdominal discomfort when she gets up out of bed to go to the bathroom. Patient has not had a bowel movement and is waiting for suppository due to family being there. Review of Systems Review of Systems: All systems reviewed & are unremarkable except as noted in HPI and below Exam Narrative: GENERAL: Comfortable, no acute distress HENMT: moist mucous membranes EYES: EOM intact b/l NECK: no lymphadenopathy RESPIRATORY: clear to auscultation CARDIO: RRR GI: soft, upper abdominal tenderness, no guarding or rebound tenderness. Bowel sounds present. Surgical incision over umbilicus clean without signs of infection. Mild bruising around incision site. SKIN: no rashes EXTREMITIES: no edema, redness or tenderness Objective Data Vital Signs Vital Signs: Vital Signs - 24 hr 08/11/22 10:05 08/11/22 10:20 08/11/22 10:35 Temperature 97.2 F L Pulse Rate 71 64 66 Respiratory Rate 10 L 11 L 10 L Blood Pressure 189/80 H 183/90 H 179/75 H Pulse Oximetry 100 100 100 Oxygen Delivery Simple Face Mask Simple Face Mask Simple Face Mask Oxygen Flow Rate 6 6 6 08/11/22 10:50 08/11/22 11:05 08/11/22 11:20 Temperature 97.8 F Pulse Rate 68 68 68 Respiratory Rate 12 11 L 10 L Blood Pressure 169/82 H 151/83 H 158/76 H Pulse Oximetry 94 94 100 Oxygen Delivery Room Air Room Air Nasal Cannula Oxygen Flow Rate 2 08/11/22 12:07 08/11/22 11:38 08/11/22
--- NOTE | 2022-08-12 08:56 | WPDANESPN ---
Anes - Prog Note Post-Op Date/Time: 08/12/22 08:56 Cardiovascular status: normal Respiratory status: normal Airway patency: baseline Mental status: baseline Post-Op hydration status: normal Vital Signs: Last Vital Signs Temp 36.8 C 08/12/22 03:38 Pulse 68 08/12/22 05:42 Resp 17 08/12/22 03:38 BP 137/59 L 08/12/22 03:38 Pulse Ox 95 08/12/22 03:38 O2 Del Method Room Air 08/11/22 20:00 O2 Flow Rate 2 08/11/22 11:20 Pain Score (VAS): 09/14 I/O: Intake & Output 08/11/22 08/12/22 08/12/22 23:59 07:59 15:59 Intake Total 950 300 Balance 950 300 Laboratory Tests 08/12/22 05:01 08/12/22 05:01 08/11/22 08/12/22 08/12/22 15:18 05:01 05:01 WBC 11.8 H RBC 4.03 L Hgb 12.5 Hct 37.8 MCV 93.8 MCH 31.0 MCHC 33.1 RDW 14.2 Plt Count 264 MPV 10.4 Sodium 136 L 132 L Potassium 3.8 3.3 L Chloride 105 101 Carbon Dioxide 23 27 Anion Gap 8 4 L BUN 16 18 H Creatinine 0.70 0.80 Estim Creat Clear Calc 45 40 Estimated GFR > 60 > 60 Glucose 111 H 98 Calcium 8.4 8.7 Post-procedural complaints: none Patient Feedback: Patient satisfied with anesthetic care.
[2022-08-12] MEDS: HYDROmorphone HCL INJ (*CRX) 1 MG/ML SYR 0.5 MG IV PUSH (09:31)
[2022-08-12] MEDS: ENOXAPARIN 40 MG/0.4 ML SYRINGE SUB-Q (09:44)
[2022-08-12] MEDS: PANTOPRAZOLE SODIUM IV 40 MG VIAL IV PUSH (09:44)
--- NOTE | 2022-08-12 10:13 | PC.NURSE ---
this nurse spoke with Pam Urban at 09:40 regarding PO medications Diltiazem and Crestor that were removed off hold. Per Pam- ok to administer the Diltiazem, crestor is not needed and should be held. Also, pt. is complaining of feelings of constipation, ok per Pam to resume the Bisacodyl suppository QAM PRN.
--- NOTE | 2022-08-12 11:18 | PM.PNGS ---
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 Will start clear liquids today. Increase activity. Await return of bowel function. (2) Small bowel obstruction: Code(s): K56.609 - Unspecified intestinal obstruction, unspecified as to partial versus complete obstruction Status: Acute (3) Acute UTI (urinary tract infection): Code(s): N39.0 - Urinary tract infection, site not specified Status: Acute Subjective Subjective Date/Time Seen: 08/12/22 11:18 Interval history: No bowel movement or flatus yet. Pain controlled. No bloating or nausea. Exam GI: Inspection: incision (Intact with glue) and other (Minimally distended) GI Palp: Yes Soft to palpation, Yes Tenderness to palpation present (GI) (Incisional) and No Guarding due to palpation present (GI) Auscultation: Hypoactive bowel sounds present Objective Data Vital Signs Vital Signs: Vital Signs - 24 hr 08/11/22 11:20 08/11/22 12:07 08/11/22 11:38 Temperature 36.5 C Pulse Rate 68 64 70 Respiratory Rate 10 L 12 Blood Pressure 158/76 H 165/73 H Pulse Oximetry 100 98 Oxygen Delivery Nasal Cannula Oxygen Flow Rate 2 08/11/22 11:53 08/11/22 12:23 08/11/22 13:23 Temperature 36.5 C 36.3 C L 36.3 C L Pulse Rate 72 72 76 Respiratory Rate 12 12 14 Blood Pressure 149/73 H 162/77 H 131/71 Pulse Oximetry 100 99 100 Oxygen Delivery Oxygen Flow Rate 08/11/22 17:11 08/11/22 16:00 08/11/22 17:23 Temperature 36.3 C L Pulse Rate 88 71 75 Respiratory Rate 16 Blood Pressure 141/67 H Pulse Oximetry 97 Oxygen Delivery Oxygen Flow Rate 08/11/22 19:11 08/11/22 20:00 08/11/22 23:13 Temperature 36.5 C 36.3 C L Pulse Rate 69 85 Respiratory Rate 18 16 Blood Pressure 140/70 149/65 H Pulse Oximetry 97 96 Oxygen Delivery Room Air Oxygen Flow Rate 08/12/22 00:18 08/12/22 03:38 08/11/22 20:00 Temperature 36.8 C Pulse Rate 86 88 79 Respiratory Rate 17 Blood Pressure 137/59 L Pulse Oximetry 95 Oxygen Delivery Oxygen Flow Rate 08/12/22 00:00 08/12/22 04:00 08/12/22 05:42 Temperature Pulse Rate 82 69 68 Respiratory Rate Blood Pressure Pulse Oximetry Oxygen Delivery Oxygen Flow Rate 08/12/22 09:57 Temperature 36.2 C L Pulse Rate 66 Respiratory Rate 16 Blood Pressure 132/70 Pulse Oximetry 96 Oxygen Delivery Oxygen Flow Rate Intake/Output Intake/Output: Intake & Output 08/09/22 08/10/22 08/11/22 08/12/22 23:59 23:59 23:59 23:59 Intake Total 2100 1400 300 Output Total 850 1650 Balance 1250 -250 300 Meds/Results Medications: Active Medications Generic Name Dose Route Start Last Admin Trade Name Freq PRN Reason Stop Dose Admin Acetaminophen 1,000 mg 08/12/22 11:17 Acetaminophen 500 Mg Tablet PO Q6H PRN Mild Pain (1-3) or Fever Anastrozole 1 mg 08/10/22 09:00 08/10/22 14:51 Anastrozole (*Chemo) 1 Mg Tablet PO 09/09/22 08:59 Not Given DAILY AGUEDA Bisacodyl 10 mg 08/12/22 10:11 Bisacodyl 10 Mg Suppository RECTAL QAM PRN Constipation Calcium Carbonate 500 mg 08/10/22 09:00 08/10/22 14:51 Calcium/Vitamin D 500 Mg Tablet PO 09/09/22 08:59 Not Given BID AGUEDA Diltiazem HCl 240 mg 08/10/22 09:00 08/12/22 09:44 Diltiazem Hcl Cd 240 Mg Cap.Er.24h PO 240 mg DAILY AGUEDA Administration Enoxaparin Sodium 40 mg 08/12/22 09:00 08/12/22 09:44 Enoxaparin 40 Mg/0.4 Ml Syringe SUB-Q 40 mg DAILY AGUEDA Administration Fish Oil 1 gm 08/10/22 09:00 08/10/22 14:51 [place] 3 Polyunsat Fatty Acids 1 Gm Cap PO 09/09/22 08:59 Not Given BID AGUEDA Hydromorphone HCl 0.5 mg 08/11/22 11:38 08/12/22 09:31 Hydromorphone Hcl Inj (*Crx) 1 Mg/Ml Syr IV PUSH 0.5 mg Q2H PRN Administration Pain Rated 4-6
[2022-08-12] MEDS: BISACODYL 10 MG SUPPOSITORY RECTAL (11:50)
[2022-08-12] MEDS: SODIUM CHLORIDE 0.9% IV 1,000 ML 75 ML IV CONT (14:37)
[2022-08-12] MEDS: LATANOPROST 0.005% OP SOLN 2.5 ML BTL 1 DROP EACH EYE (21:40)
[2022-08-13] VITALS (13 sets, daily range): BP systolic 138–153; BP diastolic 57–75; PULSE 67–106; RESP 16–20; TEMP 36.2–38; O2SAT 93–96
[2022-08-13] MEDS: METOPROLOL TARTRATE INJ 5 MG/5 ML VIAL IV PUSH ×4 (01:00→17:29)
[2022-08-13 05:48] LABS: Hematocrit 38.1 % (37.0-47.0); Hemoglobin 12.5 g/dL (12.0-15.0); Mean Corpuscular HGB Conc 32.8 g/dl (32-36); Mean Corpuscular Hemoglobin 31.5 pg (26-34); Mean Platelet Volume 10.9 fl (7.4-10.4); Platelet Count Result 232 k/mm3 (150-375); Red Blood Count 3.97 M/mm3 (4.2-5.4); Red Cell Distribution Width 14.4 % (11.5-14.5); White Blood Count 9.1 K/mm3 (4.5-10.0)
[2022-08-13 05:55] LABS: Anion Gap 2 mmol/L (8-16); Blood Urea Nitrogen 12 mg/dL (7-17); Calcium 8.2 mg/dL (8.4-10.2); Carbon Dioxide 28 mmol/L (22-30); Chloride 101 mmol/L (98-107); Estimated CRCL calculation 52 ml/min; Estimated Glomerular Filt Rate > 60; Glucose 117 mg/dL (65-110); Potassium 2.7 mmol/L (3.4-5.0); Sodium 131 mmol/L (137-145)
[2022-08-13] MEDS: SODIUM CHLORIDE 0.9% IV 1,000 ML 75 ML IV CONT (06:04)
[2022-08-13] MEDS: POTASSIUM CHLORIDE INJ 40 MEQ in SODIUM CHLORIDE 0.9% IV 500 ML 130 MEQ IVPB (06:44)
[2022-08-13] MEDS: POTASSIUM CHLORIDE 20 MEQ PACKET (FOR LIQUID) 40 MEQ PO (06:45)
--- NOTE | 2022-08-13 06:58 | P.PNIM_ITS ---
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 * Patient passing gas post op. No bowel movement. * States she does not have any pain post op * Advised patient to start taking daily Miralax to help with chronic constipation. 08/12/22 * Patient doing well and only having mild pain with movements such as walking or using abdominal muscles sit up. * Restarted patient's constipation medications - MiraLax, Colace and bisacodyl suppositories * Patient put on clear liquid diet * Patient passing gas and belching. * Has not had bowel movement yet. * Surgery continue to follow patient. 08/13/22 * Had some nausea vomiting today and taking anti emetics for this. * Patient is still having some abdominal pain with moving. * Encouraged walking * Advised working with PT and OT (2) RUQ abdominal pain: Code(s): R10.11 - Right upper quadrant pain Status: Acute Assessment and Plan: Pt presented with RUQ pain. CT revealed normal gallbladder and liver. * CT findings suggestive of SBO and cecal bascule vs. obstructing mass * GI consulted and appreciate recommendations * Patient unable to complete last colonoscopy due to torturous bowel. * NG tube placement * Talked to Dr. Gambino and he recommended a general surgery consult due to cecal bascule. * General Surgery recommended laparoscopic right hemicolectomy to be performed today08/11/22 * RUQ US normal * X-ray abdomen: constipation * hepatic panel negative * bilirubin, lipase, liver enzymes, lipid panel WNL (3) Constipation: Code(s): K59.00 - Constipation, unspecified Status: Chronic Assessment and Plan: Chronic * Surgery recommended bisacodyl suppository * Patient passing gas but has not had BM - 08/13/22 (4) Acute UTI (urinary tract infection): Code(s): N39.0 - Urinary tract infection, site not specified Status: Acute Assessment and Plan: UA positive for leukocyte esterase and 4-6 white blood cells * ceftriaxone 1 g q24h * Urine culture final results no growth * Discontinue antibiotics - 08/12/22 Subjective Date/time seen: 08/13/22 06:58 Interval history: 08/13/22 82-year-old female patient with significant PMH of Breast CA that she is seeing Oncology for, chronic constipation that requires daily suppository to have BM, lung nodule, Right carotid artery stenosis, TIA, A-fib, HTN, HLD, GERD presents to the ER with complaints of having right upper quadrant abdominal pain and N/V. Patient was resting comfortably in bed while being interviewed. Patient's in the room. Patient states that she is tired. Patient has been na useous and vomiting throughout the day. Patient getting anti emetics for her symptoms. GI following patient. Patient denies fever, dizziness, chest pain, shortness a breath and lower extremity swelling. Review of Systems Review of Systems: All systems reviewed & are unremarkable except as noted in HPI and below Exam Narrative: GENERAL: Comfortable, no acute distress HENMT: moist mucous membranes EYES: EOM intact b/l NECK: no lymphadenopathy RESPIRATORY: clear to auscultation CARDIO: RRR GI: soft, upper abdominal tenderness, no guarding or rebound tenderness. Bowel sounds present. Surgical incision over umbilicus clean without signs of infection. Mild bruising around incision site. SKIN: no rashes EXTREMITIES:
--- NOTE | 2022-08-13 06:58 | PM.IMPN ---
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 Patient passing gas post op. No bowel movement. States she does not have any pain post op Advised patient to start taking daily Miralax to help with chronic constipation. 08/12/22 Patient doing well and only having mild pain with movements such as walking or using abdominal muscles sit up. Restarted patient's constipation medications - MiraLax, Colace and bisacodyl suppositories Patient put on clear liquid diet Patient passing gas and belching. Has not had bowel movement yet. Surgery continue to follow patient. 08/13/22 Had some nausea vomiting today and taking anti emetics for this. Patient is still having some abdominal pain with moving. Encouraged walking Advised working with PT and OT (2) RUQ abdominal pain: Code(s): R10.11 - Right upper quadrant pain Status: Acute Assessment and Plan: Pt presented with RUQ pain. CT revealed normal gallbladder and liver. CT findings suggestive of SBO and cecal bascule vs. obstructing mass GI consulted and appreciate recommendations Patient unable to complete last colonoscopy due to torturous bowel. NG tube placement Talked to Dr. Gambino and he recommended a general surgery consult due to cecal bascule. General Surgery recommended laparoscopic right hemicolectomy to be performed today08/11/22 RUQ US normal X-ray abdomen: constipation hepatic panel negative bilirubin, lipase, liver enzymes, lipid panel WNL (3) Constipation: Code(s): K59.00 - Constipation, unspecified Status: Chronic Assessment and Plan: Chronic Surgery recommended bisacodyl suppository Patient passing gas but has not had BM - 08/13/22 (4) Acute UTI (urinary tract infection): Code(s): N39.0 - Urinary tract infection, site not specified Status: Acute Assessment and Plan: UA positive for leukocyte esterase and 4-6 white blood cells ceftriaxone 1 g q24h Urine culture final results no growth Discontinue antibiotics - 08/12/22 Subjective Date/time seen: 08/13/22 06:58 Interval history: 08/13/22 82-year-old female patient with significant PMH of Breast CA that she is seeing Oncology for, chronic constipation that requires daily suppository to have BM, lung nodule, Right carotid artery stenosis, TIA, A-fib, HTN, HLD, GERD presents to the ER with complaints of having right upper quadrant abdominal pain and N/V. Patient was resting comfortably in bed while being interviewed. Patient's in the room. Patient states that she is tired. Patient has been nauseous and vomiting throughout the day. Patient getting anti emetics for her symptoms. GI following patient. Patient denies fever, dizziness, chest pain, shortness a breath and lower extremity swelling. Review of Systems Review of Systems: All systems reviewed & are unremarkable except as noted in HPI and below Exam Narrative: GENERAL: Comfortable, no acute distress HENMT: moist mucous membranes EYES: EOM intact b/l NECK: no lymphadenopathy RESPIRATORY: clear to auscultation CARDIO: RRR GI: soft, upper abdominal tenderness, no guarding or rebound tenderness. Bowel sounds present. Surgical incision over umbilicus clean without signs of infection. Mild bruising around incision site. SKIN: no rashes EXTREMITIES: no edema, redness or tenderness Objective Data Vital Signs Vital Signs: Vital Signs - 24 hr 08/12/22 09:57 08/12/22 11:50 08/12/22 08:00 Temperature 97.2 F L Pulse Rate 66 79 Respiratory Rate 16 Blood Pressure 132/70 Pulse Oximetry 96 Oxygen Delivery Room Air 08/12/22 08:00 08/12/22 12:00 08/12/22 14:58 Temperature 97.7 F Pulse Rate 85 84 88 Respiratory Rate 16 Blood Pressure 147/75 H Pulse Oximetry 96 Oxygen
[2022-08-13 07:40] LABS: Phosphorus 2.2 mg/dL (2.5-4.5)
[2022-08-13] MEDS: ONDANSETRON INJ 4 MG/2 ML VIAL IV PUSH (09:20)
[2022-08-13] MEDS: ENOXAPARIN 40 MG/0.4 ML SYRINGE SUB-Q (09:20)
[2022-08-13] MEDS: PANTOPRAZOLE SODIUM IV 40 MG VIAL IV PUSH (09:20)
[2022-08-13] MEDS: polyethylene glycoL 3350 17 GM POWD.PACK PO (09:20)
--- NOTE | 2022-08-13 11:43 | PM.PNGS ---
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 Await return of bowel function. Continue clear liquids for now. If she begins vomiting, may need to make her NPO. Will give dulcolax supp. Encouraged increasing activity, sitting in chair and try ambulating today as tolerated. Start PT/OT. Pathology pending. Potassium 2.7 this morning, replaced with IV and PO KCL this morning, monitor and replace as needed. Repeat labs tomorrow. (2) Small bowel obstruction: Code(s): K56.609 - Unspecified intestinal obstruction, unspecified as to partial versus complete obstruction Status: Acute Plan I have discussed the patient's case and plan of care with Dr. Dean. Subjective Subjective Date/Time Seen: 08/13/22 09:43 Post Op day: 2 (Hand assisted laparoscopic right hemicolectomy) Patient reports: voiding w/o difficulty, no flatus, no bowel movement, nausea and afebrile Interval history: Chart reviewed. Patient reports having some nausea this morning and spitting up but no vomiting. She also feels bloated. No flatus or BM yet since surgery. Has walked to the bathroom a few times but not sat in the chair or ambulated in the halls. Denies any abdominal pain, but has some incisional soreness/pain with getting up/movement. Review of Systems Review of Systems: All systems reviewed & are unremarkable except as noted in HPI and below Constitutional: Constitutional: Reports as per HPI, Reports no additional constitutional complaints, Denies chills, Denies fever(s) and Denies headache(s) Cardiovascular: Cardiovascular: Reports no additional cardiovascular complaints, Denies chest pain and Denies leg edema Respiratory: Respiratory: Reports no additional respiratory complaints, Denies cough and Denies dyspnea Gastrointestinal: Gastrointestinal: Reports as per HPI and Reports no additional gastrointestinal complaints Exam Const: General: alert; No acute distress Orientation/consciousness: patient oriented x3 GI: Inspection: incision (dry and glue intact) and other (Minimally distended) GI Palp: Yes Soft to palpation and Yes Tenderness to palpation present (GI) (incisional) Auscultation: normal bowel sounds Extrem: General: normal to inspection Objective Data Vital Signs Vital Signs: Vital Signs - 24 hr 08/12/22 11:50 08/12/22 12:00 08/12/22 14:58 Temperature 97.7 F Pulse Rate 79 84 88 Respiratory Rate 16 Blood Pressure 147/75 H Pulse Oximetry 96 08/12/22 17:25 08/12/22 16:00 08/12/22 19:06 Temperature 97.4 F L Pulse Rate 88 63 88 Respiratory Rate 16 Blood Pressure 147/67 H Pulse Oximetry 98 08/12/22 20:00 08/13/22 00:00 08/12/22 20:00 Temperature 99.1 F 97.8 F Pulse Rate 82 71 75 Respiratory Rate 20 20 Blood Pressure 158/56 H 153/57 H Pulse Oximetry 95 93 08/13/22 01:00 08/13/22 00:00 08/13/22 04:00 Temperature Pulse Rate 83 83 106 H Respiratory Rate Blood Pressure Pulse Oximetry 08/13/22 06:05 08/13/22 04:00 08/13/22 08:00 Temperature 98.2 F 97.2 F L Pulse Rate 106 H 104 H 67 Respiratory Rate 16 16 Blood Pressure 138/67 153/75 H Pulse Oximetry 94 94 Intake/Output Intake/Output: Intake & Output 08/10/22 08/11/22 08/12/22 08/13/22 23:59 23:59 23:59 23:59 Intake Total 2100 1400 1880 1360 Output Total 850 1650 400 Balance 1250 -250 1880 960 Meds/Results Medications: Active Medications Generic Name Dose Route Start Last Admin Trade Name Chava PRN Reason Stop Dose Admin Acetaminophen 1,000 mg 08/12/22 11:17 Acetaminophen 500 Mg Tablet PO Q6H PRN Mild Pain (1-3) or Fever Anastrozole 1 mg 08/10/22 09:00 08/10/22 14:51 Anastrozole (*Chemo) 1 Mg Tablet PO 09/09/22 08:59 Not Given DAILY AGUEDA Calcium Carbonate 500 mg 08/10/22 09:00 08/10/22
[2022-08-13] MEDS: BISACODYL 10 MG SUPPOSITORY RECTAL (13:37)
[2022-08-13 14:41] LABS: Potassium 3.9 mmol/L (3.4-5.0)
[2022-08-13] MEDS: LATANOPROST 0.005% OP SOLN 2.5 ML BTL 1 DROP EACH EYE (20:11)
[2022-08-14] VITALS (11 sets, daily range): BP systolic 134–153; BP diastolic 60–77; PULSE 66–101; RESP 16–18; TEMP 37.2–37.6; O2SAT 95–97; BMI 25.6
[2022-08-14] MEDS: SODIUM CHLORIDE 0.9% IV 1,000 ML 75 ML IV CONT ×2 (03:37→20:30)
[2022-08-14 06:51] LABS: Hematocrit 33.7 % (37.0-47.0); Hemoglobin 11.3 g/dL (12.0-15.0); Mean Corpuscular HGB Conc 33.5 g/dl (32-36); Mean Corpuscular Hemoglobin 30.9 pg (26-34); Mean Corpuscular Volume 92.1 fl (80-100); Mean Platelet Volume 11.1 fl (7.4-10.4); Platelet Count Result 267 k/mm3 (150-375); Red Blood Count 3.66 M/mm3 (4.2-5.4); Red Cell Distribution Width 14.2 % (11.5-14.5); White Blood Count 7.6 K/mm3 (4.5-10.0)
[2022-08-14 07:01] LABS: Anion Gap 5 mmol/L (8-16); Blood Urea Nitrogen 10 mg/dL (7-17); Calcium 8.2 mg/dL (8.4-10.2); Carbon Dioxide 27 mmol/L (22-30); Chloride 102 mmol/L (98-107); Estimated CRCL calculation 61 ml/min; Estimated Glomerular Filt Rate > 60; Glucose 93 mg/dL (65-110); Sodium 134 mmol/L (137-145)
[2022-08-14] MEDS: ENOXAPARIN 40 MG/0.4 ML SYRINGE SUB-Q (08:31)
[2022-08-14] MEDS: PANTOPRAZOLE SODIUM IV 40 MG VIAL IV PUSH (08:31)
[2022-08-14] MEDS: ONDANSETRON INJ 4 MG/2 ML VIAL IV PUSH (08:35)
[2022-08-14] MEDS: METOPROLOL TARTRATE INJ 5 MG/5 ML VIAL IV PUSH ×3 (09:34→20:29)
--- NOTE | 2022-08-14 11:37 | PM.PNGS ---
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 Await return of bowel function. Continue clear liquids today. Will try stimulating with Miralax today. Replace potassium, recheck labs in am. Encouraged ambulating in the halls, continue PT/OT. Pathology pending. (2) Small bowel obstruction: Code(s): K56.609 - Unspecified intestinal obstruction, unspecified as to partial versus complete obstruction Status: Acute Plan I have discussed the patient's case and plan of care with Dr. Dean. Subjective Subjective Date/Time Seen: 08/14/22 11:37 Post Op day: 3 (JONY right hemicolectomy) Patient reports: no new complaints, feels better, voiding w/o difficulty, flatus, no bowel movement and fever (low grade temp 100.4F last night at 2100) Interval history: Patient sitting up in the chair. Feeling better today without any nausea this morning. She did pass a little flatus last night, but still no BM. She tolerating liquids for breakfast. Feels less bloated. Has some soreness in the mid abdomen, but mostly just when she is getting up or sitting in the chair. She did walk in the room yesterday. No other complaints at this time. Review of Systems Constitutional: Constitutional: Reports no additional constitutional complaints, Denies headache(s) and Reports poor appetite Cardiovascular: Cardiovascular: Reports no additional cardiovascular complaints and Denies chest pain Respiratory: Respiratory: Reports no additional respiratory complaints, Denies cough and Denies dyspnea Gastrointestinal: Gastrointestinal: Reports as per HPI and Reports no additional gastrointestinal complaints Exam Const: General: alert; No acute distress Orientation/consciousness: patient oriented x3 Resp: Effort & Inspection: normal respiratory effort Auscultation: clear to auscultation bilaterally GI: Inspection: incision (dry and glue intact) and other (mildly distended) GI Palp: Yes Soft to palpation, Yes Tenderness to palpation present (GI) (incisional) and No Guarding due to palpation present (GI) Auscultation: normal bowel sounds Neuro: General: moves all extremities and no focal motor deficits Extrem: General: normal to inspection and no calf tenderness Objective Data Vital Signs Vital Signs: Vital Signs - 24 hr 08/13/22 14:36 08/13/22 15:08 08/13/22 17:29 Temperature 97.4 F L 98.8 F Pulse Rate 70 76 Respiratory Rate 16 16 Blood Pressure 147/68 H 139/58 L Pulse Oximetry 95 95 Oxygen Delivery Room Air 08/13/22 12:00 08/13/22 16:00 08/13/22 19:52 Temperature 100.4 F H Pulse Rate 70 74 71 Respiratory Rate 16 Blood Pressure 141/62 H Pulse Oximetry 96 Oxygen Delivery 08/13/22 20:00 08/13/22 21:02 08/13/22 20:00 Temperature 100.1 F H Pulse Rate 71 82 Respiratory Rate 16 Blood Pressure Pulse Oximetry 96 Oxygen Delivery Room Air 08/14/22 00:00 08/14/22 01:37 08/14/22 04:00 Temperature 99.7 F H Pulse Rate 74 77 82 Respiratory Rate 16 Blood Pressure 147/77 H Pulse Oximetry 96 Oxygen Delivery 08/14/22 05:30 08/14/22 08:28 Temperature 99.0 F 99.2 F Pulse Rate 70 90 Respiratory Rate 16 16 Blood Pressure 134/60 153/74 H Pulse Oximetry 95 96 Oxygen Delivery Intake/Output Intake/Output: Intake & Output 08/11/22 08/12/22 08/13/22 08/14/22 23:59 23:59 23:59 23:59 Intake Total 1400 1880 2080 1400 Output Total 1650 400 Balance -250 1880 1680 1400 Meds/Results Medications: Active Medications Generic Name Dose Route Start Last Admin Trade Name Freq PRN Reason Stop Dose Admin Acetaminophen 1,000 mg 08/12/22 11:17 Acetaminophen 500 Mg Tablet PO Q6H PRN Mild Pain (1-3) or Fever Anastrozole 1 mg 08/10/22 09:00 08/10/22 14:51 Anastrozole (*Chemo) 1 Mg Tablet PO
--- NOTE | 2022-08-14 12:51 | P.PNIM_ITS ---
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 * Patient passing gas post op. No bowel movement. * States she does not have any pain post op * Advised patient to start taking daily Miralax to help with chronic constipation. 08/12/22 * Patient doing well and only having mild pain with movements such as walking or using abdominal muscles sit up. * Restarted patient's constipation medications - MiraLax, Colace and bisacodyl suppositories * Patient put on clear liquid diet * Patient passing gas and belching. * Has not had bowel movement yet. * Surgery continue to follow patient. 08/13/22 * Had some nausea vomiting today and taking anti emetics for this. * Patient is still having some abdominal pain with moving. * Encouraged walking * Advised working with PT and OT 08/14/22 * Patient continues to have abdominal pain * nausea vomiting resolved today * patient passing gas but no bowel movement yet * patient trying MiraLax today * patient low-grade fever overnight with this highest at 100.4. will continue to monitor the stool. No action at this time. (2) RUQ abdominal pain: Code(s): R10.11 - Right upper quadrant pain Status: Acute Assessment and Plan: Pt presented with RUQ pain. CT revealed normal gallbladder and liver. * CT findings suggestive of SBO and cecal bascule vs. obstructing mass * GI consulted and appreciate recommendations * Patient unable to complete last colonoscopy due to torturous bowel. * NG tube placement * Talked to Dr. Gambino and he recommended a general surgery consult due to ceca l bascule. * General Surgery recommended laparoscopic right hemicolectomy to be performed today08/11/22 * RUQ US normal * X-ray abdomen: constipation * hepatic panel negative * bilirubin, lipase, liver enzymes, lipid panel WNL (3) Constipation: Code(s): K59.00 - Constipation, unspecified Status: Chronic Assessment and Plan: Chronic * Surgery recommended bisacodyl suppository * Patient passing gas but has not had BM (4) Acute UTI (urinary tract infection): Code(s): N39.0 - Urinary tract infection, site not specified Status: Acute Assessment and Plan: UA positive for leukocyte esterase and 4-6 white blood cells * ceftriaxone 1 g q24h * Urine culture final results no growth * Discontinue antibiotics - 08/12/22 Subjective Date/time seen: 08/14/22 12:52 Interval history: 08/13/22 82-year-old female patient with significant PMH of Breast CA that she is seeing Oncology for, chronic constipation that requires daily suppository to have BM, lung nodule, Right carotid artery stenosis, TIA, A-fib, HTN, HLD, GERD presents to the ER with complaints of having right upper quadrant abdominal pain and N/V. Patient was resting comfortably in bed while being interviewed. Patient is about the same as yesterday. Does state that nausea has improved. Has not had bowel movement yet. Patient still has abdominal pain around incision site. Patient denies fever although she has spiked low-grade temps overnight. With the highest being 100.4. denies chest pain, shortness a breath, dizziness and headache. Review of Systems Review of Systems: All systems reviewed & are unremarkable except as noted in HPI and below Exam Narrative: GENERAL: Comfortable, no acute distress HENMT: moist mucous membran
--- NOTE | 2022-08-14 12:51 | PM.IMPN ---
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 Patient passing gas post op. No bowel movement. States she does not have any pain post op Advised patient to start taking daily Miralax to help with chronic constipation. 08/12/22 Patient doing well and only having mild pain with movements such as walking or using abdominal muscles sit up. Restarted patient's constipation medications - MiraLax, Colace and bisacodyl suppositories Patient put on clear liquid diet Patient passing gas and belching. Has not had bowel movement yet. Surgery continue to follow patient. 08/13/22 Had some nausea vomiting today and taking anti emetics for this. Patient is still having some abdominal pain with moving. Encouraged walking Advised working with PT and OT 08/14/22 Patient continues to have abdominal pain nausea vomiting resolved today patient passing gas but no bowel movement yet patient trying MiraLax today patient low-grade fever overnight with this highest at 100.4. will continue to monitor the stool. No action at this time. (2) RUQ abdominal pain: Code(s): R10.11 - Right upper quadrant pain Status: Acute Assessment and Plan: Pt presented with RUQ pain. CT revealed normal gallbladder and liver. CT findings suggestive of SBO and cecal bascule vs. obstructing mass GI consulted and appreciate recommendations Patient unable to complete last colonoscopy due to torturous bowel. NG tube placement Talked to Dr. Gambino and he recommended a general surgery consult due to cecal bascule. General Surgery recommended laparoscopic right hemicolectomy to be performed today08/11/22 RUQ US normal X-ray abdomen: constipation hepatic panel negative bilirubin, lipase, liver enzymes, lipid panel WNL (3) Constipation: Code(s): K59.00 - Constipation, unspecified Status: Chronic Assessment and Plan: Chronic Surgery recommended bisacodyl suppository Patient passing gas but has not had BM (4) Acute UTI (urinary tract infection): Code(s): N39.0 - Urinary tract infection, site not specified Status: Acute Assessment and Plan: UA positive for leukocyte esterase and 4-6 white blood cells ceftriaxone 1 g q24h Urine culture final results no growth Discontinue antibiotics - 08/12/22 Subjective Date/time seen: 08/14/22 12:52 Interval history: 08/13/22 82-year-old female patient with significant PMH of Breast CA that she is seeing Oncology for, chronic constipation that requires daily suppository to have BM, lung nodule, Right carotid artery stenosis, TIA, A-fib, HTN, HLD, GERD presents to the ER with complaints of having right upper quadrant abdominal pain and N/V. Patient was resting comfortably in bed while being interviewed. Patient is about the same as yesterday. Does state that nausea has improved. Has not had bowel movement yet. Patient still has abdominal pain around incision site. Patient denies fever although she has spiked low-grade temps overnight. With the highest being 100.4. denies chest pain, shortness a breath, dizziness and headache. Review of Systems Review of Systems: All systems reviewed & are unremarkable except as noted in HPI and below Exam Narrative: GENERAL: Comfortable, no acute distress HENMT: moist mucous membranes EYES: EOM intact b/l NECK: no lymphadenopathy RESPIRATORY: clear to auscultation CARDIO: RRR GI: soft, upper abdominal tenderness, no guarding or rebound tenderness. Bowel sounds present. Surgical incision over umbilicus clean without signs of infection. Mild bruising around incision site. SKIN: no rashes EXTREMITIES: no edema, redness or tenderness Objective Data Vital Signs Vital Signs: Vital Signs - 24 hr 08/13/22 14:36 08/13/22 15:08
[2022-08-14] MEDS: POTASSIUM CHLORIDE INJ 40 MEQ in SODIUM CHLORIDE 0.9% IV 500 ML 130 MEQ IVPB (12:57)
[2022-08-14] MEDS: polyethylene glycoL 3350 17 GM POWD.PACK PO (12:58)
[2022-08-14] MEDS: LATANOPROST 0.005% OP SOLN 2.5 ML BTL 1 DROP EACH EYE (20:29)
[2022-08-15] VITALS (12 sets, daily range): BP systolic 138–162; BP diastolic 53–89; PULSE 71–130; RESP 12–20; TEMP 36.7–37.2; O2SAT 96–99
[2022-08-15] MEDS: METOPROLOL TARTRATE INJ 5 MG/5 ML VIAL IV PUSH ×2 (03:37→08:13)
[2022-08-15 05:34] LABS: Hematocrit 34.5 % (37.0-47.0); Hemoglobin 11.6 g/dL (12.0-15.0); Mean Corpuscular HGB Conc 33.6 g/dl (32-36); Mean Corpuscular Hemoglobin 30.6 pg (26-34); Mean Platelet Volume 10.4 fl (7.4-10.4); Platelet Count Result 281 k/mm3 (150-375); Red Blood Count 3.79 M/mm3 (4.2-5.4)
[2022-08-15 05:50] LABS: Anion Gap 3 mmol/L (8-16); Blood Urea Nitrogen 5 mg/dL (7-17); Carbon Dioxide 27 mmol/L (22-30); Chloride 102 mmol/L (98-107); Estimated CRCL calculation 61 ml/min; Estimated Glomerular Filt Rate > 60; Glucose 95 mg/dL (65-110); Phosphorus 2.4 mg/dL (2.5-4.5); Potassium 2.8 mmol/L (3.4-5.0); Sodium 132 mmol/L (137-145)
[2022-08-15] MEDS: POTASSIUM CHLORIDE INJ 40 MEQ in SODIUM CHLORIDE 0.9% IV 500 ML 130 MEQ IVPB (06:33)
--- NOTE | 2022-08-15 07:38 | P.PNIM_ITS ---
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 * Patient passing gas post op. No bowel movement. * States she does not have any pain post op * Advised patient to start taking daily Miralax to help with chronic constipation. 08/12/22 * Patient doing well and only having mild pain with movements such as walking or using abdominal muscles sit up. * Restarted patient's constipation medications - MiraLax, Colace and bisacodyl suppositories * Patient put on clear liquid diet * Patient passing gas and belching. * Has not had bowel movement yet. * Surgery continue to follow patient. 08/13/22 * Had some nausea vomiting today and taking anti emetics for this. * Patient is still having some abdominal pain with moving. * Encouraged walking * Advised working with PT and OT 08/14/22 * Patient continues to have abdominal pain * nausea vomiting resolved today * patient passing gas but no bowel movement yet * patient trying MiraLax today * patient low-grade fever overnight with this highest at 100.4. will continue to monitor the stool. No action at this time. 08/15/22 - Patient had 2 bowel movements. diet advanced per surgery. Encouraged ambulation. Continue postop care. (2) RUQ abdominal pain: Code(s): R10.11 - Right upper quadrant pain Status: Acute Assessment and Plan: Pt presented with RUQ pain. CT revealed normal gallbladder and liver. * CT findings suggestive of SBO and cecal bascule vs. obstructing mass * GI consulted and appreciate recommendations * Patient unable to complete last colonoscopy due to torturous bowel. * NG tube placement * Talked to Dr. Gambino and he recommended a general surgery consult due to cecal bascule. * General Surgery recommended laparoscopic right hemicolectomy to be performed today08/11/22 * RUQ US normal * X-ray abdomen: constipation * hepatic panel negative * bilirubin, lipase, liver enzymes, lipid panel WNL * Improved. (3) Constipation: Code(s): K59.00 - Constipation, unspecified Status: Chronic Assessment and Plan: Chronic * Surgery recommended bisacodyl suppository * Patient passing gas but has not had BM 08/15/22 Patient with 2 bowel movements today. Continue current treatment plan. (4) Acute UTI (urinary tract infection): Code(s): N39.0 - Urinary tract infection, site not specified Status: Resolved Assessment and Plan: UA positive for leukocyte esterase and 4-6 white blood cells * ceftriaxone 1 g q24h * Urine culture final results no growth * She received 72 hours of ceftriaxone 1 gram and preop cefazolin 08/11/22. * Discontinued antibiotics - 08/12/22 (5) Hypokalemia: Code(s): E87.6 - Hypokalemia Status: Acute Assessment and Plan: 08/15/22 K 2.8, was 3.0 yesterday. give 40 mEQ IV and PO x1. Added 40 mEQ to IV fluids. magnesium level 1.8. Repeat BMP tomorrow. Plan CODE STATUS: FULL CODE Discharge disposition: home with spouse when tolerating regular diet Time Spent With Patient Time with patient: 25 - 35 minutes Subjective Date/time seen: 08/15/22 07:39 Interval history: Patient is an 82-year-old female with history of Breast CA, chronic constipation that requires daily suppository to have BM, lung nodule, Right carotid artery stenosis, TIA, chronic A-fib on Eliquis, HTN, HLD, and GERD who presented to the ER with complaints of right u
--- NOTE | 2022-08-15 07:38 | PM.IMPN ---
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 Patient passing gas post op. No bowel movement. States she does not have any pain post op Advised patient to start taking daily Miralax to help with chronic constipation. 08/12/22 Patient doing well and only having mild pain with movements such as walking or using abdominal muscles sit up. Restarted patient's constipation medications - MiraLax, Colace and bisacodyl suppositories Patient put on clear liquid diet Patient passing gas and belching. Has not had bowel movement yet. Surgery continue to follow patient. 08/13/22 Had some nausea vomiting today and taking anti emetics for this. Patient is still having some abdominal pain with moving. Encouraged walking Advised working with PT and OT 08/14/22 Patient continues to have abdominal pain nausea vomiting resolved today patient passing gas but no bowel movement yet patient trying MiraLax today patient low-grade fever overnight with this highest at 100.4. will continue to monitor the stool. No action at this time. 08/15/22 - Patient had 2 bowel movements. diet advanced per surgery. Encouraged ambulation. Continue postop care. (2) RUQ abdominal pain: Code(s): R10.11 - Right upper quadrant pain Status: Acute Assessment and Plan: Pt presented with RUQ pain. CT revealed normal gallbladder and liver. CT findings suggestive of SBO and cecal bascule vs. obstructing mass GI consulted and appreciate recommendations Patient unable to complete last colonoscopy due to torturous bowel. NG tube placement Talked to Dr. Gambino and he recommended a general surgery consult due to cecal bascule. General Surgery recommended laparoscopic right hemicolectomy to be performed today08/11/22 RUQ US normal X-ray abdomen: constipation hepatic panel negative bilirubin, lipase, liver enzymes, lipid panel WNL Improved. (3) Constipation: Code(s): K59.00 - Constipation, unspecified Status: Chronic Assessment and Plan: Chronic Surgery recommended bisacodyl suppository Patient passing gas but has not had BM 08/15/22 Patient with 2 bowel movements today. Continue current treatment plan. (4) Acute UTI (urinary tract infection): Code(s): N39.0 - Urinary tract infection, site not specified Status: Resolved Assessment and Plan: UA positive for leukocyte esterase and 4-6 white blood cells ceftriaxone 1 g q24h Urine culture final results no growth She received 72 hours of ceftriaxone 1 gram and preop cefazolin 08/11/22. Discontinued antibiotics - 08/12/22 (5) Hypokalemia: Code(s): E87.6 - Hypokalemia Status: Acute Assessment and Plan: 08/15/22 K 2.8, was 3.0 yesterday. give 40 mEQ IV and PO x1. Added 40 mEQ to IV fluids. magnesium level 1.8. Repeat BMP tomorrow. Plan CODE STATUS: FULL CODE Discharge disposition: home with spouse when tolerating regular diet Time Spent With Patient Time with patient: 25 - 35 minutes Subjective Date/time seen: 08/15/22 07:39 Interval history: Patient is an 82-year-old female with history of Breast CA, chronic constipation that requires daily suppository to have BM, lung nodule, Right carotid artery stenosis, TIA, chronic A-fib on Eliquis, HTN, HLD, and GERD who presented to the ER with complaints of right upper quadrant abdominal pain and N/V. Patient found resting in bed with spouse at bedside. She reports having 2 bowel movements today. No abdominal pain, nausea or vomiting. She is tolerating clear liquid diet. Review of Systems Review of Systems: All systems reviewed & are unremarkable except as noted in HPI and below Exam Narrative: GENERAL: Comfortable, no acute distress HEENT: Pupils equal and round, sclera anicteric, mois
[2022-08-15 07:46] LABS: Magnesium 1.8 mg/dL (1.6-2.3)
[2022-08-15] MEDS: KCL 40 MEQ/0.9% SOD CHL 1,000 ML 75 ML IV CONT (08:12)
[2022-08-15] MEDS: ENOXAPARIN 40 MG/0.4 ML SYRINGE SUB-Q (08:13)
[2022-08-15] MEDS: PANTOPRAZOLE SODIUM IV 40 MG VIAL IV PUSH (08:13)
[2022-08-15] MEDS: POTASSIUM CHLORIDE 20 MEQ PACKET (FOR LIQUID) 40 MEQ PO (08:15)
--- NOTE | 2022-08-15 09:15 | PM.PNGS ---
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 Bowel function returning. Advance to full liquids. Will try to stop IV fluids today if tolerating her diet. Replace potassium as needed. Monitor labs. Encouraged ambulating in the halls, continue PT/OT. Pathology pending. (2) Small bowel obstruction: Code(s): K56.609 - Unspecified intestinal obstruction, unspecified as to partial versus complete obstruction Status: Acute Plan I have discussed the patient's case and plan of care with Dr. Dean. Subjective Subjective Date/Time Seen: 08/15/22 09:15 Post Op day: 4 (JONY right hemicolectomy) Patient reports: feels better, voiding w/o difficulty, flatus, bowel movement (formed BM this morning) and afebrile Interval history: Patient reports feeling better today. Denies any nausea or vomiting. Feels her bloating has improved. She had a BM this morning. She has a poor appetite and is not eating much but states it is because she does not want what is on the clear liquid diet. Review of Systems Review of Systems: All systems reviewed & are unremarkable except as noted in HPI and below Exam Const: General: alert; No acute distress Orientation/consciousness: patient oriented x3 GI: Inspection: incision (dry and glue intact) and other (mildly distended) GI Palp: Yes Soft to palpation, Yes Tenderness to palpation present (GI) (incisional), No Guarding due to palpation present (GI) and No Rebound tenderness present Auscultation: normal bowel sounds Neuro: General: gait normal and no focal motor deficits Extrem: General: normal to inspection and no calf tenderness Objective Data Vital Signs Vital Signs: Vital Signs - 24 hr 08/14/22 13:46 08/14/22 12:00 08/14/22 16:00 Temperature 99.0 F Pulse Rate 85 66 101 H Respiratory Rate 18 Blood Pressure 151/63 H Pulse Oximetry 95 Oxygen Delivery 08/14/22 21:10 08/14/22 20:00 08/14/22 20:00 Temperature 99.1 F Pulse Rate 77 77 82 Respiratory Rate 16 18 Blood Pressure 147/74 H Pulse Oximetry 97 96 Oxygen Delivery Room Air 08/15/22 00:00 08/15/22 00:00 08/15/22 04:00 Temperature 99.0 F Pulse Rate 80 71 95 Respiratory Rate 16 Blood Pressure 151/69 H Pulse Oximetry 98 Oxygen Delivery 08/15/22 04:57 08/15/22 05:13 08/15/22 08:13 Temperature 98.7 F Pulse Rate 95 92 92 Respiratory Rate 14 Blood Pressure 139/75 Pulse Oximetry 96 Oxygen Delivery Intake/Output Intake/Output: Intake & Output 08/12/22 08/13/22 08/14/22 08/15/22 23:59 23:59 23:59 23:59 Intake Total 1880 2080 3320 922 Output Total 400 Balance 1880 1680 3320 922 Meds/Results Medications: Active Medications Generic Name Dose Route Start Last Admin Trade Name Freq PRN Reason Stop Dose Admin Acetaminophen 1,000 mg 08/12/22 11:17 Acetaminophen 500 Mg Tablet PO Q6H PRN Mild Pain (1-3) or Fever Anastrozole 1 mg 08/10/22 09:00 08/10/22 14:51 Anastrozole (*Chemo) 1 Mg Tablet PO 09/09/22 08:59 Not Given DAILY AGUEDA Calcium Carbonate 500 mg 08/10/22 09:00 08/10/22 14:51 Calcium/Vitamin D 500 Mg Tablet PO 09/09/22 08:59 Not Given BID AGUEDA Diltiazem HCl 240 mg 08/10/22 09:00 08/15/22 08:13 Diltiazem Hcl Cd 240 Mg Cap.Er.24h PO 240 mg DAILY AGUEDA Administration Enoxaparin Sodium 40 mg 08/12/22 09:00 08/15/22 08:13 Enoxaparin 40 Mg/0.4 Ml Syringe SUB-Q 40 mg DAILY AGUEDA Administration Fish Oil 1 gm 08/10/22 09:00 08/10/22 14:51 Altha 3 Polyunsat Fatty Acids 1 Gm Cap PO 09/09/22 08:59 Not Given BID AGUEDA Hydromorphone HCl 0.5 mg 08/11/22 11:38 08/12/22 09:31 Hydromorphone Hcl Inj (*Crx) 1 Mg/Ml Syr IV PUSH 0.5 mg Q2H PRN Administration Pain Rated 4-6 Potassium Chloride 40 meq/ 520 mls @ 1
[2022-08-15] MEDS: polyethylene glycoL 3350 17 GM POWD.PACK PO (11:04)
[2022-08-15] MEDS: OPTI-GEN TAB 1 TABLET PO (16:16)
[2022-08-15] MEDS: OMEGA 3 POLYUNSAT FATTY ACIDS 1 GM CAP PO (16:16)
[2022-08-15] MEDS: LATANOPROST 0.005% OP SOLN 2.5 ML BTL 1 DROP EACH EYE (21:18)
[2022-08-15] MEDS: ROSUVASTATIN 10 MG TABLET 20 MG PO (21:18)
[2022-08-16] VITALS (11 sets, daily range): BP systolic 114–144; BP diastolic 60–77; PULSE 72–112; RESP 14–18; TEMP 36.7–37.2; O2SAT 94–100
[2022-08-16 08:39] LABS: Alanine Aminotransferase 19 U/L (6-35); Albumin Level 3.1 g/dL (3.5-5.1); Alkaline Phosphatase 60 U/L (38-126); Anion Gap 5 mmol/L (8-16); Aspartate Amino Transferase 28 U/L (14-36); Bilirubin,Total 0.6 mg/dL (0.2-1.3); Blood Urea Nitrogen 5 mg/dL (7-17); Calcium 8.4 mg/dL (8.4-10.2); Carbon Dioxide 29 mmol/L (22-30); Chloride 99 mmol/L (98-107); Estimated CRCL calculation 75 ml/min; Estimated Glomerular Filt Rate > 60; Glucose 106 mg/dL (65-110); Sodium 133 mmol/L (137-145)
[2022-08-16] MEDS: POTASSIUM CHLORIDE 20 MEQ TABLET 60 MEQ PO (09:01)
[2022-08-16] MEDS: APIXABAN 5 MG TABLET PO (09:01)
[2022-08-16] MEDS: VITAMIN E 400 UNIT CAPSULE PO (09:02)
[2022-08-16] MEDS: PANTOPRAZOLE 40 MG TABLET PO (09:02)
[2022-08-16] MEDS: OPTI-GEN TAB 1 TABLET PO ×2 (09:02→17:19)
[2022-08-16] MEDS: OMEGA 3 POLYUNSAT FATTY ACIDS 1 GM CAP PO ×2 (09:02→17:19)
--- NOTE | 2022-08-16 10:09 | PM.PNGS ---
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 Will advance to solid diet. Encouraged ambulating in the halls, continue PT/OT. Pathology pending. Okay to discharge home later today if she tolerates her diet. Follow-up with Dr. Dean in 2 weeks. (2) Small bowel obstruction: Code(s): K56.609 - Unspecified intestinal obstruction, unspecified as to partial versus complete obstruction Status: Acute Plan I have discussed the patient's case and plan of care with Dr. Dean. Subjective Subjective Date/Time Seen: 08/16/22 09:09 Post Op day: 5 (JONY right hemicolectomy) Patient reports: feels better, tolerating liquids well (full liquids), bowel movement (x 2 yesterday) and afebrile Interval history: Patient continues to improve daily. Denies any nausea yesterday or today. Bloating and energy improving. She had 2 BMs yesterday and feels like she could have one this morning when I was in the room. She is tolerating activity and sitting up in the chair this morning. Review of Systems Review of Systems: All systems reviewed & are unremarkable except as noted in HPI and below Exam Const: General: alert; No acute distress Orientation/consciousness: patient oriented x3 GI: Inspection: non-distended and incision (dry and glue intact) GI Palp: Yes Soft to palpation, No Tenderness to palpation present (GI), No Guarding due to palpation present (GI) and No Rebound tenderness present Auscultation: normal bowel sounds Neuro: General: moves all extremities and no focal motor deficits Extrem: General: normal to inspection Objective Data Vital Signs Vital Signs: Vital Signs - 24 hr 08/15/22 12:04 08/15/22 14:24 08/15/22 17:48 Temperature 98.6 F 98.0 F Pulse Rate 87 71 87 Respiratory Rate 20 12 Blood Pressure 138/53 L 162/70 H Pulse Oximetry 99 98 Oxygen Delivery 08/15/22 16:00 08/15/22 20:13 08/15/22 20:00 Temperature 98.0 F Pulse Rate 88 87 Respiratory Rate 16 Blood Pressure 155/89 H Pulse Oximetry 98 Oxygen Delivery Room Air 08/16/22 01:00 08/16/22 05:55 08/15/22 20:00 Temperature 98.5 F 98.0 F Pulse Rate 83 100 84 Respiratory Rate 16 14 Blood Pressure 144/66 H 123/71 Pulse Oximetry 97 97 Oxygen Delivery 08/16/22 00:00 08/16/22 04:00 Temperature Pulse Rate 90 74 Respiratory Rate Blood Pressure Pulse Oximetry Oxygen Delivery Intake/Output Intake/Output: Intake & Output 08/13/22 08/14/22 08/15/22 08/16/22 23:59 23:59 23:59 23:59 Intake Total 2080 3320 1667 700 Output Total 400 Balance 1680 3320 1667 700 Meds/Results Medications: Active Medications Generic Name Dose Route Start Last Admin Trade Name Freq PRN Reason Stop Dose Admin Acetaminophen 1,000 mg 08/12/22 11:17 Acetaminophen 500 Mg Tablet PO Q6H PRN Mild Pain (1-3) or Fever Hydrocodone Bitart/Acetaminophen 1 tab 08/15/22 14:21 Hydrocodone/Acetaminophen (*Crx) 5-325 Mg Tablet PO Q6H PRN Pain Rated 4-6 Hydrocodone Bitart/Acetaminophen 1 tab 08/16/22 08:50 Hydrocodone/Acetaminophen (*Crx) 10-325 Mg Tablet PO Q6H PRN Pain Rated 7-10 Anastrozole 1 mg 08/10/22 09:00 08/10/22 14:51 Anastrozole (*Chemo) 1 Mg Tablet PO 09/09/22 08:59 Not Given DAILY AGUEDA Apixaban 5 mg 08/16/22 09:00 08/16/22 09:01 Apixaban 5 Mg Tablet PO 5 mg Q12HR AGUEDA Administration Calcium Carbonate 500 mg 08/10/22 09:00 08/10/22 14:51 Calcium/Vitamin D 500 Mg Tablet PO 09/09/22 08:59 Not Given BID AGUEDA Diltiazem HCl 240 mg 08/10/22 09:00 08/16/22 09:02 Diltiazem Hcl Cd 240 Mg Cap.Er.24h PO 240 mg DAILY AGUEDA Administration Fish Oil 1 gm 08/10/22 09:00 08/16/22 09:02 Eugene 3 Polyunsat Fatty Acids 1 Gm Cap PO 09/09/22 08:59 1 gm BID AGUEDA Administration Hydromorphon
--- NOTE | 2022-08-16 10:51 | PC.NURSE ---
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
--- NOTE | 2022-08-16 11:55 | PM.DS ---
DS: Admitting Diagnosis Discharge Date 08/16/2022 0905 Admitting Diagnosis RUQ abdominal pain Acute UTI (urinary tract infection) Constipation DS: Discharge Diagnosis Discharge Diagnosis (1) RUQ abdominal pain: Code(s): R10.11 - Right upper quadrant pain Status: Resolved Assessment and Plan: Patient presented with RUQ pain. CT revealed normal gallbladder and liver, but suggestive of SBO and cecal bascule vs. obstructing mass GI consulted and appreciate recommendations Patient unable to complete last colonoscopy due to torturous bowel. NG tube placed Dr. Gambino GI recommended a general surgery consult due to cecal bascule. 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 CT revealed normal gallbladder and liver, but suggestive of SBO and cecal bascule vs. obstructing mass. GI consulted. Patient underwent laparoscopic hemicolectomy on 08/11/22 Postop management per general surgery. Patient started on MiraLax, Colace and bisacodyl suppositories and placed on clear liquid diet 08/13/22 patient had nausea and vomiting, improved with antiemetics 08/14/22 patient low-grade fever overnight with this highest at 100.4. improved without antibiotics. 08/15/22 Patient had 2 bowel movements. diet advanced per surgery. Encouraged ambulation. Continue postop care. 08/16/22 Advanced to soft diet with good tolerance. (3) Constipation: Code(s): K59.00 - Constipation, unspecified Status: Chronic Assessment and Plan: Chronic 08/15/22 Patient with 2 bowel movements today. Continue current treatment plan. (4) Acute UTI (urinary tract infection): Code(s): N39.0 - Urinary tract infection, site not specified Status: Resolved Assessment and Plan: UA positive for leukocyte esterase and 4-6 white blood cells ceftriaxone 1 g q24h Urine culture final results no growth She received 72 hours of ceftriaxone 1 gram and preop cefazolin 08/11/22. Discontinued antibiotics - 08/12/22 08/16/22 patient without c/o flank pain, dysuria, urinary hesitancy, urgency or frequency. (5) Hypokalemia: Code(s): E87.6 - Hypokalemia Status: Acute Assessment and Plan: 08/15/22 K 2.8, was 3.0 yesterday. give 40 mEQ IV and PO x1. Added 40 mEQ to IV fluids. magnesium level 1.8. 08/16/22 K 3.0. Given 60 mEQ PO x1. Continue oral potassium at discharge x3 days. Repeat BMP in 5 days to evaluate further need. (6) A-fib: Code(s): I48.91 - Unspecified atrial fibrillation Status: Chronic Assessment and Plan: Patient with a history of afib on Cardizem and Eliquis. 08/16/22 Patient was receiving metoprolol IV 5 mg scheduled for unknown reason. She was running SR with frequent PACs rate controlled on telemetry postop with episodes of HR 130s with exertion showing ST with PACs. She is intermittent afib on telemetry. Tachycardia may be secondary to dc beta-shila versus deconditioning. Patient asymptomatic. She is scheduled for ablation on 08/23/22 that is to be rescheduled due to surgery. Diltiazime increased to 360 mg PO daily. Digoxin 0.125 mg PO given x1. DS: Summary Hospital Course Reason for hospitalization: abdominal pain, nausea, vomiting Hospital Course: Patient is an 82 year old female with history of Breast CA, chronic constipation, lung nodule, right carotid artery stenosis, TIA, A-fib, HTN, HLD, and GERD, who presented to the ER with complaints of having right upper quadrant abdominal pain for the past three days and N/V that started one day prior to admission.? Patient reported she did not take any medications at home for her abdominal pain, nausea or vomiting.? She denied fever.? The abdominal pain started after eating.? Patient had 1 episode of emesis in the ER an
--- NOTE | 2022-08-16 11:56 | PCNFU ---
Nutrition Follow-Up Complete: Inadequate energy intake related to diet order as evidenced by clear liquid diet Goal: Diet advancement with 75% intake of meals and supplements Patient is meeting current goal. No new goal. Pt current nutrition is Low Fiber. Last recorded weight is 66.9 kg. Bowel Motility:+Bm reported 08/15 Labs Reviewed:Cr 0.4,Na 133, K 3.0,BUN 5, Alb 3.1 Meds Noted:Eliquis, MVI, Protonix, Vit E, Crestor Skin:WNL Additional Notes: Patient has advanced to a low fiber diet. Tolerated full liquids for breakfast, about 75% of tray. Patient is requesting Ensure compact vs Ensure Enlive. Diet office aware. Agree with diet orders. Monitor diet order, intake, wt. Follow up in 7 days.
--- NOTE | 2022-08-16 14:00 | PC.NURSE ---
Pt tolerated lunch no n/v/d and continues to feel fine and wishes to go home
[2022-08-16] MEDS: DIGOXIN TAB 125 MCG TABLET PO (17:19)
== END 2022-08-16 18:57 | disposition home or self-care (01) | DRG 330 ==
LOC: ANHED 22:34 → ANH2MED 08-10 04:50
PROVIDERS: Internal Medicine Critical Care Medicine; Nurse Practitioner Family; Preventive Medicine Aerospace Medicine; Surgery; Admitting Provider Internal Medicine; Emergency Provider Nurse Practitioner Adult Health; PCP Internal Medicine; Visit Provider Nurse Practitioner Family
PROC: 0DTF0ZZ Resection of Right Large Intestine, Open Approach (ICD-10-PCS; CPT 44160; principal; 2022-08-11 08:00)
DX: K56.2 Volvulus (principal); N39.0 Urinary tract infection, site not specified; K56.609 Unspecified intestinal obstruction, unspecified as to partial versus complete obstruction; K59.09 Other constipation; E87.6 Hypokalemia; E78.5 Hyperlipidemia, unspecified; E03.9 Hypothyroidism, unspecified; K21.9 Gastro-esophageal reflux disease without esophagitis; H40.9 Unspecified glaucoma; I10 Essential (primary) hypertension; I48.91 Unspecified atrial fibrillation; H35.30 Unspecified macular degeneration; I65.21 Occlusion and stenosis of right carotid artery; M47.812 Spondylosis without myelopathy or radiculopathy, cervical region; R91.8 Other nonspecific abnormal finding of lung field; Z86.73 Personal history of transient ischemic attack (TIA), and cerebral infarction without residual deficits; Z85.3 Personal history of malignant neoplasm of breast; Z86.010 Personal history of colon polyps; Z79.01 Long term (current) use of anticoagulants
CPT/HCPCS: 36415; 74018; 74177; 76705; 80048; 80053; 80061; 80076; 81001; 82306; 82746; 83036; 83605; 83690; 83735; 83921; 84100; 84132; 84439; 84443; 85025; 85027; 86300; 86850; 86880; 86900; 86901; 86902; 86922; 88307; 93005; 96361; 96365; 96372; 96375; 97161; 97165; 97530; 97535; 99285; A9270; C9113; C9290; G0378; J0131; J0360; J0500; J0690; J0696; J1100; J1170; J1650; J2370; J2405; J2704; J3010; J3480; J7030; J7040; J7120; Q9967

== ENCOUNTER 2022-08-21 09:16 | Outpatient (CLI) | payer MEDICARE, SELFPAY ==
[2022-08-21 09:55] LABS: Anion Gap 3 mmol/L (8-16); Blood Urea Nitrogen 10 mg/dL (7-17); Carbon Dioxide 32 mmol/L (22-30); Chloride 98 mmol/L (98-107); Estimated Glomerular Filt Rate > 60; Glucose 105 mg/dL (65-110); Potassium 3.7 mmol/L (3.4-5.0); Sodium 133 mmol/L (137-145)
== END 2022-08-21 09:17 | disposition home or self-care (01) ==
LOC: ANHLAB 09:18
PROVIDERS: PCP Internal Medicine; Visit Provider Nurse Practitioner Family
DX: E87.6 Hypokalemia (principal)
CPT/HCPCS: 36415; 80048

== ENCOUNTER 2022-08-21 12:52 | Outpatient (CLI) | payer MEDICARE, SELFPAY ==
[2022-08-21 13:31] LABS: Appearance Urine Turbid (Clear); Bilirubin Urine Negative (Negative); Blood Urine 3+ (Negative); Color Urine Other (Yellow); Glucose Urine UA Negative (Negative); Ketones Urine Trace mg/dL (Negative); Leukocyte Esterase Ur 2+ LEU/UL (NEGATIVE); Nitrate Urine Negative (Negative); Protein Urine 3+ mg/dL (Negative); Specific Grav Ur >= 1.030 (1.001-1.035); Urobilinogen Urine 0.2 mg/dL (<2.0)
[2022-08-21 13:56] LABS: Mucus Urine Few /lpf; RBC Urine >75 /hpf (0-2); WBC Urine >75 /hpf (0-3)
[2022-08-21 13:59] LABS: Add Urine Microscopic? YES
== END 2022-08-21 12:53 | disposition home or self-care (01) ==
LOC: ANHLAB 12:53
PROVIDERS: PCP Internal Medicine; Visit Provider Internal Medicine Hematology & Oncology
DX: N39.0 Urinary tract infection, site not specified (principal)
CPT/HCPCS: 36415; 80048; 81001; 87077; 87086; 87088; 87186

== ENCOUNTER 2022-09-04 13:40 | Outpatient (CLI) | payer MEDICARE, SELFPAY ==
[2022-09-04 14:13] LABS: Basophils Absolute Auto 0.1 K/mm3 (0.0-0.1); Basophils Percent Auto 0.8 % (0.2-1.2); Eosinophils Absolute Auto 0.6 K/mm3 (0-0.3); Eosinophils Percent Auto 9.9 % (0-4.4); Hemoglobin 11.2 g/dL (12.0-15.0); Immature Granulocyte Absolute 0.02 K/mm3 (0.00-0.031); Immature Granulocyte Percent A 0.3 % (0-0.5); Lymphocytes Absolute Auto 0.91 K/mm3 (0.9-3.2); Lymphocytes Percent Auto 14.2 % (18.3-44.2); Mean Corpuscular Hemoglobin 30.7 pg (26-34); Mean Corpuscular Volume 95.9 fl (80-100); Mean Platelet Volume 9.7 fl (7.4-10.4); Monocytes Absolute Auto 1.3 K/mm3 (0.1-0.6); Monocytes Percent Auto 19.7 % (2.6-8.5); Neutrophils Absolute Auto 3.5 K/mm3 (1.3-6.7); Neutrophils Percent Auto 55.1 % (45.5-73.1); Platelet Count Result 392 k/mm3 (150-375); Red Blood Count 3.65 M/mm3 (4.2-5.4); Red Cell Distribution Width 13.9 % (11.5-14.5); White Blood Count 6.4 K/mm3 (4.5-10.0)
[2022-09-04 14:32] LABS: INR 1.6; Prothrombin Time 18.1 Seconds (11.1-14.7)
[2022-09-04 17:15] LABS: Anion Gap 6 mmol/L (8-16); Blood Urea Nitrogen 12 mg/dL (7-17); Calcium 9.4 mg/dL (8.4-10.2); Carbon Dioxide 30 mmol/L (22-30); Chloride 95 mmol/L (98-107); Estimated Glomerular Filt Rate > 60; Glucose 152 mg/dL (65-110); Potassium 3.7 mmol/L (3.4-5.0); Sodium 131 mmol/L (137-145)
== END 2022-09-04 13:41 | disposition home or self-care (01) ==
PROVIDERS: PCP Internal Medicine
DX: I48.0 Paroxysmal atrial fibrillation (principal)
CPT/HCPCS: 36415; 80048; 85025; 85610

== ENCOUNTER 2022-12-28 08:57 | Outpatient (CLI) | payer MEDICARE, SELFPAY ==
[2022-12-28 12:09] LABS: Iron 64 ug/dL (37-170)
[2022-12-28 12:13] LABS: Vitamin D 25 Hydroxy 42.7 ng/mL
[2022-12-28 12:19] LABS: Percent Iron Saturation 17 % (20-50)
[2023-01-02 09:14] LABS: Methylmalonic Acid 191 nmol/L (87-318)
== END 2022-12-28 08:58 | disposition home or self-care (01) ==
LOC: ANHGOSHLAB 09:01
PROVIDERS: PCP Internal Medicine
DX: D64.9 Anemia, unspecified (principal); E55.9 Vitamin D deficiency, unspecified
CPT/HCPCS: 36415; 82306; 82607; 82746; 83540; 83550; 83921

== ENCOUNTER 2023-01-17 08:46 | Outpatient (CLI) | payer MEDICARE, SELFPAY ==
[2023-01-17 09:33] LABS: Alanine Aminotransferase 19 U/L (6-35); Albumin Level 4.2 g/dL (3.5-5.1); Alkaline Phosphatase 74 U/L (38-126); Anion Gap 4 mmol/L (8-16); Aspartate Amino Transferase 30 U/L (14-36); Bilirubin,Total 0.5 mg/dL (0.2-1.3); Blood Urea Nitrogen 21 mg/dL (7-17); Calcium 9.4 mg/dL (8.4-10.2); Carbon Dioxide 30 mmol/L (22-30); Chloride 104 mmol/L (98-107); Cholesterol 150 mg/dL (0-200); Estimated Glomerular Filt Rate > 60; Glucose 95 mg/dL (65-110); HDL Direct 85 mg/dL; Potassium 4.1 mmol/L (3.4-5.0); Sodium 138 mmol/L (137-145); Triglycerides 56 mg/dL (<150)
[2023-01-17 09:44] LABS: LDL Cholesterol Direct 52 mg/dL
[2023-01-17 10:32] LABS: Iron 75 ug/dL (37-170)
[2023-01-17 10:42] LABS: Percent Iron Saturation 20 % (20-50)
[2023-01-17 10:50] LABS: Free T4 Free Thyroxine 1.29 ng/mL (0.78-2.19)
[2023-01-17 11:01] LABS: Hemoglobin A1C 5.4 % (<5.7)
== END 2023-01-17 08:47 | disposition home or self-care (01) ==
PROVIDERS: PCP Internal Medicine; Visit Provider Internal Medicine
DX: I48.91 Unspecified atrial fibrillation (principal); E78.2 Mixed hyperlipidemia; R53.83 Other fatigue; E03.9 Hypothyroidism, unspecified; Z79.899 Other long term (current) drug therapy; Z79.02 Long term (current) use of antithrombotics/antiplatelets; Z13.29 Encounter for screening for other suspected endocrine disorder; Z13.1 Encounter for screening for diabetes mellitus
CPT/HCPCS: 36415; 80053; 80061; 82728; 83036; 83540; 83550; 84439; 84443

== ENCOUNTER 2023-01-25 10:04 | Outpatient (CLI) | payer MEDICARE, SELFPAY ==
[2023-01-25 10:20] LABS: Basophils Percent Auto 0.8 % (0.2-1.2); Eosinophils Absolute Auto 0.1 K/mm3 (0-0.3); Eosinophils Percent Auto 1.2 % (0-4.4); Hematocrit 37.5 % (37.0-47.0); Hemoglobin 11.9 g/dL (12.0-15.0); Lymphocytes Absolute Auto 1.08 K/mm3 (0.9-3.2); Lymphocytes Percent Auto 21.8 % (18.3-44.2); Mean Corpuscular HGB Conc 31.7 g/dl (32-36); Mean Corpuscular Hemoglobin 29.2 pg (26-34); Mean Corpuscular Volume 91.9 fl (80-100); Mean Platelet Volume 10.2 fl (7.4-10.4); Monocytes Absolute Auto 0.8 K/mm3 (0.1-0.6); Monocytes Percent Auto 16.2 % (2.6-8.5); Platelet Count Result 303 k/mm3 (150-375); Red Blood Count 4.08 M/mm3 (4.2-5.4); Red Cell Distribution Width 15.9 % (11.5-14.5)
== END 2023-01-25 10:05 | disposition home or self-care (01) ==
LOC: ANHLAB 10:06
PROVIDERS: PCP Internal Medicine; Visit Provider Internal Medicine Hematology & Oncology
DX: I48.91 Unspecified atrial fibrillation (principal); K56.609 Unspecified intestinal obstruction, unspecified as to partial versus complete obstruction; D64.9 Anemia, unspecified; Z79.899 Other long term (current) drug therapy
CPT/HCPCS: 36415; 82728; 85025

== ENCOUNTER 2023-02-11 08:21 | Outpatient (CLI) | payer MEDICARE, SELFPAY ==
[2023-02-11 08:36] LABS: Basophils Percent Auto 0.7 % (0.2-1.2); Eosinophils Absolute Auto 0.1 K/mm3 (0-0.3); Hematocrit 41.3 % (37.0-47.0); Hemoglobin 13.2 g/dL (12.0-15.0); Immature Granulocyte Absolute 0.01 K/mm3 (0.00-0.031); Immature Granulocyte Percent A 0.2 % (0-0.5); Lymphocytes Absolute Auto 1.39 K/mm3 (0.9-3.2); Lymphocytes Percent Auto 25.6 % (18.3-44.2); Mean Corpuscular Hemoglobin 29.5 pg (26-34); Mean Corpuscular Volume 92.4 fl (80-100); Mean Platelet Volume 10.1 fl (7.4-10.4); Monocytes Absolute Auto 0.8 K/mm3 (0.1-0.6); Monocytes Percent Auto 14.2 % (2.6-8.5); Neutrophils Absolute Auto 3.1 K/mm3 (1.3-6.7); Neutrophils Percent Auto 57.3 % (45.5-73.1); Platelet Count Result 342 k/mm3 (150-375); Red Blood Count 4.47 M/mm3 (4.2-5.4); Red Cell Distribution Width 16.3 % (11.5-14.5); White Blood Count 5.4 K/mm3 (4.5-10.0)
[2023-02-11 09:42] LABS: Alanine Aminotransferase 22 U/L (6-35); Albumin Level 4.6 g/dL (3.5-5.1); Alkaline Phosphatase 88 U/L (38-126); Anion Gap 3 mmol/L (8-16); Aspartate Amino Transferase 29 U/L (14-36); Bilirubin,Total 0.6 mg/dL (0.2-1.3); Blood Urea Nitrogen 18 mg/dL (7-17); Calcium 9.8 mg/dL (8.4-10.2); Carbon Dioxide 32 mmol/L (22-30); Chloride 101 mmol/L (98-107); Estimated Glomerular Filt Rate > 60; Glucose 95 mg/dL (65-110); Potassium 3.8 mmol/L (3.4-5.0); Sodium 136 mmol/L (137-145)
[2023-02-14 05:26] LABS: CA 15-3 16 U/mL (<32)
== END 2023-02-11 08:22 | disposition home or self-care (01) ==
PROVIDERS: PCP Internal Medicine; Visit Provider Internal Medicine Hematology & Oncology
DX: C50.412 Malignant neoplasm of upper-outer quadrant of left female breast (principal); Z17.0 Estrogen receptor positive status [ER+]
CPT/HCPCS: 36415; 80053; 85025; 86300

== ENCOUNTER 2023-05-30 09:11 | Outpatient (CLI) | payer MEDICARE, SELFPAY ==
[2023-05-30 09:36] LABS: Basophils Absolute Auto 0.1 K/mm3 (0.0-0.1); Basophils Percent Auto 1.2 % (0.2-1.2); Eosinophils Absolute Auto 0.1 K/mm3 (0-0.3); Eosinophils Percent Auto 1.4 % (0-4.4); Hematocrit 41.7 % (37.0-47.0); Hemoglobin 13.6 g/dL (12.0-15.0); Immature Granulocyte Absolute 0.01 K/mm3 (0.00-0.031); Immature Granulocyte Percent A 0.2 % (0-0.5); Lymphocytes Absolute Auto 1.27 K/mm3 (0.9-3.2); Lymphocytes Percent Auto 22.1 % (18.3-44.2); Mean Corpuscular HGB Conc 32.6 g/dl (32-36); Mean Corpuscular Hemoglobin 31.4 pg (26-34); Mean Corpuscular Volume 96.3 fl (80-100); Mean Platelet Volume 9.9 fl (7.4-10.4); Monocytes Absolute Auto 0.8 K/mm3 (0.1-0.6); Monocytes Percent Auto 14.1 % (2.6-8.5); Neutrophils Absolute Auto 3.5 K/mm3 (1.3-6.7); Platelet Count Result 304 k/mm3 (150-375); Red Blood Count 4.33 M/mm3 (4.2-5.4); Red Cell Distribution Width 13.2 % (11.5-14.5); White Blood Count 5.8 K/mm3 (4.5-10.0)
[2023-05-30 12:30] LABS: Alanine Aminotransferase 22 U/L (6-35); Albumin Level 4.4 g/dL (3.5-5.1); Alkaline Phosphatase 76 U/L (38-126); Anion Gap 7 mmol/L (8-16); Aspartate Amino Transferase 29 U/L (14-36); Bilirubin,Total 0.6 mg/dL (0.2-1.3); Blood Urea Nitrogen 14 mg/dL (7-17); Calcium 9.7 mg/dL (8.4-10.2); Carbon Dioxide 30 mmol/L (22-30); Chloride 101 mmol/L (98-107); Cholesterol 166 mg/dL (0-200); Estimated Glomerular Filt Rate > 60; Glucose 102 mg/dL (65-110); HDL Direct 76 mg/dL; Potassium 3.5 mmol/L (3.4-5.0); Sodium 138 mmol/L (137-145); Triglycerides 80 mg/dL (<150)
[2023-05-30 12:44] LABS: Hemoglobin A1C 5.3 % (<5.7)
[2023-05-30 12:45] LABS: LDL Cholesterol Direct 65 mg/dL
== END 2023-05-30 09:12 | disposition home or self-care (01) ==
LOC: ANHLAB 09:15
PROVIDERS: Internal Medicine; PCP Family Medicine; Visit Provider Internal Medicine Hematology & Oncology
DX: E78.5 Hyperlipidemia, unspecified (principal); Z13.1 Encounter for screening for diabetes mellitus; E78.2 Mixed hyperlipidemia; Z13.29 Encounter for screening for other suspected endocrine disorder; Z79.899 Other long term (current) drug therapy
CPT/HCPCS: 36415; 80053; 80061; 83036; 84439; 84443; 85025

== ENCOUNTER 2023-06-21 11:16 | Outpatient (CLI) | payer MEDICARE, SELFPAY ==
[2023-06-21 16:47] LABS: Iron 112 ug/dL (37-170)
[2023-06-21 16:59] LABS: Percent Iron Saturation 40 % (20-50)
== END 2023-06-21 11:17 | disposition home or self-care (01) ==
LOC: ANHLAB 11:21
PROVIDERS: PCP Internal Medicine; Visit Provider Internal Medicine Hematology & Oncology
DX: E61.1 Iron deficiency (principal)
CPT/HCPCS: 36415; 82728; 83540; 83550

== ENCOUNTER 2023-06-26 16:51 | Emergency (ER) | payer MEDICARE, SELFPAY ==
[2023-06-26] VITALS (16 sets, daily range): BP systolic 163–192; BP diastolic 87–99; PULSE 70–95; RESP 14–20; TEMP 36.4; O2SAT 92–100
--- NOTE | ~2023-06-26 | CT_ITS ---
EXAMINATION: CT facial & cervical spine wo DATE: 06/26/2023 21:01 INDICATION: concern for nasal bone fracture, fall TECHNIQUE: Computed tomography (CT) of the maxillofacial region and cervical spine was performed with out intravenous contrast. Automated exposure control and iterative reconstruction technique were empl oyed. The dose-length product was 153.73 mGy-cm. COMPARISON: MR C-spine 08/07/2021 FINDINGS: CERVICAL: Vertebral Body Alignment: Stable grade 1 anterolisthesis at C5-6. Reversed lordosis centered at C6. Craniocervical and atlantoaxial alignment: Moderate degenerative change. Alignment intact. Osseous structures/fracture: No evidence of a lytic or blastic process in the visualized spine. No e vidence of acute fracture. Old right clavicular fracture. Right lateral occipital craniotomy. Cervical soft tissues: The paraspinal soft tissues planes are maintained. Biapical pleural scarring. Degenerative changes: Multilevel degenerative disc disease and facet/vertebral body fusions. No sever e central canal or neural foraminal narrowing. FACE: Soft Tissues: Soft tissue swelling over the nose and left cheek. Facial bones: Mildly comminuted nasal bone fractures. Minimally displaced fracture of the osseous na kirby septum and maxillary spine. No lytic or blastic process. Eyes: The globes are intact. Bilateral lens replacements. The soft tissue planes of the orbits are m aintained. Paranasal Sinuses: Trace air-fluid level in the left maxillary sinus. Partial opacification of the r ight sphenoid with surrounding sclerosis. Foreign Bodies: No radiopaque foreign bodies. Other Findings: None. IMPRESSION: No acute fracture or traumatic malalignment in the cervical spine. Mildly comminuted nasal bone fractures. Minimally displaced fractures of the osseous nasal septum and maxillary spine. Chronic right sphenoid sinusitis. Trace air-fluid level in the left maxillary sinus, may represent acute sinusitis or minimal mucosal h emorrhage in the setting of trauma. Reviewed, dictated and finalized at location K. GING JEWELER IMPRESSION: No acute fracture or traumatic malalignment in the cervical spine. Mildly comminuted nasal bone fractures. Minimally displaced fractures of the os seous nasal septum and maxillary spine. Chronic right sphenoid sinusitis. Trace air-fluid level in the left maxillary sinus, may represent acute sinusiti s or minimal mucosal hemorrhage in the setting of trauma.
--- NOTE | ~2023-06-26 | CT_ITS ---
EXAMINATION: CT brain wo con DATE: 06/26/2023 21:01 INDICATION: fall on Elliquis . TECHNIQUE: Computed tomography (CT) of the head was performed without intravenous contrast. The mA wa s adjusted according to patient size. Iterative reconstruction technique was employed. The dose-lengt h product was 605.33 mGy-cm. COMPARISON: 06/15/2018; MR brain 09/24/2021. FINDINGS: No acute intracranial hemorrhage or extra-axial fluid collection. No hydrocephalus, mass, or herniation. No acute ischemic infarct. Unremarkable dural venous sinus attenuation. No acute osseous abnormality. The aerated spaces are clear. Mild atrophy and chronic white matter change. Atherosclerotic intracranial calcification. Bilateral l ens replacements. Small left frontal meningioma. Right lateral occipital craniectomy. IMPRESSION: No acute intracranial process. Reviewed, dictated and finalized at location K. ICAL COURIER
--- NOTE | 2023-06-26 20:38 | ED.FALL ---
HPI - Fall General Chief Complaint: Fall Stated Complaint: fall Time Seen by Provider: 06/26/23 20:02 Source: patient and family Limitations: no limitations History of Present Illness HPI Narrative: This is an 83 yo female who presents with epistaxis after a ground level fall. Patient was at ground level when she tripped while trying to climb one step. No syncope/loss of consciousness. She had blood coming out of her nose and has some occasional bleeding that persists out of her right naris. Patient is on Eliquis for atrial fibrillation. She has some pain at her nose, 2 out of 10 in severity. No neck pain. Related Data Home Medications Medication Instructions Recorded Confirmed vitamin E (dl, acetate) 180 mg 400 unit PO DAILY 06/15/19 06/13/23 (400 unit) capsule calcium carbonate 600 mg-vitamin 1 tablet PO BID 08/27/19 06/13/23 D3 10 mcg (400 unit) tablet (Calcium 600 + D(3)) anastrozole 1 mg tablet 1 mg PO DAILY 12/07/19 06/13/23 vit C 250 mg-vit E 90 mg-zinc 40 1 tablet PO BID 01/13/20 06/13/23 mg-copper 1 [id number] capsule (PreserVision AREDS-2) apixaban 5 mg tablet (Eliquis) 5 mg PO BID 08/10/22 06/13/23 omega-3 fatty acids-vitamin E 1,000 cap PO BID 08/10/22 06/13/23 1,000 mg capsule netarsudil 0.02 %-latanoprost 1 drp EACH EYE DAILY 01/31/23 06/13/23 0.005 % eye drops ([facility]) vitamin B complex 1 tablet PO DAILY 01/31/23 06/13/23 Allergies Allergy/AdvReac Type Severity Reaction Status Date / Time almotriptan [From Axert] AdvReac Unknown Nausea and Verified 06/13/23 11:31 Vomiting cefaclor [From Ceclor] AdvReac Unknown Nausea and Verified 06/13/23 11:31 Vomiting cefuroxime AdvReac Unknown Nausea and Verified 06/13/23 11:31 Vomiting levofloxacin AdvReac Unknown Nausea And Verified 06/13/23 11:31 Vomiting morphine AdvReac Unknown Nausea and Verified 06/13/23 11:31 Vomiting PMFSH Past Medical History Medical History (Updated 06/28/23 @ 00:00 by Background Lavelle) A-fib Abnormal finding of blood chemistry, unspecified Ankle pain, right Arm paresthesia, right Ascending aortic aneurysm Benign essential hypertension Bloody discharge from nipple BMI 22.0-22.9, adult BMI 23.0-23.9, adult BMI 24.0-24.9, adult BMI 26.0-26.9,adult BMI 28.0-28.9,adult Breast pain Cervical spondylosis Chronic recurrent sinusitis Chronic sinusitis Clavicle fracture Cognitive changes Colon cancer screening CTS (carpal tunnel syndrome) Current use of [facility] anticoagulation 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 Dizziness DJD (degenerative joint disease) Dysuria Ear pain Ectatic aorta Elevated blood protein Elevated glucose Elevated LFTs Encounter for Medicare annual wellness exam Encounter for routine adult health examination with abnormal findings Encounter for routine adult health examination without abnormal findings Fall FH: ANDRE-BSO (total abdominal hysterectomy and bilateral salpingo-oophorectomy) Follow up Fullness of breast GERD (gastroesophageal reflux disease) GERD (gastroesophageal reflux disease) Glaucoma Guaiac positive stools Hearing loss in left ear History of breast cancer History of colon polyps History of hypothyroidism History of TIA (transient ischemic attack) History of trigeminal neuralgia Underwent surgical treatment in 1989 Hospital discharge follow-up Hx of colonic polyps Hyperlipidemia Ingrown toenail Irregular heart beat Lung nodule Macular degeneration Malignant neoplasm of upper-outer quadrant of left breast in female, estrogen receptor positive Need for second dose of COVID-19 vaccine Neural foraminal stenosis of cervical spine On intermediate teacher drug therapy Orthostatic hypotension Osteopenia Otitis media Right arm weakness Right leg paresthesias Right leg weakness RUQ abdominal pain Seborrheic dermatitis Sensation of plugged ear on both sides Skin lesion of right arm Stenosis of right carotid artery Tachy-roscoe syndrome TIA (transient ischemic attac
[2023-06-26] MEDS: OXYMETAZOLINE HCL 0.05% NAS 15 ML BTL (*BKC) 1 SPRAY NASAL (20:42)
[2023-06-26 21:50] LABS: Basophils Absolute Auto 0.1 K/mm3 (0.0-0.1); Basophils Percent Auto 0.5 % (0.2-1.2); Eosinophils Absolute Auto 0.1 K/mm3 (0-0.3); Eosinophils Percent Auto 0.6 % (0-4.4); Hematocrit 41.5 % (37.0-47.0); Hemoglobin 13.3 g/dL (12.0-15.0); Immature Granulocyte Absolute 0.03 K/mm3 (0.00-0.031); Immature Granulocyte Percent A 0.3 % (0-0.5); Lymphocytes Absolute Auto 1.52 K/mm3 (0.9-3.2); Lymphocytes Percent Auto 16.3 % (18.3-44.2); Mean Corpuscular Hemoglobin 31.5 pg (26-34); Mean Corpuscular Volume 98.3 fl (80-100); Mean Platelet Volume 10.3 fl (7.4-10.4); Monocytes Absolute Auto 1.4 K/mm3 (0.1-0.6); Monocytes Percent Auto 15.4 % (2.6-8.5); Neutrophils Absolute Auto 6.2 K/mm3 (1.3-6.7); Neutrophils Percent Auto 66.9 % (45.5-73.1); Platelet Count Result 275 k/mm3 (150-375); Red Blood Count 4.22 M/mm3 (4.2-5.4); Red Cell Distribution Width 13.7 % (11.5-14.5); White Blood Count 9.3 K/mm3 (4.5-10.0)
[2023-06-26 22:01] LABS: INR 1.1; Partial Thromboplastin Time 29.1 SECONDS (22.3-36.8); Prothrombin Time 14.1 Seconds (11.1-14.7)
[2023-06-26 22:02] LABS: Anion Gap 10 mmol/L (8-16); Blood Urea Nitrogen 14 mg/dL (7-17); Calcium 9.5 mg/dL (8.4-10.2); Carbon Dioxide 26 mmol/L (22-30); Chloride 102 mmol/L (98-107); Estimated Glomerular Filt Rate > 60; Glucose 104 mg/dL (65-110); Potassium 3.9 mmol/L (3.4-5.0); Sodium 138 mmol/L (137-145)
--- NOTE | 2023-06-26 22:20 | PC.NURSE ---
Pt ambulatory to restroom with steady gait. Minimal bleeding from R nare.
[2023-06-27 00:04] VITALS: PULSE 78; RESP 13; O2SAT 100
[2023-06-27 00:22] VITALS: PULSE 78; RESP 16; O2SAT 99
--- NOTE | 2023-06-27 00:22 | PC.NURSE ---
ERP at bedside for txa
[2023-06-27 00:42] VITALS: BP 174/87; PULSE 85; RESP 15; O2SAT 100
[2023-06-27] MEDS: TRANEXAMIC ACID 1,000 MG/10 ML AMPUL 10 MG TOPICAL (00:51)
== END 2023-06-27 01:10 | disposition home or self-care (01) ==
PROVIDERS: Emergency Provider Student in an Organized Health Care Education/Training Program; PCP Internal Medicine
DX: S02.2XXA Fracture of nasal bones, initial encounter for closed fracture (principal); R04.0 Epistaxis; I48.91 Unspecified atrial fibrillation; I10 Essential (primary) hypertension; I65.21 Occlusion and stenosis of right carotid artery; I87.2 Venous insufficiency (chronic) (peripheral); I83.93 Asymptomatic varicose veins of bilateral lower extremities; J32.3 Chronic sphenoidal sinusitis; E03.9 Hypothyroidism, unspecified; E78.5 Hyperlipidemia, unspecified; K21.9 Gastro-esophageal reflux disease without esophagitis; M85.80 Other specified disorders of bone density and structure, unspecified site; Z85.3 Personal history of malignant neoplasm of breast; Z92.3 Personal history of irradiation; Z86.010 Personal history of colon polyps; Z86.73 Personal history of transient ischemic attack (TIA), and cerebral infarction without residual deficits; Z87.440 Personal history of urinary (tract) infections; Z90.49 Acquired absence of other specified parts of digestive tract; Z90.710 Acquired absence of both cervix and uterus; Z90.722 Acquired absence of ovaries, bilateral; Z90.79 Acquired absence of other genital organ(s); Z79.01 Long term (current) use of anticoagulants; W01.0XXA Fall on same level from slipping, tripping and stumbling without subsequent striking against object, initial encounter
CPT/HCPCS: 30901; 36415; 70450; 70486; 72125; 80048; 85025; 85610; 85730; 99283; 99284; A9270

== ENCOUNTER 2023-06-27 12:43 | Emergency (ER) | payer MEDICARE, SELFPAY ==
[2023-06-27 12:46] VITALS: BP 172/81; PULSE 88; RESP 20; TEMP 36.6; O2SAT 100
--- NOTE | 2023-06-27 14:02 | ED.EPISTAXIS ---
HPI - Epistaxis General Chief complaint: Epistaxis Stated complaint: nose bleed/broken nose Time Seen by Provider: 06/27/23 12:53 History of Present Illness HPI Narrative: 83-year-old female presenting to the emergency department for evaluation of nasal bleeding. Patient was evaluated in the emergency department yesterday for evaluation for nose bleed after having a ground level fall. Patient did have some epistaxis in the ED yesterday but this was resolved. Patient went home and used her CPAP mask and states when she woke up that she has had some intermittent dripping of blood from the left nares. patient is on Eliquis. Related Data Home Medications Medication Instructions Recorded Confirmed vitamin E (dl, acetate) 180 mg 400 unit PO DAILY 06/15/19 06/13/23 (400 unit) capsule calcium carbonate 600 mg-vitamin 1 tablet PO BID 08/27/19 06/13/23 D3 10 mcg (400 unit) tablet (Calcium 600 + D(3)) anastrozole 1 mg tablet 1 mg PO DAILY 12/07/19 06/13/23 vit C 250 mg-vit E 90 mg-zinc 40 1 tablet PO BID 01/13/20 06/13/23 mg-copper 1 [id number] capsule (PreserVision AREDS-2) apixaban 5 mg tablet (Eliquis) 5 mg PO BID 08/10/22 06/13/23 omega-3 fatty acids-vitamin E 1,000 cap PO BID 08/10/22 06/13/23 1,000 mg capsule netarsudil 0.02 %-latanoprost 1 drp EACH EYE DAILY 01/31/23 06/13/23 0.005 % eye drops ([facility]) vitamin B complex 1 tablet PO DAILY 01/31/23 06/13/23 Allergies Allergy/AdvReac Type Severity Reaction Status Date / Time almotriptan [From Axert] AdvReac Unknown Nausea and Verified 06/13/23 11:31 Vomiting cefaclor [From Ceclor] AdvReac Unknown Nausea and Verified 06/13/23 11:31 Vomiting cefuroxime AdvReac Unknown Nausea and Verified 06/13/23 11:31 Vomiting levofloxacin AdvReac Unknown Nausea And Verified 06/13/23 11:31 Vomiting morphine AdvReac Unknown Nausea and Verified 06/13/23 11:31 Vomiting Review of Systems Review of Systems: All systems reviewed & are unremarkable except as noted in HPI and below [facility] Past Medical History Medical History (Updated 06/27/23 @ 14:14 by Travis Monroe MD) A-fib Abnormal finding of blood chemistry, unspecified Ankle pain, right Arm paresthesia, right Ascending aortic aneurysm Benign essential hypertension Bloody discharge from nipple BMI 22.0-22.9, adult BMI 23.0-23.9, adult BMI 24.0-24.9, adult BMI 26.0-26.9,adult BMI 28.0-28.9,adult Breast pain Cervical spondylosis Chronic recurrent sinusitis Chronic sinusitis Clavicle fracture Cognitive changes Colon cancer screening CTS (carpal tunnel syndrome) Current use of [facility] anticoagulation 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 Dizziness DJD (degenerative joint disease) Dysuria Ear pain Ectatic aorta Elevated blood protein Elevated glucose Elevated LFTs Encounter for Medicare annual wellness exam Encounter for routine adult health examination with abnormal findings Encounter for routine adult health examination without abnormal findings Fall FH: ANDRE-BSO (total abdominal hysterectomy and bilateral salpingo-oophorectomy) Follow up Fullness of breast GERD (gastroesophageal reflux disease) GERD (gastroesophageal reflux disease) Glaucoma Guaiac positive stools Hearing loss in left ear History of breast cancer History of colon polyps History of hypothyroidism History of TIA (transient ischemic attack) History of trigeminal neuralgia Underwent surgical treatment in 1989 Hospital discharge follow-up Hx of colonic polyps Hyperlipidemia Ingrown toenail Irregular heart beat Lung nodule Macular degeneration Malignant neoplasm of upper-outer quadrant of left breast in female, estrogen receptor positive Need for second dose of COVID-19 vaccine Neural foraminal stenosis of cervical spine On [facility] drug therapy Orthostatic hypotension Osteopenia Otitis media Right arm weakness Right leg paresthesias Right leg weakness RUQ abdominal pain Seborrheic dermatitis Sensation of pl
[2023-06-27 14:27] VITALS: BP 170/80; PULSE 80; RESP 16; O2SAT 100
== END 2023-06-27 14:30 | disposition home or self-care (01) ==
PROVIDERS: Emergency Provider Emergency Medicine; PCP Internal Medicine
DX: R04.0 Epistaxis (principal); I48.91 Unspecified atrial fibrillation; I10 Essential (primary) hypertension; I65.21 Occlusion and stenosis of right carotid artery; I83.93 Asymptomatic varicose veins of bilateral lower extremities; I87.2 Venous insufficiency (chronic) (peripheral); E03.9 Hypothyroidism, unspecified; E78.5 Hyperlipidemia, unspecified; J32.9 Chronic sinusitis, unspecified; H35.30 Unspecified macular degeneration; K21.9 Gastro-esophageal reflux disease without esophagitis; M85.80 Other specified disorders of bone density and structure, unspecified site; Z85.3 Personal history of malignant neoplasm of breast; Z86.010 Personal history of colon polyps; Z86.73 Personal history of transient ischemic attack (TIA), and cerebral infarction without residual deficits; Z87.440 Personal history of urinary (tract) infections; Z92.3 Personal history of irradiation; Z90.49 Acquired absence of other specified parts of digestive tract; Z90.710 Acquired absence of both cervix and uterus; Z90.722 Acquired absence of ovaries, bilateral; Z90.79 Acquired absence of other genital organ(s); Z79.01 Long term (current) use of anticoagulants
CPT/HCPCS: 30901; 99283; A9270

== ENCOUNTER 2023-08-12 14:08 | Outpatient (CLI) | payer MEDICARE, SELFPAY ==
--- NOTE | ~2023-08-12 | MM_ITS ---
EXAMINATION: MM screening wiliam BI w joel HISTORY: Screening mammogram TECHNIQUE: Craniocaudal and mediolateral oblique 3-D tomosynthesis images were obtained and synthetic 2-D images were generated. CAD analysis was submitted and interpreted. COMPARISON: 07/23/2022 bilateral screening mammogram 05/02/2021 diagnostic bilateral mammogram BREAST PARENCHYMAL COMPOSITION: There are scattered areas of fibroglandular density. FINDINGS: History of prior benign right breast biopsy and left partial mastectomy for breast cancer. Stable bilateral postoperative changes. There is no evidence of suspicious mass, calcification, or ar chitectural distortion to suggest malignancy in either breast. There has been no suspicious interval change. IMPRESSION: 1. Status post left partial mastectomy for breast cancer. No mammographic evidence of malignancy. 2. Recommend routine screening mammography in one year. BI-RADS Category 2: Benign finding(s). Reviewed, dictated and finalized at location B. IGURATION MANAGEMENT ARCHITECT IMPRESSION: 1. Status post left partial mastectomy for breast cancer. No mammographic evide nce of malignancy. 2. Recommend routine screening mammography in one year. BI-RADS Category 2: Benign finding(s).
== END 2023-08-12 14:09 | disposition home or self-care (01) ==
LOC: ANHIMG 14:10
PROVIDERS: PCP Internal Medicine; Visit Provider Internal Medicine Hematology & Oncology
DX: Z12.31 Encounter for screening mammogram for malignant neoplasm of breast (principal)
CPT/HCPCS: 36415; 77063; 77067; 80053; 85025; 86300

== ENCOUNTER 2023-08-12 14:50 | Outpatient (CLI) | payer MEDICARE, SELFPAY ==
[2023-08-12 15:15] LABS: Basophils Percent Auto 0.5 % (0.2-1.2); Eosinophils Absolute Auto 0.1 K/mm3 (0-0.3); Hematocrit 41.8 % (37.0-47.0); Hemoglobin 13.5 g/dL (12.0-15.0); Immature Granulocyte Absolute 0.01 K/mm3 (0.00-0.031); Immature Granulocyte Percent A 0.2 % (0-0.5); Lymphocytes Absolute Auto 1.12 K/mm3 (0.9-3.2); Lymphocytes Percent Auto 19.4 % (18.3-44.2); Mean Corpuscular HGB Conc 32.3 g/dl (32-36); Mean Corpuscular Hemoglobin 31.3 pg (26-34); Monocytes Absolute Auto 0.8 K/mm3 (0.1-0.6); Monocytes Percent Auto 14.2 % (2.6-8.5); Neutrophils Absolute Auto 3.7 K/mm3 (1.3-6.7); Neutrophils Percent Auto 64.7 % (45.5-73.1); Platelet Count Result 331 k/mm3 (150-375); Red Blood Count 4.31 M/mm3 (4.2-5.4); White Blood Count 5.8 K/mm3 (4.5-10.0)
[2023-08-12 20:05] LABS: Alanine Aminotransferase 16 U/L (6-35); Albumin Level 4.4 g/dL (3.5-5.1); Alkaline Phosphatase 81 U/L (38-126); Anion Gap 8 mmol/L (8-16); Aspartate Amino Transferase 27 U/L (14-36); Bilirubin,Total 0.4 mg/dL (0.2-1.3); Blood Urea Nitrogen 14 mg/dL (7-17); Calcium 9.9 mg/dL (8.4-10.2); Carbon Dioxide 32 mmol/L (22-30); Chloride 98 mmol/L (98-107); Estimated Glomerular Filt Rate 53; Glucose 89 mg/dL (65-110); Sodium 138 mmol/L (137-145)
[2023-08-14 21:39] LABS: CA 15-3 17 U/mL (<32)
== END 2023-08-12 14:51 | disposition home or self-care (01) ==
LOC: ANHLAB 14:53
PROVIDERS: PCP Internal Medicine; Visit Provider Internal Medicine Hematology & Oncology
DX: C50.412 Malignant neoplasm of upper-outer quadrant of left female breast (principal); Z17.0 Estrogen receptor positive status [ER+]
CPT/HCPCS: 36415; 80053; 85025; 86300

== ENCOUNTER 2023-08-13 07:02 | Emergency (ER) | payer MEDICARE, SELFPAY ==
--- NOTE | ~2023-08-13 | XR_ITS ---
Right Knee Technique: AP, lateral, and oblique views were obtained. Clinical History: Pain Findings: No fracture or dislocation is seen. Osseous alignment is anatomic. Mild tricompartmental de generative spurring present. Soft tissues are unremarkable. No joint effusion is seen. Impression: Mild tricompartmental degenerative spurring. Reviewed, dictated and finalized at [facility]. CH SERVICE REPRESENTATIVE Impression: Mild tricompartmental degenerative spurring.
[2023-08-13 07:12] VITALS: BP 171/94; PULSE 88; RESP 15; TEMP 36.2; O2SAT 100
--- NOTE | 2023-08-13 07:30 | ED.LOWEXIN ---
HPI - Extremity Injury (Lower) General Chief Complaint: Extremity Injury, Lower Stated Complaint: right knee pain Time Seen by Provider: 08/13/23 07:13 Source: patient Mode of arrival: ambulatory Limitations: no limitations History of Present Illness HPI Narrative: 83 years old white female came from home with right knee pain, nontraumatic. History of right knee Oneil cyst remove, meniscus injury and scar tissue. The family is telling me that patient had a lot of standing and walking yesterday which is out of ordinary ,at the end of the day developed diffuse right knee pain. Patient denies any fever, chills, nausea, vomiting or other joint pain Related Data Home Medications Medication Instructions Recorded Confirmed vitamin E (dl, acetate) 180 mg 400 unit PO DAILY 06/15/19 06/13/23 (400 unit) capsule calcium carbonate 600 mg-vitamin 1 tablet PO BID 08/27/19 06/13/23 D3 10 mcg (400 unit) tablet (Calcium 600 + D(3)) anastrozole 1 mg tablet 1 mg PO DAILY 12/07/19 06/13/23 vit C 250 mg-vit E 90 mg-zinc 40 1 tablet PO BID 01/13/20 06/13/23 mg-copper 1 [id number] capsule (PreserVision AREDS-2) apixaban 5 mg tablet (Eliquis) 5 mg PO BID 08/10/22 06/13/23 omega-3 fatty acids-vitamin E 1,000 cap PO BID 08/10/22 06/13/23 1,000 mg capsule netarsudil 0.02 %-latanoprost 1 drp EACH EYE DAILY 01/31/23 06/13/23 0.005 % eye drops ([facility]) vitamin B complex 1 tablet PO DAILY 01/31/23 06/13/23 Allergies Allergy/AdvReac Type Severity Reaction Status Date / Time almotriptan [From Axert] AdvReac Unknown Nausea and Verified 07/03/23 16:22 Vomiting cefaclor [From Ceclor] AdvReac Unknown Nausea and Verified 07/03/23 16:22 Vomiting cefuroxime AdvReac Unknown Nausea and Verified 07/03/23 16:22 Vomiting levofloxacin AdvReac Unknown Nausea And Verified 07/03/23 16:22 Vomiting morphine AdvReac Unknown Nausea and Verified 07/03/23 16:22 Vomiting Review of Systems Review of Systems: All systems reviewed & are unremarkable except as noted in HPI and below PMFSH Past Medical History Medical History A-fib Abnormal finding of blood chemistry, unspecified Ankle pain, right Arm paresthesia, right Ascending aortic aneurysm Benign essential hypertension Bloody discharge from nipple BMI 22.0-22.9, adult BMI 23.0-23.9, adult BMI 24.0-24.9, adult BMI 26.0-26.9,adult BMI 28.0-28.9,adult Breast pain Cervical spondylosis Chronic recurrent sinusitis Chronic sinusitis Clavicle fracture Cognitive changes Colon cancer screening CTS (carpal tunnel syndrome) Current use of jail anticoagulation Decreased grip wrapper strength Dizziness DJD (degenerative joint disease) Dysuria Ear pain Ectatic aorta Elevated blood protein Elevated glucose Elevated LFTs Encounter for Medicare annual wellness exam Encounter for routine adult health examination with abnormal findings Encounter for routine adult health examination without abnormal findings Fall FH: ANDRE-BSO (total abdominal hysterectomy and bilateral salpingo-oophorectomy) Follow up Fullness of breast GERD (gastroesophageal reflux disease) GERD (gastroesophageal reflux disease) Glaucoma Guaiac positive stools Hearing loss in left ear History of breast cancer History of colon polyps History of hypothyroidism History of TIA (transient ischemic attack) History of trigeminal neuralgia Underwent surgical treatment in 1989 Hospital discharge follow-up Hx of colonic polyps Hyperlipidemia Ingrown toenail Irregular heart beat Lung nodule Macular degeneration Malignant neoplasm of upper-outer quadrant of left breast in female, estrogen receptor positive Need for second dose of COVID-19 vaccine Neural foraminal stenosis of cervical spine 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
[2023-08-13 08:00] VITALS: BP 166/78; PULSE 89; RESP 16; TEMP 36.4; O2SAT 98
[2023-08-13] MEDS: IBUPROFEN 600 MG TABLET PO (08:18)
[2023-08-13 09:00] VITALS: BP 152/80; PULSE 94; RESP 16; TEMP 36.7; O2SAT 98
== END 2023-08-13 09:53 | disposition home or self-care (01) ==
PROVIDERS: Emergency Provider Emergency Medicine; PCP Internal Medicine
DX: M25.561 Pain in right knee (principal); I48.91 Unspecified atrial fibrillation; I10 Essential (primary) hypertension; Z79.01 Long term (current) use of anticoagulants; K21.9 Gastro-esophageal reflux disease without esophagitis; Z85.3 Personal history of malignant neoplasm of breast
CPT/HCPCS: 73562; 99283; A9270

== ENCOUNTER 2024-02-10 09:16 | Outpatient (CLI) | payer MEDICARE, SELFPAY ==
[2024-02-10 09:42] LABS: Basophils Absolute Auto 0.1 K/mm3 (0.0-0.1); Basophils Percent Auto 1.2 % (0.2-1.2); Eosinophils Absolute Auto 0.1 K/mm3 (0-0.3); Eosinophils Percent Auto 2.2 % (0-4.4); Hematocrit 42.1 % (37.0-47.0); Immature Granulocyte Absolute 0.01 K/mm3 (0.00-0.031); Immature Granulocyte Percent A 0.2 % (0-0.5); Lymphocytes Absolute Auto 1.27 K/mm3 (0.9-3.2); Lymphocytes Percent Auto 25.5 % (18.3-44.2); Mean Corpuscular HGB Conc 33.3 g/dl (32-36); Mean Corpuscular Hemoglobin 32.1 pg (26-34); Mean Corpuscular Volume 96.6 fl (80-100); Mean Platelet Volume 9.8 fl (7.4-10.4); Monocytes Absolute Auto 0.7 K/mm3 (0.1-0.6); Monocytes Percent Auto 13.7 % (2.6-8.5); Neutrophils Absolute Auto 2.9 K/mm3 (1.3-6.7); Neutrophils Percent Auto 57.2 % (45.5-73.1); Platelet Count Result 307 k/mm3 (150-375); Red Blood Count 4.36 M/mm3 (4.2-5.4); Red Cell Distribution Width 13.7 % (11.5-14.5)
[2024-02-10 10:45] LABS: Alanine Aminotransferase 22 U/L (6-35); Albumin Level 4.5 g/dL (3.5-5.1); Alkaline Phosphatase 80 U/L (38-126); Anion Gap 10 mmol/L (4-12); Aspartate Amino Transferase 27 U/L (14-36); Bilirubin,Total 0.6 mg/dL (0.2-1.3); Blood Urea Nitrogen 13 mg/dL (7-17); Calcium 9.8 mg/dL (8.4-10.2); Carbon Dioxide 28 mmol/L (22-30); Chloride 101 mmol/L (98-107); Estimated Glomerular Filt Rate > 60; Glucose 95 mg/dL (65-110); Potassium 3.5 mmol/L (3.4-5.0); Sodium 139 mmol/L (137-145)
[2024-02-11 14:17] LABS: CA 15-3 14 U/mL (<32)
[2024-02-12 11:39] LABS: Cholesterol 169 mg/dL (0-200); HDL Direct 78 mg/dL; Triglycerides 86 mg/dL (<150)
[2024-02-12 11:43] LABS: LDL Cholesterol Direct 74 mg/dL
== END 2024-02-10 09:17 | disposition home or self-care (01) ==
LOC: ANHLAB 09:19
PROVIDERS: PCP Family Medicine; Visit Provider Internal Medicine Hematology & Oncology
DX: C50.412 Malignant neoplasm of upper-outer quadrant of left female breast (principal); Z17.0 Estrogen receptor positive status [ER+]; E78.2 Mixed hyperlipidemia
CPT/HCPCS: 36415; 80053; 80061; 85025; 86300

== ENCOUNTER 2024-02-20 11:46 | Outpatient (NON) | payer MEDICARE, SELFPAY | END 2024-02-20 11:47 | disposition home or self-care (01) | LOC: ANHGOSHLAB 11:48 | PROVIDERS: PCP Family Medicine; Visit Provider Family Medicine | DX: R30.0 Dysuria (principal) | CPT/HCPCS: 87086 ==

== ENCOUNTER 2024-08-17 09:56 | Outpatient (CLI) | payer MEDICARE, SELFPAY ==
[2024-08-17 10:32] LABS: Basophils Absolute Auto 0.1 K/mm3 (0.0-0.1); Basophils Percent Auto 0.8 % (0.2-1.2); Eosinophils Absolute Auto 0.1 K/mm3 (0-0.3); Eosinophils Percent Auto 0.8 % (0-4.4); Hematocrit 42.1 % (37.0-47.0); Hemoglobin 13.8 g/dL (12.0-15.0); Immature Granulocyte Absolute 0.02 K/mm3 (0.00-0.031); Immature Granulocyte Percent A 0.3 % (0-0.5); Lymphocytes Absolute Auto 1.41 K/mm3 (0.9-3.2); Mean Corpuscular HGB Conc 32.8 g/dl (32-36); Mean Corpuscular Hemoglobin 31.7 pg (26-34); Mean Corpuscular Volume 96.8 fl (80-100); Mean Platelet Volume 9.5 fl (7.4-10.4); Monocytes Absolute Auto 0.9 K/mm3 (0.1-0.6); Neutrophils Percent Auto 62.1 % (45.5-73.1); Platelet Count Result 407 k/mm3 (150-375); Red Blood Count 4.35 M/mm3 (4.2-5.4); Red Cell Distribution Width 13.3 % (11.5-14.5); White Blood Count 6.4 K/mm3 (4.5-10.0)
[2024-08-17 11:39] LABS: Alanine Aminotransferase 21 U/L (6-35); Albumin Level 4.2 g/dL (3.5-5.1); Alkaline Phosphatase 84 U/L (38-126); Anion Gap 8 mmol/L (4-12); Aspartate Amino Transferase 25 U/L (14-36); Bilirubin,Total 0.5 mg/dL (0.2-1.3); Blood Urea Nitrogen 15 mg/dL (7-17); Calcium 9.7 mg/dL (8.4-10.2); Carbon Dioxide 30 mmol/L (22-30); Chloride 100 mmol/L (98-107); Cholesterol 171 mg/dL (0-200); Estimated Glomerular Filt Rate > 60; Glucose 104 mg/dL (65-110); HDL Direct 77 mg/dL; Potassium 3.9 mmol/L (3.4-5.0); Sodium 138 mmol/L (137-145); Triglycerides 83 mg/dL (<150)
[2024-08-17 11:50] LABS: LDL Cholesterol Direct 59 mg/dL
[2024-08-19 05:29] LABS: CA 15-3 15 U/mL (<32)
== END 2024-08-17 09:57 | disposition home or self-care (01) ==
PROVIDERS: PCP Family Medicine; Visit Provider Internal Medicine Hematology & Oncology
DX: C50.412 Malignant neoplasm of upper-outer quadrant of left female breast (principal); D50.9 Iron deficiency anemia, unspecified; Z17.0 Estrogen receptor positive status [ER+]; E78.2 Mixed hyperlipidemia; D64.9 Anemia, unspecified
CPT/HCPCS: 36415; 80053; 80061; 82728; 85025; 86300

== ENCOUNTER 2024-08-17 13:55 | Outpatient (CLI) | payer MEDICARE, SELFPAY ==
--- NOTE | ~2024-08-17 | MM_ITS ---
EXAMINATION: MM screening wiliam BI w joel HISTORY: Screening mammogram, family history of breast cancer in her sister. TECHNIQUE: Craniocaudal and mediolateral oblique 3-D tomosynthesis images were obtained and synthetic 2-D images were generated. CAD analysis was submitted and interpreted. COMPARISON: 08/12/2023, 07/23/2022, 05/02/2021 BREAST PARENCHYMAL COMPOSITION:Not Dense. There are scattered areas of fibroglandular density. FINDINGS: Stable focal distortion at the upper, outer left breast. No suspicious mass, calcification, or architectural distortion are identified in either breast to suggest malignancy. There has been no suspicious interval change. IMPRESSION: No mammographic evidence of malignancy. Recommend routine screening mammography in one year. BI-RADS Category 2: Benign finding(s). Reviewed, dictated and finalized at location . REP
== END 2024-08-17 13:56 | disposition home or self-care (01) ==
LOC: ANHIMG 13:58
PROVIDERS: PCP Family Medicine; Visit Provider Internal Medicine Hematology & Oncology
DX: Z12.31 Encounter for screening mammogram for malignant neoplasm of breast (principal)
CPT/HCPCS: 77063; 77067

== ENCOUNTER 2024-09-09 12:47 | Outpatient (CLI) | payer MEDICARE, SELFPAY ==
--- NOTE | ~2024-09-09 | DEXA_ITS ---
Bone Density Report Name: CINDY GUARDADO Age: 84 Sex: Female Ethnicity: White Date of : 1940 Indication: osteopenia; parental hip fracture; height loss; cancer; hysterectomy; Referring Provider: MARGIE ANTONIO Study: Bone densitometry was performed. Exam Date: September 09, 2024 Accession number: [id number] Bone Density: Region BMD T-score Z-score Classification AP Spine(L1-L4) 0.878 -1.5 1.3 Osteopenia Femoral Neck (Left) 0.494 -3.2 -0.7 Osteoporosis Total Hip (Left) 0.585 -2.9 -0.6 Osteoporosis Femoral Neck (Right) 0.587 -2.4 0.2 Osteopenia Total Hip (Right) 0.629 -2.6 -0.2 Osteoporosis Total Hip Mean 0.607 -2.8 -0.4 Osteoporosis World Health Organization criteria for BMD impression classify patients as: Normal (T-score at or above -1.0), Osteopenia (T-score between -1.0 and -2.5), or Osteoporosis (T-score at or below -2.5). 10-year Fracture Risk: FRAX not reported because: Some T-score for Spine Total or Hip Total or Femoral Neck at or below -2.5 Previous Exams: Region Exam Age BMD T-score BMD Change BMD Change Date g/cm2 vs Baseline vs Previous AP Spine (L1-L4) 09/09/2024 84 0.878 -1.5 -0.100 (-10.2% -0.147 (-14.3% 04/04/2018 77 1.024 -0.2 0.047 (4.8%)# -0.023 (-2.2%) 03/21/2016 75 1.047 0.0 0.070 (7.1%)* 0.070 (7.1%)* 03/09/2014 73 0.977 -0.6 Total Hip(Left) 09/09/2024 84 0.585 -2.9 -0.220 (-27.4% -0.113 (-16.2% 08/29/2020 80 0.697 -2.0 -0.108 (-13.4% -0.100 (-12.5% 04/04/2018 77 0.797 -1.2 -0.008 (-1.0%) -0.013 (-1.6%) 03/21/2016 75 0.810 -1.1 0.005 (0.7%) 0.005 (0.7%) 03/09/2014 73 0.805 -1.1 Total Hip(Right) 09/09/2024 84 0.629 -2.6 -0.246 (-28.1% -0.155 (-19.7% 08/29/2020 80 0.784 -1.3 -0.091 (-10.4% -0.078 (-9.0%) 04/04/2018 77 0.862 -0.7 -0.013 (-1.5%) -0.044 (-4.8%) 03/21/2016 75 0.905 -0.3 0.031 (3.5%)* 0.031 (3.5%)* 03/09/2014 73 0.875 -0.6 *Denotes significance at 95% confidence level, LSC for AP Spine = 0.022 g/cm2, LSC for Total Hip = 0.027 g/cm2 # Denotes dissimilar scan types or analysis methods Clinical Information Provided by Patient: Parent has had a hip fracture Has used the following medications: Fosamax (i.e. alendronate), Vitamin D, Calcium Has the following medical conditions: Cancer, Hysterectomy Patient maximum height was 66 No regular weight bearing exercise Onset of menses at age 12 Number of children 5 Impression: The patient has osteoporosis, based on the Left Femoral Neck T-score. The patient has risk factors, including: parental hip fracture. The BMD for the Total Hip(Left) decreased, changing by -16.2% since the last DXA exam. The BMD for the Total Hip(Right) decreased, changing by -19.7% since the last DXA exam. Discussion: INCREASED RISK OF FRACTURE. BONE DENSITY IS UNDESIRABLY LOW AT ONE OR MORE SKELETAL SITES, CONSISTENT WITH POSTMENOPAUSAL OSTEOPOROSIS. This patient's lowest T-score meets the World Health Organization's (WHO) criteria for osteoporosis at one or more sites (T-score -2.5 or below). In untreated patients, the risk of osteoporotic fracture increases approximately two-fold for each 1.0 SD decrease in T-score. Low bone density is not the only risk factor for fracture; also consider factors such as patient's age, frailty or poor health, risk of falling, risk of injury, previous osteoporotic fracture, family history of osteoporosis, cigarette smoking, low body weight, etc. Not everyone with low bone mineral density has osteoporosis; osteomalacia and other metabolic bone disorders should also be considered. Patients who have osteoporosis should be evaluated for specific diseases and conditions (secondary causes) that may cause or contribute to bone loss. The [place] Association of Clinical Endocrinologists (AACE) and National Osteoporosis Foundation (NOF) recommend pharmacologic intervention for all postmenopausal women whose T-score is in this range. The patient should follow a healthful lifestyle (good nutrition with adequate calcium and vitamin D, and appropriate weight-bearing exercise). Follow-Up: Consider a repeat BMD and Vertebral Fracture Assessment (VFA) exam in 2 years or sooner if medically necessary, to reassess this patient's status. Reported by: JOHN on 09/09/2024 1:16:00 PM. Reviewed, dictated and finalized at location AHakan MAYERS
--- OUTSIDE RECORDS SUMMARY | 2024-09-09 13:45 | XMS_ITS | Patient Health Summary ---
Author Organization [facility] Address [address] [place] [address] Care Team Providers Care Sock Turner Name Role Phone Jordy Connolly MD Primary Care Provider [phone] Note from [facility] [place] [facility] [place]non-owned Affiliates and Associated Physician Practices is amultiple site organization consisting of ambulatory clinics and hospital sitesin [place], [place], [place] and [place]. This disclosure is being madepursuant to the Care Everywhere program and may not contain all information available regarding this patient. Last updated 18.[facility] Allergies * Cefuroxime(Nausea and/or Vomiting) -Low Criticality * Levofloxacin(Nausea and/or Vomiting) -Low Criticality * Morphine(Nausea and/or Vomiting) -Low Criticality * Propofol(Nausea and/or Vomiting) -Low Criticality Medications * Be aware that medications may not be up to date on this document. Alwaysverify current medications with the patient. * anastrozole (Arimidex) 1 MG tablet(Started 02/06/2022) Take 1 (one) tablet by mouth once daily * vitamin E (Tocopheryl) 400 UNIT capsule Take 1 (one) capsule by mouth once daily * rosuvastatin (Crestor) 10 MG tablet Take 1 (one) Half Tablet by mouth once daily * Calcium Carb-Cholecalciferol (CALCIUM+D3 PO) * [place]-3 Fatty Acids (fish oil) 500 MG capsule Take by mouth 2 times daily Hold until after DOS * Multiple Vitamins-Minerals (RA VISION-KENZIE PRESERVE PO) Take 1 tablet by mouth 2 times daily * FeroSul 325 (65 Fe) MG tablet(Started 01/31/2023) Take 1 (one) tablet by mouth 2 times daily * Rocklatan 0.02-0.005 % ophthalmic solution(Started 05/31/2023) * Eliquis 5 MG tablet(Started 06/24/2023) TAKE 1 TABLET BY MOUTH TWICE DAILY 3 refills by 06/23/2024 * brinzolamide (Azopt) 1 % ophthalmic suspension(Started 12/04/2023) INSTILL 1 DROP INTO EACH EYE TWICE DAILY Active Problems Problem Noted Date Diagnosed Date GUY (obstructive sleep apnea) 12/27/2022 Sleep related hypoxia 12/27/2022 09/02/2022 Essential hypertension 07/24/2022 Glaucoma 07/24/2022 Nocturia more than twice per night 07/24/2022 Restless legs syndrome (RLS) 07/24/2022 Numbness on right side 07/24/2022 Osteopenia 07/24/2022 Inadequate sleep hygiene 07/24/2022 Chronic rhinitis 07/24/2022 Macular degeneration 07/24/2022 Anxiety 07/24/2022 Subdural hematoma 03/27/2022 Malignant neoplasm of left b reast in female, estrogen receptor positive 08/05/2018 Immunizations * Covid Pfizer primary monovalent 12+ yr 0.3mL Purple cap(Given 05/17/2021, 10/26/2020, 10/05/2020) * INFLUENZA VACCINE(Given 04/19/2017, 05/07/2016) * INFLUENZA VACCINE, ADJUVANTED, QUADR. (FLUAD QUADRIVALENT; 65Y+) (AIIV4)(Given 05/22/2022) * INFLUENZA VACCINE, HIGH-DOSE, QUADR. (FLUZONE HIGH-DOSE QUADRIVALENT; 65Y+), 0.7 ML (HD-IIV4)(Given 05/17/2021) * PNEUMOCOCCAL PPV VACCINE(Given 05/08/2018) * Pneumococcal Pcv13 Conj(Given 04/19/2017) * TDAP (7yrs+)(Given 03/27/2022) Social History Tobacco Use Types Packs/Day Years Used Date Smoking Tobacco: Never Smokeless Tobacco: Never Tobacco Cessation:Counseling Given: Not Answered Alcohol Use Standard Drinks/Week Comments Not Currently 0 (1 standard drink = 0.6 oz pur e alcohol) rarely 1-2x/yr if at all AUDIT-C Answer Date Recorded Q1: How often do you have a drink containing alcohol? Never 09/20/2022 Q2: How many drinks containi ng alcohol do you have on a typical day when you are drinking? Patient does not drink Q3: How often do you have si x or more drinks on one occasion? Never 09/20/2022 Hunger Vital Sign Answer Date Recorded Within the past 12 months, y ou worried that your food would run out before you got the money to buy more. Never true 03/29/20 Within the past 12 months, t he food you bought just didn't last and you didn't have money to get more. Never true 03/29/2022 Education Answer Date Recorded What is the highest level of school you have completed or the highest degree you have received? Some college, no degree 07/24/2022 Sex and Gender Information Value Date Recorded Sex Assigned at Female 06/16/2023 6:57 AM PROTOTYPE DEICER ASSEMBLER Gender Identity Female 06/16/2023 6:57 AM PROTOTYPE DEICER ASSEMBLER Sexual Orientation Straight 06/16/2023 6: 57 AM PROTOTYPE DEICER ASSEMBLER Last Filed Vital Signs Vital Sign Reading Time Taken Comments Blood Pressure 152/84 12/19/2023 10:58 AM CDT Pulse 70 12/19/2023 10:58 AM CDT Temperature 36.6 C (97.8 F) 09/21/2022 7:31 AM PROTOTYPE DEICER ASSEMBLER Respiratory Rate 20 09/21/2022 7:31 AM PROTOTYPE DEICER ASSEMBLER Oxygen Saturation 97% 06/18/2023 10:47 AM PROTOTYPE DEICER ASSEMBLER Inhaled Oxygen Concentration - - Weight 61.2 kg (135 lb) 12/19/2023 10:58 AM CDT Height 162.6 cm (5' 4 ) 12/19/2023 10:58 AM CDT Body Mass Index 23.17 12/19/2023 10:58 AM CDT Medical Devices Implanted Type Area Boiler/Chiller Operator Device Identifier Shelf Expiration Date Model / Serial / Lot Coil Azur Cx Hdrcl 4cm 3mm Dtch Loop Sld Implanted:Qty: 1 on 03/28/2022 at [facility] 06/04/2026 [id number] / / [id number] Coil Azur Hdrcl 2cm 2mm .018in Dtch Loop Implanted:Qty: 1 on 03/28/2022 at [facility] 06/04/2026 [id number] / / [id number] Coil Azur Hdrcl 2cm 2mm .018in Dtch Loop Implanted:Qty: 1 on 03/28/2022 at [facility] 05/04/2026 [id number] / / [id number] Procedures * EKG 12-LEAD(Performed 06/18/2023) Performed for Essential hypertension * EKG 12-LEAD(Performed 12/18/2022) Performed for Paroxysmal atrial fibrillation (HCC) * PROC EKG IN CLINIC(Performed 11/06/2022) Performed for Paroxysmal atrial fibrillation (HCC) * CARDIAC PROCEDURE ORDER(Performed 10/29/2022) * CARDIAC PROCEDURE ORDER(Performed 10/24/2022) * CARDIAC PROCEDURE ORDER(Performed 10/02/2022) * CARDIAC PROCEDURE ORDER(Performed 09/27/2022) * CARDIAC PROCEDURE ORDER(Performed 09/27/2022) * CARDIAC EKG ORDER(Performed 09/25/2022) * PREPARE RBC LEUKOREDUCED UNIT(Performed 09/22/2022) Performed for Pre-op evaluation * PREPARE RBC LEUKOREDUCED UNIT(Performed 09/22/2022) * VAS LEFT VENOUS DUPLEX LE(Performed 09/21/2022) Performed for 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) * GLUCOSE - POINT OF CARE(Performed 09/21/2022) * EKG 12-LEAD(Performed 09/20/2022) Performed for Paroxysmal atrial fibrillation (HCC) * CBC W/O DIFFERENTIAL(Performed 09/20/2022) Performed for Pre-op evaluation * ELECTROPHYSIOLOGY PROCEDURE(Performed 09/20/2022) Performed for Paroxysmal atrial fibrillation (HCC) * ACT LR - POCT ([facility])(Performed 09/20/2022) * ACT LR - POCT ([facility])(Performed 09/20/2022) * ACT LR - POCT ([facility])(Performed 09/20/2022) * ACT LR - POCT ([facility])(Performed 09/20/2022) * ACT LR - POCT ([facility])(Performed 09/20/2022) * ENDOTRACHEAL TUBE NOTE(Performed 09/20/2022) * VANESA DIRECT(Performed 09/20/2022) Performed for Paroxysmal atrial fibrillation (HCC) * ANTIBODY IDENTIFICATION(Performed 09/20/2022) Performed for Paroxysmal atrial fibrillation (HCC) * TYPE + SCREEN PANEL(Performed 09/20/2022) Performed for Paroxysmal atrial fibrillation (HCC) * WY POLYSOM 6/> YRS 4/> SONIYA(Performed 09/03/2022) Performed for Paroxysmal atrial fibrillation (HCC), GUY (obstructive sleep apnea), Elevated carbon dioxide level, Nocturia more than twice per night, Confusional arousals, Restless legs syndrome (RLS), Numbness on right side, Essential hypertension * LAB RESULTS ORDER(Performed 08/07/2022) * PROC GAS METER INSTALLER HELPER READ, 14 DAY(Performed 07/27/2022) Performed for Syncope and collapse * AMBULATORY REFERRAL TO SLEEP SPECIALIST(Performed 07/24/2022) Performed for Paroxysmal atrial fibrillation (HCC), GUY (obstructive sleep apnea) * ANTIBODY IDENTIFICATION(Performed 07/19/2022) Performed for Paroxysmal atrial fibrillation (HCC) * VANESA DIRECT(Performed 07/19/2022) Performed for Paroxysmal atrial fibrillation (HCC) * TYPE + SCREEN PANEL(Performed 07/19/2022) Performed for Paroxysmal atrial fibrillation (HCC) * BASIC METABOLIC PANEL (CALCIUM TOTAL)(Performed 07/19/2022) Performed for Paroxysmal atrial fibrillation (HCC) * CBC W AUTO DIFFERENTIAL(Performed 07/19/2022) Performed for Paroxysmal atrial fibrillation (HCC) * PT-INR [facility](Performed 07/19/2022) Performed for Paroxysmal atrial fibrillation (HCC) * PROC EKG IN CLINIC(Performed 06/15/2022) Performed for Paroxysmal atrial fibrillation (HCC) * XR CLAVICLE RIGHT 2VW(Performed 06/04/2022) Performed for Closed displaced fracture of right clavicle with routine healing, unspecified part ofclavicle, subsequent encounter * PROC EKG IN CLINIC(Performed 05/15/2022) Performed for Syncope and collapse * ECHO COMPLETE(Performed 05/15/2022) Performed for Syncope and collapse * XR SHOULDER LEFT 2VW OR MORE(Performed 04/23/2022) Performed for Closed displaced fracture of right clavicle with routine healing, unspecified part ofclavicle, subsequent encounter * XR SHOULDER RIGHT 2VW OR MORE(Performed 04/23/2022) Performed for Closed displaced fracture of right clavicle with routine healing, unspecified part ofclavicle, subsequent encounter * XR CLAVICLE RIGHT 2VW(Performed 04/23/2022) Performed for Closed displaced fracture of right clavicle with routine healing, unspecified part ofclavicle, subsequent encounter * PROC EKG IN CLINIC(Performed 04/20/2022) Performed for Syncope and collapse * CARDIAC HOLTER MONITOR ORDER(Performed 04/20/2022) * CT HEAD WO CONTRAST(Performed 04/19/2022) Performed for SAH (subarachnoid hemorrhage) (HCC) * CARDIAC EKG ORDER(Performed 04/04/2022) * APHERESIS/TRANSFUSION ORDER(Performed 04/03/2022) * CBC W AUTO DIFFERENTIAL(Performed 04/03/2022) Performed for Blood loss anemia * BASIC METABOLIC PANEL (CALCIUM TOTAL)(Performed 04/03/2022) Performed for Blood loss anemia * PHOSPHORUS BLOOD(Performed 04/02/2022) Performed for Blood loss anemia * MAGNESIUM BLOOD(Performed 04/02/2022) Performed for Subdural hematoma (HCC) * CBC W AUTO DIFFERENTIAL(Performed 04/02/2022) Performed for Blood loss anemia * BASIC METABOLIC PANEL (CALCIUM TOTAL)(Performed 04/02/2022) Performed for Blood loss anemia * CBC W AUTO DIFFERENTIAL(Performed 03/31/2022) * BASIC METABOLIC PANEL (CALCIUM TOTAL)(Performed 03/31/2022) * CALCIUM IONIZED WHOLE BLOOD(Performed 03/31/2022) * PHOSPHORUS BLOOD(Performed 03/31/2022) * MAGNESIUM BLOOD(Performed 03/31/2022) * URINALYSIS REFLEX TO MICROSCOPIC NO CULTURE(Performed 03/31/2022) * CBC W AUTO DIFFERENTIAL(Performed 03/31/2022) * CBC W AUTO DIFFERENTIAL(Performed 03/31/2022) * CT HEAD WO CONTRAST(Performed 03/31/2022) Performed for Subdural hematoma (HCC), SAH (subarachnoid hemorrhage) (HCC) * PREPARE PLATELET PHERESIS UNIT(S)(Performed 03/31/2022) * PREPARE PLATELET PHERESIS UNIT(S)(Performed 03/31/2022) * PREPARE RBC LEUKOREDUCED UNIT(Performed 03/31/2022) * CBC W AUTO DIFFERENTIAL(Performed 03/31/2022) * BASIC METABOLIC PANEL (CALCIUM TOTAL)(Performed 03/31/2022) * CALCIUM IONIZED WHOLE BLOOD(Performed 03/31/2022) * PHOSPHORUS BLOOD(Performed 03/31/2022) * MAGNESIUM BLOOD(Performed 03/31/2022) * CBC W AUTO DIFFERENTIAL(Performed 03/30/2022) * TEG 6S PLATELET MAPPING(Performed 03/30/2022) * CBC W AUTO DIFFERENTIAL(Performed 03/30/2022) * LIPID PROFILE(Performed 03/30/2022) * HEMOGLOBIN A1C(Performed 03/30/2022) * PHOSPHORUS BLOOD(Performed 03/30/2022) * CBC W AUTO DIFFERENTIAL(Performed 03/30/2022) * XR CHEST 1VW PORTABLE(Performed 03/30/2022) Performed for Traumatic pneumothorax, initial encounter * EKG 12-LEAD(Performed 03/30/2022) Performed for Subdural hematoma (HCC) * URINALYSIS W/MICROSCOPIC NO CULTURE(Performed 03/30/2022) * CBC W AUTO DIFFERENTIAL(Performed 03/29/2022) * BASIC METABOLIC PANEL (CALCIUM TOTAL)(Performed 03/29/2022) * CALCIUM IONIZED WHOLE BLOOD(Performed 03/29/2022) * PHOSPHORUS BLOOD(Performed 03/29/2022) * MAGNESIUM BLOOD(Performed 03/29/2022) * EKG 12-LEAD(Performed 03/29/2022) Performed for Subdural hematoma (HCC) * CBC W AUTO DIFFERENTIAL(Performed 03/29/2022) * TEG 6 GLOBAL HEMOSTASIS W/ LYSIS(Performed 03/29/2022) * TEG 6S PLATELET MAPPING(Performed 03/29/2022) * CBC W AUTO DIFFERENTIAL(Performed 03/29/2022) * EKG 12-LEAD(Performed 03/29/2022) Performed for Fall (on) (from) other stairs and steps, initial encounter * CBC W AUTO DIFFERENTIAL(Performed 03/29/2022) * XR CHEST 1VW PORTABLE(Performed 03/29/2022) Performed for Subdural hematoma (HCC) * BASIC METABOLIC PANEL (CALCIUM TOTAL)(Performed 03/29/2022) * CALCIUM IONIZED WHOLE BLOOD(Performed 03/29/2022) * PHOSPHORUS BLOOD(Performed 03/29/2022) * MAGNESIUM BLOOD(Performed 03/29/2022) * CBC W AUTO DIFFERENTIAL(Performed 03/29/2022) * LACTIC ACID BLOOD(Performed 03/29/2022) * CBC W AUTO DIFFERENTIAL(Performed 03/28/2022) * CT HEAD WO CONTRAST(Performed 03/28/2022) Performed for Subdural hematoma (HCC), SAH (subarachnoid hemorrhage) (HCC) * PREPARE RBC LEUKOREDUCED UNIT(Performed 03/28/2022) Performed for Fall (on) (from) other stairs and steps, initial encounter, Traumatic pneumothorax, initial encounter * TRANSFUSE RED BLOOD CELL LEUKOREDUCED UNIT(S)(Performed 03/28/2022) * XR CLAVICLE RIGHT 2VW(Performed 03/28/2022) Performed for Fall (on) (from) other stairs and steps, initial encounter * TRANSFUSE PLATELET PHERESIS UNIT(S)(Performed 03/28/2022) * PREPARE PLATELET PHERESIS UNIT(S)(Performed 03/28/2022) * BLOOD GASES JARRET + COOX PANEL(Performed 03/28/2022) * LACTIC ACID BLOOD(Performed 03/28/2022) * CBC W AUTO DIFFERENTIAL(Performed 03/28/2022) * CT HEAD WO CONTRAST(Performed 03/28/2022) Performed for Subdural hematoma (HCC) * XR TIBIA FIBULA RIGHT 2VW(Performed 03/28/2022) Performed for Fall (on) (from) other stairs and steps, initial encounter * XR KNEE RIGHT 2VW OR LESS(Performed 03/28/2022) Performed for Fall (on) (from) other stairs and steps, initial encounter * URINE DRUG SCREEN IMMUNOASSAY(Performed 03/28/2022) * COMPREHENSIVE METABOLIC PANEL(Performed 03/28/2022) * CALCIUM IONIZED WHOLE BLOOD(Performed 03/28/2022) * PHOSPHORUS BLOOD(Performed 03/28/2022) * MAGNESIUM BLOOD(Performed 03/28/2022) * CBC W AUTO DIFFERENTIAL(Performed 03/28/2022) * TEG 6 GLOBAL HEMOSTASIS W/ LYSIS(Performed 03/28/2022) * TEG 6S PLATELET MAPPING(Performed 03/28/2022) * XR FOOT RIGHT 3VW OR MORE(Performed 03/28/2022) Performed for Fall (on) (from) other stairs and steps, initial encounter * XR TIBIA FIBULA LEFT 2VW(Performed 03/28/2022) Performed for Fall (on) (from) other stairs and steps, initial encounter * XR KNEE LEFT 3VW(Performed 03/28/2022) Performed for Fall (on) (from) other stairs and steps, initial encounter * XR FEMUR RIGHT 2VW(Performed 03/28/2022) Performed for Fall (on) (from) other stairs and steps, initial encounter * IR ANGIO PELVIS(Performed 03/28/2022) Performed for Fall (on) (from) other stairs and steps, initial encounter, Pelvic hematoma, female * DIFFERENTIAL MANUAL(Performed 03/27/2022) * TEG 6S PLATELET MAPPING(Performed 03/27/2022) * CBC W AUTO DIFFERENTIAL(Performed 03/27/2022) * PREPARE WHOLE BLOOD UNIT(S)(Performed 03/27/2022) * XR HUMERUS RIGHT 2VW OR MORE(Performed 03/27/2022) Performed for Fall (on) (from) other stairs and steps, initial encounter * BLOOD TYPE VERIFICATION(Performed 03/27/2022) * TYPE + SCREEN PANEL(Performed 03/27/2022) * TEG 6 GLOBAL HEMOSTASIS W/ LYSIS(Performed 03/27/2022) * PTT [facility]H(Performed 03/27/2022) * PT-INR [facility](Performed 03/27/2022) * BASIC METABOLIC PANEL (CALCIUM TOTAL)(Performed 03/27/2022) * ALCOHOL ETHYL BLOOD(Performed 03/27/2022) * CT FACIAL BONES WO CONTRAST(Performed 03/27/2022) Performed for Fall (on) (from) other stairs and steps, initial encounter * CT LUMBAR SPINE WO CONTRAST(Performed 03/27/2022) Performed for Fall (on) (from) other stairs and steps, initial encounter * CT THORACIC SPINE WO CONTRAST(Performed 03/27/2022) Performed for Fall (on) (from) other stairs and steps, initial encounter * CT CHEST ABDOMEN PELVIS W CONT(Performed 03/27/2022) Performed for Fall (on) (from) other stairs and steps, initial encounter * CT CERVICAL SPINE WO CONTRAST(Performed 03/27/2022) Performed for Fall (on) (from) other stairs and steps, initial encounter * CT HEAD WO CONTRAST(Performed 03/27/2022) Performed for Fall (on) (from) other stairs and steps, initial encounter * XR PELVIS 1 OR 2VW(Performed 03/27/2022) Performed for Fall (on) (from) other stairs and steps, initial encounter * XR CHEST 1VW PORTABLE(Performed 03/27/2022) Performed for Fall (on) (from) other stairs and steps, initial encounter * OXYGEN(Performed 03/27/2022) Results * EKG 12-LEAD (06/18/2023 11:31 AM PROTOTYPE DEICER ASSEMBLER) Only the most recent of6 resultswithin the time period is included. Narrative LEANNE OSBORNE - 06/18/2023 11:31 AM PROTOTYPE DEICER ASSEMBLER Kiarra Sinclair MD 06/18/2023 11:31 AM See clinic note. Kiarra Sinclair MD ECG ORDERABL ES LEANNE MUSE * PROC EKG IN CLINIC (11/06/2022 2:29 PM CDT) Only the most recent of4 resultswithin the time period is included. Narrative Adele Alcocer PA - 11/06/2022 2:29 PM CDT Adele Alcocer PA 11/06/2022 2:30 PM NSR HR 78 Left axis deviation Adele PEDRAZA ECG ORDERABLES * CARDIAC PROCEDURE ORDER (10/29/2022) Only the most recent of5 resultswithin the time period is included. 10/29/2022 Narrative 10/29/2022 Ordered by an unspecified provider. Scanned Document CARDIAC SERVICES ORD ERABLES * CARDIAC EKG ORDER (09/25/2022 2:28 PM PROTOTYPE DEICER ASSEMBLER) Only the most recent of2 resultswithin the time period is included. Narrative 09/25/2022 2:28 PM PROTOTYPE DEICER ASSEMBLER Ordered by an unspecified provider. Scanned Document CARDIAC SERVICES ORD ERABLES * PREPARE (CROSSMATCH) RBC UNIT(S), 4 Units (09/22/2022 1:17 AM PROTOTYPE DEICER ASSEMBLER) Only the most recent of4 resultswithin the time period is included. Pathologist [facility] Unit Description AS1 LR PRBC [facility] Unit ABO O [facility] Rh NEG [facility] Product Number R43 [facility] Unit Donor # [id number] [facility] Unit Status released [facility] Product Code [id number] [facility] Blood Type Barcode 9500 [facility] Expiration Date S BLOOD BANK LAB Unit Description AS1 LR PRBC [facility] Unit ABO O [facility] Unit Rh POS [facility] Product Number R44 [facility] Unit Donor # [id number] [facility] Unit Status released [facility] Product Code [id number] [facility] Blood Type Barcode 5100 [facility] Expiration Date S BLOOD BANK LAB Blood Bank BLOOD SPECIMEN / Unknown 09/20/2022 6:49 AM PROTOTYPE DEICER ASSEMBLER Kiarra Sinclair MD LAB - BLOOD BANK ORDERABLES [facility] [address] [place] [address], [facility] [phone] * VAS LEFT VENOUS DUPLEX LE (09/21/2022 10:33 AM PROTOTYPE DEICER ASSEMBLER) Anatomical Region Laterality Modality Lower Extremity, Upper Extremity Intravascular Ultrasound 09/21/2022 10:0 8 AM PROTOTYPE DEICER ASSEMBLER Narrative Procedure Note Jw Sevilla MD - 09/22/2022 Kiarra Sinclair MD VASCULAR LAB ORDERABLES * (ABNORMAL) GLUCOSE - POINT OF CARE (09/21/2022 7:31 AM PROTOTYPE DEICER ASSEMBLER) [facility] Glucose WB/POC 124(H) 70 - 115 mg/dL 09/21/2022 7:43 AM [facility] Specimen Type Cap Fingerstick 2022 7:43 AM [facility] Blood BLOOD SPECIMEN / Unknown 09/21/2022 7:31 AM PROTOTYPE DEICER ASSEMBLER 09/21/2022 7:43 AM PROTOTYPE DEICER ASSEMBLER Kiarra Sinclair MD LAB - POINT OF CARE ORDERABLES [facility] [address] [place] [address], [facility] [phone] * (ABNORMAL) CBC W/O DIFFERENTIAL (09/20/2022 7:03 PM [facility]) WBC 10.3 3.5 - 10.5 10 3/uL 09/20/2022 7:05 PM [facility] RBC 3.24(L) 3.80 - 5.20 10 6/uL 09/20/2022 7:05 PM [facility] Hemoglobin 10.1(L) 12.0 - 15.6 g/dL 09/20/2022 7:05 PM [facility] Hematocrit 31.1(L) 35.0 - 45.0 % 09/20/2022 7:05 PM [facility] MCV 96.0 80.7 - 98.3 fL 09/20/2022 7:05 PM [facility] MCH 31.2 26.7 - 34.0 pg 09/20/2022 7:05 PM [facility] MCHC 32.5 30.8 - 35.9 g/dL 09/20/2022 7:05 PM [facility] RDW-SD 52.6(H) 36.0 - 50.0 fL 09/20/2022 7:05 PM [facility] RDW-CV 14.9(H) 11.2 - 14.8 % 09/20/2022 7:05 PM [facility] Platelet Count 356 150 - 400 10 3/uL 09/20/2022 7:05 PM [facility] MPV 10.1 9.4 - 12.9 fL 09/20/2022 7:05 PM PROTOTYPE DEICER ASSEMBLER [facility] nRBC Absolute 0.00 0 10 3/uL 09/20/2022 7:05 PM PROTOTYPE DEICER ASSEMBLER [facility] nR Auto 0.0 0 /100 WBC 09/20/2022 7:05 PM PROTOTYPE DEICER ASSEMBLER [facility] Blood BLOOD SPECIMEN / Unknown Venipuncture / Unknown 09/20/2022 7:03 PM PROTOTYPE DEICER ASSEMBLER 09/20/2022 7:03 PM PROTOTYPE DEICER ASSEMBLER Clarisa Clark MD LAB - HEMATOLOGY ORD ERABLES [facility] [address] [place] [address], [facility] [phone] * CCL ABLATION ATRIAL FIB CRYO (09/20/2022 6:38 PM PROTOTYPE DEICER ASSEMBLER) Anatomical Region Laterality Modality X-Ray Angiograph y Narrative 09/20/2022 11:00 PM PROTOTYPE DEICER ASSEMBLER Conclusion: 1- Successful cryoballoon pulmonary vein isolation for treatment of early persistent atrial fibrillation under general anesthesia. 2. Intracardiac echocardiography (ICE). 3. Percutaneous transseptal access. 4. Electro-anatomical mapping to help guide the ablation prodcedure. Plan: The patient will be observed overnight. Apixaban can be be restarted tonight. Figure of 8 sutures to be removed tomorrow morning. Hopefully he will be discharged home tomorrow if everything is alright. I'll see her in clinic in 1 months, then in three months. He will need 2 weeks of holter before the three month appointment. Reason for Procedure An 82 year old female with past medical history of stroke, breast cancer, GERD, markedly symptomatic paroxysmal atrial fibrillation who was offered cryoballoon PVI for atrial fibrillation ablation under general anesthesia. The risks and benefits of the procedure were discussed with the patient who agreed to proceed and signed the consent form. Procedure Details Estimated Blood Loss: 30 mL Procedure Details and Comments Operative Report Procedures; Attending: Dr Kiarra Sinclair MD Procedure Performed: 1. Cryoballoon pulmonary vein isolation for treatment of early persistent atrial fibrillation under general anesthesia. 2. Intracardiac echocardiography (ICE). 3. Percutaneous transseptal access. 4. Electro-anatomical mapping to help guide the ablation prodcedure. Description of Procedure: The patient was brought to the electrophysiology laboratory in a fasting, non- sedated and post-absorptive state. The patient underwent general anesthesia administered by anesthesia team. Patient was then prepped and draped in the usual sterile fashion for electrophysiology study. 1% lidocaine was administered to the bilateral groins. A 7F sheath in RFV was used to palace a dynamic decapolar catheter in CS. A 9F sheath in the right groin was used to be upgraded for access using flexicath with AcQcross inetgrated transseptal dilator/needle . A 10 F sheath was placed in the LFV Through which an 8 [place] Acunav long ICE probe was advanced into the right atrium with the use of fluoroscopic guidance. ICE was used for assisting with the transseptal access and was left in place for the entire procedure for monitoring. We then gave 5.000 units of heparin IV, then proceeded for transseptal puncture. Using the ACQcross AcQcross inetgrated transseptal dilator/needle over a 0.032 wire. After the transseptal puncture was done the 0.032 wire that was parked in the LSPV. After dilating the groin access the flexicath was passed over the 0.032 wire to the LSPV. The HD grid was used to create an anatomical map of the left atrium and the 4 pulmonary veins. The cryoballon was prepped then passed into the felxicath sheath with the achieve wire loaded into it. Using the achieve wire, each of the 4 pulmonary veins was accessed, then ablated using the cryoballoon in the following sequence with the following ablation data: Lowest temp achieve in celsius Duration of freeze in seconds. Number of Freezes LSPV: - 48 240 2 LIPV: - 48 240 2 RIPV - 56 180 2 RSPV - 52 240 1 Isolation of all four pulmonary veins was achieved during ablation. During right veins ablation the right phrenic nerve was stimulated using the CS catheter that capture it at the junction between SVC and right subclavian vein. Diaphragmatic pacing remained intact throughout the right veins ablation. At the end of the procedure hemostasis was ensured by using figure of 8 stitches for the large sheaths in both groins. The 7 [place] sheath was torn during pulling and was successfully snared from the left groin. There were no complications noted at the . The total duration of the procedure was 94 min, with LA dwell time of 54 min. Total flouro time was 7.5 minutes. Kiarra Sinclair MD CV ELECTROPH YSIOLOGY CUPID PROCS * ACT LR - POCT ([facility]) (09/20/2022 5:04 PM PROTOTYPE DEICER ASSEMBLER) Only the most recent of5 resultswithin the time period is included. ACT LR 330 See result comments sec 09/24/2022 9:54 AM PROTOTYPE DEICER ASSEMBLER [facility] Blood BLOOD SPECIMEN / Unknown 09/20/2022 5:04 PM PROTOTYPE DEICER ASSEMBLER 09/24/2022 9:54 AM PROTOTYPE DEICER ASSEMBLER Narrative [facility] - 09/24/2022 9:54 AM PROTOTYPE DEICER ASSEMBLER ACT-LR Therapeutics ranges are: Cardiac drop crew laborer = 200-300 seconds Sheath pull = ACT less than 170 seconds EPS lab = 200-240 seconds Sheath pull = ACT less than 140 seconds Radiology : CT/Angio lab = 200-300 seconds Sheath pull = ACT less than 200 seconds Expected range of normal volunteers: ACT-LR = 113-149 seconds Expected range of a Non-heparin patients: ACT-LR = 89-169 seconds From established ranges from the company manual Kiarra Sinclair MD LAB - COAGUL ATION ORDERABLES [facility] [address] [place] [phone], [facility] [phone] * ETT LINE PERFORMABLE (09/20/2022 3:11 PM PROTOTYPE DEICER ASSEMBLER) Narrative Jayme Ryan DO - 09/20/2022 3:11 PM PROTOTYPE DEICER ASSEMBLER Jayme Ryan DO 09/20/2022 3:19 PM Endotracheal Tube Placement: Patient Location: OR. Intubation Event Date/Time: 09/20/2022 3:11 PM Procedure: intubation ([id number]). Procedure Section: Sedation: under general anesthesia. Indications for Airway Management: anesthesia Induction: standard IV Patient Position: sniffing Mask Ventilation: easy. Blade Type: Gregory Blade Size: 3 Laryngoscopy View: grade 1 (full cords) Intubation Adjuncts: stylet Tube: endotracheal tube Placement: oral Tube type: cuff - inflated Tube Size (MM): 7 Depth of Insertion (CM): 21 Measured From: lips Cuff Inflated With: air Number of Attempts: 1. Placement Verified By: direct visualization, bilateral breath sounds, chest auscultation and CO2 monitor Tube secured with: adhesive tape. Dentition unchanged? Yes Difficult Airway? No. Procedure Start Time: 09/20/2022 3:11 PM. Staff Section Anesthesia Provider: Cheryl Ramirez MD Provider #1: Jayme Ryan DO, Performed the procedure. Cheryl Ramirez MD GENERAL ANESTHESIA O RDERABLES * TYPE + SCREEN PANEL (09/20/2022 6:45 AM PROTOTYPE DEICER ASSEMBLER) Only the most recent of3 resultswithin the time period is included. Antibody Screen POS 7:47 AM PROTOTYPE DEICER ASSEMBLER [facility] ABO Rh O POS 09/20/2022 7:47 AM PROTOTYPE DEICER ASSEMBLER [facility] Blood Bank BLOOD SPECIMEN / Unknown 09/20/2022 6:45 AM PROTOTYPE DEICER ASSEMBLER 09/20/2022 6:49 AM PROTOTYPE DEICER ASSEMBLER Kiarra Sinclair MD LAB - BLOOD BANK ORDERABLES Performing Organization Address City/[facility]/ZIP Co de Phone Number [facility] [address] [place] [phone], [facility] [phone] * VANESA DIRECT (09/20/2022 6:45 AM PROTOTYPE DEICER ASSEMBLER) Only the most recent of2 resultswithin the time period is included. Direct Vanesa (SANDRA) NEG 09/20/2022 9:53 AM PROTOTYPE DEICER ASSEMBLER [facility] Blood Bank BLOOD SPECIMEN / Unknown 09/20/2022 6:45 AM PROTOTYPE DEICER ASSEMBLER 09/20/2022 6:49 AM PROTOTYPE DEICER ASSEMBLER Kiarra Sinclair MD LAB - BLOOD BANK ORDERABLES Performing Organization Address City/[facility]/ZIP Co de Phone Number [facility] [address] [place] [address], [facility] [phone] * ANTIBODY IDENTIFICATION (09/20/2022 6:45 AM PROTOTYPE DEICER ASSEMBLER) Only the most recent of2 resultswithin the time period is included. Antibody 1 POS, Anti-NDS (No Discernible Spec) 09/20/2022 9:31 AM PROTOTYPE DEICER ASSEMBLER [facility] Blood Bank BLOOD SPECIMEN / Unknown 09/20/2022 6:45 AM PROTOTYPE DEICER ASSEMBLER 09/20/2022 6:49 AM PROTOTYPE DEICER ASSEMBLER Kiarra Sinclair MD LAB - BLOOD BANK ORDERABLES [facility] [address] [place] [address], [facility] [phone] * [place] POLYSOM 6/> YRS 4/> SONIYA (09/03/2022 9:42 AM PROTOTYPE DEICER ASSEMBLER) Narrative Delmar Zhang MD - 09/03/2022 9:42 AM PROTOTYPE DEICER ASSEMBLER Delmar Zhang MD 09/03/2022 9:45 AM [facility] Accredited by the [employer] [facility], First Floor [address] [facility] [place] [address] Telephone : [phone] Medical Records Patient Name: Mariia Stanton : 1940 Date of Study: 09/02/2022 Referring Physician: Jordy Connolly MD Type of Montage: Respiratory Scoring System: [facility] FULL NIGHT DIAGNOSTIC POLYSOMNOGRAM INTERPRETATION (09/02/2022) Procedure: The polysomnogram was performed with a radiology ct technologist in attendance. Central, occipital, and temporal EEG, EOG, submentalis, EMG, nasal thermistor, nasal pressure, thoracoabdominal motion, anterior tibialis EMG, snore sensor, and pulse oximetry were monitored. Sleep stages, periodic limb movements, and EEG arousals were scored in 30-second epochs according to the AASM Scoring Manual. Apnea-hypopnea index was calculated using the recommended definition of hypopnea for scoring events. Data acquisition, collection, and scoring have been validated and clinically correlated. Sleep History: Ms. Mariia Stanton, a 82 year old female, was referred to the Sleep Disorders Clinic by Jordy Connolly MD for the evaluation of suspected obstructive sleep apnea (GUY). Current Outpatient Medications: anastrozole (Arimidex) 1 MG tablet, Take 1 (one) tablet by mouth once daily, Disp: , Rfl: apixaban (Eliquis) 5 MG tablet, Take 1 (one) tablet by mouth 2 times daily, Disp: 180 tablet, Rfl: 3 Calcium Carb-Cholecalciferol (CALCIUM+D3 PO), , Disp: , Rfl: dilTIAZem ER 24hr (Tiazac) 240 MG capsule, Take 1 (one) capsule by mouth once daily, Disp: 90 capsule, Rfl: 4 Lumigan 0.01 % ophth solution, Instill 1 (one) drop into both eyes at bedtime, Disp: , Rfl: Multiple Vitamins-Minerals (RA VISION-KENZIE PRESERVE PO), Take 1 tablet by mouth 2 times daily, Disp: , Rfl: [place]-3 Fatty Acids (fish oil) 500 MG capsule, Take 1,000 (one thousand) mg by mouth 2 times daily, Disp: , Rfl: rosuvastatin (Crestor) 10 MG tablet, Take 1 (one) Half Tablet by mouth once daily, Disp: , Rfl: vitamin E (Tocopheryl) 400 UNIT capsule, Take 1 (one) capsule by mouth once daily, Disp: , Rfl: DIAGNOSTIC STUDY Sleep Architecture: During this diagnostic study, the patient was monitored from 9:49 pm to 6:07 am. The patient slept for 282.5 minutes and had decreased sleep efficiency of 56.7%. The patient's initial sleep latency was within normal limits at 26.5 minutes. The initial REM latency was prolonged at 247.5 minutes. The sleep architecture was as follows: stage N1: 21.8%; stage N2: 49.7%; stage N3: 17%; stage REM: 11.5%. Respiratory Analysis: The patient's overall apnea-hypopnea index (AHI) was increased at 5.5 per hour while the respiratory effort-related arousal index was increased at 16.1 per hour. The overall respiratory disturbance index (RDI) was 21.6 per hour. The supine AHI was 10.6 per hour and the supine RERA index was 26.1 per hour. The lateral AHI was 0.8 per hour and the lateral RERA index was 16.1 per hour. The REM AHI was 5.5 per hour while the REM RERA index was 7.4 per hour. There were 0 obstructive apneas, 0 central apneas, 0 mixed apneas, 26 hypopneas, and 76 respiratory effort-related arousals (RERA). There was no evidence of periodic breathing. Oximetry Data: The minimum oxygen saturation was decreased at 88% during REM sleep and decreased at 86% during non-REM sleep. The time spent with oxygen saturation less than 90% was 19 minutes of the total diagnostic sleep time. Snoring Profile: Occasional, mild snoring was detected during this study. Periodic Limb Movements: The patient's periodic limb movement index was within normal limits at 9.6 per hour. EEG Profile: The patient's total arousal index was elevated at 29.6 per hour. Approximately 83% of the arousals was due to respiratory events, 14% was due to leg movements, and 3% was due to spontaneous arousals. There was no epileptiform activity during sleep. Cardiac Profile: EKG showed normal sinus rhythm with paroxysmal atrial fibrillation. No clinically significant arrhythmia was noted. Parasomnias: No parasomnia was noted during this diagnostic study. IMPRESSION: 1. Moderate positional obstructive sleep apnea based on the respiratory disturbance index 2. Sleep-related hypoxemia; cannot rule out sleep-related hypoventilation as cause of hypoxemia since capnography was not performed. 3. Paroxysmal atrial fibrillation RECOMMENDATIONS: 1. Suggest therapeutic continuous positive airway pressure (CPAP) trial 2. Evaluate and manage atrial fibrillation Delmar Zhang MD, [facility], [facility], [facility] Roll Scale Man, [facility] Professor of Internal Medicine Adjunct Clinical Fellow of Neurology Division of Pulmonary, Critical Care, and Sleep Medicine [facility] This note was electronically signed on 09/03/2022. CC: Jordy Connolly MD [address] [address] Jordy Connolly MD Yoon Acevedo APEARLE-SECURITY INFRASTRUCTURE ENGINEER PROCEDUR E/MINOR SURGICAL ORDERABLES * LAB RESULTS ORDER (08/07/2022) 08/07/2022 Narrative 08/07/2022 Ordered by an unspecified provider. Scanned Document LAB - THERAPEUTIC DR UG MONITORING ORDERABLES * Holter Read - 14 Day (07/27/2022 5:05 PM PROTOTYPE DEICER ASSEMBLER) Narrative Kiarra Sinclair MD - 07/27/2022 5:05 PM PROTOTYPE DEICER ASSEMBLER Kiarra Sinclair MD 08/02/2022 11:30 PM HOLTER MONITOR REPORT: Patient name: Mariia Stanton Patient : 1940 Patient Age: [age] year old Indication: Syncope and collapse Requesting provider: Kiarra Sinclair MD Study Duration: Test Start 20-Apr-2022 09:08:13 Test End 27-Apr-2022 09:08:13 Test Duration 7d Analysis Duration 6d 23h 47m Summary: 1. Atrial ectopy / premature atrial complexes (PAC) - 37733 supraventricular ectopic beats occurred (9.16 % of complexes) mainly as isolated ectopy. 3540 couplets and 4611 runs of supraventricular ectopy occurred (primarily atrial fibrillation), with the longest run lasting 1 min 38sec at a rate of 128 BPM, and the fastest run at a rate of 181 BPM lasting 3 complexes. 2. Ventricular ectopy / premature ventricular complexes (PVC) - 1046 ventricular ectopic beats occurred (0.12 % of complexes) mainly as isolated ectopy. 5 couplets and 1 run of ventricular ectopy occurred, lasting 16 complexes at a rate of 150 BPM (NSVT). 3. The Maximum Heart Rate recorded was 181 bpm, Day :16:56 pm, the Minimum Heart Rate recorded was 49 bpm, Day :07:33 am and the Average Heart Rate was 90 bpm. 4. No significant bradycardia or pauses occurred. 5. Atrial fibrillation/flutter was detected, burden undetermined. Manually Triggered events: There were no manually triggered events. Other tracings mainly demonstrated sinus rhythm with frequent atrial fibrillation/ flutter paroxysms with rapid ventricular responses (longest 1 min 38sec). Conclusion: Sinus rhythm with frequent atrial fibrillation/ flutter paroxysms with rapid ventricular response detected, burden undetermined based on this study. Kiarra Sinclair MD PROCEDURE/[place] NOR SURGICAL ORDERABLES * Ref to Sleep Specialist - Arlene (07/24/2022 5:43 PM PROTOTYPE DEICER ASSEMBLER) Kiarra Sinclair MD OUTPATIENT R EFERRALS * (ABNORMAL) PT-INR [facility] (07/19/2022 10:12 AM PROTOTYPE DEICER ASSEMBLER) Only the most recent of2 resultswithin the time period is included. PT 16.1(H) 12.1 - 14.8 Seconds 07/19/2022 11:35 AM [facility] INR 1.3 See Comment 07/19/2022 11:35 AM [facility] Comment:The suggested therap eutic range for standard coumadin (warfarin) therapy is an INR of 2.0-3.0. For high-risk patients (Mechanical Mitral Valve Prosthesis, etc.), the suggested prophylactic therapeutic range is an INR of 2.5-3.5. Blood BLOOD SPECIMEN / Unknown Lab Venipuncture / Unknown 07/19/2022 10:12 AM PROTOTYPE DEICER ASSEMBLER 07/19/2022 11:03 AM PROTOTYPE DEICER ASSEMBLER Kiarra Sinclair MD LAB - COAGUL ATION ORDERABLES [facility] [address] [place] [phone] [phone] * (ABNORMAL) CBC W AUTO DIFFERENTIAL (07/19/2022 10:12 AM PROTOTYPE DEICER ASSEMBLER) Only the most recent of19 resultswithin the time period is included. WBC 6.4 3.5 - 10.5 10 3/uL 07/19/2022 11:09 AM [facility] RBC 4.77 3.80 - 5.20 10 6/uL 07/19/2022 11:09 AM [facility] Hemoglobin 14.6 12.0 - 15.6 g/dL 07/19/2022 11:09 AM [facility] Hematocrit 44.1 35.0 - 45.0 % 07/19/2022 11:09 AM [facility] MCV 92.5 80.7 - 98.3 fL 07/19/2022 11:09 AM [facility] MCH 30.6 26.7 - 34.0 pg 07/19/2022 11:09 AM [facility] MCHC 33.1 30.8 - 35.9 g/dL 07/19/2022 11:09 AM [facility] RDW-SD 45.5 36.0 - 50.0 fL 07/19/2022 11:09 AM [facility] RDW-CV 13.3 11.2 - 14.8 % 07/19/2022 11:09 AM [facility] Platelet Count 286 150 - 400 10 3/uL 07/19/2022 11:09 AM [facility] MPV 10.5 9.4 - 12.9 fL 07/19/2022 11:09 AM [facility] nRBC Absolute 0.00 0 10 3/uL 07/19/2022 11:09 AM [facility] nRBC Auto 0.0 0 /100 WBC 07/19/2022 11:09 AM [facility] Neutrophils % 67.5 35.0 - 70.0 % 07/19/2022 11:09 AM [facility] Lymphocytes % 17.7(L) 20.0 - 43.0 % 07/19/2022 11:09 AM [facility] Monocytes % 13.0 5.0 - 13.0 % 07/19/2022 11:09 AM [facility] Eosinophils % 0.9 0.0 - 6.0 % 07/19/2022 11:09 AM [facility] Basophil % 0.6 0.0 - 2.0 % 07/19/2022 11:09 AM [facility] Neutrophils Absolute 4.31 1.60 - 7.00 10 3/uL 07/19/2022 11:09 AM [facility] Lymphocyte Absolute 1.13 1.10 - 3.90 10 3/uL 07/19/2022 11:09 AM [facility] Monocytes Absolute 0.83 0.26 - 1.07 10 3/uL 07/19/2022 11:09 AM [facility] Eosinophils Absolute 0.06 0.00 - 0.47 10 3/uL 07/19/2022 11:09 AM [facility] Basophils Absolute 0.04 0.00 - 0.08 10 3/uL 07/19/2022 11:09 AM [facility] Immature Granulocytes % 0.3 0.0 - 1.0 % 07/19/2022 11:09 AM [facility] Immature Granulocytes Absolute 0.02 07/19/2022 11:09 AM [facility] Blood BLOOD SPECIMEN / Unknown Lab Venipuncture / Unknown 07/19/2022 10:12 AM PROTOTYPE DEICER ASSEMBLER 07/19/2022 11:02 AM PROTOTYPE DEICER ASSEMBLER Kiarra Sinclair MD LAB - HEMATO LOGY ORDERABLES [facility] [address] [place] [address], [facility] [phone] * (ABNORMAL) BASIC METABOLIC PANEL (CALCIUM TOTAL) (07/19/2022 10:12 AM [facility]) Only the most recent of8 resultswithin the time period is included. BUN 14 7 - 26 mg/dL 07/19/2022 11:29 AM [facility] Creatinine 0.75 0.56 - 0.96 mg/dL 07/19/2022 11:29 AM [facility] Sodium 142 136 - 145 mmol/L 07/19/2022 11:29 AM [facility] Potassium 3.7 3.5 - 4.5 mmol/L 07/19/2022 11:29 AM [facility] Chloride 103 98 - 107 mmol/L 07/19/2022 11:29 AM [facility] CO2 30(H) 22 - 29 mmol/L 07/19/2022 11:29 AM [facility] Glucose 92 70 - 115 mg/dL 07/19/2022 11:29 AM [facility] Calcium 9.7 8.4 - 10.2 mg/dL 07/19/2022 11:29 AM [facility] Anion Gap 13 8 - 18 07/19/2022 11:29 AM [facility] BUN/Creatinine Ratio 19 7 - 23 07/19/2022 11:29 AM [facility] Osmolality Calculated 294 270 - 300 mOsm/kg 07/19/2022 11:29 AM [facility] eGFR by CKD-EPI 79(L) >=90 mL/min/1.7 3 m2 07/19/2022 11:29 AM PROTOTYPE DEICER ASSEMBLER [facility] Blood BLOOD SPECIMEN / Unknown Lab Venipuncture / Unknown 07/19/2022 10:12 AM PROTOTYPE DEICER ASSEMBLER 07/19/2022 11:02 AM PROTOTYPE DEICER ASSEMBLER Kiarra Sinclair MD LAB - CHEMIS TRY ORDERABLES [facility] [address] [place] [address], [facility] [phone] * XR CLAVICLE RIGHT 2VW (06/04/2022 11:05 AM CDT) Only the most recent of3 resultswithin the time period is included. Anatomical Region Laterality Modality Upper Extremity, Chest Radiograp hic Imaging 06/04/2022 11:3 6 AM CDT Impressions 06/04/2022 11:38 AM CDT IMPRESSION: Clavicle fracture, unchanged in alignment. > Interpreting Provider: Johnnie Ortiz MD on 06/04/2022 11:38 AM Narrative 06/04/2022 11:38 AM CDT PROCEDURE: XR CLAVICLE RIGHT 2VW, DATE/TIME OF EXAM: 06/04/2022 11:05 AM, LOCATION [facility] INDICATION: S42.001D: Closed displaced fracture of right clavicle with routine healing, unspecified part of clavicle, subsequent encounter ADDITIONAL CLINICAL INFORMATION: Ordering Provider Reason For Exam: fx f/u Technologist Note: Additional: COMPARISON: 04/23/2022. FINDINGS: A mildly displaced fracture of the medial aspect of the clavicle is not changed in alignment. Callus is visible. There are adjacent embolization clips. Acromioclavicular joint space is widened likely reflecting postsurgical change. Procedure Note Johnnie Ortiz MD - 06/04/2022 PROCEDURE: XR CLAVICLE RIGHT 2VW, DATE/TIME OF EXAM: 06/04/2022 11:05AM, LOCATION [facility] INDICATION: S42.001D: Closed displaced fracture of right clavicle with routinehealing, unspecified part of clavicle, subsequent encounter ADDITIONAL CLINICAL INFORMATION: Ordering Provider Reason For Exam: fx f/u Technologist Note: Additional: COMPARISON: 04/23/2022. FINDINGS: A mildly displaced fracture of the medial aspect of the clavicle is not changed in alignment. Callus is visible. There are adjacent embolization clips. Acromioclavicular joint space is widened likely reflecting postsurgical change. IMPRESSION: Clavicle fracture, unchanged in alignment. > Interpreting Provider: Johnnie Ortiz MD on 06/04/2022 11:38 AM Harvey Stacy MD DIAGNOSTIC IMAGING O RDERABLES * ECHO COMPLETE (05/15/2022 10:33 AM CDT) Anatomical Region Laterality Modality Chest Echo 05/15/2022 10:1 3 AM CDT Narrative Procedure Note Mya Jimenez MD - 05/15/2022 Kiarra Sinclair MD ECHOCARDIOGR APHY RADIANT * XR SHOULDER LEFT 2VW OR MORE (04/23/2022 10:57 AM CDT) Anatomical Region Laterality Modality Upper Extremity Radiographic Geno ging 04/23/2022 12:0 3 PM CDT Impressions 04/23/2022 12:05 PM CDT IMPRESSION: Mild to moderate osteoarthritis. > Interpreting Provider: Johnnie Ortiz MD on 04/23/2022 12:05 PM Narrative 04/23/2022 12:05 PM CDT PROCEDURE: XR SHOULDER LEFT 2VW OR MORE, DATE/TIME OF EXAM: 04/23/2022 10:58 AM, LOCATION [facility] INDICATION: S42.001D: Closed displaced fracture of right clavicle with routine healing, unspecified part of clavicle, subsequent encounter ADDITIONAL CLINICAL INFORMATION: Ordering Provider Reason For Exam: FX F/U Technologist Note: Additional: COMPARISON: None. FINDINGS: No fracture or dislocation. Minimal acromioclavicular degenerative change. There is glenohumeral osteoarthritis with moderate narrowing on the axillary view. Several clips project over the axillary region. An electronic device projects over the left hemithorax. Procedure Note Johnnie Ortiz MD - 04/23/2022 PROCEDURE: XR SHOULDER LEFT 2VW OR MORE, DATE/TIME OF EXAM: 04/23/2022 10:58 AM, LOCATION [facility] INDICATION: S42.001D: Closed displaced fracture of right clavicle with routinehealing, unspecified part of clavicle, subsequent encounter ADDITIONAL CLINICAL INFORMATION: Ordering Provider Reason For Exam: FX F/U Technologist Note: Additional: COMPARISON: None. FINDINGS: No fracture or dislocation. Minimal acromioclavicular degenerativechange. There is glenohumeral osteoarthritis with moderate narrowing on the axillary view. Several clips project over the axillary region. An electronic device projects over the left hemithorax. IMPRESSION: Mild to moderate osteoarthritis. > Interpreting Provider: Johnnie Ortiz MD on 04/23/2022 12:05 PM Harvey Stacy MD DIAGNOSTIC IMAGING O RDERABLES * XR SHOULDER RIGHT 2VW OR MORE (04/23/2022 10:55 AM CDT) Anatomical Region Laterality Modality Upper Extremity Radiographic Geno ging 04/23/2022 12:0 1 PM CDT Impressions 04/23/2022 12:03 PM CDT IMPRESSION: Clavicle fracture, unchanged in alignment. > Interpreting Provider: Johnnie Ortiz MD on 04/23/2022 12:03 PM Narrative 04/23/2022 12:03 PM CDT PROCEDURE: XR CLAVICLE RIGHT 2VW, XR SHOULDER RIGHT 2VW OR MORE, DATE/TIME OF EXAM: 04/23/2022 10:50 AM, LOCATION [facility] INDICATION: S42.001D: Closed displaced fracture of right clavicle with routine healing, unspecified part of clavicle, subsequent encounter ADDITIONAL CLINICAL INFORMATION: Ordering Provider Reason For Exam: FX F/U Technologist Note: Additional: COMPARISON: 03/28/2022 right clavicle radiographs FINDINGS: Right clavicle: A mildly displaced fracture at the medial aspect of the clavicular shaft is not changed in alignment. There are adjacent embolization coils in the supraclavicular region. Right shoulder: Clavicle fracture as noted above. No other fracture or dislocation is visualized. There is mild osteoarthritis of the glenohumeral joint. There is widening of the acromioclavicular joint and contour change of the distal clavicle which is likely postsurgical. Procedure Note Johnnie Ortiz MD - 04/23/2022 PROCEDURE: XR CLAVICLE RIGHT 2VW, XR SHOULDER RIGHT 2VW OR MORE,DATE/TIME OF EXAM: 04/23/2022 10:50 AM, LOCATION [facility] INDICATION: S42.001D: Closed displaced fracture of right clavicle with routinehealing, unspecified part of clavicle, subsequent encounter ADDITIONAL CLINICAL INFORMATION: Ordering Provider Reason For Exam: FX F/U Technologist Note: Additional: COMPARISON: 03/28/2022 right clavicle radiographs FINDINGS: Right clavicle: A mildly displaced fracture at the medial aspect of the clavicular shaftis not changed in alignment. There are adjacent embolization coils in the supraclavicular region. Right shoulder: Clavicle fracture as noted above. No other fracture or dislocation is visualized. There is mild osteoarthritis of the glenohumeral joint.There is widening of the acromioclavicular joint and contour change of thedistal clavicle which is likely postsurgical. IMPRESSION: Clavicle fracture, unchanged in alignment. > Interpreting Provider: Johnnie Ortiz MD on 04/23/2022 12:03 PM Harvey Stacy MD DIAGNOSTIC IMAGING O RDERABLES * CARDIAC HOLTER MONITOR ORDER (04/20/2022) Narrative 04/20/2022 Ordered by an unspecified provider. Scanned Document CARDIAC SERVICES ORD ERABLES * CT HEAD WO CONTRAST (04/19/2022 1:22 PM CDT) Only the most recent of5 resultswithin the time period is included. Anatomical Region Laterality Modality Head Computed Tomogra phy 04/19/2022 1:39 PM CDT Impressions 04/20/2022 5:56 PM CDT IMPRESSION: 1.Significant interval decrease in the subarachnoid hemorrhage along the bilateral cerebral convexities with residual small amount of blood products. 2. Mild interval increase in the caliber of ventricles compared to prior study. This could be secondary to interval decrease mass effect or on the ventricles however attention recommended with close follow-up to evaluate for developing hydrocephalus. 3. Subdural hematoma along the falx also decreased in extent compared to prior study 4. 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 No new areas of hemorrhage. > Dictated by Gerry Rodriguez MD (residential substance abuse counselor) I, Carolyn Robb MD have personally reviewed and interpreted this examination/study. > Interpreting Provider: Carolyn Robb MD on 04/20/2022 5:56 PM Narrative 04/20/2022 5:56 PM CDT PROCEDURE: CT HEAD WO CONTRAST, DATE/TIME OF EXAM: 04/19/2022 1:23 PM, LOCATION [facility] INDICATION: I60.9: SAH (subarachnoid hemorrhage) ADDITIONAL CLINICAL INFORMATION: Ordering Provider Reason For Exam: is the traumatic sah and sdh resolved COMPARISON: CT head 03/31/2022. TECHNIQUE: CT of the head was performed without contrast according to standard protocol. FINDINGS: Minimal 1 to 2 mm subdural hematoma along the left posterior falx/tentorium has a interval decreased extent compared to prior study. Significant interval decrease in the subarachnoid blood products along the bilateral cerebral convexities predominantly frontal and parietal lobe sulci with residual small amount of blood products.. Intraventricular blood products are less conspicuous compared to prior study. Mild interval increase in the caliber of ventricles compared to prior study for example the bifrontal diameter previously measured 2.5 cm now measures about 2.8 cm on coronal plane (image 31, series 5). Minimal residual hypodense collection along the left cerebral convexity measuring 3 mm on the axial plane (16, series 2 and measuring up to 6 mm in the coronal plane imaging 45, series 5). No significant mass effect on the left cerebral hemisphere. No new extra-axial fluid collections are identified. No acute foci of hemorrhage. There is mild cerebral volume loss with associated ex vacuo ventricular dilatation. The basilar cisterns are patent. No mass effect or midline shift is seen. The hackett-white matter differentiation is normal. Periventricular white matter hypoattenuation is indicative of chronic small vessel ischemic disease. There is vascular calcification of the carotid siphons. Other than bilateral cataract extractions, the orbits appear normal. The paranasal sinuses are clear. The mastoid air cells are clear. No soft tissue abnormality is identified. Surgical changes from prior right retromastoid occipital craniotomy. Interval decrease catheter hematoma. No acute calvarial fractures noted. Procedure Note Carolyn Robb MD - 04/20/2022 PROCEDURE: CT HEAD WO CONTRAST, DATE/TIME OF EXAM: 04/19/2022 1:23 PM, LOCATION [facility] INDICATION: I60.9: SAH (subarachnoid hemorrhage) ADDITIONAL CLINICAL INFORMATION: Ordering Provider Reason For Exam: is the traumatic sah and sdhresolved COMPARISON: CT head 03/31/2022. TECHNIQUE: CT of the head was performed without contrast according to standard protocol. FINDINGS: Minimal 1 to 2 mm subdural hematoma along the left posteriorfalx/tentorium has a interval decreased extent compared to prior study. Significant interval decrease in the subarachnoid blood products along the bilateral cerebral convexities predominantly frontal and parietal lobe sulci with residual small amount of blood products.. Intraventricular bloodproducts are less conspicuous compared to prior study. Mild interval increase inthe caliber of ventricles compared to prior study for example the bifrontal diameter previously measured 2.5 cm now measures about 2.8 cm on coronal plane (image 31, series 5). Minimal residual hypodense collection alongthe left cerebral convexity measuring 3 mm on the axial plane (16, series 2and measuring up to 6 mm in the coronal plane imaging 45, series 5). No significant mass effect on the left cerebral hemisphere. No new extra-axial fluid collections are identified. No acute foci of hemorrhage. There is mild cerebral volume loss with associated ex vacuo ventricular dilatation. The basilar cisterns are patent. No mass effector midline shift is seen. The hackett-white matter differentiation is normal. Periventricular white matter hypoattenuation is indicative of chronicsmall vessel ischemic disease. There is vascular calcification of the carotid siphons. Other than bilateral cataract extractions, the orbits appear normal. The paranasal sinuses are clear. The mastoid air cells areclear. No soft tissue abnormality is identified. Surgical changes from priorright retromastoid occipital craniotomy. Interval decrease catheter hematoma.No acute calvarial fractures noted. IMPRESSION: 1.Significant interval decrease in the subarachnoid hemorrhage along the bilateral cerebral convexities with residual small amount of blood products. 2. Mild interval increase in the caliber of ventricles compared to prior study. This could be secondary to interval decrease mass effect or onthe ventricles however attention recommended with close follow-up toevaluate for developing hydrocephalus. 3. Subdural hematoma along the falx also decreased in extent compared to prior study 4. 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 No new areas of hemorrhage. > Dictated by Gerry Rodriguez MD (residential substance abuse counselor) I, Carolyn Robb MD have personally reviewed and interpreted this examination/study. > Interpreting Provider: Carolyn Robb MD on 04/20/2022 5:56 PM Shae Michelle APRN-[facility] CT ORDERABLES * APHERESIS/TRANSFUSION ORDER (04/03/2022 3:54 PM CDT) Narrative 04/03/2022 3:54 PM CDT Ordered by an unspecified provider. Scanned Document NURSING - VITAL SIGN S AND ASSESSMENT * PHOSPHORUS BLOOD (04/02/2022 5:24 PM CDT) Only the most recent of7 resultswithin the time period is included. Phosphorus 3.1 2.9 - 5.1 mg/dL 04/02/2022 6:40 PM CDT [facility] Blood BLOOD SPECIMEN / Unknown Lab Venipuncture / Unknown 04/02/2022 5:24 PM CDT 04/02/2022 6:14 PM CDT Lenka Alfredo HISTOLOGIC TECHNICIAN-[facility] LAB - CHEMISTRY O RDERABLES [facility] [address] [place] [phone], [facility] [phone] * MAGNESIUM BLOOD (04/02/2022 5:24 PM CDT) Only the most recent of6 resultswithin the time period is included. Magnesium 1.9 1.6 - 2.6 mg/dL 04/02/2022 6:40 PM CDT [facility] Blood BLOOD SPECIMEN / Unknown Lab Venipuncture / Unknown 04/02/2022 5:24 PM CDT 04/02/2022 6:14 PM CDT Lenka Alfredo APRN-[employer]URE [employer]INE[employer] LAB - CHEMISTRY O RDERABLES Performing Organization Address City/[facility]/ZIP Co de Phone Number [facility] [address] [place] [address], [facility] [phone] * (ABNORMAL) CALCIUM IONIZED WHOLE BLOOD (03/31/2022 11:29 PM CDT) Only the most recent of5 resultswithin the time period is included. Calcium Ionized 1.16 mmol/L 03/31/2022 11:40 PM CDT [facility] pH 7.41 7.35 - 7.45 pH 03/31/2022 11:40 PM CDT [facility] Ionized Calcium pH Adjusted 1.16(L) 1.19 - 1.34 mmol/L 03/31/2022 11:40 PM CDT [facility] Blood BLOOD SPECIMEN / Unknown Venipuncture / Unknown 03/31/2022 11:29 PM CDT 03/31/2022 11:34 PM CDT Nam Ramirez MD LAB - CHEMISTRY ORD ERABLES Performing Organization Address City/[facility]/ZIP Co de Phone Number [address] [address], [facility] [phone] * (ABNORMAL) URINALYSIS REFLEX TO MICROSCOPIC NO CULTURE (03/31/2022 5:38 PM CDT) Color UA Yellow Straw, Yellow 03/31/2022 5:55 PM CDT [facility] Clarity UA Slt Cloudy(A) Clear 03/31/2022 5:55 PM CDT [facility] Specific [place] UA 1.008 1.005 - 1.030 03/31/2022 5:55 PM CDT [facility] pH UA 7.0 5.0 - 8.0 pH 03/31/2022 5:55 PM CDT [facility] Protein UA Negative Negative 03/31/2022 5:55 PM CDT [facility] Glucose UA Negative Negative 03/31/2022 5:55 PM CDT [facility] Ketone UA Negative Negative 03/31/2022 5:55 PM CDT [facility] Bilirubin UA Negative Negative 03/31/2022 5:55 PM CDT [facility] Blood UA 2+(A) Negative 03/31/2022 5:55 PM CDT [facility] Nitrite UA Negative Negative 03/31/2022 5:55 PM CDT [facility] Leukocyte Esterase 3+(A) Negative 03/31/2022 5:55 PM CDT [facility] Urobilinogen UA Negative Negative mg/dL 03/31/2022 5:55 PM CDT [facility] RBC UA 11-20(A) None Seen, 0-2, 3-5 /HPF 03/31/2022 5:55 PM CDT [facility] WBC UA >100(A) None Seen, 0-5 /HPF 03/31/2022 5:55 PM CDT [facility] Bacteria UA 3+(A) None /HPF 03/31/2022 5:55 PM CDT [facility] Squamous Epithelial Cells UA 0-2 None Seen, 0-2, 3-5 /HPF 03/31/2022 5:55 PM CDT [facility] Urine URINE SPECIMEN OBTAINED BY CLEAN CATCH PROCEDURE / Unknown Collection / Unknown 03/31/2022 5:38 PM CDT 03/31/2022 5:40 PM CDT Narrative [facility] - 03/31/2022 5:55 PM CDT Vitaly Darden MD LAB - URINALYSIS O RDERABLES [facility] [address] [place] [phone], [facility] [phone] * PREPARE PLATELET PHERESIS UNIT(S), 1 Units (03/31/2022 1:17 AM CDT) Only the most recent of3 resultswithin the time period is included. Unit Description N/A [facility] Blood Bank BLOOD SPECIMEN / Unknown 03/27/2022 10:47 PM CDT Vitaly Darden MD LAB - BLOOD BANK O SAMIA [facility] [address] [place] [address], [facility] [phone] * (ABNORMAL) TEG 6S PLATELET MAPPING (03/30/2022 3:24 PM CDT) Only the most recent of4 resultswithin the time period is included. [facility] TEGPLM (Max Amplitude) Koalin 64.8 53.0 - 68.0 mm 03/30/2022 5:29 PM CDT [facility] TEGPLM (Max Amplitude) ACTF 22.0(H) 2.0 - 19.0 mm 03/30/2022 5:29 PM CDT [facility] TEGPLM (Max Amplitude) ADP 61.1 45.0 - 69.0 mm 03/30/2022 5:29 PM T [facility] TEGPLM (Max Amplitude) AA 48.7(L) 51.0 - 71.0 mm 03/30/2022 5:29 PM T [facility] Comment:AA MA below normal r tori. Moderate inhibition present. TEGPLM %Inhibition ADP 8.6 0.0 - 17.0 % 03/30/2022 5:29 PM CDT [facility] TEGPLM %Inhibition AA 37.6(H) 0.0 - 11.0 % 03/30/2022 5:29 PM T [facility] TEGPLM %Aggregation ADP 91.4 83.0 - 100.0 % 03/30/2022 5:29 PM T [facility] TEGPLM % Aggregation AA 62.4(L) 89.0 - 100.0 % 03/30/2022 5:29 PM T [facility] Blood BLOOD SPECIMEN / Unknown Venipuncture / Unknown 03/30/2022 3:24 PM CDT 03/30/2022 3:34 PM CDT Vitaly Darden MD LAB - HEMATOLOGY O SAMIA [facility] [address] [place] [phone], [facility] [phone] * HEMOGLOBIN A1C (03/30/2022 6:22 AM CDT) Hemoglobin A1c 5.1 <=5.6 % 03/30/2022 8:21 AM CDT [facility] Estimated Average Glucose 100 mg/dL 03/30/2022 8:21 AM CDT [facility] Comment: HbA1c Interpretation: Normal : < 5.7% Pre-diabetes: 5.7-6.4% Diabetes: Equal to or greater than 6.5% Test results diagnostic of diabetes should be repeated for confirmation. Treatment target values recommended by ADA and other clinical organizations should be used to evaluate metabolic control in patients. Reference: [place] [employer], Standards of Care in Diabetes -2020 In patients 70 years and older consider HbA1c target range of 7.0-7.5% (Reference: Valdez Oh et al. JAMDA. 2012) The Sebia assay for the measurement of HbA1c is a National Glycohemoglobin Standardization Program (NGSP) certified method. Blood BLOOD SPECIMEN / Unknown Venipuncture / Unknown 03/30/2022 6:22 AM CDT 03/30/2022 6:27 AM CDT Sebastián Anaya PA-C LAB - CHEMISTRY O RDERABLES [facility] [address] [place] [address], [facility] [phone] * LIPID PROFILE (03/30/2022 6:22 AM CDT) Cholesterol Total 101 <200 mg/dL 03/30/2022 6:51 AM CDT [facility] HDL 46 >40 mg/dL 03/30/2022 6:51 AM T [facility] Comment: ATP III Classification of HDL Cholesterol: <40 mg/dL: Considered a major risk factor. >60 mg/dL: Considered a negative risk factor. LDL Calculated 40 <100 mg/dL 03/30/2022 6:51 AM CDT [facility] Comment: ATP III Classification of LDL Cholesterol: <100 mg/dL: Optimal 100 - 129 mg/dL: Near Optimal/Above Optimal 130 - 159 mg/dL: Borderline High 160 - 189 mg/dL: High >190 mg/dL: Very High Triglycerides 73 <150 mg/dL 03/30/2022 6:51 AM CDT [facility] Comment: ATP III Classification of Triglycerides: <150 mg/dL: Normal 150 - 199 mg/dL: Borderline High 200 - 400 mg/dL: High >500 mg/dL: Very High Blood BLOOD SPECIMEN / Unknown Venipuncture / Unknown 03/30/2022 6:22 AM CDT 03/30/2022 6:27 AM CDT Sebastián Anaya PA-C LAB - CHEMISTRY O RDERABLES [facility] [address] [place] [phone], [facility] [phone] * XR CHEST 1VW PORTABLE (03/30/2022 4:48 AM CDT) Only the most recent of3 resultswithin the time period is included. Anatomical Region Laterality Modality Chest Radiographic Geno ging 03/30/2022 10:0 0 AM CDT Impressions 03/30/2022 11:52 AM CDT IMPRESSION: Vascular congestion/interstitial edema. Mild left base atelectasis/airspace disease. No pneumothorax. > Dictated by Rupa Evangelista MD (residential leasing manager). I, Jacquie Juan MD have personally reviewed and interpreted this examination/study. > Interpreting Provider: Jacquie Juan MD on 03/30/2022 11:52 AM Narrative 03/30/2022 11:52 AM CDT EXAMINATION: XR CHEST 1VW PORTABLE DATE/TIME OF EXAM: 03/30/2022 4:48 AM, LOCATION [facility] HISTORY: S27.0XXA: Traumatic pneumothorax, initial encounter pneumothorax COMPARISON: Multiple priors, with the most recent chest radiograph dated 03/29/2022 FINDINGS: Embolization/surgical material projects over the right mid clavicle. Several surgical clips project over the left axilla. Increased retrocardiac opacities most likely represent atelectasis. Mildly prominent interstitial opacities may represent vascular congestion/edema. Calcified granulomas in the left lower lung are again noted. No pleural effusion is noted. Pleural thickening is seen at the apices. No pneumothorax is identified. The heart is normal in size. Aortic atherosclerosis is noted. The superior mediastinal contours are within normal limits. Redemonstrated acute moderately displaced right proximal clavicle fracture and right distal clavicle osteolysis or resection. Procedure Note Jacquie Juan MD - 03/30/2022 EXAMINATION: XR CHEST 1VW PORTABLE DATE/TIME OF EXAM: 03/30/2022 4:48 AM, LOCATION [facility] HISTORY: S27.0XXA: Traumatic pneumothorax, initial encounterpneumothorax COMPARISON: Multiple priors, with the most recent chest radiograph dated 03/29/2022 FINDINGS: Embolization/surgical material projects over the right mid clavicle. Several surgical clips project over the left axilla. Increased retrocardiac opacities most likely represent atelectasis.Mildly prominent interstitial opacities may represent vascularcongestion/edema. Calcified granulomas in the left lower lung are again noted. No pleural effusion is noted. Pleural thickening is seen at the apices. No pneumothorax is identified. The heart is normal in size. Aortic atherosclerosis is noted. The superior mediastinal contours are within normal limits. Redemonstrated acute moderately displaced right proximal clavicle fracture and right distal clavicle osteolysis or resection. IMPRESSION: Vascular congestion/interstitial edema. Mild left base atelectasis/airspace disease. No pneumothorax. > Dictated by Rupa Evangelista MD (residential leasing manager). I, Jacquie Juan MD have personally reviewed and interpreted this examination/study. > Interpreting Provider: Jacquie Juan MD on 03/30/2022 11:52 AM Vitaly Darden MD DIAGNOSTIC IMAGING ORDERABLES * (ABNORMAL) URINALYSIS W/MICROSCOPIC NO CULTURE (03/30/2022 2:10 AM CDT) Color UA Straw Straw, Yellow 03/30/2022 2:18 AM CDT [facility] Clarity UA Clear Clear 03/30/2022 2:18 AM CDT [facility] Specific [place] UA 1.009 1.005 - 1.030 03/30/2022 2:18 AM CDT [facility] pH UA 6.0 5.0 - 8.0 pH 03/30/2022 2:18 AM CDT [facility] Protein UA Negative Negative 03/30/2022 2:18 AM [facility] Glucose UA Negative Negative 03/30/2022 2:18 AM T [facility] Ketone UA Negative Negative 03/30/2022 2:18 AM [facility] Bilirubin UA Negative Negative 03/30/2022 2:18 AM T [facility] Blood UA Negative Negative 03/30/2022 2:18 AM T [facility] Nitrite UA Negative Negative 03/30/2022 2:18 AM [facility] Leukocyte Esterase Negative Negative 03/30/2022 2:18 AM [facility] Urobilinogen UA Negative Negative mg/dL 03/30/2022 2:18 AM T [facility] RBC UA 0-2 None Seen, 0-2, 3-5 /HPF 03/30/2022 2:18 AM [facility] WBC UA 0-5 None Seen, 0-5 /HPF 03/30/2022 2:18 AM [facility] Bacteria UA Trace(A) None /HPF 03/30/2022 2:18 AM [facility] Squamous Epithelial Cells UA None Seen None Seen, 0-2, 3-5 /HPF 03/30/2022 2:18 AM [facility] Urine URINE SPECIMEN OBTAINED BY CLEAN CATCH PROCEDURE / Unknown Collection / Unknown 03/30/2022 2:10 AM CDT 03/30/2022 2:12 AM CDT [facility] - 03/30/2022 2:18 AM CDT Sebastián Anaya PA-C LAB - URINALYSIS ORDERABLES [facility] [address] [place] [address], [facility] [phone] * TEG 6 GLOBAL HEMOSTASIS W/ LYSIS (03/29/2022 12:38 PM CDT) Only the most recent of3 resultswithin the time period is included. Citrated Kaolin R (Reaction Time) 4.7 4.6 - 9.1 min 03/29/2022 1:42 PM CDT [facility] Citrated Kaolin LY30 (Lysis) 0.9 0.0 - 2.6 % 03/29/2022 1:42 PM CDT [facility] Citrated Functional Fibrinogen MA (Max Amplitude) 20.8 15.0 - 32.0 mm 03/29/2022 1:42 PM CDT [facility] Citrated RapidTEG MA (Max Amplitude) 61.9 52.0 - 70.0 mm 03/29/2022 1:42 PM CDT [facility] Blood BLOOD SPECIMEN / Unknown Venipuncture / Unknown 03/29/2022 12:38 PM CDT 03/29/2022 12:42 PM CDT Vitaly Darden MD LAB - HEMATOLOGY O RDERABLES Performing Organization Address City/[facility]/ZIP Co de Phone Number [address] [address], [place] [phone] * LACTIC ACID BLOOD (03/29/2022 12:30 AM CDT) Only the most recent of2 resultswithin the time period is included. Lactic Acid-Stat 0.9 <=2.0 mmol/L 03/29/2022 1:04 AM CDT [facility] Blood BLOOD SPECIMEN / Unknown Venipuncture / Unknown 03/29/2022 12:30 AM CDT 03/29/2022 12:38 AM CDT Vitaly Darden MD LAB - CHEMISTRY OR DERABLES [address] [address], [place] [phone] * TRANSFUSE RED BLOOD CELL LEUKOREDUCED UNIT(S) (03/28/2022 4:09 PM CDT) Vitaly Darden MD NURSING - BLOOD WY OD TRANSFUSION * TRANSFUSE PLATELET PHERESIS UNIT(S) (03/28/2022 3:13 PM CDT) Nam Ramirez MD NURSING - BLOOD PRO D TRANSFUSION * (ABNORMAL) BLOOD GASES JARRET + COOX PANEL (03/28/2022 11:49 AM T) pH Venous 7.27(L) 7.32 - 7.42 pH 03/28/2022 12:05 PM [facility] pO2 Venous 23(L) 35 - 40 mmHg 03/28/2022 12:05 PM [facility] pCO2 Venous 50 40 - 50 mmHg 03/28/2022 12:05 PM [facility] HCO3 Venous 23.0 20 - 30 mmol/L 03/28/2022 12:05 PM [facility] Base Excess Venous -3.8(L) -2.0 - 2.0 mmol/L 03/28/2022 12:05 PM [facility] Oxyhemoglobin Venous 40.0 % 03/06 12:05 PM [facility] Deoxyhemoglobin (HHB) Venous % 59.3 % 03/28/2022 12:05 PM [facility] Methemoglobin <0.8 0.0 - 2.0 % 03/28/2022 12:05 PM [facility] Carboxyhemoglobin 0.6 0.0 - 2.0 % 2021 12:05 PM [facility] O2 Content Venous 4.4 Interpret within clinical context mg/dL 03/28/2022 12:05 PM [facility] Hemoglobin by COOX 7.7(L) 12.0 - 15.6 g/dL 03/28/2022 12:05 PM [facility] O2 Saturation Venous 40(L) >=70 % 03/06 12:05 PM [facility] FI O2 Mixed Venous 21.0 % 2021 12:05 PM [facility] Blood BLOOD SPECIMEN / Unknown Venipuncture / Unknown 03/28/2022 11:49 AM CDT 03/28/2022 11:53 AM [facility] - 03/28/2022 12:05 PM [facility] Carboxyhemoglobin Normal Concentration: Non-smokers: 0-2%; Smokers: 0-9%; Toxic: >20% Vitaly Darden MD LAB - BLOOD GASES ORDERABLES [facility] [place] [address], [facility] [phone] * XR TIBIA FIBULA RIGHT 2VW (03/28/2022 8:43 AM CDT) Anatomical Region Laterality Modality Lower Extremity Radiographic Geno ging 03/28/2022 11:3 6 AM CDT Impressions 03/28/2022 10:24 PM CDT IMPRESSION: No acute fracture or dislocation identified. > Dictated by Rupa Evangelista MD (residential leasing manager). I, Cristhian Alanis MD have personally reviewed and interpreted this examination/study. > Interpreting Provider: Cristhian Alanis MD on 03/28/2022 10:24 PM Narrative 03/28/2022 10:24 PM CDT EXAMINATION: XR KNEE RIGHT 2VW, XR TIBIA FIBULA RIGHT 2VW DATE/TIME OF EXAM: 03/28/2022 8:42 AM, LOCATION [facility] HISTORY: W10.8XXA: Fall (on) (from) other stairs and steps, initial encounter COMPARISON: Right femur radiographs dated 03/28/2022 FINDINGS: Right knee: The osseous structures are intact and well aligned without acute fracture or dislocation. The knee joint space is preserved. No joint effusion is seen. Bone density and texture are normal. Right tibia/fibula: The tibia and fibula are intact without evidence of acute fracture. Bone density and texture are normal. No soft tissue swelling is present. Procedure Note Cristhian Alanis MD - 03/28/2022 EXAMINATION: XR KNEE RIGHT 2VW, XR TIBIA FIBULA RIGHT 2VW DATE/TIME OF EXAM: 03/28/2022 8:42 AM, LOCATION [facility] HISTORY: W10.8XXA: Fall (on) (from) other stairs and steps, initial encounter COMPARISON: Right femur radiographs dated 03/28/2022 FINDINGS: Right knee: The osseous structures are intact and well aligned without acutefracture or dislocation. The knee joint space is preserved. No joint effusion is seen. Bone density and texture are normal. Right tibia/fibula: The tibia and fibula are intact without evidence of acute fracture. Bone density and texture are normal. No soft tissue swelling is present. IMPRESSION: No acute fracture or dislocation identified. > Dictated by Rupa Evangelista MD (residential leasing manager). Cristhian Pulido MD have personally reviewed and interpreted this examination/study. > Interpreting Provider: Cristhian Alanis MD on 03/28/2022 10:24 PM Harvey Stacy MD DIAGNOSTIC IMAGING O RDERABLES * XR KNEE RIGHT 2VW OR LESS (03/28/2022 8:42 AM CDT) Anatomical Region Laterality Modality Lower Extremity Radiographic Geno ging 03/28/2022 11:3 6 AM CDT Impressions 03/28/2022 10:24 PM CDT IMPRESSION: No acute fracture or dislocation identified. > Dictated by Rupa Evangelista MD (residential leasing manager). Cristhian Pulido MD have personally reviewed and interpreted this examination/study. > Interpreting Provider: Cristhian Alanis MD on 03/28/2022 10:24 PM Narrative 03/28/2022 10:24 PM CDT EXAMINATION: XR KNEE RIGHT 2VW, XR TIBIA FIBULA RIGHT 2VW DATE/TIME OF EXAM: 03/28/2022 8:42 AM, [facility] HISTORY: W10.8XXA: Fall (on) (from) other stairs and steps, initial encounter COMPARISON: Right femur radiographs dated 03/28/2022 FINDINGS: Right knee: The osseous structures are intact and well aligned without acute fracture or dislocation. The knee joint space is preserved. No joint effusion is seen. Bone density and texture are normal. Right tibia/fibula: The tibia and fibula are intact without evidence of acute fracture. Bone density and texture are normal. No soft tissue swelling is present. Procedure Note Cristhian Alanis MD - 03/28/2022 EXAMINATION: XR KNEE RIGHT 2VW, XR TIBIA FIBULA RIGHT 2VW DATE/TIME OF EXAM: 03/28/2022 8:42 AM, LOCATION [facility] HISTORY: W10.8XXA: Fall (on) (from) other stairs and steps, initial encounter COMPARISON: Right femur radiographs dated 03/28/2022 FINDINGS: Right knee: The osseous structures are intact and well aligned without acutefracture or dislocation. The knee joint space is preserved. No joint effusion is seen. Bone density and texture are normal. Right tibia/fibula: The tibia and fibula are intact without evidence of acute fracture. Bone density and texture are normal. No soft tissue swelling is present. IMPRESSION: No acute fracture or dislocation identified. > Dictated by Rupa Evangelista MD (residential leasing manager). I, Cristhian lAanis MD have personally reviewed and interpreted this examination/study. > Interpreting Provider: Cristhian Alanis MD on 03/28/2022 10:24 PM Harvey Stacy MD DIAGNOSTIC IMAGING O RDERABLES * URINE DRUG SCREEN IMMUNOASSAY (03/28/2022 6:15 AM CDT) [facility] Amphetamines Screen Urine Negative Negative: < 1000 ng/mL 03/28/2022 6:40 AM [facility] Barbiturates Screen Urine Negative Negative: < 200 ng/mL 03/28/2022 6:40 AM [facility] Benzodiazepine Screen Urine Negative Negative: < 200 ng/mL 03/28/2022 6:40 AM [facility] Opiates Urine Negative Negative: < 300 ng/mL 03/28/2022 6:40 AM [facility] Cocaine Metabolites Urine Negative Negative: < 300 ng/mL 03/28/2022 6:40 AM [facility] Phencyclidine Screen Urine Negative Negative: < 25 ng/ml 03/28/2022 6:40 AM [facility] Cannabinoids Screen Urine Negative Negative: <50 ng/mL 03/28/2022 6:40 AM [facility] Methadone Screen Urine Negative Negative: < 300 ng/mL 03/28/2022 6:40 AM [facility] Fentanyl Screen Urine Negative Negative: <1.5 ng/mL 03/28/2022 6:40 AM [facility] Urine URINE / Unknown Collection / Unknown 03/28/2022 6:15 AM CDT 03/28/2022 6:20 AM CDT Narrative [facility] - 03/28/2022 6:40 AM CDT The Urine Toxicology Screening Panel does not screen for Propoxyphene, Meprobamate, Carisoprodol, Trazodone, [id number] medications and/or volatiles (Acetone, Isopropanol, Methanol or Ethylene Glycol). Ethanol, Salicylate, Acetaminophen, Tricyclic Antidepressants and several therapeutic drugs may be individually assayed in serum or plasma specimen. Toxicology testing by the [facility] is an aid to medical diagnosis and treatment of patients. No documented chain of custody was maintained. Results are intended to be used for clinical purposes only. Nam Ramirez MD LAB - URINE MANAGER INTERFACE RY ORDERABLES [facility] [address] [place] [address], [facility] [phone] * (ABNORMAL) COMPREHENSIVE METABOLIC PANEL (03/28/2022 6:03 AM CDT) BUN 20 7 - 26 mg/dL 03/28/2022 6:57 AM [facility] Creatinine 0.98(H) 0.56 - 0.96 mg/dL 03/28/2022 6:57 AM [facility] Sodium 141 136 - 145 mmol/L 03/28/2022 6:57 AM [facility] Potassium 4.0 3.5 - 4.5 mmol/L 03/28/2022 6:57 AM [facility] Chloride 107 98 - 107 mmol/L 03/28/2022 6:57 AM [facility] CO2 24 22 - 29 mmol/L 03/28/2022 6:57 AM [facility] Glucose 136(H) 70 - 115 mg/dL 03/28/2022 6:57 AM [facility] Calcium 8.2(L) 8.4 - 10.2 mg/dL 03/28/2022 6:57 AM [facility] Protein Total 4.9(L) 6.0 - 8.3 g/dL 03/28/2022 6:57 AM [facility] Albumin 2.7(L) 3.4 - 5.0 g/dL 03/28/2022 6:57 AM [facility] Bilirubin Total 1.3(H) 0.2 - 1.2 mg/dL 03/28/2022 6:57 AM [facility] Alkaline Phosphatase 47 40 - 150 U/L 03/28/2022 6:57 AM [facility] ALT 27 5 - 55 U/L 03/28/2022 6:57 AM [facility] AST 35(H) 5 - 34 U/L 03/28/2022 6:57 AM [facility] Anion Gap 14 8 - 18 03/28/2022 6:57 AM [facility] BUN/Creatinine Ratio 20 7 - 23 03/28/2022 6:57 AM [facility] Osmolality Calculated 297 270 - 300 mOsm/kg 03/28/2022 6:57 AM [facility] Albumin/Globulin Ratio 1.2 1.1 - 2.3 03/28/2022 6:57 AM [facility] eGFR by CKD-EPI 58(L) >=90 mL/min/1.7 3 m2 03/28/2022 6:57 AM [facility] Blood BLOOD SPECIMEN / Unknown Venipuncture / Unknown 03/28/2022 6:03 AM CDT 03/28/2022 6:22 AM CDT Sebastián Anaya PA-C LAB - CHEMISTRY O RDERABLES Performing Organization Address [facility]/State/[facility] Co de Phone Number [facility] [address] [place] [id number], [facility] [phone] * XR FOOT RIGHT 3VW OR MORE (03/28/2022 5:50 AM CDT) Anatomical Region Laterality Modality Ankle / Foot Radiographic Geno ging 03/28/2022 11:1 7 AM CDT Impressions 03/28/2022 10:15 PM CDT IMPRESSION: No acute fracture or dislocation of foot identified. Report dictated by Rupa Evangelista MD (residential leasing manager). I, Cristhian Alanis MD have personally reviewed and interpreted this examination/study. > Interpreting Provider: Cristhian Alanis MD on 03/28/2022 10:15 PM Narrative 03/28/2022 10:15 PM CDT EXAMINATION: XR FOOT RIGHT 3 views DATE/TIME OF EXAM: 03/28/2022 5:50 AM, LOCATION [facility] HISTORY: W10.8XXA: Fall (on) (from) other stairs and steps, initial encounter concern for fracture COMPARISON: No prior study is available for comparison. FINDINGS: No acute fracture or dislocation. Hammertoe deformity of the second toe. The joint spaces are preserved. Mild diffuse osteopenia No soft tissue swelling is present. Procedure Note Cristhian Alanis MD - 03/28/2022 EXAMINATION: XR FOOT RIGHT 3 views DATE/TIME OF EXAM: 03/28/2022 5:50 AM, LOCATION [facility] HISTORY: W10.8XXA: Fall (on) (from) other stairs and steps, initial encounter concern for fracture COMPARISON: No prior study is available for comparison. FINDINGS: No acute fracture or dislocation. Hammertoe deformity of the second toe. The joint spaces are preserved. Mild diffuse osteopenia No soft tissue swelling is present. IMPRESSION: No acute fracture or dislocation of foot identified. Report dictated by Rupa Evangelista MD (residential leasing manager). Cristhian Pulido MD have personally reviewed and interpreted this examination/study. > Interpreting Provider: Cristhian Alanis MD on 03/28/2022 10:15 PM Harvey Stacy MD DIAGNOSTIC IMAGING O RDERABLES * XR TIBIA FIBULA LEFT 2VW (03/28/2022 5:50 AM CDT) Anatomical Region Laterality Modality Lower Extremity Radiographic Geno ging 03/28/2022 10:3 8 AM CDT Impressions 03/28/2022 10:14 PM CDT IMPRESSION: No acute tibial or fibular fracture identified. > Dictated by Rupa Evangelista MD (residential leasing manager). Cristhian Pulido MD have personally reviewed and interpreted this examination/study. > Interpreting Provider: Cristhian Alanis MD on 03/28/2022 10:14 PM Narrative 03/28/2022 10:14 PM CDT EXAMINATION: XR TIBIA FIBULA LEFT 2VW DATE/TIME OF EXAM: 03/28/2022 5:50 AM, LOCATION [facility] HISTORY: concern for fracture COMPARISON: No prior study is available for comparison. FINDINGS: The tibia and fibula are intact without evidence of acute fracture. Bone density and texture are normal. No soft tissue swelling is present. Procedure Note Cristhian Alanis MD - 03/28/2022 EXAMINATION: XR TIBIA FIBULA LEFT 2VW DATE/TIME OF EXAM: 03/28/2022 5:50 AM, LOCATION [facility] HISTORY: concern for fracture COMPARISON: No prior study is available for comparison. FINDINGS: The tibia and fibula are intact without evidence of acute fracture. Bone density and texture are normal. No soft tissue swelling is present. IMPRESSION: No acute tibial or fibular fracture identified. > Dictated by Rupa Evangelista MD (residential leasing manager). Cristhian Pulido MD have personally reviewed and interpreted this examination/study. > Interpreting Provider: Cristhian Alanis MD on 03/28/2022 10:14 PM Harvey Stacy MD DIAGNOSTIC IMAGING O RDERABLES * XR KNEE LEFT 3VW (03/28/2022 5:50 AM CDT) Anatomical Region Laterality Modality Lower Extremity Radiographic Geno ging 03/28/2022 10:3 9 AM CDT Impressions 03/28/2022 10:13 PM CDT IMPRESSION: No acute fracture or dislocation of knee identified. Report dictated by Rupa Evangelista MD (residential leasing manager). Cristhian Pulido MD have personally reviewed and interpreted this examination/study. > Interpreting Provider: Cristhian Alanis MD on 03/28/2022 10:13 PM Narrative 03/28/2022 10:13 PM CDT EXAMINATION: XR KNEE LEFT 3 views DATE/TIME OF EXAM: 03/28/2022 5:50 AM, LOCATION [facility] HISTORY: W10.8XXA: Fall (on) (from) other stairs and steps, initial encounter concern for fracture COMPARISON: No prior study is available for comparison. FINDINGS: The osseous structures are intact and well aligned without acute fracture or dislocation. No joint effusion is seen. Bone density and texture are normal. No soft tissue swelling is present. There is a punctate density along the medial and posterior aspect of the joint that may represent calcification. Procedure Note Cristhian Alanis MD - 03/28/2022 EXAMINATION: XR KNEE LEFT 3 views DATE/TIME OF EXAM: 03/28/2022 5:50 AM, LOCATION [facility] HISTORY: W10.8XXA: Fall (on) (from) other stairs and steps, initial encounter concern for fracture COMPARISON: No prior study is available for comparison. FINDINGS: The osseous structures are intact and well aligned without acutefracture or dislocation. No joint effusion is seen. Bone density and texture are normal. No soft tissue swelling is present. There is a punctate density along the medial and posterior aspect of the joint that may represent calcification. IMPRESSION: No acute fracture or dislocation of knee identified. Report dictated by Rupa Evangelista MD (residential leasing manager). Cristhian Pulido MD have personally reviewed and interpreted this examination/study. > Interpreting Provider: Cristhian Alanis MD on 03/28/2022 10:13 PM Harvey Stacy MD DIAGNOSTIC IMAGING O RDERABLES * XR FEMUR RIGHT 2VW (03/28/2022 5:50 AM CDT) Anatomical Region Laterality Modality Lower Extremity Radiographic Geno ging 03/28/2022 10:4 9 AM CDT Impressions 03/28/2022 10:15 PM CDT IMPRESSION: No acute femoral fracture identified. Report dictated by Rupa Evangelsita MD (residential leasing manager). Cristhian Pulido MD have personally reviewed and interpreted this examination/study. > Interpreting Provider: Cristhian Alanis MD on 03/28/2022 10:15 PM Narrative 03/28/2022 10:15 PM CDT EXAMINATION: XR FEMUR RIGHT 2VW DATE/TIME OF EXAM: 03/28/2022 5:50 AM, LOCATION [facility] HISTORY: W10.8XXA: Fall (on) (from) other stairs and steps, initial encounter concern for fracture COMPARISON: No prior study is available for comparison. FINDINGS: The femur is intact without acute fracture.The femoral head is well seated in the acetabular fossa. The joint spaces are preserved. Bone density and texture are normal. No soft tissue swelling is present. Embolization coil is noted in the soft tissue lateral to the proximal femur. Procedure Note Cristhian Alanis MD - 03/28/2022 EXAMINATION: XR FEMUR RIGHT 2VW DATE/TIME OF EXAM: 03/28/2022 5:50 AM, LOCATION [facility] HISTORY: W10.8XXA: Fall (on) (from) other stairs and steps, initial encounter concern for fracture COMPARISON: No prior study is available for comparison. FINDINGS: The femur is intact without acute fracture.The femoral head is wellseated in the acetabular fossa. The joint spaces are preserved. Bone densityand texture are normal. No soft tissue swelling is present. Embolizationcoil is noted in the soft tissue lateral to the proximal femur. IMPRESSION: No acute femoral fracture identified. Report dictated by Rupa Evangelista MD (residential leasing manager). Cristhian Pulido MD have personally reviewed and interpreted this examination/study. > Interpreting Provider: Cristhian Alanis MD on 03/28/2022 10:15 PM Harvey Stacy MD DIAGNOSTIC IMAGING O RDERABLES * IR ANGIO PELVIS (03/28/2022 2:52 AM CDT) Anatomical Region Laterality Modality Pelvis X-Ray Angiograph y 03/28/2022 3:46 AM CDT Impressions 04/06/2022 1:27 PM CDT Impression: 1.Right common femoral artery angiogram demonstrated contrast blush arising from a branch off the right femoral profundal artery, representing known active arterial hemorrhage. 2.Successful coil embolization of a branch of the right lateral circumflex artery with a 4 cm x 3 mm detachable coil, as described above. 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 4.Successful coil embolization of the distal thyrocervical trunk with two 2 cm x 2 mm detachable coils, as described above. > Dictated by Beatriz Arteaga (Treasury Analyst) 03/28/2022 4:04 AM Karthik Pulido MD have personally reviewed and interpreted this examination/study. > Interpreting Provider: Karthik Magallanes MD on 04/06/2022 1:27 PM Narrative 04/06/2022 1:27 PM CDT History: 81 year oldfemalewith unknown history who presented after ground level fall down 15 stairs. She received 1 unit pRBCs and 1 unit FFP in the field and was brought to [facility] ED. Work-up is significant for CT chest abdomen pelvis significant for right midclavicular shaft fracture with active contrast extravasation in the region of the fracture, as well as active hemorrhage in the right hip soft tissues. Of note, per patient's family, she is taking ASA and Plavix. VIR consulted for pelvic and right upper extremity angiogram with possible intervention. Operators: 1.Dr. Daljit Magallanes, Attending Physician 2.Dr. Martha Arteaga, Resident Physician Anesthesia: Local anesthesia - 10 mL of 1% lidocaine Procedure: 1.Ultrasound-guided access of the left common femoral artery. 2.Selective catheterization of the right common iliac artery, followed by the right internal iliac artery and angiogram. 3.Subselective catheterization of the right external iliac artery, followed by common femoral artery and angiogram. 4.Superselective catheterization of the right lateral circumflex artery and angiogram. 5.Embolization of a branch of the right lateral circumflex artery with one (1) Azur CX 4 cm x 3 mm detachable coil under fluoroscopic guidance. 6.Post-embolization angiogram of the right lateral circumflex artery. 7.Selective catheterization of the brachiocephalic trunk. 8.Subselective catheterization of the right subclavian artery and angiogram. 9.Superselective catheterization of the thyrocervical trunk angiogram. 10.Embolization of the thyrocervical trunk with two (2) Azur 2 cm x 2 mm detachable coils under fluoroscopic guidance. 11.Post-embolization angiogram of the thyrocervical trunk. 12.Sheath angiogram of the left common femoral artery. 13.Hemostasis with Angio-Seal closure device. Fluoroscopic time: 28.5 minutes Contrast: 100 mL of Isovue-300 Procedure in detail: The procedure, risks, possible complications, and the use of conscious sedation were explained to the the patient's and daughter and an informed consent was obtained. The patient was brought to the angiography suite and placed supine on the table. The left groin was prepped and draped in the usual sterile fashion. Pre procedure time out was performed. Limited ultrasound of the left common femoral artery demonstrated a patent vessel, and the level of its bifurcation was identified. A hackett scale image was documented. The left common femoral artery was accessed using a micropuncture needle. The needle entry was documented. Following a series of exchanges, a 5-Hong Konger vascular sheath was placed. The right common iliac artery was selectively catheterized with a 4-[place] Konger Glidecath catheter and angiogram was obtained, which demonstrated no evidence of active contrast extravasation or acute arterial injury. The right external iliac artery was selectively catheterized with the 4-[place]er Glidecath catheter and angiogram was obtained, which demonstrated small contrast blush arising from a branch off the femoral profunda artery. The right common femoral artery was selectively catheterized with the 4-[place]er Glidecath catheter. Subsequently, the right femoral profunda artery and the right lateral circumflex artery were selectively catheterized with a 2.4-[place]er Progreat microcatheter and angiogram was obtained, which confirmed contrast blush, representing active arterial hemorrhage. Embolization of the right lateral circumflex artery was then performed with an Azur CX 4 cm x 3 mm detachable coil under fluoroscopic guidance. Post-embolization angiogram of the right lateral circumflex artery demonstrated appropriate stasis of flow without evidence of contrast extravasation. Attention was then turned to known active hemorrhage in the vicinity of the patient's known right midclavicular shaft fracture. The brachiocephalic trunk was selectively catheterized with the 5-[place]er [place] catheter and angiogram was obtained, which demonstrated normal arterial anatomy. 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 Embolization of the thyrocervical trunk was then performed with two (2) Azur 2 cm x 2 mm detachable coils under fluoroscopic guidance. Post-embolization angiogram of the thyrocervical trunk demonstrated adequate stasis of flow of the distal trunk. Angiogram of the brachiocephalic trunk demonstrated patency of the right internal mammary and right vertebral arteries. A sheath angiogram of the left common femoral artery was unremarkable with access above its bifurcation overlying the femoral head. Hemostasis was achieved with a Angio-Seal closure device. Sterile dressing was applied. The patient tolerated the procedure well and was transferred to the unit in stable condition. There were no immediate complications associated with the procedure. Procedure Note Karthik Magallanes MD - 04/06/2022 History: 81 year oldfemalewith unknown history who presented afterground level fall down 15 stairs. She received 1 unit pRBCs and 1 unit FFP inthe field and was brought to [facility] ED. Work-up is significant for CT chest abdomen pelvis significant for right midclavicular shaft fracture with active contrast extravasation in the region of the fracture, as well as active hemorrhage in the right hip soft tissues. Of note, per patient's family, she is taking ASA and Plavix. VIR consulted for pelvic and right upper extremity angiogram with possible intervention. Operators: 1.Dr. Daljit Magallanes, Attending Physician 2.Dr. Martha Arteaga, Resident Physician Anesthesia: Local anesthesia - 10 mL of 1% lidocaine Procedure: 1.Ultrasound-guided access of the left common femoral artery. 2.Selective catheterization of the right common iliac artery, followedby the right internal iliac artery and angiogram. 3.Subselective catheterization of the right external iliac artery,followed by common femoral artery and angiogram. 4.Superselective catheterization of the right lateral circumflex arteryand angiogram. 5.Embolization of a branch of the right lateral circumflex artery withone (1) Azur CX 4 cm x 3 mm detachable coil under fluoroscopic guidance. 6.Post-embolization angiogram of the right lateral circumflex artery. 7.Selective catheterization of the brachiocephalic trunk. 8.Subselective catheterization of the right subclavian artery and angiogram. 9.Superselective catheterization of the thyrocervical trunk angiogram. 10.Embolization of the thyrocervical trunk with two (2) Azur 2 cm x 2 mm detachable coils under fluoroscopic guidance. 11.Post-embolization angiogram of the thyrocervical trunk. 12.Sheath angiogram of the left common femoral artery. 13.Hemostasis with Angio-Seal closure device. Fluoroscopic time: 28.5 minutes Contrast: 100 mL of Isovue-300 Procedure in detail: The procedure, risks, possible complications, and the use of conscious sedation were explained to the the patient's and daughter and an informed consent was obtained. The patient was brought to theangiography suite and placed supine on the table. The left groin was prepped anddraped in the usual sterile fashion. Pre procedure time out was performed. Limited ultrasound of the left common femoral artery demonstrated apatent vessel, and the level of its bifurcation was identified. A hackett scaleimage was documented. The left common femoral artery was accessed using a micropuncture needle. The needle entry was documented. Following aseries of exchanges, a 5-Hong Konger vascular sheath was placed. The right common iliac artery was selectively catheterized with a4-[place] Konger Glidecath catheter and angiogram was obtained, which demonstrated no evidence of active contrast extravasation or acute arterial injury. The right external iliac artery was selectively catheterized with the 4-[place] Konger Glidecath catheter and angiogram was obtained, whichdemonstrated small contrast blush arising from a branch off the femoral profundaartery. The right common femoral artery was selectively catheterized with the 4-[place] Konger Glidecath catheter. Subsequently, the right femoral profunda artery and the right lateral circumflex artery were selectively catheterized with a 2.4-[place] Konger Progreat microcatheter and angiogram was obtained, which confirmed contrast blush, representing active arterial hemorrhage. Embolization of the right lateral circumflex artery was then performedwith an Azur CX 4 cm x 3 mm detachable coil under fluoroscopic guidance. Post-embolization angiogram of the right lateral circumflex artery demonstrated appropriate stasis of flow without evidence of contrast extravasation. Attention was then turned to known active hemorrhage in the vicinity ofthe patient's known right midclavicular shaft fracture. The brachiocephalic trunk was selectively catheterized with the 5-[place]er [place] catheter and angiogram was obtained, which demonstrated normal arterial anatomy. 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 Embolization of the thyrocervical trunk was then performed with two (2) Azur 2 cm x 2 mm detachable coils under fluoroscopic guidance. Post-embolization angiogram of the thyrocervical trunk demonstrated adequate stasis of flow of the distal trunk. Angiogram of the brachiocephalic trunk demonstrated patency of the right internal mammary and right vertebral arteries. A sheath angiogram of the left common femoral artery was unremarkablewith access above its bifurcation overlying the femoral head. Hemostasis was achieved with a Angio-Seal closure device. Sterile dressing was applied. The patient tolerated the procedure well and was transferred to the unitin stable condition. There were no immediate complications associated withthe procedure. Impression: 1.Right common femoral artery angiogram demonstrated contrast blusharising from a branch off the right femoral profundal artery, representing known active arterial hemorrhage. 2.Successful coil embolization of a branch of the right lateralcircumflex artery with a 4 cm x 3 mm detachable coil, as described above. 3.Right subclavian artery angiogram demonstrated pseudoaneurysm arisingoff a branch of the thyrocervical trunk. 4.Successful coil embolization of the distal thyrocervical trunk with two2 cm x 2 mm detachable coils, as described above. > Dictated by Beatriz Arteaga (Treasury Analyst) 03/28/2022 4:04 AM IKarthik MD have personally reviewed and interpreted this examination/study. > Interpreting Provider: Karthik Magallanes MD on 04/06/2022 1:27 PM Karthik Magallanes MD IR ORDERABLES * (ABNORMAL) DIFFERENTIAL MANUAL (03/27/2022 11:19 PM CDT) WBC (corrected for NRBC) 22.0 10 3/uL 03/28/2022 12:13 [facility] Total Cell Count 100 03/28/2022 12:13 AM [facility] Neutrophils Absolute Manual 18.26(H) 1.60 - 7.00 10 3/uL 03/28/2022 12:13 AM T [facility] Comment:(BANDS+SEGS) x WBC = NEUT # (ANC) Lymphocyte Absolute Manual 1.32 1.10 - 3.90 10 3/uL 03/28/2022 12:13 AM [facility] Monocytes Absolute Manual 1.98(H) 0.26 - 1.07 10 3/uL 03/28/2022 12:13 AM [facility] Basophil Absolute Manual 0.44(H) 0.00 - 0.08 10 3/uL 03/28/2022 12:13 AM [facility] Band % Manual 4 0 - 10 % 03/28/2022 12:13 AM [facility] Neutrophil % Manual 79(H) 35 - 70 % 03/28/2022 12:13 AM [facility] Lymphocyte % Manual 6(L) 20 - 43 % 03/28/2022 12:13 AM [facility] Monocytes % Manual 9 5 - 13 % 03/28/2022 12:13 AM [facility] Basophils % Manual 2 0 - 2 % 03/28/2022 12:13 AM [facility] Platelet Estimate Adequate Adequate 03/28/2022 12:13 AM [facility] Ovalocytes 1+(A) None 03/28/2022 12:13 AM [facility] Blood BLOOD SPECIMEN / Unknown Venipuncture / Unknown 03/27/2022 11:19 PM CDT 03/27/2022 11:23 PM CDT Nam Ramirez MD LAB - HEMATOLOGY OR DERABLES Performing Organization Address [facility] Co de Phone Number [facility] [address] [place] [phone], [facility] [phone] * 1 Units (03/27/2022 11:09 PM CDT) Unit Description LR Whole BLood [facility] Unit ABO O [facility] Unit Rh NEG [facility] Product Number [id number] [facility] Unit Donor # [id number] [facility] Unit Status transfused [facility] Product Code [id number] [facility] Blood Type Barcode 9500 [facility] Expiration Date S BLOOD BANK LAB Blood Bank BLOOD SPECIMEN / Unknown 03/27/2022 10:47 PM CDT Marie Hyman MD LAB - BLOOD BANK ORD ERABLES [facility] [address] [place] [address], [facility] [phone] * XR HUMERUS RIGHT 2VW OR MORE (03/27/2022 11:00 PM CDT) Anatomical Region Laterality Modality Upper Extremity Radiographic Geno ging 03/28/2022 8:09 AM CDT Impressions 03/28/2022 12:02 PM CDT IMPRESSION: Limited evaluation secondary to nonstandard positioning. Within the limitations of this exam, no acute fracture is noted. Humeral head appears well-seated on the nonstandard AP view. The humeral head is not well evaluated on the lateral view. Recommend dedicated 3/4 view shoulder radiographs when clinically able. Report dictated by Rupa Evangelista MD (residential leasing manager). ISTEVEN MD have personally reviewed and interpreted this examination/study. > Interpreting Provider: STEVEN RAMOS MD on 03/28/2022 12:02 PM Narrative 03/28/2022 12:02 PM CDT EXAMINATION: XR HUMERUS RIGHT 2VW OR MORE DATE/TIME OF EXAM: 03/27/2022 11:00 PM, LOCATION [facility] HISTORY: W10.8XXA: Fall (on) (from) other stairs and steps, initial encounter trauma COMPARISON: No prior study is available for comparison. FINDINGS: Nonstandard positioning partially limits evaluation. No acute fracture or dislocation is identified within the limitations of this exam. The humeral head appears well-seated within the glenoid cavity on the AP view, however this is partially internally rotated. The humeral head cannot be evaluated on lateral view and in the distal humerus is not completely visualized on the lateral view. Procedure Note Steven Ramos MD - 03/28/2022 EXAMINATION: XR HUMERUS RIGHT 2VW OR MORE DATE/TIME OF EXAM: 03/27/2022 11:00 PM, LOCATION [facility] HISTORY: W10.8XXA: Fall (on) (from) other stairs and steps, initial encounter trauma COMPARISON: No prior study is available for comparison. FINDINGS: Nonstandard positioning partially limits evaluation. No acute fracture or dislocation is identified within the limitations of this exam. The humeral head appears well-seated within the glenoidcavity on the AP view, however this is partially internally rotated. Thehumeral head cannot be evaluated on lateral view and in the distal humerus isnot completely visualized on the lateral view. IMPRESSION: Limited evaluation secondary to nonstandard positioning. Within the limitations of this exam, no acute fracture is noted. Humeral headappears well-seated on the nonstandard AP view. The humeral head is not well evaluated on the lateral view. Recommend dedicated 3/4 view shoulder radiographs when clinically able. Report dictated by Rupa Evangelista MD (residential leasing manager). I, STEVEN RAMOS MD have personally reviewed and interpreted this examination/study. > Interpreting Provider: STEVEN RAMOS MD on 03/28/2022 12:02 PM Nam Ramirez MD DIAGNOSTIC IMAGING ORDERABLES * BLOOD TYPE VERIFICATION (03/27/2022 10:55 PM CDT) ABO Rh O POS 03/28/2022 12:16 AM CDT [facility] Blood Bank BLOOD SPECIMEN / Unknown Lab Venipuncture / Unknown 03/27/2022 10:55 PM CDT 03/27/2022 11:01 PM CDT Marie Hyman MD LAB - BLOOD BANK ORD ERABLES [facility] [address] [place] [address], [facility] [phone] * (ABNORMAL) PTT [facility] (03/27/2022 10:38 PM CDT) APTT 21.1(L) 23.0 - 38.4 Seconds 03/27/2022 11:09 PM CDT [facility] Comment:Suggested therapeuti c range for full dose I.V. unfractionated heparin therapy for venous thromboembolism is 71 to 109 seconds. Blood BLOOD SPECIMEN / Unknown Venipuncture / Unknown 03/27/2022 10:38 PM CDT 03/27/2022 10:43 PM CDT Nam Ramirez MD LAB - COAGULATION O RDERABLES Performing Organization Address [facility] Co de Phone Number [facility] [address] [place] [address], [facility] [phone] * ALCOHOL ETHYL BLOOD (03/27/2022 10:38 PM CDT) Ethanol (mg/dL) <10 <10 mg/dL 11:20 PM CDT [facility] Ethanol Calculated (g/dL) <0.010 <=0.010 g/dL 03/27/2022 11:20 PM CDT [facility] Blood BLOOD SPECIMEN / Unknown Venipuncture / Unknown 03/27/2022 10:38 PM CDT 03/27/2022 10:44 PM CDT Narrative [facility] - 03/27/2022 11:20 PM CDT Ethanol Interp <10: None Detected. Depression of RESEARCH PROGRAM MANAGER: >100 mg/dl Potentially Critical: >250 mg/dl Potentially Fatal >400 mg/dl Ethanol in the patient's blood will contribute to the osmolar gap. Ethanol's contribution to the osmolar gap can be estimated by dividing the concentration of ethanol in mg/dL by 4.6. This test is for clinical use only and does not equal a SANDI for legal purposes. Nam Ramirez MD LAB - CHEMISTRY ORD ERABLES Performing Organization Address [facility] Co de Phone Number [facility] [address] [place] [address], [place] [phone] * CT CHEST ABDOMEN PELVIS W CONT - Abdomen-pelvis trauma, blunt or penetrating (03/27/2022 10:16 PM CDT) Anatomical Region Laterality Modality Chest, Abdomen, Pelvis Computed Tomography 03/27/2022 10:0 9 PM CDT Impressions 03/28/2022 1:29 PM CDT Impression: 1.Comminuted displaced fracture of the right mid clavicle. Large volume hematoma and contusion is noted surrounding the clavicular fracture and right axilla with active contrast extravasation consistent with active arterial hemorrhage. 2.Trace right pneumothorax. 3.Bilateral diffuse tree-in-bud opacities which could represent infectious/inflammatory process (chronic atypical mycobacteria infection is to be excluded). 4.Hematoma with active hemorrhage in the soft tissue overlying the right hip. 5.Subtle subcutaneous soft tissue contusion in the right flank with a small foci of active contrast extravasation. 6.Mild thickening of the antropyloric region which could represent gastritis. 7. 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 > Dictated by Rafael Vasques MD (residential leasing manager). These findings were discussed in detail with the patient's care provider, Dr. Delacruz by Dr. Vasques via telephone at 10:39 PM on 03/27/2022 with readback comprehension and verification. I, Porfirio Lees MD have personally reviewed and interpreted this examination/study. > Interpreting Provider: Porfirio Lees MD on 03/28/2022 1:29 PM Narrative 03/28/2022 1:29 PM CDT PROCEDURE: CT CHEST ABDOMEN PELVIS W CONT, DATE/TIME OF EXAM: 03/27/2022 10:19 PM, LOCATION [facility] INDICATION: Trauma COMPARISON: None. TECHNIQUE: CT of the chest, abdomen, and pelvis was performed after the uneventful administration of 100 mL of Isovue 370 intravenous contrast according to standard protocol. Findings: Chest: Lower Neck and Axillae: There is significant fatty stranding and hemorrhage in the visualized portion of the right lower neck and right anterior chest wall and axilla. Contrast blush adjacent to the right displaced clavicular fracture and right axilla which increases on delayed images likely representing acute arterial hemorrhage. Lungs: Bilateral patchy nodules with tree-in-bud opacities are seen, predominantly involving the left lingular segment and right middle lobe. A trace right pneumothorax is noted. No pleural fluid is present. Heart and Pericardium: The cardiac chambers are normal in size. No pericardial fluid or thickening is present. Mediastinum and Karen: No mediastinal hemorrhage is present. No enlarged lymph nodes are present. Abdomen/pelvis: Liver: Normal. Gallbladder and Bile Ducts: Normal. Spleen: The spleen is normal. A partially calcified 8 mm hyperdensity in the splenic hilum is likely a partially calcified aneurysm. Pancreas: Normal. Adrenals: Normal. Kidneys: Bilateral simple renal cysts are seen. Multiple subcentimeter hypoattenuating lesions in both kidneys are too small to characterize, but likely represent cysts. There is no hydronephrosis or nephrolithiasis. Gastrointestinal: There is wall thickening of the antropyloric region which could represent gastritis. 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 There is no dilated bowel loops. There is colonic diverticulosis without evidence of diverticulitis. Normal appendix. Mesentery/Peritoneum/Retroperitoneum: No free intraperitoneal air. No free fluid in the abdomen or pelvis. Bladder: Normal. Reproductive Organs: The uterus is absent. Abdominal Vasculature: No vascular abnormality is present. Bones: Comminuted displaced fracture of the right mid clavicle. Advanced degenerative changes of the thoracolumbar spine is seen. There is soft tissue density extending from the central canal into the left sacrum causing adjacent chronic appearing bone remodeling and possibly present meningocele. Soft tissues: There is large volume of hematoma with active contrast extravasation overlying the right hip. There is also right flank subcutaneous soft tissue contusion with a small contrast extravasation. Multiple scattered contusion in the retrocecal and right posterior chest wall soft tissue. Procedure Note Porfirio Lees MD - 03/28/2022 PROCEDURE: CT CHEST ABDOMEN PELVIS W CONT, DATE/TIME OF EXAM:03/27/2022 10:19 PM, LOCATION [facility] INDICATION: Trauma COMPARISON: None. TECHNIQUE: CT of the chest, abdomen, and pelvis was performed after the uneventful administration of 100 mL of Isovue 370 intravenous contrast according to standard protocol. Findings: Chest: Lower Neck and Axillae: There is significant fatty stranding and hemorrhage in the visualized portion of the right lower neck and right anterior chest wall andaxilla. Contrast blush adjacent to the right displaced clavicular fracture and right axilla which increases on delayed images likely representing acute arterial hemorrhage. Lungs: Bilateral patchy nodules with tree-in-bud opacities are seen,predominantly involving the left lingular segment and right middle lobe. A trace right pneumothorax is noted. No pleural fluid is present. Heart and Pericardium: The cardiac chambers are normal in size. No pericardial fluid orthickening is present. Mediastinum and Karen: No mediastinal hemorrhage is present. No enlarged lymph nodes arepresent. Abdomen/pelvis: Liver: Normal. Gallbladder and Bile Ducts: Normal. Spleen: The spleen is normal. A partially calcified 8 mm hyperdensity in the splenic hilum is likely a partially calcified aneurysm. Pancreas: Normal. Adrenals: Normal. Kidneys: Bilateral simple renal cysts are seen. Multiple subcentimeter hypoattenuating lesions in both kidneys are too small to characterize,but likely represent cysts. There is no hydronephrosis or nephrolithiasis. Gastrointestinal: There is wall thickening of the antropyloric region which couldrepresent gastritis. Curvilinear hyperdensities/upper enhancement in the stomach fundus which are unchanged on delayed images are possibly arterialvenous malformation. There is no dilated bowel loops. There is colonic diverticulosis without evidence of diverticulitis. Normal appendix. Mesentery/Peritoneum/Retroperitoneum: No free intraperitoneal air. No free fluid in the abdomen or pelvis. Bladder: Normal. Reproductive Organs: The uterus is absent. Abdominal Vasculature: No vascular abnormality is present. Bones: Comminuted displaced fracture of the right mid clavicle. Advanced degenerative changes of the thoracolumbar spine is seen. There is soft tissue density extending from the central canal into theleft sacrum causing adjacent chronic appearing bone remodeling and possibly present meningocele. Soft tissues: There is large volume of hematoma with active contrast extravasation overlying the right hip. There is also right flank subcutaneous softtissue contusion with a small contrast extravasation. Multiple scatteredcontusion in the retrocecal and right posterior chest wall soft tissue. Impression: 1.Comminuted displaced fracture of the right mid clavicle. Large volume hematoma and contusion is noted surrounding the clavicular fracture and right axilla with active contrast extravasation consistent with active arterial hemorrhage. 2.Trace right pneumothorax. 3.Bilateral diffuse tree-in-bud opacities which could represent infectious/inflammatory process (chronic atypical mycobacteria infectionis to be excluded). 4.Hematoma with active hemorrhage in the soft tissue overlying the right hip. 5.Subtle subcutaneous soft tissue contusion in the right flank with asmall foci of active contrast extravasation. 6.Mild thickening of the antropyloric region which could represent gastritis. 7. 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 > Dictated by Rafael Vasques MD (residential leasing manager). These findings were discussed in detail with the patient's careprovider, Dr. Delacruz by Dr. Vasques via telephone at 10:39 PM on 03/27/2022 with readback comprehension and verification. I, Porfirio Lees MD have personally reviewed and interpreted this examination/study. > Interpreting Provider: Porfirio Lees MD on 21:29 PM Nam Ramirez MD CT ORDERABLES * CT LUMBAR SPINE WO CONTRAST - T/L-spine trauma, Spine fracture (03/27/2022 10:16 PM CDT) Anatomical Region Laterality Modality Spine Computed Tomogra phy 03/27/2022 10:3 6 PM CDT Impressions 03/28/2022 1:59 PM CDT IMPRESSION: Diffuse bilateral subarachnoid hemorrhage. Close interval follow-up studies are recommended. Subdural hematoma overlying the lateral aspect of the left hemisphere measuring roughly 9 mm in thickness. This is predominantly hyperdense with an isodense component posteriorly. There is some associated mass effect with effacement of underlying gyri. There is also a small amount of acute subdural hematoma along the left side of the falx cerebri. Follow-up recommended. Moderate right parietal scalp hematoma. Clinical correlation is recommended. 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 Comminuted fracture of the medial right clavicle with adjacent soft tissue swelling/hematoma in the upper thoracic region extending into the low right cervical soft tissues. Clinical correlation recommended. Please refer to the CT chest report for greater detail. No evidence of definite cervical spine fracture. There are degenerative changes in the cervical spine with some canal narrowing, as detailed above. No evidence of definite acute thoracic or lumbar spine fracture. Mild degenerative changes in the thoracic spine. Mild degenerative changes in the lumbar spine with spondylosis at multiple levels. There is mild central canal stenosis at L4-5 secondary to spondylosis, spondylolisthesis, ligamentous thickening, and facet joint hypertrophy. Abnormal appearance of the mid sacrum with focal area of ossification in the region of the sacral spinal canal. This has a chronic nonaggressive appearance and may represent old posttraumatic phenomenon. Clinical correlation is recommended. Follow-up elective sacral imaging is a consideration. Please refer to the separately dictated report of CT scan of the chest, abdomen and pelvis for intrathoracic and intra-abdominal findings. These findings were discussed in detail with the patient's care provider, Dr. Delacruz by Dr. Callahan via telephone at 10:40 PM on 03/26/2022 with readback comprehension and verification. > Dictated by Clarice Peacock MD (Treasury Analyst)65 I, Enio Stubbs MD have personally reviewed and interpreted this examination/study. > Interpreting Provider: Enio Stubbs MD on 03/28/2022 1:59 PM Narrative 03/28/2022 1:59 PM CDT PROCEDURE: CT HEAD WO CONTRAST, CT FACIAL BONES WO CONTRAST, CT LUMBAR SPINE WO CONTRAST, CT THORACIC SPINE WO CONTRAST, CT CERVICAL SPINE WO CONTRAST, DATE/TIME OF EXAM: 03/27/2022 10:19 PM, LOCATION [facility] INDICATION: Trauma ADDITIONAL CLINICAL INFORMATION: Ordering Provider Reason For Exam: Technologist Note: delayed imaging per rad COMPARISON: None. EXAMINATIONS: CT of the head without intravenous contrast CT of the facial bones without intravenous contrast CT of the cervical spine without intravenous contrast CT of the thoracic spine CT of the lumbar spine TECHNIQUE: CT of the head, facial bones and cervical spine was performed without intravenous contrast according to standard protocol. CT images of the thoracic spine and lumbar spine were reformatted from the concurrently obtained CT scan of the chest, abdomen and pelvis intravenous contrast. CT dose reduction technique was used, including Automated Exposure Control. FINDINGS: Head: There is acute bilateral, diffuse, supratentorial subarachnoid hemorrhage, right greater than left. There is also subdural hematoma along side the left frontal convexity measuring approximately 9 mm in maximum thickness. There is mild mass effect with some sulcal effacement. This subdural hematoma is predominantly hyperdense though there is an isodense component posteriorly. There is also a small amount of acute subdural hematoma along the anterior aspect of the left side of the falx cerebri measuring roughly 5 mm in maximum thickness. No significant mass effect is produced by this. There is no evidence of midline shift at the time of this study. The ventricles are within normal limits in size. There is mild sulcal prominence compatible with mild parenchymal volume loss. Patchy decreased attenuation is present within the white matter of the cerebral hemispheres likely related to small vessel disease in a patient of this age. Bone window images are negative for depressed skull fracture. There is a moderate-sized right parietal scalp hematoma. There is a small calcification within the scalp of the upper frontal region to the left of midline. There is an old right suboccipital craniectomy defect. Craniofacial bones/Soft tissues: There is streak artifact produced by dental restorations obscuring some detail. There is no major facial soft tissue swelling. There is no evidence of, displaced facial bone fracture. There has been previous bilateral cataract extraction. The globes otherwise have a normal appearance. There is no definite retroseptal soft tissue swelling within the orbits. The extraocular muscles, optic nerves, and lacrimal glands are normal. Mild mucous membrane thickening with a possible small air-fluid level is noted in the right sphenoid sinus. Minimal mucous membrane thickening is present in both ethmoid and left sphenoid sinuses. There is pneumatization of both middle turbinates. The paranasal sinuses and tympanomastoid cavities are aerated. Cervical spine: There is no definite acute cervical spine fracture or traumatic subluxation. There is mild wedging of C7 which may be developmental or secondary to old trauma. There is mild reversal of the cervical lordosis which may reflect patient positioning and/or muscle spasm. There is fusion of the C3, C4, and C5 vertebral bodies which may be spontaneous or secondary to previous surgery. There is fusion of the C3-4 facet joints bilaterally and of the right C4-5 facet joint. There is mild to moderate degenerative changes throughout the cervical spine. There is spondylosis at all levels from C3 to through T1. Mild canal narrowing is produced at C4-5 and C5-6. There is no major foraminal narrowing. There is a comminuted fracture of the medial right clavicle. There is prominent adjacent soft tissue swelling/hematoma in the upper anterior chest and low right cervical soft tissues. There is some mass effect produced by this with slight displacement of the trachea and thyroid to the left... Thoracic spine: Intravascular contrast is present on the thoracic spine CT. There is no definite acute fracture or traumatic subluxation. There is some mild wedging of T5 which may be developmental or secondary to old trauma. There is a dextroscoliosis of the upper thoracic spine and levoscoliosis of the low thoracic and upper lumbar spine. Anterior marginal spurring is present at multiple levels. There are mild anterolistheses of C7 on T1 and T1 and T2. There are degenerative changes in the thoracic spine. There is central disc bulging at T1-T2. There is a left paracentral disc protrusion at T7-8 there is posterior disc bulging asymmetric to the left at T11-12. There is no spinal canal or foraminal stenosis.There are no aggressive appearing lytic or sclerotic bone lesions. Lumbar spine: There is no fracture of the lumbar spine. Schmorl's nodes are noted at multiple levels. There is an hemangioma within the L1 vertebral body. There is degenerative disc space narrowing at all levels from L1 through L5. Vacuum phenomenon consistent with degenerative disc disease is noted at all levels from L3 through S1. There is a grade 1 degenerative spondylolisthesis of L4 on L5. There are mild retrolisthesis of L1 on L2 and L2 on L3. There is mild spondylosis at all levels from L1 through S1. Mild central canal stenosis and mild bilateral foraminal narrowing are present at L4-5 secondary to the spondylosis, spondylolisthesis, ligament thickening, and facet joint hypertrophy. Moderate facet joint degenerative changes are present at L4-5 with mild facet joint degenerative changes at the other levels. There are oval areas of decreased attenuation within the sacral spinal canal which may represent root sleeve cysts there is an abnormal appearance of the sacrum with ossification involving its posterior aspect extending into the spinal canal at approximately the S3 level. Exact nature of this is uncertain. This may represent old posttraumatic or postsurgical phenomenon. There are degenerative changes of the sacroiliac joints bilaterally. Procedure Note Enio Stubbs MD - 03/28/2022 PROCEDURE: CT HEAD WO CONTRAST, CT FACIAL BONES WO CONTRAST, CT LUMBAR SPINE WO CONTRAST, CT THORACIC SPINE WO CONTRAST, CT CERVICAL SPINE WO CONTRAST, DATE/TIME OF EXAM: 03/27/2022 10:19 PM, LOCATION [facility] INDICATION: Trauma ADDITIONAL CLINICAL INFORMATION: Ordering Provider Reason For Exam: Technologist Note: delayed imaging per rad COMPARISON: None. EXAMINATIONS: CT of the head without intravenous contrast CT of the facial bones without intravenous contrast CT of the cervical spine without intravenous contrast CT of the thoracic spine CT of the lumbar spine TECHNIQUE: CT of the head, facial bones and cervical spine was performed without intravenous contrast according to standard protocol. CT imagesof the thoracic spine and lumbar spine were reformatted from theconcurrently obtained CT scan of the chest, abdomen and pelvis intravenous contrast.CT dose reduction technique was used, including Automated Exposure Control. FINDINGS: Head: There is acute bilateral, diffuse, supratentorial subarachnoidhemorrhage, right greater than left. There is also subdural hematoma along side the left frontal convexity measuring approximately 9 mm in maximumthickness. There is mild mass effect with some sulcal effacement. This subdural hematoma is predominantly hyperdense though there is an isodensecomponent posteriorly. There is also a small amount of acute subdural hematomaalong the anterior aspect of the left side of the falx cerebri measuringroughly 5 mm in maximum thickness. No significant mass effect is produced bythis. There is no evidence of midline shift at the time of this study. The ventricles are within normal limits in size. There is mild sulcal prominence compatible with mild parenchymal volume loss. Patchydecreased attenuation is present within the white matter of the cerebralhemispheres likely related to small vessel disease in a patient of this age. Bone window images are negative for depressed skull fracture. There is a moderate-sized right parietal scalp hematoma. There is a small calcification within the scalp of the upper frontal region to the leftof midline. There is an old right suboccipital craniectomy defect. Craniofacial bones/Soft tissues: There is streak artifact produced by dental restorations obscuring some detail. There is no major facial soft tissue swelling. There is noevidence of, displaced facial bone fracture. There has been previous bilateral cataract extraction. The globesotherwise have a normal appearance. There is no definite retroseptal soft tissue swelling within the orbits. The extraocular muscles, optic nerves, and lacrimal glands are normal. Mild mucous membrane thickening with apossible small air-fluid level is noted in the right sphenoid sinus. Minimalmucous membrane thickening is present in both ethmoid and left sphenoidsinuses. There is pneumatization of both middle turbinates. The paranasal sinuses and tympanomastoid cavities are aerated. Cervical spine: There is no definite acute cervical spine fracture or traumatic subluxation. There is mild wedging of C7 which may be developmental or secondary to old trauma. There is mild reversal of the cervical lordosis which may reflect patient positioning and/or muscle spasm. There is fusion of the C3, C4, and C5 vertebral bodies which may be spontaneous or secondary to previous surgery. There is fusion of theC3-4 facet joints bilaterally and of the right C4-5 facet joint. There ismild to moderate degenerative changes throughout the cervical spine. There is spondylosis at all levels from C3 to through T1. Mild canal narrowing is produced at C4-5 and C5-6. There is no major foraminal narrowing. There is a comminuted fracture of the medial right clavicle. There is prominent adjacent soft tissue swelling/hematoma in the upper anterior chest and low right cervical soft tissues. There is some mass effect produced by this with slight displacement of the trachea and thyroid tothe left... Thoracic spine: Intravascular contrast is present on the thoracic spine CT. There is no definite acute fracture or traumatic subluxation. There is some mild wedging of T5 which may be developmental or secondary to old trauma.There is a dextroscoliosis of the upper thoracic spine and levoscoliosis ofthe low thoracic and upper lumbar spine. Anterior marginal spurring is present at multiple levels. There are mild anterolistheses of C7 on T1 and T1 and T2. There are degenerativechanges in the thoracic spine. There is central disc bulging at T1-T2. There kaleigh left paracentral disc protrusion at T7-8 there is posterior disc bulging asymmetric to the left at T11-12. There is no spinal canal or foraminal stenosis.There are no aggressive appearing lytic or sclerotic bonelesions. Lumbar spine: There is no fracture of the lumbar spine. Schmorl's nodes are noted at multiple levels. There is an hemangioma within the L1 vertebral body.There is degenerative disc space narrowing at all levels from L1 through L5. Vacuum phenomenon consistent with degenerative disc disease is noted atall levels from L3 through S1. There is a grade 1 degenerative spondylolisthesis of L4 on L5. There are mild retrolisthesis of L1 on L2 and L2 on L3. There is mild spondylosis at all levels from L1 throughS1. Mild central canal stenosis and mild bilateral foraminal narrowing are present at L4-5 secondary to the spondylosis, spondylolisthesis,ligament thickening, and facet joint hypertrophy. Moderate facet jointdegenerative changes are present at L4-5 with mild facet joint degenerative changesat the other levels. There are oval areas of decreased attenuation within the sacral spinal canal which may represent root sleeve cysts there is an abnormalappearance of the sacrum with ossification involving its posterior aspect extending into the spinal canal at approximately the S3 level. Exact nature ofthis is uncertain. This may represent old posttraumatic or postsurgical phenomenon. There are degenerative changes of the sacroiliac joints bilaterally. IMPRESSION: Diffuse bilateral subarachnoid hemorrhage. Close interval follow-upstudies are recommended. Subdural hematoma overlying the lateral aspect of the left hemisphere measuring roughly 9 mm in thickness. This is predominantly hyperdensewith an isodense component posteriorly. There is some associated mass effect with effacement of underlying gyri. There is also a small amount ofacute subdural hematoma along the left side of the falx cerebri. Follow-up recommended. Moderate right parietal scalp hematoma. Clinical correlation is recommended. 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 Comminuted fracture of the medial right clavicle with adjacent softtissue swelling/hematoma in the upper thoracic region extending into the lowright cervical soft tissues. Clinical correlation recommended. Please refer to the CT chest report for greater detail. No evidence of definite cervical spine fracture. There are degenerative changes in the cervical spine with some canal narrowing, as detailedabove. No evidence of definite acute thoracic or lumbar spine fracture. Mild degenerative changes in the thoracic spine. Mild degenerative changes in the lumbar spine with spondylosis atmultiple levels. There is mild central canal stenosis at L4-5 secondary to spondylosis, spondylolisthesis, ligamentous thickening, and facet joint hypertrophy. Abnormal appearance of the mid sacrum with focal area of ossification in the region of the sacral spinal canal. This has a chronic nonaggressive appearance and may represent old posttraumatic phenomenon. Clinical correlation is recommended. Follow-up elective sacral imaging is a consideration. Please refer to the separately dictated report of CT scan of the chest, abdomen and pelvis for intrathoracic and intra-abdominal findings. These findings were discussed in detail with the patient's careprovider, Dr. Delacruz by Dr. Callahan via telephone at 10:40 PM on 03/26/2022 with readback comprehension and verification. > Dictated by Clarice Peacock MD (Treasury Analyst)65 I, Enio Stubbs MD have personally reviewed and interpreted this examination/study. > Interpreting Provider: Enio Stubbs MD on 03/28/2022 1:59 PM Nam Ramirez MD CT ORDERABLES * CT THORACIC SPINE WO CONTRAST - T/L-spine trauma, spine fracture (03/27/2022 10:16 PM CDT) Anatomical Region Laterality Modality Spine Computed Tomogra phy 03/27/2022 10:3 6 PM CDT Impressions 03/28/2022 1:59 PM CDT IMPRESSION: Diffuse bilateral subarachnoid hemorrhage. Close interval follow-up studies are recommended. Subdural hematoma overlying the lateral aspect of the left hemisphere measuring roughly 9 mm in thickness. This is predominantly hyperdense with an isodense component posteriorly. There is some associated mass effect with effacement of underlying gyri. There is also a small amount of acute subdural hematoma along the left side of the falx cerebri. Follow-up recommended. Moderate right parietal scalp hematoma. Clinical correlation is recommended. 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 Comminuted fracture of the medial right clavicle with adjacent soft tissue swelling/hematoma in the upper thoracic region extending into the low right cervical soft tissues. Clinical correlation recommended. Please refer to the CT chest report for greater detail. No evidence of definite cervical spine fracture. There are degenerative changes in the cervical spine with some canal narrowing, as detailed above. No evidence of definite acute thoracic or lumbar spine fracture. Mild degenerative changes in the thoracic spine. Mild degenerative changes in the lumbar spine with spondylosis at multiple levels. There is mild central canal stenosis at L4-5 secondary to spondylosis, spondylolisthesis, ligamentous thickening, and facet joint hypertrophy. Abnormal appearance of the mid sacrum with focal area of ossification in the region of the sacral spinal canal. This has a chronic nonaggressive appearance and may represent old posttraumatic phenomenon. Clinical correlation is recommended. Follow-up elective sacral imaging is a consideration. Please refer to the separately dictated report of CT scan of the chest, abdomen and pelvis for intrathoracic and intra-abdominal findings. These findings were discussed in detail with the patient's care provider, Dr. Delacruz by Dr. Callahan via telephone at 10:40 PM on 03/26/2022 with readback comprehension and verification. > Dictated by Clarice Peacock MD (Treasury Analyst)65 I, Enio Stubbs MD have personally reviewed and interpreted this examination/study. > Interpreting Provider: Enio Stubbs MD on 03/28/2022 1:59 PM Narrative 03/28/2022 1:59 PM CDT PROCEDURE: CT HEAD WO CONTRAST, CT FACIAL BONES WO CONTRAST, CT LUMBAR SPINE WO CONTRAST, CT THORACIC SPINE WO CONTRAST, CT CERVICAL SPINE WO CONTRAST, DATE/TIME OF EXAM: 03/27/2022 10:19 PM, LOCATION [facility] INDICATION: Trauma ADDITIONAL CLINICAL INFORMATION: Ordering Provider Reason For Exam: Technologist Note: delayed imaging per rad COMPARISON: None. EXAMINATIONS: CT of the head without intravenous contrast CT of the facial bones without intravenous contrast CT of the cervical spine without intravenous contrast CT of the thoracic spine CT of the lumbar spine TECHNIQUE: CT of the head, facial bones and cervical spine was performed without intravenous contrast according to standard protocol. CT images of the thoracic spine and lumbar spine were reformatted from the concurrently obtained CT scan of the chest, abdomen and pelvis intravenous contrast. CT dose reduction technique was used, including Automated Exposure Control. FINDINGS: Head: There is acute bilateral, diffuse, supratentorial subarachnoid hemorrhage, right greater than left. There is also subdural hematoma along side the left frontal convexity measuring approximately 9 mm in maximum thickness. There is mild mass effect with some sulcal effacement. This subdural hematoma is predominantly hyperdense though there is an isodense component posteriorly. There is also a small amount of acute subdural hematoma along the anterior aspect of the left side of the falx cerebri measuring roughly 5 mm in maximum thickness. No significant mass effect is produced by this. There is no evidence of midline shift at the time of this study. The ventricles are within normal limits in size. There is mild sulcal prominence compatible with mild parenchymal volume loss. Patchy decreased attenuation is present within the white matter of the cerebral hemispheres likely related to small vessel disease in a patient of this age. Bone window images are negative for depressed skull fracture. There is a moderate-sized right parietal scalp hematoma. There is a small calcification within the scalp of the upper frontal region to the left of midline. There is an old right suboccipital craniectomy defect. Craniofacial bones/Soft tissues: There is streak artifact produced by dental restorations obscuring some detail. There is no major facial soft tissue swelling. There is no evidence of, displaced facial bone fracture. There has been previous bilateral cataract extraction. The globes otherwise have a normal appearance. There is no definite retroseptal soft tissue swelling within the orbits. The extraocular muscles, optic nerves, and lacrimal glands are normal. Mild mucous membrane thickening with a possible small air-fluid level is noted in the right sphenoid sinus. Minimal mucous membrane thickening is present in both ethmoid and left sphenoid sinuses. There is pneumatization of both middle turbinates. The paranasal sinuses and tympanomastoid cavities are aerated. Cervical spine: There is no definite acute cervical spine fracture or traumatic subluxation. There is mild wedging of C7 which may be developmental or secondary to old trauma. There is mild reversal of the cervical lordosis which may reflect patient positioning and/or muscle spasm. There is fusion of the C3, C4, and C5 vertebral bodies which may be spontaneous or secondary to previous surgery. There is fusion of the C3-4 facet joints bilaterally and of the right C4-5 facet joint. There is mild to moderate degenerative changes throughout the cervical spine. There is spondylosis at all levels from C3 to through T1. Mild canal narrowing is produced at C4-5 and C5-6. There is no major foraminal narrowing. There is a comminuted fracture of the medial right clavicle. There is prominent adjacent soft tissue swelling/hematoma in the upper anterior chest and low right cervical soft tissues. There is some mass effect produced by this with slight displacement of the trachea and thyroid to the left... Thoracic spine: Intravascular contrast is present on the thoracic spine CT. There is no definite acute fracture or traumatic subluxation. There is some mild wedging of T5 which may be developmental or secondary to old trauma. There is a dextroscoliosis of the upper thoracic spine and levoscoliosis of the low thoracic and upper lumbar spine. Anterior marginal spurring is present at multiple levels. There are mild anterolistheses of C7 on T1 and T1 and T2. There are degenerative changes in the thoracic spine. There is central disc bulging at T1-T2. There is a left paracentral disc protrusion at T7-8 there is posterior disc bulging asymmetric to the left at T11-12. There is no spinal canal or foraminal stenosis.There are no aggressive appearing lytic or sclerotic bone lesions. Lumbar spine: There is no fracture of the lumbar spine. Schmorl's nodes are noted at multiple levels. There is an hemangioma within the L1 vertebral body. There is degenerative disc space narrowing at all levels from L1 through L5. Vacuum phenomenon consistent with degenerative disc disease is noted at all levels from L3 through S1. There is a grade 1 degenerative spondylolisthesis of L4 on L5. There are mild retrolisthesis of L1 on L2 and L2 on L3. There is mild spondylosis at all levels from L1 through S1. Mild central canal stenosis and mild bilateral foraminal narrowing are present at L4-5 secondary to the spondylosis, spondylolisthesis, ligament thickening, and facet joint hypertrophy. Moderate facet joint degenerative changes are present at L4-5 with mild facet joint degenerative changes at the other levels. There are oval areas of decreased attenuation within the sacral spinal canal which may represent root sleeve cysts there is an abnormal appearance of the sacrum with ossification involving its posterior aspect extending into the spinal canal at approximately the S3 level. Exact nature of this is uncertain. This may represent old posttraumatic or postsurgical phenomenon. There are degenerative changes of the sacroiliac joints bilaterally. Procedure Note Enio Stubbs MD - 03/28/2022 PROCEDURE: CT HEAD WO CONTRAST, CT FACIAL BONES WO CONTRAST, CT LUMBAR SPINE WO CONTRAST, CT THORACIC SPINE WO CONTRAST, CT CERVICAL SPINE WO CONTRAST, DATE/TIME OF EXAM: 03/27/2022 10:19 PM, LOCATION [facility] INDICATION: Trauma ADDITIONAL CLINICAL INFORMATION: Ordering Provider Reason For Exam: Technologist Note: delayed imaging per rad COMPARISON: None. EXAMINATIONS: CT of the head without intravenous contrast CT of the facial bones without intravenous contrast CT of the cervical spine without intravenous contrast CT of the thoracic spine CT of the lumbar spine TECHNIQUE: CT of the head, facial bones and cervical spine was performed without intravenous contrast according to standard protocol. CT imagesof the thoracic spine and lumbar spine were reformatted from theconcurrently obtained CT scan of the chest, abdomen and pelvis intravenous contrast.CT dose reduction technique was used, including Automated Exposure Control. FINDINGS: Head: There is acute bilateral, diffuse, supratentorial subarachnoidhemorrhage, right greater than left. There is also subdural hematoma along side the left frontal convexity measuring approximately 9 mm in maximumthickness. There is mild mass effect with some sulcal effacement. This subdural hematoma is predominantly hyperdense though there is an isodensecomponent posteriorly. There is also a small amount of acute subdural hematomaalong the anterior aspect of the left side of the falx cerebri measuringroughly 5 mm in maximum thickness. No significant mass effect is produced bythis. There is no evidence of midline shift at the time of this study. The ventricles are within normal limits in size. There is mild sulcal prominence compatible with mild parenchymal volume loss. Patchydecreased attenuation is present within the white matter of the cerebralhemispheres likely related to small vessel disease in a patient of this age. Bone window images are negative for depressed skull fracture. There is a moderate-sized right parietal scalp hematoma. There is a small calcification within the scalp of the upper frontal region to the leftof midline. There is an old right suboccipital craniectomy defect. Craniofacial bones/Soft tissues: There is streak artifact produced by dental restorations obscuring some detail. There is no major facial soft tissue swelling. There is noevidence of, displaced facial bone fracture. There has been previous bilateral cataract extraction. The globesotherwise have a normal appearance. There is no definite retroseptal soft tissue swelling within the orbits. The extraocular muscles, optic nerves, and lacrimal glands are normal. Mild mucous membrane thickening with apossible small air-fluid level is noted in the right sphenoid sinus. Minimalmucous membrane thickening is present in both ethmoid and left sphenoidsinuses. There is pneumatization of both middle turbinates. The paranasal sinuses and tympanomastoid cavities are aerated. Cervical spine: There is no definite acute cervical spine fracture or traumatic subluxation. There is mild wedging of C7 which may be developmental or secondary to old trauma. There is mild reversal of the cervical lordosis which may reflect patient positioning and/or muscle spasm. There is fusion of the C3, C4, and C5 vertebral bodies which may be spontaneous or secondary to previous surgery. There is fusion of theC3-4 facet joints bilaterally and of the right C4-5 facet joint. There ismild to moderate degenerative changes throughout the cervical spine. There is spondylosis at all levels from C3 to through T1. Mild canal narrowing is produced at C4-5 and C5-6. There is no major foraminal narrowing. There is a comminuted fracture of the medial right clavicle. There is prominent adjacent soft tissue swelling/hematoma in the upper anterior chest and low right cervical soft tissues. There is some mass effect produced by this with slight displacement of the trachea and thyroid tothe left... Thoracic spine: Intravascular contrast is present on the thoracic spine CT. There is no definite acute fracture or traumatic subluxation. There is some mild wedging of T5 which may be developmental or secondary to old trauma.There is a dextroscoliosis of the upper thoracic spine and levoscoliosis ofthe low thoracic and upper lumbar spine. Anterior marginal spurring is present at multiple levels. There are mild anterolistheses of C7 on T1 and T1 and T2. There are degenerativechanges in the thoracic spine. There is central disc bulging at T1-T2. There kaleigh left paracentral disc protrusion at T7-8 there is posterior disc bulging asymmetric to the left at T11-12. There is no spinal canal or foraminal stenosis.There are no aggressive appearing lytic or sclerotic bonelesions. Lumbar spine: There is no fracture of the lumbar spine. Schmorl's nodes are noted at multiple levels. There is an hemangioma within the L1 vertebral body.There is degenerative disc space narrowing at all levels from L1 through L5. Vacuum phenomenon consistent with degenerative disc disease is noted atall levels from L3 through S1. There is a grade 1 degenerative spondylolisthesis of L4 on L5. There are mild retrolisthesis of L1 on L2 and L2 on L3. There is mild spondylosis at all levels from L1 throughS1. Mild central canal stenosis and mild bilateral foraminal narrowing are present at L4-5 secondary to the spondylosis, spondylolisthesis,ligament thickening, and facet joint hypertrophy. Moderate facet jointdegenerative changes are present at L4-5 with mild facet joint degenerative changesat the other levels. There are oval areas of decreased attenuation within the sacral spinal canal which may represent root sleeve cysts there is an abnormalappearance of the sacrum with ossification involving its posterior aspect extending into the spinal canal at approximately the S3 level. Exact nature ofthis is uncertain. This may represent old posttraumatic or postsurgical phenomenon. There are degenerative changes of the sacroiliac joints bilaterally. IMPRESSION: Diffuse bilateral subarachnoid hemorrhage. Close interval follow-upstudies are recommended. Subdural hematoma overlying the lateral aspect of the left hemisphere measuring roughly 9 mm in thickness. This is predominantly hyperdensewith an isodense component posteriorly. There is some associated mass effect with effacement of underlying gyri. There is also a small amount ofacute subdural hematoma along the left side of the falx cerebri. Follow-up recommended. Moderate right parietal scalp hematoma. Clinical correlation is recommended. 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 Comminuted fracture of the medial right clavicle with adjacent softtissue swelling/hematoma in the upper thoracic region extending into the lowright cervical soft tissues. Clinical correlation recommended. Please refer to the CT chest report for greater detail. No evidence of definite cervical spine fracture. There are degenerative changes in the cervical spine with some canal narrowing, as detailedabove. No evidence of definite acute thoracic or lumbar spine fracture. Mild degenerative changes in the thoracic spine. Mild degenerative changes in the lumbar spine with spondylosis atmultiple levels. There is mild central canal stenosis at L4-5 secondary to spondylosis, spondylolisthesis, ligamentous thickening, and facet joint hypertrophy. Abnormal appearance of the mid sacrum with focal area of ossification in the region of the sacral spinal canal. This has a chronic nonaggressive appearance and may represent old posttraumatic phenomenon. Clinical correlation is recommended. Follow-up elective sacral imaging is a consideration. Please refer to the separately dictated report of CT scan of the chest, abdomen and pelvis for intrathoracic and intra-abdominal findings. These findings were discussed in detail with the patient's careprovider, Dr. Delacruz by Dr. Callahan via telephone at 10:40 PM on 03/26/2022 with readback comprehension and verification. > Dictated by Clarice Peacock MD (Treasury Analyst)65 I, Enio Stubbs MD have personally reviewed and interpreted this examination/study. > Interpreting Provider: Enio Stubbs MD on 03/28/2022 1:59 PM Nam Ramirez MD CT ORDERABLES * CT CERVICAL SPINE WO CONTRAST - C-Spine Trauma, Spine fracture (03/27/2022 10:16 PM CDT) Anatomical Region Laterality Modality Spine Computed Tomogra phy 03/27/2022 10:3 6 PM CDT Impressions 03/28/2022 1:59 PM CDT IMPRESSION: Diffuse bilateral subarachnoid hemorrhage. Close interval follow-up studies are recommended. Subdural hematoma overlying the lateral aspect of the left hemisphere measuring roughly 9 mm in thickness. This is predominantly hyperdense with an isodense component posteriorly. There is some associated mass effect with effacement of underlying gyri. There is also a small amount of acute subdural hematoma along the left side of the falx cerebri. Follow-up recommended. Moderate right parietal scalp hematoma. Clinical correlation is recommended. 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 Comminuted fracture of the medial right clavicle with adjacent soft tissue swelling/hematoma in the upper thoracic region extending into the low right cervical soft tissues. Clinical correlation recommended. Please refer to the CT chest report for greater detail. No evidence of definite cervical spine fracture. There are degenerative changes in the cervical spine with some canal narrowing, as detailed above. No evidence of definite acute thoracic or lumbar spine fracture. Mild degenerative changes in the thoracic spine. Mild degenerative changes in the lumbar spine with spondylosis at multiple levels. There is mild central canal stenosis at L4-5 secondary to spondylosis, spondylolisthesis, ligamentous thickening, and facet joint hypertrophy. Abnormal appearance of the mid sacrum with focal area of ossification in the region of the sacral spinal canal. This has a chronic nonaggressive appearance and may represent old posttraumatic phenomenon. Clinical correlation is recommended. Follow-up elective sacral imaging is a consideration. Please refer to the separately dictated report of CT scan of the chest, abdomen and pelvis for intrathoracic and intra-abdominal findings. These findings were discussed in detail with the patient's care provider, Dr. Delacruz by Dr. Callahan via telephone at 10:40 PM on 03/26/2022 with readback comprehension and verification. > Dictated by Clarice Peacock MD (Treasury Analyst)65 I, Enio Stubbs MD have personally reviewed and interpreted this examination/study. > Interpreting Provider: Enio Stubbs MD on 03/28/2022 1:59 PM Narrative 03/28/2022 1:59 PM CDT PROCEDURE: CT HEAD WO CONTRAST, CT FACIAL BONES WO CONTRAST, CT LUMBAR SPINE WO CONTRAST, CT THORACIC SPINE WO CONTRAST, CT CERVICAL SPINE WO CONTRAST, DATE/TIME OF EXAM: 03/27/2022 10:19 PM, LOCATION [facility] INDICATION: Trauma ADDITIONAL CLINICAL INFORMATION: Ordering Provider Reason For Exam: Technologist Note: delayed imaging per rad COMPARISON: None. EXAMINATIONS: CT of the head without intravenous contrast CT of the facial bones without intravenous contrast CT of the cervical spine without intravenous contrast CT of the thoracic spine CT of the lumbar spine TECHNIQUE: CT of the head, facial bones and cervical spine was performed without intravenous contrast according to standard protocol. CT images of the thoracic spine and lumbar spine were reformatted from the concurrently obtained CT scan of the chest, abdomen and pelvis intravenous contrast. CT dose reduction technique was used, including Automated Exposure Control. FINDINGS: Head: There is acute bilateral, diffuse, supratentorial subarachnoid hemorrhage, right greater than left. There is also subdural hematoma along side the left frontal convexity measuring approximately 9 mm in maximum thickness. There is mild mass effect with some sulcal effacement. This subdural hematoma is predominantly hyperdense though there is an isodense component posteriorly. There is also a small amount of acute subdural hematoma along the anterior aspect of the left side of the falx cerebri measuring roughly 5 mm in maximum thickness. No significant mass effect is produced by this. There is no evidence of midline shift at the time of this study. The ventricles are within normal limits in size. There is mild sulcal prominence compatible with mild parenchymal volume loss. Patchy decreased attenuation is present within the white matter of the cerebral hemispheres likely related to small vessel disease in a patient of this age. Bone window images are negative for depressed skull fracture. There is a moderate-sized right parietal scalp hematoma. There is a small calcification within the scalp of the upper frontal region to the left of midline. There is an old right suboccipital craniectomy defect. Craniofacial bones/Soft tissues: There is streak artifact produced by dental restorations obscuring some detail. There is no major facial soft tissue swelling. There is no evidence of, displaced facial bone fracture. There has been previous bilateral cataract extraction. The globes otherwise have a normal appearance. There is no definite retroseptal soft tissue swelling within the orbits. The extraocular muscles, optic nerves, and lacrimal glands are normal. Mild mucous membrane thickening with a possible small air-fluid level is noted in the right sphenoid sinus. Minimal mucous membrane thickening is present in both ethmoid and left sphenoid sinuses. There is pneumatization of both middle turbinates. The paranasal sinuses and tympanomastoid cavities are aerated. Cervical spine: There is no definite acute cervical spine fracture or traumatic subluxation. There is mild wedging of C7 which may be developmental or secondary to old trauma. There is mild reversal of the cervical lordosis which may reflect patient positioning and/or muscle spasm. There is fusion of the C3, C4, and C5 vertebral bodies which may be spontaneous or secondary to previous surgery. There is fusion of the C3-4 facet joints bilaterally and of the right C4-5 facet joint. There is mild to moderate degenerative changes throughout the cervical spine. There is spondylosis at all levels from C3 to through T1. Mild canal narrowing is produced at C4-5 and C5-6. There is no major foraminal narrowing. There is a comminuted fracture of the medial right clavicle. There is prominent adjacent soft tissue swelling/hematoma in the upper anterior chest and low right cervical soft tissues. There is some mass effect produced by this with slight displacement of the trachea and thyroid to the left... Thoracic spine: Intravascular contrast is present on the thoracic spine CT. There is no definite acute fracture or traumatic subluxation. There is some mild wedging of T5 which may be developmental or secondary to old trauma. There is a dextroscoliosis of the upper thoracic spine and levoscoliosis of the low thoracic and upper lumbar spine. Anterior marginal spurring is present at multiple levels. There are mild anterolistheses of C7 on T1 and T1 and T2. There are degenerative changes in the thoracic spine. There is central disc bulging at T1-T2. There is a left paracentral disc protrusion at T7-8 there is posterior disc bulging asymmetric to the left at T11-12. There is no spinal canal or foraminal stenosis.There are no aggressive appearing lytic or sclerotic bone lesions. Lumbar spine: There is no fracture of the lumbar spine. Schmorl's nodes are noted at multiple levels. There is an hemangioma within the L1 vertebral body. There is degenerative disc space narrowing at all levels from L1 through L5. Vacuum phenomenon consistent with degenerative disc disease is noted at all levels from L3 through S1. There is a grade 1 degenerative spondylolisthesis of L4 on L5. There are mild retrolisthesis of L1 on L2 and L2 on L3. There is mild spondylosis at all levels from L1 through S1. Mild central canal stenosis and mild bilateral foraminal narrowing are present at L4-5 secondary to the spondylosis, spondylolisthesis, ligament thickening, and facet joint hypertrophy. Moderate facet joint degenerative changes are present at L4-5 with mild facet joint degenerative changes at the other levels. There are oval areas of decreased attenuation within the sacral spinal canal which may represent root sleeve cysts there is an abnormal appearance of the sacrum with ossification involving its posterior aspect extending into the spinal canal at approximately the S3 level. Exact nature of this is uncertain. This may represent old posttraumatic or postsurgical phenomenon. There are degenerative changes of the sacroiliac joints bilaterally. Procedure Note Enio Stubbs MD - 03/28/2022 PROCEDURE: CT HEAD WO CONTRAST, CT FACIAL BONES WO CONTRAST, CT LUMBAR SPINE WO CONTRAST, CT THORACIC SPINE WO CONTRAST, CT CERVICAL SPINE WO CONTRAST, DATE/TIME OF EXAM: 03/27/2022 10:19 PM, LOCATION [facility] INDICATION: Trauma ADDITIONAL CLINICAL INFORMATION: Ordering Provider Reason For Exam: Technologist Note: delayed imaging per rad COMPARISON: None. EXAMINATIONS: CT of the head without intravenous contrast CT of the facial bones without intravenous contrast CT of the cervical spine without intravenous contrast CT of the thoracic spine CT of the lumbar spine TECHNIQUE: CT of the head, facial bones and cervical spine was performed without intravenous contrast according to standard protocol. CT imagesof the thoracic spine and lumbar spine were reformatted from theconcurrently obtained CT scan of the chest, abdomen and pelvis intravenous contrast.CT dose reduction technique was used, including Automated Exposure Control. FINDINGS: Head: There is acute bilateral, diffuse, supratentorial subarachnoidhemorrhage, right greater than left. There is also subdural hematoma along side the left frontal convexity measuring approximately 9 mm in maximumthickness. There is mild mass effect with some sulcal effacement. This subdural hematoma is predominantly hyperdense though there is an isodensecomponent posteriorly. There is also a small amount of acute subdural hematomaalong the anterior aspect of the left side of the falx cerebri measuringroughly 5 mm in maximum thickness. No significant mass effect is produced bythis. There is no evidence of midline shift at the time of this study. The ventricles are within normal limits in size. There is mild sulcal prominence compatible with mild parenchymal volume loss. Patchydecreased attenuation is present within the white matter of the cerebralhemispheres likely related to small vessel disease in a patient of this age. Bone window images are negative for depressed skull fracture. There is a moderate-sized right parietal scalp hematoma. There is a small calcification within the scalp of the upper frontal region to the leftof midline. There is an old right suboccipital craniectomy defect. Craniofacial bones/Soft tissues: There is streak artifact produced by dental restorations obscuring some detail. There is no major facial soft tissue swelling. There is noevidence of, displaced facial bone fracture. There has been previous bilateral cataract extraction. The globesotherwise have a normal appearance. There is no definite retroseptal soft tissue swelling within the orbits. The extraocular muscles, optic nerves, and lacrimal glands are normal. Mild mucous membrane thickening with apossible small air-fluid level is noted in the right sphenoid sinus. Minimalmucous membrane thickening is present in both ethmoid and left sphenoidsinuses. There is pneumatization of both middle turbinates. The paranasal sinuses and tympanomastoid cavities are aerated. Cervical spine: There is no definite acute cervical spine fracture or traumatic subluxation. There is mild wedging of C7 which may be developmental or secondary to old trauma. There is mild reversal of the cervical lordosis which may reflect patient positioning and/or muscle spasm. There is fusion of the C3, C4, and C5 vertebral bodies which may be spontaneous or secondary to previous surgery. There is fusion of theC3-4 facet joints bilaterally and of the right C4-5 facet joint. There ismild to moderate degenerative changes throughout the cervical spine. There is spondylosis at all levels from C3 to through T1. Mild canal narrowing is produced at C4-5 and C5-6. There is no major foraminal narrowing. There is a comminuted fracture of the medial right clavicle. There is prominent adjacent soft tissue swelling/hematoma in the upper anterior chest and low right cervical soft tissues. There is some mass effect produced by this with slight displacement of the trachea and thyroid tothe left... Thoracic spine: Intravascular contrast is present on the thoracic spine CT. There is no definite acute fracture or traumatic subluxation. There is some mild wedging of T5 which may be developmental or secondary to old trauma.There is a dextroscoliosis of the upper thoracic spine and levoscoliosis ofthe low thoracic and upper lumbar spine. Anterior marginal spurring is present at multiple levels. There are mild anterolistheses of C7 on T1 and T1 and T2. There are degenerativechanges in the thoracic spine. There is central disc bulging at T1-T2. There kaleigh left paracentral disc protrusion at T7-8 there is posterior disc bulging asymmetric to the left at T11-12. There is no spinal canal or foraminal stenosis.There are no aggressive appearing lytic or sclerotic bonelesions. Lumbar spine: There is no fracture of the lumbar spine. Schmorl's nodes are noted at multiple levels. There is an hemangioma within the L1 vertebral body.There is degenerative disc space narrowing at all levels from L1 through L5. Vacuum phenomenon consistent with degenerative disc disease is noted atall levels from L3 through S1. There is a grade 1 degenerative spondylolisthesis of L4 on L5. There are mild retrolisthesis of L1 on L2 and L2 on L3. There is mild spondylosis at all levels from L1 throughS1. Mild central canal stenosis and mild bilateral foraminal narrowing are present at L4-5 secondary to the spondylosis, spondylolisthesis,ligament thickening, and facet joint hypertrophy. Moderate facet jointdegenerative changes are present at L4-5 with mild facet joint degenerative changesat the other levels. There are oval areas of decreased attenuation within the sacral spinal canal which may represent root sleeve cysts there is an abnormalappearance of the sacrum with ossification involving its posterior aspect extending into the spinal canal at approximately the S3 level. Exact nature ofthis is uncertain. This may represent old posttraumatic or postsurgical phenomenon. There are degenerative changes of the sacroiliac joints bilaterally. IMPRESSION: Diffuse bilateral subarachnoid hemorrhage. Close interval follow-upstudies are recommended. Subdural hematoma overlying the lateral aspect of the left hemisphere measuring roughly 9 mm in thickness. This is predominantly hyperdensewith an isodense component posteriorly. There is some associated mass effect with effacement of underlying gyri. There is also a small amount ofacute subdural hematoma along the left side of the falx cerebri. Follow-up recommended. Moderate right parietal scalp hematoma. Clinical correlation is recommended. 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 Comminuted fracture of the medial right clavicle with adjacent softtissue swelling/hematoma in the upper thoracic region extending into the lowright cervical soft tissues. Clinical correlation recommended. Please refer to the CT chest report for greater detail. No evidence of definite cervical spine fracture. There are degenerative changes in the cervical spine with some canal narrowing, as detailedabove. No evidence of definite acute thoracic or lumbar spine fracture. Mild degenerative changes in the thoracic spine. Mild degenerative changes in the lumbar spine with spondylosis atmultiple levels. There is mild central canal stenosis at L4-5 secondary to spondylosis, spondylolisthesis, ligamentous thickening, and facet joint hypertrophy. Abnormal appearance of the mid sacrum with focal area of ossification in the region of the sacral spinal canal. This has a chronic nonaggressive appearance and may represent old posttraumatic phenomenon. Clinical correlation is recommended. Follow-up elective sacral imaging is a consideration. Please refer to the separately dictated report of CT scan of the chest, abdomen and pelvis for intrathoracic and intra-abdominal findings. These findings were discussed in detail with the patient's careprovider, Dr. Delacruz by Dr. Callahan via telephone at 10:40 PM on 03/26/2022 with readback comprehension and verification. > Dictated by Clarice Peacock MD (Treasury Analyst)65 I, Enio Stubbs MD have personally reviewed and interpreted this examination/study. > Interpreting Provider: Enio Stubbs MD on 03/28/2022 1:59 PM Nam Ramirez MD CT ORDERABLES * CT FACIAL BONES WO CONTRAST - Facial trauma, fx suspected, blunt (03/27/2022 10:16 PM CDT) Anatomical Region Laterality Modality Head Computed Tomogra phy 03/27/2022 10:3 6 PM CDT Impressions 03/28/2022 1:59 PM CDT IMPRESSION: Diffuse bilateral subarachnoid hemorrhage. Close interval follow-up studies are recommended. Subdural hematoma overlying the lateral aspect of the left hemisphere measuring roughly 9 mm in thickness. This is predominantly hyperdense with an isodense component posteriorly. There is some associated mass effect with effacement of underlying gyri. There is also a small amount of acute subdural hematoma along the left side of the falx cerebri. Follow-up recommended. Moderate right parietal scalp hematoma. Clinical correlation is recommended. 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 Comminuted fracture of the medial right clavicle with adjacent soft tissue swelling/hematoma in the upper thoracic region extending into the low right cervical soft tissues. Clinical correlation recommended. Please refer to the CT chest report for greater detail. No evidence of definite cervical spine fracture. There are degenerative changes in the cervical spine with some canal narrowing, as detailed above. No evidence of definite acute thoracic or lumbar spine fracture. Mild degenerative changes in the thoracic spine. Mild degenerative changes in the lumbar spine with spondylosis at multiple levels. There is mild central canal stenosis at L4-5 secondary to spondylosis, spondylolisthesis, ligamentous thickening, and facet joint hypertrophy. Abnormal appearance of the mid sacrum with focal area of ossification in the region of the sacral spinal canal. This has a chronic nonaggressive appearance and may represent old posttraumatic phenomenon. Clinical correlation is recommended. Follow-up elective sacral imaging is a consideration. Please refer to the separately dictated report of CT scan of the chest, abdomen and pelvis for intrathoracic and intra-abdominal findings. These findings were discussed in detail with the patient's care provider, Dr. Delacruz by Dr. Callahan via telephone at 10:40 PM on 03/26/2022 with readback comprehension and verification. > Dictated by Clarice Peacock MD (Treasury Analyst)65 I, Enio Stubbs MD have personally reviewed and interpreted this examination/study. > Interpreting Provider: Enio Stubbs MD on 03/28/2022 1:59 PM Narrative 03/28/2022 1:59 PM CDT PROCEDURE: CT HEAD WO CONTRAST, CT FACIAL BONES WO CONTRAST, CT LUMBAR SPINE WO CONTRAST, CT THORACIC SPINE WO CONTRAST, CT CERVICAL SPINE WO CONTRAST, DATE/TIME OF EXAM: 03/27/2022 10:19 PM, LOCATION [facility] INDICATION: Trauma ADDITIONAL CLINICAL INFORMATION: Ordering Provider Reason For Exam: Technologist Note: delayed imaging per rad COMPARISON: None. EXAMINATIONS: CT of the head without intravenous contrast CT of the facial bones without intravenous contrast CT of the cervical spine without intravenous contrast CT of the thoracic spine CT of the lumbar spine TECHNIQUE: CT of the head, facial bones and cervical spine was performed without intravenous contrast according to standard protocol. CT images of the thoracic spine and lumbar spine were reformatted from the concurrently obtained CT scan of the chest, abdomen and pelvis intravenous contrast. CT dose reduction technique was used, including Automated Exposure Control. FINDINGS: Head: There is acute bilateral, diffuse, supratentorial subarachnoid hemorrhage, right greater than left. There is also subdural hematoma along side the left frontal convexity measuring approximately 9 mm in maximum thickness. There is mild mass effect with some sulcal effacement. This subdural hematoma is predominantly hyperdense though there is an isodense component posteriorly. There is also a small amount of acute subdural hematoma along the anterior aspect of the left side of the falx cerebri measuring roughly 5 mm in maximum thickness. No significant mass effect is produced by this. There is no evidence of midline shift at the time of this study. The ventricles are within normal limits in size. There is mild sulcal prominence compatible with mild parenchymal volume loss. Patchy decreased attenuation is present within the white matter of the cerebral hemispheres likely related to small vessel disease in a patient of this age. Bone window images are negative for depressed skull fracture. There is a moderate-sized right parietal scalp hematoma. There is a small calcification within the scalp of the upper frontal region to the left of midline. There is an old right suboccipital craniectomy defect. Craniofacial bones/Soft tissues: There is streak artifact produced by dental restorations obscuring some detail. There is no major facial soft tissue swelling. There is no evidence of, displaced facial bone fracture. There has been previous bilateral cataract extraction. The globes otherwise have a normal appearance. There is no definite retroseptal soft tissue swelling within the orbits. The extraocular muscles, optic nerves, and lacrimal glands are normal. Mild mucous membrane thickening with a possible small air-fluid level is noted in the right sphenoid sinus. Minimal mucous membrane thickening is present in both ethmoid and left sphenoid sinuses. There is pneumatization of both middle turbinates. The paranasal sinuses and tympanomastoid cavities are aerated. Cervical spine: There is no definite acute cervical spine fracture or traumatic subluxation. There is mild wedging of C7 which may be developmental or secondary to old trauma. There is mild reversal of the cervical lordosis which may reflect patient positioning and/or muscle spasm. There is fusion of the C3, C4, and C5 vertebral bodies which may be spontaneous or secondary to previous surgery. There is fusion of the C3-4 facet joints bilaterally and of the right C4-5 facet joint. There is mild to moderate degenerative changes throughout the cervical spine. There is spondylosis at all levels from C3 to through T1. Mild canal narrowing is produced at C4-5 and C5-6. There is no major foraminal narrowing. There is a comminuted fracture of the medial right clavicle. There is prominent adjacent soft tissue swelling/hematoma in the upper anterior chest and low right cervical soft tissues. There is some mass effect produced by this with slight displacement of the trachea and thyroid to the left... Thoracic spine: Intravascular contrast is present on the thoracic spine CT. There is no definite acute fracture or traumatic subluxation. There is some mild wedging of T5 which may be developmental or secondary to old trauma. There is a dextroscoliosis of the upper thoracic spine and levoscoliosis of the low thoracic and upper lumbar spine. Anterior marginal spurring is present at multiple levels. There are mild anterolistheses of C7 on T1 and T1 and T2. There are degenerative changes in the thoracic spine. There is central disc bulging at T1-T2. There is a left paracentral disc protrusion at T7-8 there is posterior disc bulging asymmetric to the left at T11-12. There is no spinal canal or foraminal stenosis.There are no aggressive appearing lytic or sclerotic bone lesions. Lumbar spine: There is no fracture of the lumbar spine. Schmorl's nodes are noted at multiple levels. There is an hemangioma within the L1 vertebral body. There is degenerative disc space narrowing at all levels from L1 through L5. Vacuum phenomenon consistent with degenerative disc disease is noted at all levels from L3 through S1. There is a grade 1 degenerative spondylolisthesis of L4 on L5. There are mild retrolisthesis of L1 on L2 and L2 on L3. There is mild spondylosis at all levels from L1 through S1. Mild central canal stenosis and mild bilateral foraminal narrowing are present at L4-5 secondary to the spondylosis, spondylolisthesis, ligament thickening, and facet joint hypertrophy. Moderate facet joint degenerative changes are present at L4-5 with mild facet joint degenerative changes at the other levels. There are oval areas of decreased attenuation within the sacral spinal canal which may represent root sleeve cysts there is an abnormal appearance of the sacrum with ossification involving its posterior aspect extending into the spinal canal at approximately the S3 level. Exact nature of this is uncertain. This may represent old posttraumatic or postsurgical phenomenon. There are degenerative changes of the sacroiliac joints bilaterally. Procedure Note Enio Stubbs MD - 03/28/2022 PROCEDURE: CT HEAD WO CONTRAST, CT FACIAL BONES WO CONTRAST, CT LUMBAR SPINE WO CONTRAST, CT THORACIC SPINE WO CONTRAST, CT CERVICAL SPINE WO CONTRAST, DATE/TIME OF EXAM: 03/27/2022 10:19 PM, LOCATION [facility] INDICATION: Trauma ADDITIONAL CLINICAL INFORMATION: Ordering Provider Reason For Exam: Technologist Note: delayed imaging per rad COMPARISON: None. EXAMINATIONS: CT of the head without intravenous contrast CT of the facial bones without intravenous contrast CT of the cervical spine without intravenous contrast CT of the thoracic spine CT of the lumbar spine TECHNIQUE: CT of the head, facial bones and cervical spine was performed without intravenous contrast according to standard protocol. CT imagesof the thoracic spine and lumbar spine were reformatted from theconcurrently obtained CT scan of the chest, abdomen and pelvis intravenous contrast.CT dose reduction technique was used, including Automated Exposure Control. FINDINGS: Head: There is acute bilateral, diffuse, supratentorial subarachnoidhemorrhage, right greater than left. There is also subdural hematoma along side the left frontal convexity measuring approximately 9 mm in maximumthickness. There is mild mass effect with some sulcal effacement. This subdural hematoma is predominantly hyperdense though there is an isodensecomponent posteriorly. There is also a small amount of acute subdural hematomaalong the anterior aspect of the left side of the falx cerebri measuringroughly 5 mm in maximum thickness. No significant mass effect is produced bythis. There is no evidence of midline shift at the time of this study. The ventricles are within normal limits in size. There is mild sulcal prominence compatible with mild parenchymal volume loss. Patchydecreased attenuation is present within the white matter of the cerebralhemispheres likely related to small vessel disease in a patient of this age. Bone window images are negative for depressed skull fracture. There is a moderate-sized right parietal scalp hematoma. There is a small calcification within the scalp of the upper frontal region to the leftof midline. There is an old right suboccipital craniectomy defect. Craniofacial bones/Soft tissues: There is streak artifact produced by dental restorations obscuring some detail. There is no major facial soft tissue swelling. There is noevidence of, displaced facial bone fracture. There has been previous bilateral cataract extraction. The globesotherwise have a normal appearance. There is no definite retroseptal soft tissue swelling within the orbits. The extraocular muscles, optic nerves, and lacrimal glands are normal. Mild mucous membrane thickening with apossible small air-fluid level is noted in the right sphenoid sinus. Minimalmucous membrane thickening is present in both ethmoid and left sphenoidsinuses. There is pneumatization of both middle turbinates. The paranasal sinuses and tympanomastoid cavities are aerated. Cervical spine: There is no definite acute cervical spine fracture or traumatic subluxation. There is mild wedging of C7 which may be developmental or secondary to old trauma. There is mild reversal of the cervical lordosis which may reflect patient positioning and/or muscle spasm. There is fusion of the C3, C4, and C5 vertebral bodies which may be spontaneous or secondary to previous surgery. There is fusion of theC3-4 facet joints bilaterally and of the right C4-5 facet joint. There ismild to moderate degenerative changes throughout the cervical spine. There is spondylosis at all levels from C3 to through T1. Mild canal narrowing is produced at C4-5 and C5-6. There is no major foraminal narrowing. There is a comminuted fracture of the medial right clavicle. There is prominent adjacent soft tissue swelling/hematoma in the upper anterior chest and low right cervical soft tissues. There is some mass effect produced by this with slight displacement of the trachea and thyroid tothe left... Thoracic spine: Intravascular contrast is present on the thoracic spine CT. There is no definite acute fracture or traumatic subluxation. There is some mild wedging of T5 which may be developmental or secondary to old trauma.There is a dextroscoliosis of the upper thoracic spine and levoscoliosis ofthe low thoracic and upper lumbar spine. Anterior marginal spurring is present at multiple levels. There are mild anterolistheses of C7 on T1 and T1 and T2. There are degenerativechanges in the thoracic spine. There is central disc bulging at T1-T2. There kaleigh left paracentral disc protrusion at T7-8 there is posterior disc bulging asymmetric to the left at T11-12. There is no spinal canal or foraminal stenosis.There are no aggressive appearing lytic or sclerotic bonelesions. Lumbar spine: There is no fracture of the lumbar spine. Schmorl's nodes are noted at multiple levels. There is an hemangioma within the L1 vertebral body.There is degenerative disc space narrowing at all levels from L1 through L5. Vacuum phenomenon consistent with degenerative disc disease is noted atall levels from L3 through S1. There is a grade 1 degenerative spondylolisthesis of L4 on L5. There are mild retrolisthesis of L1 on L2 and L2 on L3. There is mild spondylosis at all levels from L1 throughS1. Mild central canal stenosis and mild bilateral foraminal narrowing are present at L4-5 secondary to the spondylosis, spondylolisthesis,ligament thickening, and facet joint hypertrophy. Moderate facet jointdegenerative changes are present at L4-5 with mild facet joint degenerative changesat the other levels. There are oval areas of decreased attenuation within the sacral spinal canal which may represent root sleeve cysts there is an abnormalappearance of the sacrum with ossification involving its posterior aspect extending into the spinal canal at approximately the S3 level. Exact nature ofthis is uncertain. This may represent old posttraumatic or postsurgical phenomenon. There are degenerative changes of the sacroiliac joints bilaterally. IMPRESSION: Diffuse bilateral subarachnoid hemorrhage. Close interval follow-upstudies are recommended. Subdural hematoma overlying the lateral aspect of the left hemisphere measuring roughly 9 mm in thickness. This is predominantly hyperdensewith an isodense component posteriorly. There is some associated mass effect with effacement of underlying gyri. There is also a small amount ofacute subdural hematoma along the left side of the falx cerebri. Follow-up recommended. Moderate right parietal scalp hematoma. Clinical correlation is recommended. 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 Comminuted fracture of the medial right clavicle with adjacent softtissue swelling/hematoma in the upper thoracic region extending into the lowright cervical soft tissues. Clinical correlation recommended. Please refer to the CT chest report for greater detail. No evidence of definite cervical spine fracture. There are degenerative changes in the cervical spine with some canal narrowing, as detailedabove. No evidence of definite acute thoracic or lumbar spine fracture. Mild degenerative changes in the thoracic spine. Mild degenerative changes in the lumbar spine with spondylosis atmultiple levels. There is mild central canal stenosis at L4-5 secondary to spondylosis, spondylolisthesis, ligamentous thickening, and facet joint hypertrophy. Abnormal appearance of the mid sacrum with focal area of ossification in the region of the sacral spinal canal. This has a chronic nonaggressive appearance and may represent old posttraumatic phenomenon. Clinical correlation is recommended. Follow-up elective sacral imaging is a consideration. Please refer to the separately dictated report of CT scan of the chest, abdomen and pelvis for intrathoracic and intra-abdominal findings. These findings were discussed in detail with the patient's careprovider, Dr. Delacruz by Dr. Callahan via telephone at 10:40 PM on 03/26/2022 with readback comprehension and verification. > Dictated by Clarice Peacock MD (Treasury Analyst)65 Enio Pulido MD have personally reviewed and interpreted this examination/study. > Interpreting Provider: Enio Stubbs MD on 03/28/2022 1:59 PM [address] Ramirez MD CT ORDERABLES * XR PELVIS 1 OR 2VW (03/27/2022 9:53 PM CDT) Anatomical Region Laterality Modality Pelvis Radiographic Geno ging 03/27/2022 10:2 4 PM CDT Impressions 03/28/2022 11:28 AM CDT IMPRESSION: Superior offset of the left pubic symphysis measuring 3 mm greater than the right. Subtle angular deformity of the inferior pubic ramus is better characterized on subsequent CT chest abdomen pelvis dated 03/27/2022 at 2007. These findings may be collectively suggestive of chronic injury. Recommend correlation with point tenderness over the left pubic symphysis to exclude acute injury. Report dictated by Clarice Brown MD (residential leasing manager). STEVEN Pulido MD have personally reviewed and interpreted this examination/study. > Interpreting Provider: STEVEN RAMOS MD on 03/28/2022 11:28 AM Narrative 03/28/2022 11:28 AM CDT PROCEDURE: XR PELVIS 1 OR 2VW, DATE/TIME OF EXAM: 03/27/2022 9:53 PM, LOCATION [facility] INDICATION: Trauma Fracture suspected COMPARISON: CT abdomen and pelvis dated 03/27/2022 FINDINGS: There is mild superior offset of the left pubis measuring up to 3 mm higher than the right. This is persistent on subsequent CT abdomen and pelvis dated 03/27/2022. No acute displaced fracture is identified. Better characterized on the subsequent CT is annular deformity of the anterior inferior pubic ramus, which appears somewhat corticated. The femoral heads appear well-seated within their respective acetabula. The pubic symphysis is intact. The sacroiliac joints are normal. Procedure Note Steven Ramos MD - 03/28/2022 PROCEDURE: XR PELVIS 1 OR 2VW, DATE/TIME OF EXAM: 03/27/2022 9:53 PM, LOCATION [facility] INDICATION: Trauma Fracture suspected COMPARISON: CT abdomen and pelvis dated 03/27/2022 FINDINGS: There is mild superior offset of the left pubis measuring up to 3 mmhigher than the right. This is persistent on subsequent CT abdomen and pelvis dated 03/27/2022. No acute displaced fracture is identified. Better characterized on the subsequent CT is annular deformity of the anterior inferior pubic ramus, which appears somewhat corticated. The femoralheads appear well-seated within their respective acetabula. The pubicsymphysis is intact. The sacroiliac joints are normal. IMPRESSION: Superior offset of the left pubic symphysis measuring 3 mm greater thanthe right. Subtle angular deformity of the inferior pubic ramus is better characterized on subsequent CT chest abdomen pelvis dated 03/27/2022 at 2007. These findings may be collectively suggestive of chronic injury. Recommend correlation with point tenderness over the left pubicsymphysis to exclude acute injury. Report dictated by Clarice Brown MD (residential leasing manager). ISTEVEN MD have personally reviewed and interpreted this examination/study. > Interpreting Provider: STEVEN RAMOS MD on 03/28/2022 11:28 AM Nam Ramirez MD DIAGNOSTIC IMAGING ORDERABLES Care Teams Sock Turner Relationship Specialty Start Date End Date Jordy Connolly MD [address] [facility] [address] [facility] [address] [place] [address] PCP - General Internal Medicine 03/26/22
--- OUTSIDE RECORDS SUMMARY | 2024-09-09 13:45 | XMS_ITS | Clinical Summary ---
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
--- OUTSIDE RECORDS SUMMARY | 2024-09-09 13:45 | XMS_ITS | Referral Summary ---
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
--- OUTSIDE RECORDS SUMMARY | 2024-09-09 13:45 | XMS_ITS | Encounter Summary ---
Author Organization [facility] Address [address] [place] [address] Care Team Providers Care Senior Patrol Agent Name Role Phone Tari Gloria MD Primary Care Provider [phone] Reason for Visit * Reason Onset Date Comments Urine culture 08/21/2022 Encounter Details Date Type Department Care Team ([facility] Contact Info) Description 08/21/2022 Telephone [facility] Oncology and Hematology [facility] [address] [place] [address] Bob Price MD [address] [facility] [address] [place] [address] Urine culture Social History Tobacco Use Types Packs/Day Years Used Date Smoking Tobacco: Never Smokeless Tobacco: Never Alcohol Use Standard Drinks/Week Comments Yes 0 (1 standard drink = 0.6 oz pur e alcohol) Comments No Sex and Gender Information Value Date Recorded Sex Assigned at Not on file Legal Sex Female 8:53 AM RELOCATION DIRECTOR Gender Identity Not on file Sexual Orientation Not on file COVID-19 Exposure Response Date Recorded In the last 10 days, have yo u been in contact with someone who was confirmed or suspected to have Coronavirus/COVID-19? No / Unsure 08/21/2022 11:22 AM RELOCATION DIRECTOR documented as of this encounter Plan of Treatment Upcoming Encounters Date Type Department Care Team ([facility] Contact Info) Description 02/23/2025 1:00 PM CDT Office Visit [facility] Oncology and Hematology [place] [address] [place] [address] Bob Price MD [address] [facility] [address] [place] [address] Scheduled Orders Name Type Priority Associated Diagnoses Orde r Schedule URINE CULTURE Microbiology Routine UTI symptoms Malignant neoplasm of upper-outer quadrant of left breast in female, estrogen receptor positive (CMS/HCC) Expected: 08/21/2022, Expires: 08/21/2023 documented as of this encounter Visit Diagnoses Diagnosis UTI symptoms- Primary Malignant neoplasm of upper-outer quadrant of left breast in female, estrogen receptor positive (CMS/HCC) documented in this encounter Care Teams Senior Patrol Agent Relationship Specialty Start Date End Date Tari Gloria MD [address] [place] [address] [address] [place] [address] PCP - General Family Practice 08/24/24 documented as of this encounter
--- OUTSIDE RECORDS SUMMARY | 2024-09-09 13:45 | XMS_ITS | Referral Summary ---
Author Organization [facility] Address [address] [place] [address] Care Team Providers Care Railways Assistant Name Role Phone Jordy Connolly MD Primary Care Provider [phone] Source Comments [facility],non-owned Affiliates and Associated Physician Practices is amultiple site organization consisting of ambulatory clinics and hospital sitesin [place], [place], [place] and [place]. This disclosure is being madepursuant to the Care Everywhere program and may not contain all information available regarding this patient. Last updated 18.[facility] Encounters Date Type Department Care Team Description 08/03/2024 Refill [facility] - Cardiology [address] [facility], [facility] [address] [place] [address] Jorge Ware MD MEDICATION REFILL from Last 3 Months Allergies Active Allergy Reactions Criticality Noted Date Comments Cefuroxime Nausea and/or Vomiting Low 10/02/2019 Levofloxacin Nausea and/or Vomiting Low 10/02/2019 Morphine Nausea and/or Vomiting Low 10/02/2019 Propofol Nausea and/or Vomiting Low 10/02/2019 Medications * Be aware that medications may not be up to date on this document. Alwaysverify current medications with the patient. Medication Sig Dispensed Refills Start Date End Date Status anastrozole (Arimidex) 1 MG tablet Take 1 (one) tablet by mouth once daily 02/06/2022 Active vitamin E (Tocopheryl) 400 UNIT capsule Take 1 (one) capsule by mouth once daily Active rosuvastatin (Crestor) 10 MG tablet Take 1 (one) Half Tablet by mouth once daily Active Calcium Carb-Cholecalciferol (CALCIUM+D3 PO) Active Blackstone-3 Fatty Acids (fish oil) 500 MG capsule Take by mouth 2 times daily Hold until after DOS Active Multiple Vitamins-Minerals (RA VISION-KENZIE PRESERVE PO) Take 1 tablet by mouth 2 times daily Active FeroSul 325 (65 Fe) MG tablet Take 1 (one) tablet by mouth 2 times daily 01/31/2023 Active Rocklatan 0.02-0.005 % ophthalmic solution 05/31/2023 Active Eliquis 5 MG tablet TAKE 1 TABLET BY MOUTH TWICE DAILY 180 tablet 3 06/24/2023 Active brinzolamide (Azopt) 1 % ophthalmic suspension INSTILL 1 DROP INTO EACH EYE TWICE DAILY 12/04/2023 Active Active Problems Problem Noted Date Diagnosed Date GUY (obstructive sleep apnea) 12/27/2022 Overview (12/27/2022): DIAGNOSTIC STUDY Sleep Architecture: During this diagnostic [...] was not performed. 3. Paroxysmal atrial fibrillation Sleep related hypoxia 12/27/2022 09/02/2022 Essential hypertension 07/24/2022 Glaucoma 07/24/2022 Nocturia more than twice per night 07/24/2022 Restless legs syndrome (RLS) 07/24/2022 Numbness on right side 07/24/2022 Osteopenia 07/24/2022 Inadequate sleep hygiene 07/24/2022 Chronic rhinitis 07/24/2022 Macular degeneration 07/24/2022 Anxiety 07/24/2022 Subdural hematoma 03/27/2022 Malignant neoplasm of left b reast in female, estrogen receptor positive 08/05/2018 Immunizations Name Administration Dates Next Due Bevii primary monoval ent 12+ yr 0.3mL Purple cap 05/17/2021,10/26/2020,10/05/2020 INFLUENZA VACCINE 04/19/2017,05/07/2016 INFLUENZA VACCINE, ADJUVANTE D, QUADR. (FLUAD QUADRIVALENT; 65Y+) (AIIV4) 05/22/2022 INFLUENZA VACCINE, HIGH-DOSE , QUADR. (FLUZONE HIGH-DOSE QUADRIVALENT; 65Y+), 0.7 ML (HD-IIV4) 05/17/2021 PNEUMOCOCCAL PPV VACCINE 05/08/2018 Pneumococcal Pcv13 Conj 04/19/2017 TDAP (7yrs+) 03/27/2022 Social History Tobacco Use Types Packs/Day Years [...] money to buy more. Never true 03/29/20 22 Within the past 12 months, t he [...] Sex Assigned at Female 06/16/2023 6:57 AM TOOL CRIB MANAGER Gender Identity Female 06/16/2023 6:57 AM TOOL CRIB MANAGER Sexual Orientation Straight 06/16/2023 6: 57 AM TOOL CRIB MANAGER Last Filed Vital Signs Vital Sign Reading Time Taken Comments Blood Pressure 152/84 12/19/2023 10:58 AM CDT Pulse 70 12/19/2023 10:58 AM CDT Temperature 36.6 C (97.8 F) 09/21/2022 7:31 AM TOOL CRIB MANAGER Respiratory Rate 20 09/21/2022 7:31 AM TOOL CRIB MANAGER Oxygen Saturation 97% 06/18/2023 10:47 AM TOOL CRIB MANAGER Inhaled Oxygen Concentration - - Weight 61.2 kg (135 lb) 12/19/2023 10:58 AM CDT Height 162.6 cm (5' 4 ) 12/19/2023 10:58 AM CDT Body Mass Index 23.17 12/19/2023 10:58 AM CDT Functional Status Functional Status Response Date of Assess ment Is person deaf or have serious hearing difficult y? No 09/21/2022 Is person blind or have serious difficulty seein g? No 09/21/2022 Does person have serious dif ficulty walking/climbing stairs? No 09/21/2022 Does person have difficulty dressing/bathing? No 09/21/2022 Does person have difficulty doing errands alone? No 09/21/2022 Cognitive Status Response Date of Assessm ent Does person have difficulty concentrating/remembering/making decisions? No 09/21/2022 Plan of Treatment Not on file Medical Devices Implanted Type Area Trigonometry Teacher Device Identifier Shelf Expiration Date Model / Serial / Lot Coil Azur Cx Hdrcl 4cm 3mm Dtch Loop Sld Implanted:Qty: 1 on 03/28/2022 at [facility] 06/04/2026 [id number] / / [id number] Coil Azur Hdrcl 2cm 2mm .018in Dtch Loop Implanted:Qty: 1 on 03/28/2022 at [facility] 06/04/2026 [id number] / / [id number] Coil Azur Hdrcl 2cm 2mm .018in Dtch Loop Implanted:Qty: 1 on 03/28/2022 at [facility] 05/04/2026 [id number] / / [id number] Insurance Payer Benefit Plan / Group Subscriber ID Effective Dates Phone Address Type MEDICARE WPS MEDICARE PART B [id number] 04/05/2004-[place]se [place] [address] [address] [place] [address] Medicare AAR AAR MEDICARE SUPPLEMENT [id number] 08/05/2022-Prese nt [address] [place] [address] Commercial MEDICARE WPS MEDICARE PART B [id number] 04/05/2004-[place]se [place] [address] [address] [place] [address] Medicare AARP AARP MEDICARE SUPPLEMENT [id number] 08/05/2022-Prese nt [address] [place] [address] Commercial MEDICARE WPS MEDICARE PART B [id number] 04/05/2004-Prese nt [address] [address] [place] [address] Medicare AARP AARP MEDICARE SUPPLEMENT [id number] 08/05/2022-Prese nt [address] [place] [address] Commercial MEDICARE WPS MEDICARE PART B [id number] 04/05/2004-[place]se [place] [address] [address] [place] [address] Medicare AARP AARP MEDICARE SUPPLEMENT [id number] 08/05/2022-Prese nt [address] [place] [address] Commercial MEDICARE WPS MEDICARE PART B [id number] 04/05/2004-Prese nt [address] [address] [place] [address] Medicare AARP AARP MEDICARE SUPPLEMENT [id number] 08/05/2022-Prese nt [address] [place] [address] Commercial MEDICARE WPS MEDICARE PART B [id number] 04/05/2004-Prese nt [address] [address] [place] [address] Medicare AARP AARP MEDICARE SUPPLEMENT [id number] 08/05/2022-Prese nt [address] [place] [address] Commercial MEDICARE WPS MEDICARE PART B [id number] 04/05/2004-Prese nt [address] [address] [place] [address] Medicare AARP AARP MEDICARE SUPPLEMENT [id number] 08/05/2022-Prese nt [address] [place] [address] Commercial MEDICARE WPS MEDICARE PART B [id number] 04/05/2004-Prese nt [address] [address] [place] [address] Medicare AARP AARP MEDICARE SUPPLEMENT [id number] 08/05/2022-Prese nt [address] [place] [address] Commercial MEDICARE WPS MEDICARE PART B [id number] 04/05/2004-Prese nt [address] [address] [place] [address] Medicare AARP AARP MEDICARE SUPPLEMENT [id number] 08/05/2022-Prese nt [address] [place] [address] Commercial MEDICARE WPS MEDICARE PART B [id number] 04/05/2004-Prese [place] [address] [address] [place] [address] Medicare AARP AARP MEDICARE SUPPLEMENT [id number] 08/05/2022-Prese nt [address] [place] [address] Commercial MEDICARE WPS MEDICARE PART B [id number] 04/05/2004-Prese nt [address] [address] [place] [address] Medicare AARP AARP MEDICARE SUPPLEMENT [id number] 08/05/2022-Prese nt [address] [place] [address] Commercial MEDICARE WPS MEDICARE PART B [id number] 04/05/2004-Prese [place] [address] [address] [place] [address] Medicare AARP AARP MEDICARE SUPPLEMENT [id number] 08/05/2022-Prese nt [address] [place] [address] Commercial MEDICARE WPS MEDICARE PART B [id number] 04/05/2004-Prese nt [address] [address] [place] [address] Medicare AARP AARP MEDICARE SUPPLEMENT [id number] 08/05/2022-Prese nt [address] [place] [address] Commercial MEDICARE WPS MEDICARE PART B [id number] 04/05/2004-Prese nt [address] [address] [place] [address] Medicare MEDICARE WPS MEDICARE PART B [id number] 04/05/2004-Prese nt [address] [address] [place] [address] Medicare AARP AARP MEDICARE SUPPLEMENT [id number] Effective for all dates [address] [place] [address] Commercial MEDICARE WPS MEDICARE PART B [id number] 04/05/2004-Prese nt [address] [address] [place] [address] Medicare AARP AARP MEDICARE SUPPLEMENT [id number] Effective for all dates [address] [place] [address] Commercial MEDICARE WPS MEDICARE PART B [id number] 04/05/2004-Prese nt [address] [address] [place] [address] Medicare AARP AARP MEDICARE SUPPLEMENT [id number] Effective for all dates [address] [place] [address] Commercial MEDICARE WPS MEDICARE PART B [id number] 04/05/2004-Prese [place] [address] [address] [place] [address] Medicare AARP AARP MEDICARE SUPPLEMENT [id number] Effective for all dates [address] [place] [address] Commercial MEDICARE WPS MEDICARE PART B [id number] 04/05/2004-Prese nt [address] [address] [place] [address] Medicare AARP AARP MEDICARE SUPPLEMENT [id number] Effective for all dates [address] [place] [address] Commercial MEDICARE WPS MEDICARE PART B [id number] 04/05/2004-Prese [place] [address] [address] [place] [address] Medicare AARP AARP MEDICARE SUPPLEMENT [id number] Effective for all dates [address] [place] [address] Commercial MEDICARE WPS MEDICARE PART B [id number] 04/05/2004-Prese nt [address] [address] [place] [address] Medicare AARP AARP MEDICARE SUPPLEMENT [id number] Effective for all dates [address] [place] [address] Commercial MEDICARE WPS MEDICARE PART B [id number] 04/05/2004-Prese nt [address] [address] [place] [address] Medicare AARP AARP MEDICARE SUPPLEMENT [id number] Effective for all dates [address] [place] [address] Commercial MEDICARE WPS MEDICARE PART B [id number] 04/05/2004-Prese nt [address] [address] [place] [address] Medicare AARP AARP MEDICARE SUPPLEMENT [id number] Effective for all dates [address] [place] [address] Commercial MEDICARE WPS MEDICARE PART B [id number] Effective for all dates [address] [address] [place] [address] Medicare AARP AARP MEDICARE SUPPLEMENT [id number] Effective for all dates [address] [place] [address] Commercial MEDICARE WPS MEDICARE PART B [id number] Effective for all dates [address] [address] [place] [address] Medicare AARP AARP MEDICARE SUPPLEMENT [id number] Effective for all dates [address] [place] [address] Commercial MEDICARE WPS MEDICARE PART B [id number] 04/05/2004-Prese nt [address] [address] [place] [address] Medicare AARP AARP MEDICARE SUPPLEMENT [id number] 08/05/2021-Prese nt [address] [place] [address] Commercial MEDICARE WPS MEDICARE PART B [id number] 04/05/2004-Prese [place] [address] [address] [place] [address] Medicare AARP AARP MEDICARE SUPPLEMENT [id number] 08/05/2021-Prese nt [address] [place] [address] Commercial MEDICARE WPS MEDICARE PART B [id number] 04/05/2004-Prese nt [address] [address] [place] [address] Medicare AARP AARP MEDICARE SUPPLEMENT [id number] 08/05/2021-Prese nt [address] [place] [address] Commercial MEDICARE WPS MEDICARE PART B [id number] 04/05/2004-Prese nt [address] [address] [place] [address] Medicare AARP AARP MEDICARE SUPPLEMENT [id number] 08/05/2021-Prese nt [address] [place] [address] Commercial MEDICARE WPS MEDICARE PART B [id number] 04/05/2004-Prese nt [address] [address] [place] [address] Medicare AARP AARP MEDICARE SUPPLEMENT [id number] 08/05/2021-Prese nt [address] [place] [address] Commercial MEDICARE WPS MEDICARE PART B [id number] 04/05/2004-Prese nt [address] [address] [place] [address] Medicare AARP AARP MEDICARE SUPPLEMENT [id number] 08/05/2021-Prese nt [address] [place] [address] Commercial MEDICARE WPS MEDICARE PART B [id number] 04/05/2004-Prese nt [address] [address] [place] [address] Medicare AARP AARP MEDICARE SUPPLEMENT [id number] 08/05/2021-Prese nt [address] [place] [address] Commercial MEDICARE WPS MEDICARE PART B [id number] 04/05/2004-Prese nt [address] [address] [place] [address] Medicare AARP AARP MEDICARE SUPPLEMENT [id number] 08/05/2021-Prese nt [address] [place] [address] Commercial MEDICARE WPS MEDICARE PART B [id number] 04/05/2004-Prese nt [address] [address] [place] [address] Medicare AARP AARP MEDICARE SUPPLEMENT [id number] 08/05/2021-Prese nt [address] [place] [address] Commercial MEDICARE WPS MEDICARE PART B [id number] 04/05/2004-[place]se [place] [address] [address] [place] [address] Medicare AARP AARP MEDICARE SUPPLEMENT [id number] 08/05/2021-Prese nt [address] [place] [address] Commercial MEDICARE WPS MEDICARE PART B [id number] 04/05/2004-Prese nt [address] [address] [place] [address] Medicare AARP AARP MEDICARE SUPPLEMENT [id number] 08/05/2021-Prese nt [address] [place] [address] Commercial MEDICARE WPS MEDICARE PART B [id number] 04/05/2004-Prese nt [address] [address] [place] [address] Medicare AARP AARP MEDICARE SUPPLEMENT [id number] 08/05/2021-Prese nt [address] [place] [address] Commercial MEDICARE WPS MEDICARE PART B [id number] Effective for all dates [address] [address] [place] [address] Medicare AARP AARP MEDICARE SUPPLEMENT [id number] Effective for all dates [address] [place] [address] Commercial AARP AARP MEDICARE SUPPLEMENT [id number] Effective for all dates [address] [place] [address] Commercial MEDICARE MEDICARE PART A AND B [id number] 04/05/2004-Prese nt [address] [place] [address] Medicare AARP AARP MEDICARE SUPPLEMENT [id number] 08/05/2021-Prese nt [address] [place] [address] Commercial MEDICARE WPS MEDICARE PART B [id number] 04/05/2004-Prese nt [address] [address] [place] [address] Medicare MEDICARE WPS MEDICARE PART B [id number] 04/05/2004-Prese nt [address] [address] [place] [address] Medicare MEDICARE WPS MEDICARE PART B [id number] 04/05/2004-Prese nt [address] [address] [place] [address] Medicare MEDICARE WPS MEDICARE PART B [id number] 04/05/2004-Prese nt [address] [address] [place] [address] Medicare Advance Directives * Full Code (Latest Code Status on File) Date Activated Date Inactivated Comments 09/20/2022 7:17 PM 09/21/2022 2:29 PM * Full Code Date Activated Date Inactivated Comments 03/28/2022 12:49 AM 04/03/2022 3:24 PM Care Teams Railways Assistant Relationship Specialty Start Date End Date Jordy Connolly MD [address] [facility] [address] [facility] [address] [place] [address] PCP - General Internal Medicine 03/26/22
--- OUTSIDE RECORDS SUMMARY | 2024-09-09 13:45 | XMS_ITS | Clinical Summary ---
Author Organization [facility] Address [address] [place] [address] Care Team Providers Care Track Grinder Name Role Phone Jordy Connolly MD Primary Care Provider [phone] Source Comments [facility],non-owned Affiliates and Associated Physician Practices is amultiple site organization consisting of ambulatory clinics and hospital sitesin [place], [place], [place] and [place]. This disclosure is being madepursuant to the Care Everywhere program and may not contain all information available regarding this patient. Last updated 18.[facility] Allergies Active Allergy Reactions Criticality Noted Date [...] daily Active Calcium Carb-Cholecalciferol (CALCIUM+D3 PO) Active Means-3 Fatty Acids (fish oil) 500 MG capsule [...] reast in female, estrogen receptor positive 08/05/2018 Encounters Date Type Department Care Team Description 08/03/2024 Refill [facility] - Cardiology [address] [facility], [facility] [address] [place] [address] Jorge Ware MD MEDICATION REFILL from Last 3 Months Immunizations Name Administration Dates Next Due Covid CodeCombat primary monoval ent 12+ yr 0.3mL Purple cap 05/17/2021,10/26/2020,10/05/2020 INFLUENZA VACCINE 04/19/2017,05/07/2016 INFLUENZA VACCINE, ADJUVANTE D, QUADR. (FLUAD QUADRIVALENT; 65Y+) (AIIV4) 05/22/2022 INFLUENZA VACCINE, HIGH-DOSE , QUADR. (FLUZONE HIGH-DOSE QUADRIVALENT; 65Y+), 0.7 ML (HD-IIV4) 05/17/2021 PNEUMOCOCCAL PPV VACCINE 05/08/2018 Pneumococcal Pcv13 Conj 04/19/2017 TDAP (7yrs+) 03/27/2022 Family History Medical History Relation Name Comments CAD (Coronary Artery Disease) Brother Cancer - Other Brother throat CAD (Coronary Artery Disease) Father 51 Dementia Mother 91 Cancer - Breast Sister 1 Arthritis - Osteo Sister 2 Arthritis - Osteo Sister 3 COPD - Chronic Obstructive Pulmonary Disease Sister 4 Relation Name Status Comments Brother Father 51 Mother 91 Sister 1 Sister 2 Alive Sister 3 Alive Sister 4 Alive Social History Tobacco Use Types Packs/Day Years [...] Sex Assigned at Female 06/16/2023 6:57 AM SPECIAL NEEDS NANNY Gender Identity Female 06/16/2023 6:57 AM SPECIAL NEEDS NANNY Sexual Orientation Straight 06/16/2023 6: 57 AM SPECIAL NEEDS NANNY Last Filed Vital Signs Vital Sign Reading Time Taken Comments Blood Pressure 152/84 12/19/2023 10:58 AM CDT Pulse 70 12/19/2023 10:58 AM CDT Temperature 36.6 C (97.8 F) 09/21/2022 7:31 AM SPECIAL NEEDS NANNY Respiratory Rate 20 09/21/2022 7:31 AM SPECIAL NEEDS NANNY Oxygen Saturation 97% 06/18/2023 10:47 AM SPECIAL NEEDS NANNY Inhaled Oxygen Concentration - - Weight 61.2 kg (135 lb) 12/19/2023 10:58 AM CDT Height 162.6 cm (5' 4 ) 12/19/2023 10:58 AM CDT Body Mass Index 23.17 12/19/2023 10:58 AM CDT Plan of Treatment Health Maintenance Due Date Last Done Comments MEDICARE AWV 12 MONTHS 1940 ZOSTER VACCINE (1 of 2) 1989 Respiratory Syncytial Virus (RSV) Vaccine Pt: or over 60 yrs (1 - 1-dose 75+ series) 2014 COVID-19 VACCINE ( season) 2024 06/15/2022, 05/17/2021, 10/26/2020, Additional history exists INFLUENZA VACCINE (#1) 2024 , 05/17/2021, 04/19/2017, Additional history exists DEPRESSION SCREENING 08/05/2024 DTAP/TDAP/TD VACCINES (2 - Td or Tdap) 03/27/2032 03/27/2022 PNEUMOCOCCAL VACCINE 50+ Completed 05/08/2018, 04/05 BONE DENSITY TESTING Completed 08/29/2020 HEPATITIS B VACCINE Aged Out No longe r eligible based on patient's age to complete this topic HIB VACCINE Aged Out No longer eligi ble based on patient's age to complete this topic HPV VACCINE Aged Out No longer eligi ble based on patient's age to complete this topic MENINGOCOCCAL (Group B) VACCINE Aged Out No longer eligible based on patient's age to complete this topic MENINGOCOCCAL VACCINE Aged Out No valentine jaspreet eligible based on patient's age to complete this topic Medical Devices Implanted Type Area Balancer Scale Device Identifier Shelf Expiration Date Model / Serial / Lot Coil Azur Cx Hdrcl 4cm 3mm Dtch Loop Sld Implanted:Qty: 1 on 03/28/2022 at [facility] [employer] [facility] 06/04/2026 [id number] / / [id number] Coil Azur Hdrcl 2cm 2mm .018in Dtch Loop Implanted:Qty: 1 on 03/28/2022 at [facility] 06/04/2026 [id number] / / [id number] Coil Azur Hdrcl 2cm 2mm .018in Dtch Loop Implanted:Qty: 1 on 03/28/2022 at [facility] 05/04/2026 [id number] / / [id number] Insurance Payer Benefit Plan / Group Subscriber ID Effective Dates Phone Address Type MEDICARE WPS MEDICARE PART B [id number] 04/05/2004-[place]se [place] [address] [address] [place] [address] Medicare AARP AARP MEDICARE SUPPLEMENT [id number] 08/05/2022-Prese nt [address] [place] [address] Commercial MEDICARE WPS MEDICARE PART B [id number] 04/05/2004-Prese nt [address] [address] [place] [address] Medicare AARP AARP MEDICARE SUPPLEMENT [id number] 08/05/2022-Prese nt [address] [place] [address] Commercial MEDICARE WPS MEDICARE PART B [id number] 04/05/2004-Prese nt [address] [address] [place] [address] Medicare AARP AARP MEDICARE SUPPLEMENT [id number] 08/05/2022-Prese nt [address] [place] [address] Commercial MEDICARE WPS MEDICARE PART B [id number] 04/05/2004-Prese nt [address] [address] [place] [address] Medicare AARP AARP MEDICARE SUPPLEMENT [id number] 08/05/2022-Prese nt [address] [place] [address] Commercial MEDICARE WPS MEDICARE PART B [id number] 04/05/2004-Prese nt [address] [address] [place] [address] Medicare AARP AARP MEDICARE SUPPLEMENT [id number] 08/05/2022-Prese nt [address] [place] [address] Commercial MEDICARE WPS MEDICARE PART B [id number] 04/05/2004-Prese nt [address] [address] [place] [address] Medicare AARP AARP MEDICARE SUPPLEMENT [id number] 08/05/2022-Prese nt [address] [place] [address] Commercial MEDICARE WPS MEDICARE PART B [id number] 04/05/2004-Prese nt [address] [address] [place] [address] Medicare AARP AARP MEDICARE SUPPLEMENT [id number] 08/05/2022-Prese nt [address] [place] [address] Commercial MEDICARE WPS MEDICARE PART B [id number] 04/05/2004-Prese nt [address] [address] [place] [address] Medicare AARP AARP MEDICARE SUPPLEMENT [id number] 08/05/2022-Prese nt [address] [place] [address] Commercial MEDICARE WPS MEDICARE PART B [id number] 04/05/2004-Prese nt [address] [address] [place] [address] Medicare AARP AARP MEDICARE SUPPLEMENT [id number] 08/05/2022-Prese nt [address] [place] [address] Commercial MEDICARE WPS MEDICARE PART B [id number] 04/05/2004-Prese nt [address] [address] [place] [address] Medicare AARP AARP MEDICARE SUPPLEMENT [id number] 08/05/2022-Prese nt [address] [place] [address] Commercial MEDICARE WPS MEDICARE PART B [id number] 04/05/2004-Prese nt [address] [address] [place] [address] Medicare AARP AARP MEDICARE SUPPLEMENT [id number] 08/05/2022-Prese nt [address] [place] [address] Commercial MEDICARE WPS MEDICARE PART B [id number] 04/05/2004-Prese nt [address] [address] [place] [address] Medicare AARP AARP MEDICARE SUPPLEMENT [id number] 08/05/2022-Prese nt [address] [place] [address] Commercial MEDICARE WPS MEDICARE PART B [id number] 04/05/2004-Prese nt [address] [address] [place] [address] Medicare AARP AARP MEDICARE SUPPLEMENT [id number] 08/05/2022-Prese nt [address] [place] [address] Commercial MEDICARE WPS MEDICARE PART B [id number] 04/05/2004-Prese nt [address] [address] [place] [address] Medicare MEDICARE WPS MEDICARE PART B [id number] 04/05/2004-Prese nt [address] [address] [place] [address] Medicare AARP AARP MEDICARE SUPPLEMENT [id number] Effective for all dates [address] [place] [address] Commercial MEDICARE WPS MEDICARE PART B [id number] 04/05/2004-Prese nt [address] [address] [place] [address] Medicare AARP AARP MEDICARE SUPPLEMENT [id number] Effective for all dates [address] [place] [address] Commercial MEDICARE WPS MEDICARE PART B [id number] 04/05/2004-Prese nt [address] [address] [place] [address] Medicare AARP AARP MEDICARE SUPPLEMENT [id number] Effective for all dates [address] [place] [address] Commercial MEDICARE WPS MEDICARE PART B [id number] 04/05/2004-Prese nt [address] [address] [place] [address] Medicare AARP AARP MEDICARE SUPPLEMENT [id number] Effective for all dates [address] [place] [address] Commercial MEDICARE WPS MEDICARE PART B [id number] 04/05/2004-Prese nt [address] [address] [place] [address] Medicare AARP AARP MEDICARE SUPPLEMENT [id number] Effective for all dates [address] [place] [address] Commercial MEDICARE WPS MEDICARE PART B [id number] 04/05/2004-Prese nt [address] [address] [place] [address] Medicare AARP AARP MEDICARE SUPPLEMENT [id number] Effective for all dates [address] [place] [address] Commercial MEDICARE WPS MEDICARE PART B [id number] 04/05/2004-Prese nt [address] [address] [place] [address] Medicare AARP AARP MEDICARE SUPPLEMENT [id number] Effective for all dates [address] [place] [address] Commercial MEDICARE WPS MEDICARE PART B [id number] 04/05/2004-Prese nt [address] [address] [place] [address] Medicare AARP AARP MEDICARE SUPPLEMENT [id number] Effective for all dates [address] [place] [address] Commercial MEDICARE WPS MEDICARE PART B [id number] 04/05/2004-Prese nt [address] [address] [place] [address] Medicare AARP AARP MEDICARE SUPPLEMENT [id number] Effective for all dates [address] [place] [address] Commercial MEDICARE WPS MEDICARE PART B [id number] Effective for all dates [address] [address] [place] [address] Medicare AARP AARP MEDICARE SUPPLEMENT [id number] Effective for all dates [address] [place] [address] Commercial MEDICARE WPS MEDICARE PART B [id number] Effective for all dates [address] [address] [place] [address] Medicare AARP AARP MEDICARE SUPPLEMENT [id number] Effective for all dates [address] [place] [address] Commercial MEDICARE WPS MEDICARE PART B [id number] 04/05/2004-Prese nt [address] [address] [place] [address] Medicare AARP AARP MEDICARE SUPPLEMENT [id number] 08/05/2021-Prese nt [address] [place] [address] Commercial MEDICARE WPS MEDICARE PART B [id number] 04/05/2004-Prese nt [address] [address] [place] [address] Medicare AARP AARP MEDICARE SUPPLEMENT [id number] 08/05/2021-Prese nt [address] [place] [address] Commercial MEDICARE WPS MEDICARE PART B [id number] 04/05/2004-Prese nt [address] [address] [place] [address] Medicare AARP AARP MEDICARE SUPPLEMENT [id number] 08/05/2021-Prese nt [address] [place] [address] Commercial MEDICARE WPS MEDICARE PART B [id number] 04/05/2004-Prese nt [address] [address] [place] [address] Medicare AARP AARP MEDICARE SUPPLEMENT [id number] 08/05/2021-Prese nt [address] [place] [address] Commercial MEDICARE WPS MEDICARE PART B [id number] 04/05/2004-Prese nt [address] [address] [place] [address] Medicare AARP AARP MEDICARE SUPPLEMENT [id number] 08/05/2021-Prese nt [address] [place] [address] Commercial MEDICARE WPS MEDICARE PART B [id number] 04/05/2004-Prese nt [address] [address] [place] [address] Medicare AARP AARP MEDICARE SUPPLEMENT [id number] 08/05/2021-Prese nt [address] [place] [address] Commercial MEDICARE WPS MEDICARE PART B [id number] 04/05/2004-Prese nt [address] [address] [place] [address] Medicare AARP AARP MEDICARE SUPPLEMENT [id number] 08/05/2021-Prese nt [address] [place] [address] Commercial MEDICARE WPS MEDICARE PART B [id number] 04/05/2004-Prese nt [address] [address] [place] [address] Medicare AARP AARP MEDICARE SUPPLEMENT [id number] 08/05/2021-Prese nt [address] [place] [address] Commercial MEDICARE WPS MEDICARE PART B [id number] 04/05/2004-Prese nt [address] [address] [place] [address] Medicare AARP AARP MEDICARE SUPPLEMENT [id number] 08/05/2021-Prese nt [address] [place] [address] Commercial MEDICARE WPS MEDICARE PART B [id number] 04/05/2004-Prese nt [address] [address] [place] [address] Medicare AARP AARP MEDICARE SUPPLEMENT [id number] 08/05/2021-Prese nt [address] [place] [address] Commercial MEDICARE WPS MEDICARE PART B [id number] 04/05/2004-Prese nt [address] [address] [place] [address] Medicare AARP AARP MEDICARE SUPPLEMENT [id number] 08/05/2021-Prese nt [address] [place] [address] Commercial MEDICARE WPS MEDICARE PART B [id number] 04/05/2004-Prese nt [address] [address] [place] [address] Medicare AARP AARP MEDICARE SUPPLEMENT [id number] 08/05/2021-Prese nt [address] [place] [address] Commercial MEDICARE WPS MEDICARE PART B [id number] Effective for all dates [address] [address] [place] [address] Medicare AARP AARP MEDICARE SUPPLEMENT [id number] Effective for all dates [address] [place] [address] Commercial AARP AARP MEDICARE SUPPLEMENT [id number] Effective for all dates [address] [place] [address] Commercial MEDICARE MEDICARE PART A AND B [id number] 04/05/2004-Prese nt [address] [place] [address] Medicare AARP AARP MEDICARE SUPPLEMENT [id number] 08/05/2021-Prese nt [address] [place] [address] Commercial MEDICARE WPS MEDICARE PART B [id number] 04/05/2004-Prese nt [address] [address] [place] [address] Medicare MEDICARE WPS MEDICARE PART B [id number] 04/05/2004-Prese nt [address] [address] [place] [address] Medicare MEDICARE WPS MEDICARE PART B [id number] 04/05/2004-Prese nt [address] [address] [place] [address] Medicare MEDICARE WPS MEDICARE PART B [id number] 04/05/2004-Prese nt [address] [address] [place] [address] Medicare Advance Directives * Full Code (Latest Code Status on File) Date Activated Date Inactivated Comments 09/20/2022 7:17 PM 09/21/2022 2:29 PM * Full Code Date Activated Date Inactivated Comments 03/28/2022 12:49 AM 04/03/2022 3:24 PM Care Teams Track Grinder Relationship Specialty Start Date End Date Jordy Connolly MD [address] [facility] [address] [place] [address] PCP - General Internal Medicine 03/26/22
--- OUTSIDE RECORDS SUMMARY | 2024-09-09 13:45 | XMS_ITS | Continuity of Care Document ---
Author Organization [facility] Address [address] [facility] [address] [place] [address] Phone Care Team Providers Care Glove Parts Cutter Name Role Phone Kerri Tiffany Unavailable Unavailable Procedures Procedure Date Visual Field Examination-Professional Se Visual Field Examination(s) Office/outpatient Visit, Est Optic Nerve Head Eval IPO Reduced 15% Office/outpatient Visit, Est Optic Nerve Head Eval IPO Reduced 15% Fundus Photography W/ Report Visual Field Examination-Professional Oc Visual Field Examination(s) Eye Exam & Treatment Optic Nerve Head Eval IPO Reduced 15% No Script Refraction Office/outpatient Visit, Est Optic Nerve Head Eval IPO Reduced 15% Dilated Macular Exam Performed 09 Counseling For Antioxidant Supplements F No Script Office/outpatient Visit, Est Optic Nerve Head Eval Eye Exam Established Pt Visual Field Examination-Professional Se p--2007 Visual Field Examination(s) Office/outpatient Visit, Est Optic Nerve Head Eval Eye Exam & Treatment Optic Nerve Head Eval Refraction Fundus Photography W/ Report Visual Field Examination(s) Office/outpatient Visit, Est Office/outpatient Visit, Est Advance Directives Directive Yes / No Effective Date File Name No Information Encounters Encounter Description Practice Location Reason(s) For Visit Diagnoses Date Provider Providers Copied on Encounter [facility], [address] [place] [address] [address], [place], [place], [id number], tel:[phone] [facility] No Information 0 Kerri Allen. [address], [place], [place], [facility], . tel:[phone] Referring Provider: Taiwo quintana, [address] [place], [place] [address], [place], [place], [facility]. tel:[phone] [facility], [address] [place] [address] [address], [place], [place], [address], tel:[phone] [facility] No Information 0 Kerri Cochran [address] , [address], [place], [place], [facility], . tel:[phone] Referring Provider: Taiwo quintana, [address] [place], [place] [address], [place], [place], [facility]. tel:[phone] Office/outpat ient Visit, [facility], [address] [place] [address] [address], [place], [place], [address], [place] tel:[phone] [facility] No Information 0 Jada Maravilla. [address] [place], [place] [address], [place], [place], [facility], . tel:[phone] Office/outpat ient Visit, [facility], [address], [place], [place], [address], [place] tel:[phone] [facility] No Information Patricio-2 9-201 0 Krishnasamy Taiwo. [facility] [address], [facility], [place]. tel:[phone] Referring Provider: Taiwo quintana, [address] [facility] [address], [place], [place], [facility]. tel:[phone] [facility], [address] [place] [address] [address], [place], [place], [address], [place] tel:[phone] [facility] No Information Oct-0 5-200 9 Krishnasamy Taiwo. [facility] [address] [facility] [address], [place], [facility], [place]. tel:[phone] Referring Provider: Taiwo quintana, [facility] Corporate [address], [facility]. tel:[phone] [facility], [address], [place], [place], [address], [place] tel:[phone] [facility] No Information Apr-2 8-200 9 Krishnasamy Taiwo. [facility] [address], [place], [facility], [place]. tel:[phone] Referring Provider: Taiwo quintana, [facility] [address], [facility]. tel:[phone] [facility], [address], [place], [place], [address], [place] tel:[phone] [facility] No Information Feb-0 1-200 9 Krishnasamy Taiwo. [facility] [address] [facility] [address], [place], [facility], [place]. tel:[phone] Office/outpat ient Visit, Est [facility], [address], [place], [place], [address], [place] tel:[phone] [facility] No Information b-2 5-200 9 Krishnasamy Taiwo. [facility] [address], [place], [address], [place]. tel:[phone] Office/outpat ient Visit, Est [facility], [address], [place], [place], [address], [place] tel:[phone] [facility] No Information Oct-2 4-200 8 Krishnasamy Taiwo. [facility] [address], [place], [facility], [place]. tel:[phone] [facility], [address], [place], [place], [address], [place] tel:[phone] [facility] No Information Sep-1 9-200 8 Leiva OD Cayetano. [facility] [address], [place], [facility], [place]. tel:[phone] [facility], [address], [place], [place], [address], [place] tel:[phone] [facility] No Information Sep-1 7-200 8 Krishnasamy Taiwo. [address] [place], [place] [address]ate [facility] [address], [place], [facility], [place]. tel:[phone] Referring Provider: Taiwo quintana, [facility] [address], [place], [facility]. tel:[phone] [facility], [address], [place], [place], [address], [place] tel:[phone] [facility] No Information Sep-1 6-200 8 Krishnasamy Taiwo. [address] [place], [place] [address] [place] [address], [place], [facility], [place]. tel:[phone] Referring Provider: Taiwo quintana, [facility] [address], [place], [address]. tel:[phone] Office/outpat ient Visit, Est [facility], [address], [place], [place], [address], [place] tel:[phone] [facility] No Information 4 8 Jada Maravilla. [address] [facility] [address], [place], [address], [place]. tel:[phone] [facility], [address], [place], [place], [address], [place] tel:[phone] [facility] No Information 8 Jospeh Hancock. [address] [facility] [place], [place], [address], . tel:[phone] Referring Provider: Santi Oh, [address], [address] . tel:[phone] [facility], [address], [place], [place], [address], [place] tel:[phone] [facility] No Information 0-200 7 Wankfernando Hancock. [address], [facility] [place], [address], . tel:[phone] Referring Provider: Santi Oh, [address] [place], [address] . tel:[phone] Office/outpat ient Visit, Est [facility], [address], [place], [place], [address], [place] tel:[phone] [facility] No Information 4[address] 7 Wankum Santi. [address], [address] [place], [address], [place]. tel:[phone] Office/outpat ient Visit, Est [facility], [address], [place], [place], [address], [place] tel:[phone] [facility] No Information 7 Joseph Hancock. [address] [facility], [address], [place], [place], [address], [place]. tel:[phone] Family History Family Member Type Diagnosis Age At Onset No Information Payers Payer name Insurance type Covered green party ID Authoriza tion(s) Medicare [facility] [id number] [facility] Medicare Supp CI [id number] Social History Type Description Quantity Date Captured Comments Sex Female Smoking Status No Information Chief Complaint And Reason For Visit No Information Reason For Referral Reason For Referral No Information History Of Present Illness Encounter Date Complaint History Of Prese nt Illness No Information Functional Status Date Functional Assessmen t No Information Instructions Date Instruction Additional Infor mation No Information Assessments Type Assessment Date No Information Patient Care Teams Name Effective Dates (start - stop) Status Members No Information
--- OUTSIDE RECORDS SUMMARY | 2024-09-09 13:45 | XMS_ITS | Clinical Summary ---
Author Organization [facility] Michaelelvispawel Llamas Address [address] [place] [address] Care Team Providers Care Meter Readers Supervisor Name Role Phone Tari Gloria MD Primary Care Provider [phone] Allergies Active Allergy Reactions Criticality Noted Date Comments Cefuroxime Axetil Nausea and Vomiting Low 0 Levofloxacin Nausea and Vomiting Low 10/02/2019 Morphine Nausea and Vomiting Low 10/02/2019 Propofol Nausea and Vomiting Low 10/02/2019 Medications rosuvastatin (CRESTOR) 20 mg tablet Take 20 mg by mouth daily at bedtime. Active Fish Oil-[place]-3 Fatty Acids (Fish Oil) 360-1,200 mg Capsule Take 1 Capsule by mouth 2 times daily. Active calcium as carbonate (CALTRATE) 1,500 mg (600 mg elemental) Tablet Take 600 mg by mouth 2 times daily. Active vitamin E 400 unit capsule Take 400 Units by mouth daily. Active antiox #8/om3/dha/epa/ lut/zeax (PRESERVISION AREDS 2, OMEGA-3, ORAL) Take by mouth 2 times daily. Active Eliquis 5 mg tablet 06/15/2022 Active diltiaZEM (TIAZAC) 240 mg Extended Release capsule 08/01/2022 Act santiago Rocklatan 0.02-0.005 % Drops 0.02 mg. 01/29/2023 Active anastrozole (ARIMIDEX) 1 mg tabletIndicatio ns:Malignant neoplasm of upper-outer quadrant of left breast in female, estrogen receptor positive (CMS/HCC) take 1 tablet by mouth daily 90 Tablet 3 10/08/2023 Active Active Problems Problem Noted Date Diagnosed Date Malignant neoplasm of left b reast in female, estrogen receptor positive 11/30/2019 Encounters Date Type Department Care Team Description 08/27/2024 External Device Data STL ABSTRACTION Provider, Abstract 08/24/2024 1:15 PM [employer] Office Visit [facility] Oncology and Hematology - [address] [place] [address] Bob Price MD Malignant neoplasm of upper-outer quadrant of left breast in female, estrogen receptor positive (CMS/HCC) (Primary Dx) 08/19/2024 Orders Only [facility] Oncology and Hematology - [place] [place] [phone] Bob Price MD 08/18/2024 Orders Only [facility] Oncology and Hematology - [place] [place] [address] Scanning, Provider from Last 3 Months Family History Medical History Relation Name Comments Cancer Brother Heart Disease Brother Cancer Sister 1 Cancer Sister 2 Relation Name Status Comments Brother Father Mother Sister 1 Sister 2 Alive Sister 3 Alive Sister 4 Alive Social History Tobacco Use Types Packs/Day Years Used Date Smoking Tobacco: Never Smokeless Tobacco: Never Tobacco Cessation:Counseling Given: Not Answered Alcohol Use Standard Drinks/Week Comments Yes 0 (1 standard drink = 0.6 oz pur e alcohol) Comments No Sex and Gender Information Value Date Recorded Sex Assigned at Not on file Legal Sex Female 8:53 AM [employer] SCHO[employer] TE[employer]ER Gender Identity Not on file Sexual Orientation Not on file Last Filed Vital Signs Vital Sign Reading Time Taken Comments Blood Pressure 155/95 08/24/2024 1:13 PM [employer] Pulse 85 08/24/2024 1:06 PM [employer] Temperature 36.4 C (97.5 F) 08/24/2024 1:06 PM [employer]ER Respiratory Rate 15 08/24/2024 1:06 PM [employer]ER Oxygen Saturation 93% 08/24/2024 1:06 PM [employer]ER Inhaled Oxygen Concentration - - Weight 63.5 kg (140 lb) 08/24/2024 1:06 PM [employer] Height 162.6 cm (5' 4 ) 02/18/2023 10:51 AM CDT Body Mass Index 24.03 02/18/2023 10:51 AM CDT Plan of Treatment Upcoming Encounters Date Type Department Care Team (Late st Contact Info) Description 02/23/2025 1:00 PM CDT Office Visit [facility] Oncology and Hematology - [place] [address] [place] [address] Bob Price MD [address] [facility] [address] [place] [address] Health Maintenance Due Date Last Done Comments Traditional Medicare (ACO) A nnual Wellness Visit 1959 ZOSTER VACCINE (1 of 2) 1989 RSV VACCINE (60+ or ) (1 - 1-dose 75+ series) 2014 INFLUENZA VACCINE (#1) 2024 05/22/2022, 2020 COVID-19 Vaccine (4 - 2023-2 5 season) 2024 05/17/2021, 10/26/2020, 10/05/2020 DTAP/TDAP/TD VACCINES (2 - T d or Tdap) 03/27/2032 03/27/2022 PNEUMOCOCCAL VACCINE 65+ YEARS Completed 05/08/2018 , 04/19/2017 OSTEOPOROSIS SCREENING Completed , 08/29/2020, 04/04/2018, Additional history exists Procedures Procedure Name Priority Date/Time Associated Diagnosis Comments CANCER ANTIGEN 15-3 Routine 08/19/2024 1 2:21 PM [employer] COMPREHENSIVE METABOLIC PANEL Routine 08/17/2024 1:25 PM [employer]ER MAMMO SCREENING BILAT Routine 08/17/2024 11:23 AM [employer] TE[employer]ER CBC WITH DIFFERENTIAL Routine 08/17/2024 10:35 AM [employer] TE[employer]ER XR DEXA BONE DENSITY AXIAL 1 OR MORE SITES Routine 08/29/2020 Osteopenia of multiple sites from Last 3 Months or Most Recently Relevant to Health Maintenance Results * CANCER ANTIGEN 15-3 (08/19/2024 12:21 PM [employer]ER) Blood us Bob Price MD CHEMISTRY ORDERABLES Final Resu lt * COMPREHENSIVE METABOLIC PANEL (08/17/2024 1:25 PM [employer]) Blood Bob Price MD CHEMISTRY ORDERABLES Final Resu lt * MAMMO SCREENING BILAT (08/17/2024 11:23 AM [employer]ER) Anatomical Region Laterality Modality Breast Bilateral Other Bob Price MD MAMMO ORDERABLES Final Result * CBC WITH DIFFERENTIAL (08/17/2024 10:35 AM [employer]ER) Blood Provider Scanning HEMATOLOGY ORDERABLES Final Re sult * XR DEXA BONE DENSITY AXIAL 1 OR MORE SITES (08/29/2020) Anatomical Region Laterality Modality Other Bob Price MD DIAGNOSTIC IMAGING ORDERABLES F inal Result from Last 3 Months or Most Recently Relevant to Health Maintenance Insurance MEDICARE PART A AND B [facility] [id number] [place] [address] Care Teams Meter Readers Supervisor Relationship Specialty Start Date End Date Tari Gloria MD [address] [place] [address] [address] [place] [phone] PCP - General Family Practice 08/24/24
--- OUTSIDE RECORDS SUMMARY | 2024-09-09 13:45 | XMS_ITS ---
Author Organization [facility] Address [address] [place] [address] Care Team Providers Care Development Team Lead Name Role Phone Jordy Connolly MD Primary Care Provider [phone] Active Problems Problem Noted Date Diagnosed Date [...] reast in female, estrogen receptor positive 08/05/2018 Current Oncology Plans No current plan information found. Past Plans No past plan information found. Radiation Treatments * No radiation treatments are documented for this patient in [facility]. Treatments may have been administered in another system. Lifetime Dose Tracking * Chemical Lifetime Dose Automatic Entry Manual Entr y Dose Length Product 2,306.8 mGy-cm 2,306.8 mGy-cm 0 mG y-cm Air Kerma 502 mGy 0 mGy 502 mGy
--- OUTSIDE RECORDS SUMMARY | 2024-09-09 13:45 | XMS_ITS | Encounter Summary ---
Author Organization [facility] Address [address] [place] [address] Care Team Providers Care Malted Milk Supervisor Name Role Phone Tari Gloria MD Primary Care Provider [phone] Encounter Details Date Type Department Care Team (Late Contact Info) Description 10/06/2019 Chart Note [facility] Radiation Therapy [address] [place] [address] [place] [address] [place] [address] Social History Tobacco Use Types Packs/Day Years Used Date Smoking Tobacco: Never Smokeless Tobacco: Never Alcohol Use Standard Drinks/Week Comments Yes 0 (1 standard drink = 0.6 oz pur e alcohol) Comments Unknown Sex and Gender Information Value Date Recorded Sex Assigned at Not on file 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 Gender Identity Not on file Sexual Orientation Not on file documented as of this encounter Plan of Treatment Upcoming Encounters Date Type Department Care Team (Late Contact Info) Description 02/23/2025 1:00 PM CDT Office Visit [facility] Oncology and Hematology - [place] [address] [facility] [address] [place] [address] Bob Price MD [address] [facility] [address] [place] [address] documented as of this encounter Visit Diagnoses Not on filedocumented in this encounter Care Teams Malted Milk Supervisor Relationship Specialty Start Date End Date Tari Gloria MD [address] [place] [address] PCP - General Family Practice 08/24/24 documented as of this encounter
== END 2024-09-09 12:48 | disposition home or self-care (01) ==
LOC: ANHIMG 12:48
PROVIDERS: PCP Family Medicine; Visit Provider Student in an Organized Health Care Education/Training Program
DX: Z78.0 Asymptomatic menopausal state (principal); M81.0 Age-related osteoporosis without current pathological fracture; M85.88 Other specified disorders of bone density and structure, other site
CPT/HCPCS: 77080

== ENCOUNTER 2024-09-14 10:21 | Outpatient (CLI) | payer MEDICARE, SELFPAY ==
--- OUTSIDE RECORDS SUMMARY | 2024-09-14 11:16 | XMS_ITS | Encounter Summary ---
Author Organization [facility] Address [address] [place] [address] Care Team Providers Care Tugboat Pilot Name Role Phone Tari Gloria MD Primary Care Provider [phone] Encounter Details Date Type Department Care Team (Late Contact Info) Description 10/06/2019 Chart Note [facility] Radiation Therapy [address] [place] [address] [place] [address] [place] [address] Social History Tobacco Use Types Packs/Day Years Used Date Smoking Tobacco: Never Smokeless Tobacco: Never Alcohol Use Standard Drinks/Week Comments Yes 0 (1 standard drink = 0.6 oz pur e alcohol) Comments Unknown Sex and Gender Information Value Date Recorded Sex Assigned at Not on file 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 Gender Identity Not on file Sexual Orientation Not on file documented as of this encounter Plan of Treatment Upcoming Encounters Date Type Department Care Team (Late Contact Info) Description 02/23/2025 1:00 PM CDT Office Visit [facility] Oncology and Hematology - [place] [address] [facility] [address] [place] [address] Bob Price MD [address] [facility] [address] [place] [address] documented as of this encounter Visit Diagnoses Not on filedocumented in this encounter Care Teams Tugboat Pilot Relationship Specialty Start Date End Date Tari Gloria MD [address] [facility] [address] [place] [address] PCP - General Family Practice 08/24/24 documented as of this encounter
--- OUTSIDE RECORDS SUMMARY | 2024-09-14 11:16 | XMS_ITS | Patient Health Summary ---
Author Organization [facility] Address [address] [place] [address] Care Team Providers Care Artist Color Separation Name Role Phone Jordy Connolly MD Primary Care Provider [phone] Note from [facility],non-owned Affiliates and Associated Physician Practices is amultiple site organization consisting of ambulatory clinics and hospital sitesin [place], [place], [place] and [place]. This disclosure is being madepursuant to the Care Everywhere program and may not contain all information available regarding this patient. Last updated 18.[facility] Allergies * Cefuroxime(Nausea and/or Vomiting) [...] daily * Calcium Carb-Cholecalciferol (CALCIUM+D3 PO) * [place]-3 Fatty Acids (fish oil) 500 MG capsule [...] Sex Assigned at Female 06/16/2023 6:57 AM BUSINESS PROGRAMMER Gender Identity Female 06/16/2023 6:57 AM BUSINESS PROGRAMMER Sexual Orientation Straight 06/16/2023 6: 57 AM BUSINESS PROGRAMMER Last Filed Vital Signs Vital Sign Reading Time Taken Comments Blood Pressure 152/84 12/19/2023 10:58 AM CDT Pulse 70 12/19/2023 10:58 AM CDT Temperature 36.6 C (97.8 F) 09/21/2022 7:31 AM BUSINESS PROGRAMMER Respiratory Rate 20 09/21/2022 7:31 AM BUSINESS PROGRAMMER Oxygen Saturation 97% 06/18/2023 10:47 AM BUSINESS PROGRAMMER Inhaled Oxygen Concentration - - Weight 61.2 kg (135 lb) 12/19/2023 10:58 AM CDT Height 162.6 cm (5' 4 ) 12/19/2023 10:58 AM CDT Body Mass Index 23.17 12/19/2023 10:58 AM CDT Medical Devices Implanted Type Area Real Estate Development Manager Device Identifier Shelf Expiration Date Model / Serial / Lot Coil Azur Cx Hdrcl 4cm 3mm Dtch Loop Sld Implanted:Qty: 1 on 03/28/2022 at [facility] 06/04/2026 [id number] / / [id number] Coil Azur Hdrcl 2cm 2mm .018in Dtch Loop Implanted:Qty: 1 on 03/28/2022 at [facility] 06/04/2026 [id number] / / [id number] Coil Azur Hdrcl 2cm 2mm .018in Dtch Loop Implanted:Qty: 1 on 03/28/2022 at [facility] 05/04/2026 [id number] / / [id number] Procedures * EKG 12-LEAD(Performed 06/18/2023) Performed for [...] fibrillation (HCC) * ACT LR - POCT ([facility])(Performed 09/20/2022) * ACT LR - POCT ([facility])(Performed [...] Performed for Paroxysmal atrial fibrillation (HCC) * WA POLYSOM 6/> YRS 4/> SONIYA(Performed 09/03/2022) Performed for Paroxysmal atrial fibrillation (HCC), GUY (obstructive sleep apnea), Elevated carbon dioxide level, Nocturia more than twice per night, Confusional arousals, Restless legs syndrome (RLS), Numbness on right side, Essential hypertension * LAB RESULTS ORDER(Performed 08/07/2022) * PROC HAIRSPRING STUDDER READ, 14 DAY(Performed 07/27/2022) Performed for Syncope [...] Results * EKG 12-LEAD (06/18/2023 11:31 AM BUSINESS PROGRAMMER) Only the most recent of6 resultswithin the time period is included. Narrative LEANNE OSBORNE - 06/18/2023 11:31 AM BUSINESS PROGRAMMER Kiarra Sinclair MD 06/18/2023 11:31 AM See [...] * CARDIAC EKG ORDER (09/25/2022 2:28 PM BUSINESS PROGRAMMER) Only the most recent of2 resultswithin the time period is included. Narrative 09/25/2022 2:28 PM BUSINESS PROGRAMMER Ordered by an unspecified provider. Scanned Document CARDIAC SERVICES ORD ERABLES * PREPARE (CROSSMATCH) RBC UNIT(S), 4 Units (09/22/2022 1:17 AM BUSINESS PROGRAMMER) Only the most recent of4 resultswithin the time period is included. Pathologist [facility] [place] Unit Description AS1 LR PRBC [facility] Unit ABO O [facility] Unit Rh NEG [facility] Product Number R43 [facility] B LOOD [facility] Unit Donor # [id number] [facility] Unit Status released [facility] BLOO D [facility]ANK [facility] Product Code [id number] [facility] Blood Type Barcode 9500 [facility] Expiration Date S BLOOD BANK LAB Unit Description AS1 LR PRBC [facility] Unit ABO O [facility] Unit Rh POS [facility] Product Number R44 [facility] B LOOD [facility] Unit Donor # [id number] [facility] Unit Status released [facility] Product Code [id number] [facility] BLO OD [facility]ANK LAB Blood Type Barcode 5100 [facility] Expiration Date S BLOOD BANK LAB Blood Bank BLOOD SPECIMEN / Unknown 09/20/2022 6:49 AM BUSINESS PROGRAMMER Kiarra Sinclair MD LAB - BLOOD BANK ORDERABLES [facility] [address] [place] [address], [facility] [phone] * VAS LEFT VENOUS DUPLEX LE (09/21/2022 10:33 AM BUSINESS PROGRAMMER) Anatomical Region Laterality Modality Lower Extremity, Upper Extremity Intravascular Ultrasound 09/21/2022 10:0 8 AM BUSINESS PROGRAMMER Narrative Procedure Note Jw Sevilla MD - 09/22/2022 Kiarra Sinclair MD VASCULAR LAB ORDERABLES * (ABNORMAL) GLUCOSE - POINT OF CARE (09/21/2022 7:31 AM BUSINESS PROGRAMMER) [facility] Glucose WB/POC 124(H) 70 - 115 mg/dL 09/21/2022 7:43 AM [facility] Specimen Type Cap Fingerstick 2022 7:43 AM [facility] Blood BLOOD SPECIMEN / Unknown 09/21/2022 7:31 AM BUSINESS PROGRAMMER 09/21/2022 7:43 AM BUSINESS PROGRAMMER Kiarra Sinclair MD LAB - POINT OF CARE ORDERABLES [facility] [address] [place] [address], [facility] [phone] * (ABNORMAL) CBC W/O DIFFERENTIAL (09/20/2022 7:03 PM [facility]) WBC 10.3 3.5 - 10.5 10 3/uL 09/20/2022 7:05 PM [facility] RBC 3.24(L) 3.80 - 5.20 10 6/uL 09/20/2022 7:05 PM [facility] Hemoglobin 10.1(L) 12.0 - 15.6 g/dL 09/20/2022 7:05 PM [facility] Hematocrit 31.1(L) 35.0 - 45.0 % 09/20/2022 7:05 PM [facility] MCV 96.0 80.7 - 98.3 fL 09/20/2022 7:05 PM [facility] MCH 31.2 26.7 - 34.0 pg 09/20/2022 7:05 PM [facility] MCHC 32.5 30.8 - 35.9 g/dL 09/20/2022 7:05 PM [facility] RDW-SD 52.6(H) 36.0 - 50.0 fL 09/20/2022 7:05 PM [facility] RDW-CV 14.9(H) 11.2 - 14.8 % 09/20/2022 7:05 PM [facility] Platelet Count 356 150 - 400 10 3/uL 09/20/2022 7:05 PM [facility] MPV 10.1 9.4 - 12.9 fL 09/20/2022 7:05 PM BUSINESS PROGRAMMER [facility] nRBC Absolute 0.00 0 10 3/uL 09/20/2022 7:05 PM BUSINESS PROGRAMMER [facility] nR Auto 0.0 0 /100 WBC 09/20/2022 7:05 PM BUSINESS PROGRAMMER [facility] Blood BLOOD SPECIMEN / Unknown Venipuncture / Unknown 09/20/2022 7:03 PM BUSINESS PROGRAMMER 09/20/2022 7:03 PM BUSINESS PROGRAMMER Clarisa Clark MD LAB - HEMATOLOGY ORD ERABLES [facility] [address] [place] [address], [facility] [phone] * CCL ABLATION ATRIAL FIB CRYO (09/20/2022 6:38 PM BUSINESS PROGRAMMER) Anatomical Region Laterality Modality X-Ray Angiograph y Narrative 09/20/2022 11:00 PM BUSINESS PROGRAMMER Conclusion: 1- Successful cryoballoon pulmonary vein isolation [...] in the LFV Through which an 8 Gu[place]an Acunav long ICE probe was advanced into [...] large sheaths in both groins. The 7 Guinean sheath was torn during pulling and was successfully snared from the left groin. There were no complications noted at the . The total duration of the procedure was 94 min, with LA dwell time of 54 min. Total flouro time was 7.5 minutes. Kiarra Sinclair MD CV ELECTROPH YSIOLOGY CUPID PROCS * ACT LR - POCT ([facility]) (09/20/2022 5:04 PM BUSINESS PROGRAMMER) Only the most recent of5 resultswithin the time period is included. ACT LR 330 See result comments sec 09/24/2022 9:54 AM BUSINESS PROGRAMMER [facility] Blood BLOOD SPECIMEN / Unknown 09/20/2022 5:04 PM BUSINESS PROGRAMMER 09/24/2022 9:54 AM BUSINESS PROGRAMMER Narrative [facility] - 09/24/2022 9:54 AM BUSINESS PROGRAMMER ACT-LR Therapeutics ranges are: Cardiac laboratory miller = 200-300 seconds Sheath pull = ACT [...] LAB - COAGUL ATION ORDERABLES [facility] [address] [place] [address], [facility] [phone] * ETT LINE PERFORMABLE (09/20/2022 3:11 PM BUSINESS PROGRAMMER) Narrative Jayme Ryan DO - 09/20/2022 3:11 PM BUSINESS PROGRAMMER Jayme Ryan DO 09/20/2022 3:19 PM Endotracheal Tube Placement: Patient Location: OR. Intubation Event Date/Time: 09/20/2022 3:11 PM Procedure: intubation (34131). Procedure Section: Sedation: under general anesthesia. Indications [...] TYPE + SCREEN PANEL (09/20/2022 6:45 AM BUSINESS PROGRAMMER) Only the most recent of3 resultswithin the time period is included. Antibody Screen POS 7:47 AM BUSINESS PROGRAMMER [facility] ABO Rh O POS 09/20/2022 7:47 AM BUSINESS PROGRAMMER [facility] Blood Bank BLOOD SPECIMEN / Unknown 09/20/2022 6:45 AM BUSINESS PROGRAMMER 09/20/2022 6:49 AM BUSINESS PROGRAMMER Kiarra Sinclair MD LAB - BLOOD BANK ORDERABLES Performing Organization Address City/[facility]/ZIP Co de Phone Number [facility] [address] [place] [address], [facility] [phone] * VANESA DIRECT (09/20/2022 6:45 AM BUSINESS PROGRAMMER) Only the most recent of2 resultswithin the time period is included. Direct Vanesa (SANDRA) NEG 09/20/2022 9:53 AM BUSINESS PROGRAMMER [facility] Blood Bank BLOOD SPECIMEN / Unknown 09/20/2022 6:45 AM BUSINESS PROGRAMMER 09/20/2022 6:49 AM BUSINESS PROGRAMMER Kiarra Sinclair MD LAB - BLOOD BANK ORDERABLES Performing Organization Address City/[facility]/ZIP Co de Phone Number [facility] [address] [place] [address], [facility] [phone] * ANTIBODY IDENTIFICATION (09/20/2022 6:45 AM BUSINESS PROGRAMMER) Only the most recent of2 resultswithin the time period is included. Antibody 1 POS, Anti-NDS (No Discernible Spec) 09/20/2022 9:31 AM BUSINESS PROGRAMMER [facility] Blood Bank BLOOD SPECIMEN / Unknown 09/20/2022 6:45 AM BUSINESS PROGRAMMER 09/20/2022 6:49 AM BUSINESS PROGRAMMER Kiarra Sinclair MD LAB - BLOOD BANK ORDERABLES [facility] [address] [place] [address], [facility] [phone] * WA POLYSOM 6/> YRS 4/> SONIYA (09/03/2022 9:42 AM BUSINESS PROGRAMMER) Narrative Delmar Zhang MD - 09/03/2022 9:42 AM BUSINESS PROGRAMMER Delmar Zhang MD 09/03/2022 9:45 AM [facility] Accredited by the [place] [employer] [facility], First Floor [address] [address] Telephone : [phone] Medical Records Patient Name: Mariia Stanton : 1940 Date of Study: 09/02/2022 Referring Physician: Jordy Connolly MD Type of Montage: Respiratory Scoring System: [facility] FULL NIGHT DIAGNOSTIC POLYSOMNOGRAM INTERPRETATION (09/02/2022) Procedure: The polysomnogram was performed with a cath lab radiological technologist in attendance. Central, occipital, and temporal [...] mouth 2 times daily, Disp: , Rfl: [place]-3 Fatty Acids (fish oil) 500 MG capsule, [...] and manage atrial fibrillation Delmar Zhang MD, [facility], [facility], [facility] [place], [facility] Professor of Internal Medicine Adjunct Electronic Imager of Neurology Division of Pulmonary, Critical Care, and Sleep Medicine [facility] This note was electronically signed on 09/03/2022. CC: Jordy Connolly MD [address] [place] [address] Jordy Connolly MD Yoon Acevedo APEARLE-HEEL SLUGGER PROCEDUR E/MINOR SURGICAL ORDERABLES * LAB RESULTS ORDER (08/07/2022) 08/07/2022 Narrative 08/07/2022 Ordered by an unspecified provider. Scanned Document LAB - THERAPEUTIC DR UG MONITORING ORDERABLES * Holter Read - 14 Day (07/27/2022 5:05 PM BUSINESS PROGRAMMER) Narrative Kiarra Sinclair MD - 07/27/2022 5:05 PM BUSINESS PROGRAMMER Kiarra Sinclair MD 08/02/2022 11:30 PM HOLTER MONITOR REPORT: Patient name: Mariia Stanton Patient : 1940 Patient Age: [age] year old Indication: Syncope and collapse Requesting provider: Kiarra Sinclair MD Study Duration: Test Start 20-Apr-2022 09:08:13 Test End 27-Apr-2022 09:08:13 Test Duration 7d Analysis Duration 6d 23h 47m Summary: 1. Atrial ectopy / premature atrial complexes (PAC) - [id number] supraventricular ectopic beats occurred (9.16 % of [...] based on this study. Kiarra Sinclair MD PROCEDURE/[place] NOR SURGICAL ORDERABLES * Ref to Sleep Specialist - Arlene (07/24/2022 5:43 PM BUSINESS PROGRAMMER) Kiarra Sinclair MD OUTPATIENT R EFERRALS * (ABNORMAL) PT-INR [facility] (07/19/2022 10:12 AM BUSINESS PROGRAMMER) Only the most recent of2 resultswithin the time period is included. PT 16.1(H) 12.1 - 14.8 Seconds 07/19/2022 11:35 AM [facility] INR 1.3 See Comment 07/19/2022 11:35 AM [facility] Comment:The suggested therap eutic range for standard coumadin (warfarin) therapy is an INR of 2.0-3.0. For high-risk patients (Mechanical Mitral Valve Prosthesis, etc.), the suggested prophylactic therapeutic range is an INR of 2.5-3.5. Blood BLOOD SPECIMEN / Unknown Lab Venipuncture / Unknown 07/19/2022 10:12 AM BUSINESS PROGRAMMER 07/19/2022 11:03 AM BUSINESS PROGRAMMER Kiarra Sinclair MD LAB - COAGUL ATION ORDERABLES [facility] [address] [place] [phone] [phone] * (ABNORMAL) CBC W AUTO DIFFERENTIAL (07/19/2022 10:12 AM BUSINESS PROGRAMMER) Only the most recent of19 resultswithin the time period is included. WBC 6.4 3.5 - 10.5 10 3/uL 07/19/2022 11:09 AM [facility] RBC 4.77 3.80 - 5.20 10 6/uL 07/19/2022 11:09 AM [facility] Hemoglobin 14.6 12.0 - 15.6 g/dL 07/19/2022 11:09 AM [facility] Hematocrit 44.1 35.0 - 45.0 % 07/19/2022 11:09 AM [facility] MCV 92.5 80.7 - 98.3 fL 07/19/2022 11:09 AM [facility] MCH 30.6 26.7 - 34.0 pg 07/19/2022 11:09 AM [facility] MCHC 33.1 30.8 - 35.9 g/dL 07/19/2022 11:09 AM [facility] RDW-SD 45.5 36.0 - 50.0 fL 07/19/2022 11:09 AM [facility] RDW-CV 13.3 11.2 - 14.8 % 07/19/2022 11:09 AM [facility] Platelet Count 286 150 - 400 10 3/uL 07/19/2022 11:09 AM [facility] MPV 10.5 9.4 - 12.9 fL 07/19/2022 11:09 AM [facility] nRBC Absolute 0.00 0 10 3/uL 07/19/2022 11:09 AM [facility] nRBC Auto 0.0 0 /100 WBC 07/19/2022 11:09 AM [facility] Neutrophils % 67.5 35.0 - 70.0 % 07/19/2022 11:09 AM [facility] Lymphocytes % 17.7(L) 20.0 - 43.0 % 07/19/2022 11:09 AM [facility] Monocytes % 13.0 5.0 - 13.0 % 07/19/2022 11:09 AM [facility] Eosinophils % 0.9 0.0 - 6.0 % 07/19/2022 11:09 AM [facility] Basophil % 0.6 0.0 - 2.0 % 07/19/2022 11:09 AM [facility] Neutrophils Absolute 4.31 1.60 - 7.00 10 3/uL 07/19/2022 11:09 AM [facility] Lymphocyte Absolute 1.13 1.10 - 3.90 10 3/uL 07/19/2022 11:09 AM [facility] Monocytes Absolute 0.83 0.26 - 1.07 10 3/uL 07/19/2022 11:09 AM [facility] Eosinophils Absolute 0.06 0.00 - 0.47 10 3/uL 07/19/2022 11:09 AM [facility] Basophils Absolute 0.04 0.00 - 0.08 10 3/uL 07/19/2022 11:09 AM [facility] Immature Granulocytes % 0.3 0.0 - 1.0 % 07/19/2022 11:09 AM [facility] Immature Granulocytes Absolute 0.02 07/19/2022 11:09 AM [facility] Blood BLOOD SPECIMEN / Unknown Lab Venipuncture / Unknown 07/19/2022 10:12 AM BUSINESS PROGRAMMER 07/19/2022 11:02 AM BUSINESS PROGRAMMER Kiarra Sinclair MD LAB - HEMATO LOGY ORDERABLES [facility] [address] [place] [address], [facility] [phone] * (ABNORMAL) BASIC METABOLIC PANEL (CALCIUM TOTAL) (07/19/2022 10:12 AM [facility]) Only the most recent of8 resultswithin the time period is included. BUN 14 7 - 26 mg/dL 07/19/2022 11:29 AM [facility] Creatinine 0.75 0.56 - 0.96 mg/dL 07/19/2022 11:29 AM [facility] Sodium 142 136 - 145 mmol/L 07/19/2022 11:29 AM [facility] Potassium 3.7 3.5 - 4.5 mmol/L 07/19/2022 11:29 AM [facility] Chloride 103 98 - 107 mmol/L 07/19/2022 11:29 AM [facility] CO2 30(H) 22 - 29 mmol/L 07/19/2022 11:29 AM [facility] Glucose 92 70 - 115 mg/dL 07/19/2022 11:29 AM [facility] Calcium 9.7 8.4 - 10.2 mg/dL 07/19/2022 11:29 AM [facility] Anion Gap 13 8 - 18 07/19/2022 11:29 AM [facility] BUN/Creatinine Ratio 19 7 - 23 07/19/2022 11:29 AM [facility] Osmolality Calculated 294 270 - 300 mOsm/kg 07/19/2022 11:29 AM [facility] eGFR by CKD-EPI 79(L) >=90 mL/min/1.7 3 m2 07/19/2022 11:29 AM BUSINESS PROGRAMMER [facility] Blood BLOOD SPECIMEN / Unknown Lab Venipuncture / Unknown 07/19/2022 10:12 AM BUSINESS PROGRAMMER 07/19/2022 11:02 AM BUSINESS PROGRAMMER Kiarra Sinclair MD LAB - CHEMIS TRY ORDERABLES [facility] [address] [place] [address], [facility] [phone] * XR CLAVICLE RIGHT 2VW (06/04/2022 11:05 [...] DATE/TIME OF EXAM: 06/04/2022 11:05 AM, LOCATION [facility] INDICATION: S42.001D: Closed displaced fracture of right [...] 2VW, DATE/TIME OF EXAM: 06/04/2022 11:05AM, LOCATION [facility] INDICATION: S42.001D: Closed displaced fracture of right [...] DATE/TIME OF EXAM: 04/23/2022 10:58 AM, LOCATION [facility] INDICATION: S42.001D: Closed displaced fracture of right [...] DATE/TIME OF EXAM: 04/23/2022 10:58 AM, LOCATION [facility] INDICATION: S42.001D: Closed displaced fracture of right [...] DATE/TIME OF EXAM: 04/23/2022 10:50 AM, LOCATION [facility] INDICATION: S42.001D: Closed displaced fracture of right [...] MORE,DATE/TIME OF EXAM: 04/23/2022 10:50 AM, LOCATION [facility] INDICATION: S42.001D: Closed displaced fracture of right [...] > Dictated by Gerry Rodriguez MD (residential concierge) I, Carolyn Robb MD have personally reviewed and interpreted this examination/study. > Interpreting Provider: Carolyn Robb MD on 04/20/2022 5:56 PM Narrative 04/20/2022 5:56 PM CDT PROCEDURE: CT HEAD WO CONTRAST, DATE/TIME OF EXAM: 04/19/2022 1:23 PM, LOCATION [facility] INDICATION: I60.9: SAH (subarachnoid hemorrhage) ADDITIONAL CLINICAL [...] acute calvarial fractures noted. Procedure Note Carolyn oRbb MD - 04/20/2022 PROCEDURE: CT HEAD WO CONTRAST, DATE/TIME OF EXAM: 04/19/2022 1:23 PM, LOCATION [facility] INDICATION: I60.9: SAH (subarachnoid hemorrhage) ADDITIONAL CLINICAL [...] > Dictated by Gerry Rodriguez MD (residential concierge) I, Carolyn Robb MD have personally reviewed and interpreted this examination/study. > Interpreting Provider: Carolyn Robb MD on 04/20/2022 5:56 PM Shae Michelle APRN-[facility] CT ORDERABLES * APHERESIS/TRANSFUSION ORDER (04/03/2022 [...] CDT 04/02/2022 6:14 PM CDT Lenka Alfredo GOAT DRIVER-[facility] LAB - CHEMISTRY O RDERABLES [facility] [address] [place] [address], [facility] [phone] * MAGNESIUM BLOOD (04/02/2022 5:24 PM CDT) Only the most recent of6 resultswithin the time period is included. Magnesium 1.9 1.6 - 2.6 mg/dL 04/02/2022 6:40 PM CDT [facility] Blood BLOOD SPECIMEN / Unknown Lab Venipuncture / Unknown 04/02/2022 5:24 PM CDT 04/02/2022 6:14 PM CDT Lenka Alfredo APRN-HEEL SLUGGER LAB - CHEMISTRY O RDERABLES Performing Organization Address City/[facility]/ZIP Co de Phone Number [facility] [address] [place] [address], [facility] [phone] * (ABNORMAL) CALCIUM IONIZED WHOLE BLOOD (03/31/2022 11:29 PM CDT) Only the most recent of5 resultswithin the time period is included. Calcium Ionized 1.16 mmol/L 03/31/2022 11:40 PM CDT [facility] pH 7.41 7.35 - 7.45 pH 03/31/2022 11:40 PM CDT [facility] Ionized Calcium pH Adjusted 1.16(L) 1.19 - 1.34 mmol/L 03/31/2022 11:40 PM CDT [facility] Blood BLOOD SPECIMEN / Unknown Venipuncture / Unknown 03/31/2022 11:29 PM CDT 03/31/2022 11:34 PM CDT Nam Ramirez MD LAB - CHEMISTRY ORD ERABLES Performing Organization Address City/[facility]/ZIP Co de Phone Number [address] [address], [facility] [phone] * (ABNORMAL) URINALYSIS REFLEX TO MICROSCOPIC NO CULTURE (03/31/2022 5:38 PM CDT) Color UA Yellow Straw, Yellow 03/31/2022 5:55 PM CDT [facility] Clarity UA Slt Cloudy(A) Clear 03/31/2022 5:55 PM CDT [facility] Specific [place] UA 1.008 1.005 - 1.030 03/31/2022 5:55 PM CDT [facility] pH UA 7.0 5.0 - 8.0 pH 03/31/2022 5:55 PM CDT [facility] Protein UA Negative Negative 03/31/2022 5:55 PM CDT [facility] Glucose UA Negative Negative [...] LAB - URINALYSIS O RDERABLES [facility] [address] [place] [phone], [facility] [phone] * PREPARE PLATELET PHERESIS UNIT(S), 1 Units (03/31/2022 1:17 AM CDT) Only the most recent of3 resultswithin the time period is included. Unit Description N/A [facility] Blood Bank BLOOD SPECIMEN / Unknown 03/27/2022 10:47 PM CDT Vitaly Darden MD LAB - BLOOD BANK O SAMIA [facility] [address] [place] [address], [facility] [phone] * (ABNORMAL) TEG 6S PLATELET MAPPING (03/30/2022 3:24 PM CDT) Only the most recent of4 resultswithin the time period is included. [facility] TEGPLM (Max Amplitude) Koalin 64.8 53.0 - [...] Darden MD LAB - HEMATOLOGY O SAMIA [facility] [address] [place] [address], [facility] [phone] * HEMOGLOBIN A1C (03/30/2022 6:22 AM CDT) [...] to evaluate metabolic control in patients. Reference: [place] [employer], Standards of Care in Diabetes [...] - CHEMISTRY O RDERABLES [facility] [address] [place] [address], [facility] [phone] * LIPID PROFILE (03/30/2022 6:22 AM CDT) [...] LAB - CHEMISTRY O RDERABLES [facility] [address] [place] [phone], [facility] [phone] * XR CHEST 1VW PORTABLE (03/30/2022 4:48 AM CDT) Only the most recent of3 resultswithin the time period is included. Anatomical Region Laterality Modality Chest Radiographic Geno ging 03/30/2022 10:0 0 AM CDT Impressions 03/30/2022 11:52 AM CDT IMPRESSION: Vascular congestion/interstitial edema. Mild left base atelectasis/airspace disease. No pneumothorax. > Dictated by Rupa Evangelista MD (international affairs vice president). I, Jacquie Juan MD have personally reviewed and interpreted this examination/study. > Interpreting Provider: Jacquie Juan MD on 03/30/2022 11:52 AM Narrative 03/30/2022 11:52 AM CDT EXAMINATION: XR CHEST 1VW PORTABLE DATE/TIME OF EXAM: 03/30/2022 4:48 AM, LOCATION [facility] HISTORY: S27.0XXA: Traumatic pneumothorax, initial encounter pneumothorax [...] DATE/TIME OF EXAM: 03/30/2022 4:48 AM, [facility]ATION [facility] [facility] HISTORY: S27.0XXA: Traumatic pneumothorax, initial encounterpneumothorax COMPARISON: [...] pneumothorax. > Dictated by Rupa Evangelista MD (international affairs vice president). I, Jacquie Juan MD have personally reviewed and interpreted this examination/study. > Interpreting Provider: Jacquie Juan MD on 03/30/2022 11:52 AM Vitaly Darden MD DIAGNOSTIC IMAGING ORDERABLES * (ABNORMAL) URINALYSIS W/MICROSCOPIC NO CULTURE (03/30/2022 2:10 AM CDT) Color UA Straw Straw, Yellow 03/30/2022 2:18 AM CDT [facility] Clarity UA Clear Clear 03/30/2022 2:18 AM CDT [facility] Specific [place] UA 1.009 1.005 - 1.030 03/30/2022 2:18 AM CDT [facility] pH UA 6.0 5.0 - 8.0 pH 03/30/2022 2:18 AM CDT [facility] Protein UA Negative Negative 03/30/2022 2:[address] [facility] Glucose UA Negative Negative 03/30/2022 2:18 AM T [facility] Ketone UA Negative Negative 03/30/2022 2:18 AM [facility] Bilirubin UA Negative Negative 03/30/2022 2:18 AM T [facility] Blood UA Negative Negative 03/30/2022 2:18 AM T [facility] Nitrite UA Negative Negative 03/30/2022 2:18 AM [facility] Leukocyte Esterase Negative Negative 03/30/2022 2:18 AM [facility] Urobilinogen UA Negative Negative mg/dL 03/30/2022 2:18 AM T [facility] RBC UA 0-2 None Seen, 0-2, 3-5 /HPF 03/30/2022 2:18 AM [facility] WBC UA 0-5 None Seen, 0-5 /HPF 03/30/2022 2:18 AM [facility] Bacteria UA Trace(A) None /HPF 03/30/2022 2:18 AM [facility] Squamous Epithelial Cells UA None Seen None Seen, 0-2, 3-5 /HPF 03/30/2022 2:18 AM [facility] Urine URINE SPECIMEN OBTAINED BY CLEAN CATCH PROCEDURE / Unknown Collection / Unknown 03/30/2022 2:10 AM CDT 03/30/2022 2:12 AM CDT [facility] - 03/30/2022 2:18 AM CDT Sebastián Anaya PA-C LAB - URINALYSIS ORDERABLES [facility] [address] [place] [address], [facility] [phone] * TEG 6 GLOBAL HEMOSTASIS W/ LYSIS [...] - HEMATOLOGY O RDERABLES Performing Organization Address City/[facility]/ZIP Co de Phone Number [address] [address], [place] [phone] * LACTIC ACID BLOOD (03/29/2022 12:30 AM CDT) Only the most recent of2 resultswithin the time period is included. Lactic Acid-Stat 0.9 <=2.0 mmol/L 03/29/2022 1:04 AM CDT [facility] Blood BLOOD SPECIMEN / Unknown Venipuncture / Unknown 03/29/2022 12:30 AM CDT 03/29/2022 12:38 AM CDT Vitaly Darden MD LAB - CHEMISTRY OR DERABLES [address] [address], [place] [phone] * TRANSFUSE RED BLOOD CELL LEUKOREDUCED UNIT(S) (03/28/2022 4:09 PM CDT) Vitaly Darden MD NURSING - BLOOD WA OD TRANSFUSION * TRANSFUSE PLATELET PHERESIS UNIT(S) (03/28/2022 3:13 PM CDT) Nam Ramirez MD NURSING - BLOOD PRO D TRANSFUSION * (ABNORMAL) BLOOD GASES JARRET + COOX PANEL (03/28/2022 11:49 AM T) pH Venous 7.27(L) 7.32 - 7.42 pH 03/28/2022 12:05 PM [facility] pO2 Venous 23(L) 35 - 40 mmHg 03/28/2022 12:05 PM [facility] pCO2 Venous 50 40 - 50 mmHg 03/28/2022 12:05 PM [facility] HCO3 Venous 23.0 20 - 30 mmol/L 03/28/2022 12:05 PM [facility] Base Excess Venous -3.8(L) -2.0 - 2.0 mmol/L 03/28/2022 12:05 PM [facility] Oxyhemoglobin Venous 40.0 % 03/06 12:05 PM [facility] Deoxyhemoglobin (HHB) Venous % 59.3 % 03/28/2022 12:05 PM [facility] Methemoglobin <0.8 0.0 - 2.0 % 03/28/2022 12:05 PM [facility] Carboxyhemoglobin 0.6 0.0 - 2.0 % 2021 12:05 PM [facility] O2 Content Venous 4.4 Interpret within clinical context mg/dL 03/28/2022 12:05 PM [facility] Hemoglobin by COOX 7.7(L) 12.0 - 15.6 g/dL 03/28/2022 12:05 PM [facility] O2 Saturation Venous 40(L) >=70 % 03/06 12:05 PM [facility] FI O2 Mixed Venous 21.0 % 2021 12:05 PM [facility] Blood BLOOD SPECIMEN / Unknown Venipuncture / Unknown 03/28/2022 11:49 AM CDT 03/28/2022 11:53 AM [facility] - 03/28/2022 12:05 PM [facility] Carboxyhemoglobin Normal Concentration: Non-smokers: 0-2%; Smokers: 0-9%; Toxic: >20% Vitaly Darden MD LAB - BLOOD GASES ORDERABLES [facility] [place] [address], [facility] [phone] * XR TIBIA FIBULA RIGHT 2VW (03/28/2022 8:43 AM CDT) Anatomical Region Laterality Modality Lower Extremity Radiographic Geno ging 03/28/2022 11:3 6 AM CDT Impressions 03/28/2022 10:24 PM CDT IMPRESSION: No acute fracture or dislocation identified. > Dictated by Rupa Evangelista MD (international affairs vice president). I, Cristhian Alanis MD have personally reviewed and interpreted this examination/study. > Interpreting Provider: Cristhian Alanis MD on 03/28/2022 10:24 PM Narrative 03/28/2022 10:24 PM CDT EXAMINATION: XR KNEE RIGHT 2VW, XR TIBIA FIBULA RIGHT 2VW DATE/TIME OF EXAM: 03/28/2022 8:42 AM, LOCATION [facility] HISTORY: W10.8XXA: Fall (on) (from) other stairs [...] DATE/TIME OF EXAM: 03/28/2022 8:42 AM, LOCATION [facility] HISTORY: W10.8XXA: Fall (on) (from) other stairs [...] fracture or dislocation identified. > Dictated by uRpa Evangelista MD (international affairs vice president). Cristhian Pulido MD have personally reviewed and [...] identified. > Dictated by Rupa Evangelista MD (international affairs vice president). Cristhian Pulido MD have personally reviewed and interpreted this examination/study. > Interpreting Provider: Cristhian Alanis MD on 03/28/2022 10:24 PM Narrative 03/28/2022 10:24 PM CDT EXAMINATION: XR KNEE RIGHT 2VW, XR TIBIA FIBULA RIGHT 2VW DATE/TIME OF EXAM: 03/28/2022 8:42 AM, [facility] HISTORY: W10.8XXA: Fall (on) (from) other [...] DATE/TIME OF EXAM: 03/28/2022 8:42 AM, LOCATION [facility] HISTORY: W10.8XXA: Fall (on) (from) other stairs [...] identified. > Dictated by Rupa Evangelista MD (international affairs vice president). I, Cristhian Alanis MD have personally reviewed and interpreted this examination/study. > Interpreting Provider: Cristhian Alanis MD on 03/28/2022 10:24 PM Harvey Stcay MD DIAGNOSTIC IMAGING O RDERABLES * URINE DRUG SCREEN IMMUNOASSAY (03/28/2022 6:15 AM CDT) [facility] Amphetamines Screen Urine Negative Negative: < 1000 ng/mL 03/28/2022 6:40 AM [facility] Barbiturates Screen Urine Negative Negative: < 200 ng/mL 03/28/2022 6:40 AM [facility] Benzodiazepine Screen Urine Negative Negative: < 200 ng/mL 03/28/2022 6:40 AM [facility] Opiates Urine Negative Negative: < 300 ng/mL 03/28/2022 6:40 AM [facility] Cocaine Metabolites Urine Negative Negative: < 300 ng/mL 03/28/2022 6:40 AM [facility] Phencyclidine Screen Urine Negative Negative: < 25 ng/ml 03/28/2022 6:40 AM [facility] Cannabinoids Screen Urine Negative Negative: <50 ng/mL 03/28/2022 6:40 AM [facility] Methadone Screen Urine Negative Negative: < 300 ng/mL 03/28/2022 6:40 AM [facility] Fentanyl Screen Urine Negative Negative: <1.5 ng/mL 03/28/2022 6:40 AM [facility] Urine URINE / Unknown Collection / Unknown 03/28/2022 6:15 AM CDT 03/28/2022 6:20 AM CDT Narrative [facility] - 03/28/2022 6:40 AM CDT The Urine Toxicology Screening Panel does not screen for Propoxyphene, Meprobamate, Carisoprodol, Trazodone, rxmp-wfe-tflobad medications and/or volatiles (Acetone, Isopropanol, Methanol or Ethylene Glycol). Ethanol, Salicylate, Acetaminophen, Tricyclic Antidepressants and several therapeutic drugs may be individually assayed in serum or plasma specimen. Toxicology testing by the [facility] is an aid to medical diagnosis and treatment of patients. No documented chain of custody was maintained. Results are intended to be used for clinical purposes only. Nam Ramirez MD LAB - URINE MUCK MINER RY ORDERABLES [facility] [address] [place] [address], [facility] [phone] * (ABNORMAL) COMPREHENSIVE METABOLIC PANEL (03/28/2022 6:03 AM CDT) BUN 20 7 - 26 mg/dL 03/28/2022 6:57 AM [facility] Creatinine 0.98(H) 0.56 - 0.96 mg/dL 03/28/2022 6:57 AM [facility] Sodium 141 136 - 145 mmol/L 03/28/2022 6:57 AM [facility] Potassium 4.0 3.5 - 4.5 mmol/L 03/28/2022 6:57 AM [facility] Chloride 107 98 - 107 mmol/L 03/28/2022 6:57 AM [facility] CO2 24 22 - 29 mmol/L 03/28/2022 6:57 AM [facility] Glucose 136(H) 70 - 115 mg/dL 03/28/2022 6:57 AM [facility] Calcium 8.2(L) 8.4 - 10.2 mg/dL 03/28/2022 6:57 AM [facility] Protein Total 4.9(L) 6.0 - 8.3 g/dL 03/28/2022 6:57 AM [facility] Albumin 2.7(L) 3.4 - 5.0 g/dL 03/28/2022 6:57 AM [facility] Bilirubin Total 1.3(H) 0.2 - 1.2 mg/dL 03/28/2022 6:57 AM [facility] Alkaline Phosphatase 47 40 - 150 U/L 03/28/2022 6:57 AM [facility] ALT 27 5 - 55 U/L 03/28/2022 6:57 AM [facility] AST 35(H) 5 - 34 U/L 03/28/2022 6:57 AM [facility] Anion Gap 14 8 - 18 03/28/2022 6:57 AM [facility] BUN/Creatinine Ratio 20 7 - 23 03/28/2022 6:57 AM [facility] Osmolality Calculated 297 270 - 300 mOsm/kg 03/28/2022 6:57 AM [facility] Albumin/Globulin Ratio 1.2 1.1 - 2.3 03/28/2022 6:57 AM [facility] eGFR by CKD-EPI 58(L) >=90 mL/min/1.7 3 m2 03/28/2022 6:57 AM [facility] Blood BLOOD SPECIMEN / Unknown Venipuncture / Unknown 03/28/2022 6:03 AM CDT 03/28/2022 6:22 AM CDT Sebastián Anaya PA-C LAB - CHEMISTRY O RDERABLES Performing Organization Address [facility]/State/[facility] Co de Phone Number [facility] [address] [place] [phone], [facility] [phone] * XR FOOT RIGHT 3VW OR MORE (03/28/2022 5:50 AM CDT) Anatomical Region Laterality Modality Ankle / Foot Radiographic Geno ging 03/28/2022 11:1 7 AM CDT Impressions 03/28/2022 10:15 PM CDT IMPRESSION: No acute fracture or dislocation of foot identified. Report dictated by Rupa Evangelista MD (international affairs vice president). I, Cristhian Alanis MD have personally reviewed and interpreted this examination/study. > Interpreting Provider: Cristhian Alanis MD on 03/28/2022 10:15 PM Narrative 03/28/2022 10:15 PM CDT EXAMINATION: XR FOOT RIGHT 3 views DATE/TIME OF EXAM: 03/28/2022 5:50 AM, LOCATION [facility] HISTORY: W10.8XXA: Fall (on) (from) other stairs [...] DATE/TIME OF EXAM: 03/28/2022 5:50 AM, LOCATION [facility] HISTORY: W10.8XXA: Fall (on) (from) other stairs and steps, initial encounter concern for fracture COMPARISON: No prior study is available for comparison. FINDINGS: No acute fracture or dislocation. Hammertoe deformity of the second toe. The joint spaces are preserved. Mild diffuse osteopenia No soft tissue swelling is present. IMPRESSION: No acute fracture or dislocation of foot identified. Report dictated by Rupa Evangelista MD (international affairs vice president). Cristhian Pulido MD have personally reviewed and [...] identified. > Dictated by Rupa Evangelista MD (international affairs vice president). Cristhian Pulido MD have personally reviewed and interpreted this examination/study. > Interpreting Provider: Cristhian Alanis MD on 03/28/2022 10:14 PM Narrative 03/28/2022 10:14 PM CDT EXAMINATION: XR TIBIA FIBULA LEFT 2VW DATE/TIME OF EXAM: 03/28/2022 5:50 AM, LOCATION [facility] HISTORY: concern for fracture COMPARISON: No prior study is available for comparison. FINDINGS: The tibia and fibula are intact without evidence of acute fracture. Bone density and texture are normal. No soft tissue swelling is present. Procedure Note Cristhian Alanis MD - 03/28/2022 EXAMINATION: XR TIBIA FIBULA LEFT 2VW DATE/TIME OF EXAM: 03/28/2022 5:50 AM, LOCATION [facility] HISTORY: concern for fracture COMPARISON: No prior study is available for comparison. FINDINGS: The tibia and fibula are intact without evidence of acute fracture. Bone density and texture are normal. No soft tissue swelling is present. IMPRESSION: No acute tibial or fibular fracture identified. > Dictated by Rupa Evangelista MD (international affairs vice president). Cristhian Pulido MD have personally reviewed and [...] identified. Report dictated by Rupa Evangelista MD (international affairs vice president). Cristhian Pulido MD have personally reviewed and interpreted this examination/study. > Interpreting Provider: Cristhian Alanis MD on 03/28/2022 10:13 PM Narrative 03/28/2022 10:13 PM CDT EXAMINATION: XR KNEE LEFT 3 views DATE/TIME OF EXAM: 03/28/2022 5:50 AM, LOCATION [facility] HISTORY: W10.8XXA: Fall (on) (from) other stairs [...] DATE/TIME OF EXAM: 03/28/2022 5:50 AM, LOCATION [facility] HISTORY: W10.8XXA: Fall (on) (from) other stairs [...] identified. Report dictated by Rupa Evangelista MD (international affairs vice president). Cristhian Pulido MD have personally reviewed and [...] identified. Report dictated by Rupa Evangelista MD (international affairs vice president). Cristhian Pulido MD have personally reviewed and interpreted this examination/study. > Interpreting Provider: Cristhian Alanis MD on 03/28/2022 10:15 PM Narrative 03/28/2022 10:15 PM CDT EXAMINATION: XR FEMUR RIGHT 2VW DATE/TIME OF EXAM: 03/28/2022 5:50 AM, LOCATION [facility] HISTORY: W10.8XXA: Fall (on) (from) other stairs [...] DATE/TIME OF EXAM: 03/28/2022 5:50 AM, LOCATION [facility] HISTORY: W10.8XXA: Fall (on) (from) other stairs [...] identified. Report dictated by Rupa Evangelista MD (international affairs vice president). Cristhian Pulido MD have personally reviewed and [...] described above. > Dictated by Beatriz Arteaga (Manager Gallery) 03/28/2022 4:04 AM Karthik Pulido MD have personally reviewed and interpreted this examination/study. > Interpreting Provider: Karthik Magallanes MD on 04/06/2022 1:27 PM Narrative 04/06/2022 1:27 PM CDT History: 81 year oldfemalewith unknown history who presented after ground level fall down 15 stairs. She received 1 unit pRBCs and 1 unit FFP in the field and was brought to [facility] ED. Work-up is significant for CT [...] documented. Following a series of exchanges, a 5-Guinean vascular sheath was placed. The right common iliac artery was selectively catheterized with a 4-Guinean Glidecath catheter and angiogram was obtained, which demonstrated no evidence of active contrast extravasation or acute arterial injury. The right external iliac artery was selectively catheterized with the 4-Guinean Glidecath catheter and angiogram was obtained, which demonstrated small contrast blush arising from a branch off the femoral profunda artery. The right common femoral artery was selectively catheterized with the 4-[place]inean Glidecath catheter. Subsequently, the right femoral profunda artery and the right lateral circumflex artery were selectively catheterized with a 2.4-Guinean Progreat microcatheter and angiogram was obtained, which [...] brachiocephalic trunk was selectively catheterized with the 5-[place]inean [place] catheter and angiogram was obtained, which demonstrated normal arterial anatomy. 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 The thyrocervical trunk was selectively catheterized with the 2.5-Guinean Progreat microcatheter and angiogram was obtained, which [...] FFP inthe field and was brought to [facility] ED. Work-up is significant for CT [...] was documented. Following aseries of exchanges, a 5-Guinean vascular sheath was placed. The right common iliac artery was selectively catheterized with a4-Guinean Glidecath catheter and angiogram was obtained, which demonstrated no evidence of active contrast extravasation or acute arterial injury. The right external iliac artery was selectively catheterized with the 4-Guinean Glidecath catheter and angiogram was obtained, whichdemonstrated small contrast blush arising from a branch off the femoral profundaartery. The right common femoral artery was selectively catheterized with the 4-Guinean Glidecath catheter. Subsequently, the right femoral profunda artery and the right lateral circumflex artery were selectively catheterized with a 2.4-[place]inean Progreat microcatheter and angiogram was obtained, which [...] brachiocephalic trunk was selectively catheterized with the 5-Guinean [place] catheter and angiogram was obtained, which demonstrated normal arterial anatomy. 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 The thyrocervical trunk was selectively catheterized with the 2.5-Guinean Progreat microcatheter and angiogram was obtained, which [...] described above. > Dictated by Beatriz Arteaga (Manager Gallery) 03/28/2022 4:04 AM IKarthik MD have personally reviewed and interpreted this examination/study. > Interpreting Provider: Karthik Magallanes MD on 04/06/2022 1:27 PM Karthik Magallanes MD IR ORDERABLES * (ABNORMAL) DIFFERENTIAL MANUAL (03/27/2022 11:19 PM CDT) WBC (corrected for NRBC) 22.0 10 3/uL 03/28/2022 12:13 [facility] Total Cell Count 100 03/28/2022 12:13 AM [facility] Neutrophils Absolute Manual 18.26(H) 1.60 - 7.00 10 3/uL 03/28/2022 12:13 AM T [facility] Comment:(BANDS+SEGS) x WBC = NEUT # (ANC) Lymphocyte Absolute Manual 1.32 1.10 - 3.90 10 3/uL 03/28/2022 12:13 AM [facility] Monocytes Absolute Manual 1.98(H) 0.26 - 1.07 10 3/uL 03/28/2022 12:13 AM [facility] Basophil Absolute Manual 0.44(H) 0.00 - 0.08 10 3/uL 03/28/2022 12:13 AM [facility] Band % Manual 4 0 - 10 % 03/28/2022 12:13 AM [facility] Neutrophil % Manual 79(H) 35 - 70 % 03/28/2022 12:13 AM [facility] Lymphocyte % Manual 6(L) 20 - 43 % 03/28/2022 12:13 AM [facility] Monocytes % Manual 9 5 - 13 % 03/28/2022 12:13 AM [facility] Basophils % Manual 2 0 - 2 % 03/28/2022 12:13 AM [facility] Platelet Estimate Adequate Adequate 03/28/2022 12:13 AM [facility] Ovalocytes 1+(A) None 03/28/2022 12:13 AM [facility] Blood BLOOD SPECIMEN / Unknown Venipuncture / Unknown 03/27/2022 11:19 PM CDT 03/27/2022 11:23 PM CDT Nam Ramirez MD LAB - HEMATOLOGY OR DERABLES Performing Organization Address [facility] Co de Phone Number [facility] [address] [place] [phone], [facility] [phone] * 1 Units (03/27/2022 11:09 PM CDT) Unit Description LR Whole BLood [facility] BLOOD BANK LAB Unit ABO O [facility] BLOOD [facility] Unit Rh NEG [facility] BLOOD [facility] Product Number [id number] [facility] B LOOD BANK LAB Unit Donor # [id number] [facility] BLOOD BANK LAB Unit Status transfused [facility] BLO OD BANK LAB Product Code [id number] [facility] BLO OD BANK LAB Blood Type Barcode 9500 [facility] BLOOD BANK LAB Expiration Date S BLOOD BANK LAB Blood Bank BLOOD SPECIMEN / Unknown 03/27/2022 10:47 PM CDT Marie Hyman MD LAB - BLOOD BANK ORD ERABLES [facility] BLOOD BANK LAB [address] [place] [address], [facility] [phone] * XR HUMERUS RIGHT 2VW OR MORE [...] able. Report dictated by Rupa Evangelista MD (international affairs vice president). ISTEVEN MD have personally reviewed and interpreted this examination/study. > Interpreting Provider: STEVEN RAMOS MD on 03/28/2022 12:02 PM Narrative 03/28/2022 12:02 PM CDT EXAMINATION: XR HUMERUS RIGHT 2VW OR MORE DATE/TIME OF EXAM: 03/27/2022 11:00 PM, LOCATION [facility] HISTORY: W10.8XXA: Fall (on) (from) other stairs [...] DATE/TIME OF EXAM: 03/27/2022 11:00 PM, LOCATION [facility] HISTORY: W10.8XXA: Fall (on) (from) other stairs [...] able. Report dictated by Rupa Evangelista MD (international affairs vice president). I, STEVEN RAMOS MD have personally reviewed and interpreted this examination/study. > Interpreting Provider: STEVEN RAMOS MD on 03/28/2022 12:02 PM Nam Ramirez MD DIAGNOSTIC IMAGING ORDERABLES * BLOOD TYPE VERIFICATION (03/27/2022 10:55 PM CDT) ABO Rh O POS 03/28/2022 12:16 AM CDT [facility] BLOOD BANK LAB Blood Bank BLOOD SPECIMEN / Unknown Lab Venipuncture / Unknown 03/27/2022 10:55 PM CDT 03/27/2022 11:01 PM CDT Marie Hyman MD LAB - BLOOD BANK ORD ERABLES [facility] BLOOD BANK LAB [address] [place] [address], [facility] [phone] * (ABNORMAL) PTT [facility] (03/27/2022 10:38 PM CDT) APTT 21.1(L) 23.0 - 38.4 Seconds 03/27/2022 11:09 PM CDT [facility] Comment:Suggested therapeuti c range for full dose I.V. unfractionated heparin therapy for venous thromboembolism is 71 to 109 seconds. Blood BLOOD SPECIMEN / Unknown Venipuncture / Unknown 03/27/2022 10:38 PM CDT 03/27/2022 10:43 PM CDT Nam Ramirez MD LAB - COAGULATION O RDERABLES Performing Organization Address [facility] Co de Phone Number [facility] [address] [place] [address], [facility] [phone] * ALCOHOL ETHYL BLOOD (03/27/2022 10:38 PM CDT) Ethanol (mg/dL) <10 <10 mg/dL 11:20 PM CDT [facility] Ethanol Calculated (g/dL) <0.010 <=0.010 g/dL 03/27/2022 11:20 PM CDT [facility] Blood BLOOD SPECIMEN / Unknown Venipuncture / Unknown 03/27/2022 10:38 PM CDT 03/27/2022 10:44 PM CDT Narrative [facility] - 03/27/2022 11:20 PM CDT Ethanol Interp <10: None Detected. Depression of HOUSE SHORER: >100 mg/dl Potentially Critical: >250 mg/dl Potentially [...] - CHEMISTRY ORD ERABLES Performing Organization Address [facility] Co de Phone Number [facility] [address] [place] [address], [place] [phone] * CT CHEST ABDOMEN PELVIS W CONT [...] malformation. > Dictated by Rafael Vasques MD (international affairs vice president). These findings were discussed in detail with [...] DATE/TIME OF EXAM: 03/27/2022 10:19 PM, LOCATION [facility] INDICATION: Trauma COMPARISON: None. TECHNIQUE: CT of [...] CONT, DATE/TIME OF EXAM:03/27/2022 10:19 PM, LOCATION [facility] INDICATION: Trauma COMPARISON: None. TECHNIQUE: CT of [...] malformation. > Dictated by Rafael Vasques MD (international affairs vice president). These findings were discussed in detail with [...] verification. > Dictated by Clarice Peacock MD (Manager Gallery)65 I, Enio Stubbs MD have personally reviewed and interpreted this examination/study. > Interpreting Provider: Enio Stubbs MD on 03/28/2022 1:59 PM Narrative 03/28/2022 1:59 PM CDT PROCEDURE: CT HEAD WO CONTRAST, CT FACIAL BONES WO CONTRAST, CT LUMBAR SPINE WO CONTRAST, CT THORACIC SPINE WO CONTRAST, CT CERVICAL SPINE WO CONTRAST, DATE/TIME OF EXAM: 03/27/2022 10:19 PM, LOCATION [facility] INDICATION: Trauma ADDITIONAL CLINICAL INFORMATION: Ordering Provider [...] DATE/TIME OF EXAM: 03/27/2022 10:19 PM, LOCATION [facility] INDICATION: Trauma ADDITIONAL CLINICAL INFORMATION: Ordering Provider [...] verification. > Dictated by Clarice Peacock MD (Manager Gallery)65 I, Enio Stubbs MD have personally reviewed [...] verification. > Dictated by Clarice Peacock MD (Manager Gallery)65 I, Enio Stubbs MD have personally reviewed and interpreted this examination/study. > Interpreting Provider: Enio Stubbs MD on 03/28/2022 1:59 PM Narrative 03/28/2022 1:59 PM CDT PROCEDURE: CT HEAD WO CONTRAST, CT FACIAL BONES WO CONTRAST, CT LUMBAR SPINE WO CONTRAST, CT THORACIC SPINE WO CONTRAST, CT CERVICAL SPINE WO CONTRAST, DATE/TIME OF EXAM: 03/27/2022 10:19 PM, LOCATION [facility] INDICATION: Trauma ADDITIONAL CLINICAL INFORMATION: Ordering Provider [...] DATE/TIME OF EXAM: 03/27/2022 10:19 PM, LOCATION [facility] INDICATION: Trauma ADDITIONAL CLINICAL INFORMATION: Ordering Provider [...] verification. > Dictated by Clarice Peacock MD (Manager Gallery)65 I, Enio Stubbs MD have personally reviewed [...] verification. > Dictated by Clarice Peacock MD (Manager Gallery)65 I, Enio Stubbs MD have personally reviewed and interpreted this examination/study. > Interpreting Provider: Enio Stubbs MD on 03/28/2022 1:59 PM Narrative 03/28/2022 1:59 PM CDT PROCEDURE: CT HEAD WO CONTRAST, CT FACIAL BONES WO CONTRAST, CT LUMBAR SPINE WO CONTRAST, CT THORACIC SPINE WO CONTRAST, CT CERVICAL SPINE WO CONTRAST, DATE/TIME OF EXAM: 03/27/2022 10:19 PM, LOCATION [facility] INDICATION: Trauma ADDITIONAL CLINICAL INFORMATION: Ordering Provider [...] DATE/TIME OF EXAM: 03/27/2022 10:19 PM, LOCATION [facility] INDICATION: Trauma ADDITIONAL CLINICAL INFORMATION: Ordering Provider [...] verification. > Dictated by Clarice Peacock MD (Manager Gallery)65 I, Enio Stubbs MD have personally reviewed [...] verification. > Dictated by Clarice Peacock MD (Manager Gallery)65 I, Enio Stubbs MD have personally reviewed and interpreted this examination/study. > Interpreting Provider: Enio Stubbs MD on 03/28/2022 1:59 PM Narrative 03/28/2022 1:59 PM CDT PROCEDURE: CT HEAD WO CONTRAST, CT FACIAL BONES WO CONTRAST, CT LUMBAR SPINE WO CONTRAST, CT THORACIC SPINE WO CONTRAST, CT CERVICAL SPINE WO CONTRAST, DATE/TIME OF EXAM: 03/27/2022 10:19 PM, LOCATION [facility] INDICATION: Trauma ADDITIONAL CLINICAL INFORMATION: Ordering Provider [...] DATE/TIME OF EXAM: 03/27/2022 10:19 PM, LOCATION [facility] INDICATION: Trauma ADDITIONAL CLINICAL INFORMATION: Ordering Provider [...] verification. > Dictated by Clarice Peacock MD (Manager Gallery)65 Enio Pulido MD have personally reviewed and [...] injury. Report dictated by Clarice Brown MD (international affairs vice president). STEVEN Pulido MD have personally reviewed and interpreted this examination/study. > Interpreting Provider: STEVEN RAMOS MD on 03/28/2022 11:28 AM Narrative 03/28/2022 11:28 AM CDT PROCEDURE: XR PELVIS 1 OR 2VW, DATE/TIME OF EXAM: 03/27/2022 9:53 PM, LOCATION [facility] INDICATION: Trauma Fracture suspected COMPARISON: CT abdomen [...] DATE/TIME OF EXAM: 03/27/2022 9:53 PM, LOCATION [facility] INDICATION: Trauma Fracture suspected COMPARISON: CT abdomen [...] to exclude acute injury. Report dictated by Clarcie Brown MD (international affairs vice president). ISTEVEN MD have personally reviewed and interpreted this examination/study. > Interpreting Provider: STEVEN RAMOS MD on 03/28/2022 11:28 AM Nam Ramirez MD DIAGNOSTIC IMAGING ORDERABLES Care Teams Artist Color Separation Relationship Specialty Start Date End Date Jordy Connolly MD [address] [facility] [address] [facility] [address] [place] [address] PCP - General Internal Medicine 03/26/22
--- OUTSIDE RECORDS SUMMARY | 2024-09-14 11:16 | XMS_ITS | Referral Summary ---
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
--- OUTSIDE RECORDS SUMMARY | 2024-09-14 11:16 | XMS_ITS ---
Author Organization [facility] Address [address] [place] [address] Care Team Providers Care Automatic Splicing Machine Operator Name Role Phone Jordy Connolly MD Primary Care Provider [phone] Active Problems Problem Noted Date Diagnosed Date [...] treatments are documented for this patient in [facility]. Treatments may have been administered in another system. Lifetime Dose Tracking * Chemical Lifetime Dose Automatic Entry Manual Entr y Dose Length Product 2,306.8 mGy-cm 2,306.8 mGy-cm 0 mG y-cm Air Kerma 502 mGy 0 mGy 502 mGy
--- OUTSIDE RECORDS SUMMARY | 2024-09-14 11:16 | XMS_ITS | Clinical Summary ---
Author Organization [facility] Address [address] [place] [address] Care Team Providers Care Industrial Cleaner Name Role Phone Tari Gloria MD Primary Care Provider [phone] Allergies Active Allergy Reactions Criticality Noted Date Comments Cefuroxime Axetil Nausea and Vomiting Low 0 Levofloxacin Nausea and Vomiting Low 10/02/2019 Morphine Nausea and Vomiting Low 10/02/2019 Propofol Nausea and Vomiting Low 10/02/2019 Medications rosuvastatin (CRESTOR) 20 mg tablet Take 20 mg by mouth daily at bedtime. Active Fish Oil-[place]-3 Fatty Acids (Fish Oil) 360-1,200 mg Capsule [...] STL ABSTRACTION Provider, Abstract 08/24/2024 1:15 PM COMPENSATION AND BENEFITS MANAGER Office Visit [facility] Oncology and Hematology - [facility] [address] [place] [address] Bob Price MD Malignant neoplasm of upper-outer quadrant of left breast in female, estrogen receptor positive (CMS/HCC) (Primary Dx) 08/19/2024 Orders Only [facility] Oncology and Hematology - [facility] [address] [place] [address] Bob Price MD 08/18/2024 Orders Only [facility] Oncology and Hematology - [facility] [address] [place] [address] Scanning, Provider from Last 3 Months Family [...] on file Legal Sex Female 8:53 AM COMPENSATION AND BENEFITS MANAGER Gender Identity Not on file Sexual Orientation Not on file Last Filed Vital Signs Vital Sign Reading Time Taken Comments Blood Pressure 155/95 08/24/2024 1:13 PM COMPENSATION AND BENEFITS MANAGER Pulse 85 08/24/2024 1:06 PM COMPENSATION AND BENEFITS MANAGER Temperature 36.4 C (97.5 F) 08/24/2024 1:06 PM COMPENSATION AND BENEFITS MANAGER Respiratory Rate 15 08/24/2024 1:06 PM COMPENSATION AND BENEFITS MANAGER Oxygen Saturation 93% 08/24/2024 1:06 PM COMPENSATION AND BENEFITS MANAGER Inhaled Oxygen Concentration - - Weight 63.5 kg (140 lb) 08/24/2024 1:06 PM COMPENSATION AND BENEFITS MANAGER Height 162.6 cm (5' 4 ) 02/18/2023 10:51 AM CDT Body Mass Index 24.03 02/18/2023 10:51 AM CDT Plan of Treatment Upcoming Encounters Date Type Department Care Team (Late st Contact Info) Description 02/23/2025 1:00 PM CDT Office Visit [facility] Oncology and Hematology - [facility] [address] [place] [address] Bob Price MD [address] [facility] [address] [place] [address] Health Maintenance Due Date Last [...] ANTIGEN 15-3 Routine 08/19/2024 1 2:21 PM COMPENSATION AND BENEFITS MANAGER COMPREHENSIVE METABOLIC PANEL Routine 08/17/2024 1:25 PM COMPENSATION AND BENEFITS MANAGER MAMMO SCREENING BILAT Routine 08/17/2024 11:23 AM COMPENSATION AND BENEFITS MANAGER CBC WITH DIFFERENTIAL Routine 08/17/2024 10:35 AM COMPENSATION AND BENEFITS MANAGER XR DEXA BONE DENSITY AXIAL 1 OR MORE SITES Routine 08/29/2020 Osteopenia of multiple sites from Last 3 Months or Most Recently Relevant to Health Maintenance Results * CANCER ANTIGEN 15-3 (08/19/2024 12:21 PM COMPENSATION AND BENEFITS MANAGER) Blood us Bob Price MD CHEMISTRY ORDERABLES Final Resu lt * COMPREHENSIVE METABOLIC PANEL (08/17/2024 1:25 PM COMPENSATION AND BENEFITS MANAGER) Blood Bob Price MD CHEMISTRY ORDERABLES Final Resu lt * MAMMO SCREENING BILAT (08/17/2024 11:23 AM COMPENSATION AND BENEFITS MANAGER) Anatomical Region Laterality Modality Breast Bilateral Other Bob Price MD MAMMO ORDERABLES Final Result * CBC WITH DIFFERENTIAL (08/17/2024 10:35 AM COMPENSATION AND BENEFITS MANAGER) Blood Provider Scanning HEMATOLOGY ORDERABLES Final Re sult * XR DEXA BONE DENSITY AXIAL 1 OR MORE SITES (08/29/2020) Anatomical Region Laterality Modality Other Bob Price MD DIAGNOSTIC IMAGING ORDERABLES F inal Result from Last 3 Months or Most Recently Relevant to Health Maintenance Insurance MEDICARE [facility] [id number] Care Teams Industrial Cleaner Relationship Specialty Start Date End Date Tari Gloria MD [address] [place] [address] [address] [place] [address] PCP - General Family Practice 08/24/24
--- OUTSIDE RECORDS SUMMARY | 2024-09-14 11:16 | XMS_ITS | Clinical Summary ---
Author Organization [facility] Address [address] [place] [place] [address] Care Team Providers Care Basketball Assembler Name Role Phone Jordy Connolly MD Primary Care Provider [phone] Source Comments [facility],non-owned Affiliates and Associated Physician Practices is amultiple site organization consisting of ambulatory clinics and hospital sitesin [place], [place], [place] and [place]. This disclosure is being madepursuant to the Care Everywhere program and may not contain all information available regarding this patient. Last updated 18.[facility] Allergies Active Allergy Reactions Criticality Noted [...] daily Active Calcium Carb-Cholecalciferol (CALCIUM+D3 PO) Active [place]-3 Fatty Acids (fish oil) 500 MG capsule [...] [facility] - Cardiology [address] [facility], [facility] [address] [place] [address] Jorge Ware MD MEDICATION REFILL from Last 3 Months Immunizations Name Administration Dates Next Due Covid [employer] primary monoval ent 12+ yr 0.3mL Purple [...] Sex Assigned at Female 06/16/2023 6:57 AM MIX HOUSE OPERATOR Gender Identity Female 06/16/2023 6:57 AM MIX HOUSE OPERATOR Sexual Orientation Straight 06/16/2023 6: 57 AM MIX HOUSE OPERATOR Last Filed Vital Signs Vital Sign Reading Time Taken Comments Blood Pressure 152/84 12/19/2023 10:58 AM CDT Pulse 70 12/19/2023 10:58 AM CDT Temperature 36.6 C (97.8 F) 09/21/2022 7:31 AM MIX HOUSE OPERATOR Respiratory Rate 20 09/21/2022 7:31 AM MIX HOUSE OPERATOR Oxygen Saturation 97% 06/18/2023 10:47 AM MIX HOUSE OPERATOR Inhaled Oxygen Concentration - - Weight 61.2 [...] this topic Medical Devices Implanted Type Area Vice President For Instruction Device Identifier Shelf Expiration Date Model / Serial / Lot Coil Azur Cx Hdrcl 4cm 3mm Dtch Loop Sld Implanted:Qty: 1 on 03/28/2022 at [facility] [employer] [facility] 06/04/2026 [id number] / / [id number] Coil Azur Hdrcl 2cm 2mm .018in Dtch Loop Implanted:Qty: 1 on 03/28/2022 at [facility] 06/04/2026 [id number] / / [id number] Coil Azur Hdrcl 2cm 2mm .018in Dtch Loop Implanted:Qty: 1 on 03/28/2022 at [facility] 05/04/2026 [id number] / / [id number] Insurance Payer Benefit Plan / Group Subscriber ID Effective Dates Phone Address Type MEDICARE WPS MEDICARE PART B [id number] 04/05/2004-[place] [address] [address] [place] [address] Medicare AARP AARP MEDICARE SUPPLEMENT [id number] 08/05/2022-Prese nt [address] [place] [address] Commercial MEDICARE WPS MEDICARE PART B [id number] 04/05/2004-[place]se [place] [address] [address] [place] [address] Medicare AARP AARP MEDICARE SUPPLEMENT [id number] 08/05/2022-Prese nt [address] [place] [address] Commercial MEDICARE WPS MEDICARE PART B [id number] 04/05/2004-Prese [place] [address] [address] [place] [address] Medicare AARP AARP MEDICARE SUPPLEMENT [id number] 08/05/2022-Prese nt [address] [place] [address] Commercial MEDICARE WPS MEDICARE PART B [id number] 04/05/2004-Prese [place] [address] [address] [place] [address] Medicare AARP AARP MEDICARE SUPPLEMENT [id number] 08/05/2022-Prese nt [address] [place] [address] Commercial MEDICARE WPS MEDICARE PART B [id number] 04/05/2004-Prese [place] [address] [address] [place] [address] Medicare AARP AARP MEDICARE SUPPLEMENT [id number] 08/05/2022-Prese nt [address] [place] [address] Commercial MEDICARE WPS MEDICARE PART B [id number] 04/05/2004-Prese [place] [address] [address] [place] [address] Medicare AARP AARP MEDICARE SUPPLEMENT [id number] 08/05/2022-Prese nt [address] [place] [address] Commercial MEDICARE WPS MEDICARE PART B [id number] 04/05/2004-Prese [place] [address] [address] [place] [address] Medicare AARP AARP MEDICARE SUPPLEMENT [id number] 08/05/2022-Prese nt [address] [place] [address] Commercial MEDICARE WPS MEDICARE PART B [id number] 04/05/2004-Prese [place] [address] [address] [place] [address] Medicare AARP AARP MEDICARE SUPPLEMENT [id number] 08/05/2022-Prese nt [address] [place] [address] Commercial MEDICARE WPS MEDICARE PART B [id number] 04/05/2004-[place]se [place] [address] [address] [place] [address] Medicare AARP AARP MEDICARE SUPPLEMENT [id number] 08/05/2022-Prese nt [address] [place] [address] Commercial MEDICARE WPS MEDICARE PART B [id number] 04/05/2004-Prese [place] [address] [address] [place] [address] Medicare AARP AARP MEDICARE SUPPLEMENT [id number] 08/05/2022-Prese nt [address] [place] [address] Commercial MEDICARE WPS MEDICARE PART B [id number] 04/05/2004-Prese [place] [address] [address] [place] [address] Medicare AARP AARP MEDICARE SUPPLEMENT [id number] 08/05/2022-Prese nt [address] [place] [address] Commercial MEDICARE WPS MEDICARE PART B [id number] 04/05/2004-[place]se [place] [address] [address] [place] [address] Medicare AARP AARP MEDICARE SUPPLEMENT [id number] 08/05/2022-Prese nt [address] [place] [address] Commercial MEDICARE WPS MEDICARE PART B [id number] 04/05/2004-Prese [place] [address] [address] [place] [address] Medicare AARP AARP MEDICARE SUPPLEMENT [id number] 08/05/2022-Prese nt [address] [place] [address] Commercial MEDICARE WPS MEDICARE PART B [id number] 04/05/2004-Prese [place] [address] [address] [place] [address] Medicare MEDICARE WPS MEDICARE PART B [id number] 04/05/2004-Prese [place] [address] [address] [place] [address] Medicare AARP AARP MEDICARE SUPPLEMENT [id number] Effective for all dates [address] [place] [address] Commercial MEDICARE WPS MEDICARE PART B [id number] 04/05/2004-Prese nt [address] [address] [place] [address] Medicare AARP AARP MEDICARE SUPPLEMENT [id number] Effective for all dates [address] [place] [address] Commercial MEDICARE WPS MEDICARE PART B [id number] 04/05/2004-Prese nt [address] [address] [place] [address] Medicare AARP AARP MEDICARE SUPPLEMENT [id number] Effective for all dates [address] [place] [address] Commercial MEDICARE WPS MEDICARE PART B [id number] 04/05/2004-Prese nt [address] [address] [place] [address] Medicare AARP AARP MEDICARE SUPPLEMENT [id number] Effective for all dates [address] [place] [address] Commercial MEDICARE WPS MEDICARE PART B [id number] 04/05/2004-Prese nt [address] [address] [place] [address] Medicare AARP AARP MEDICARE SUPPLEMENT [id number] Effective for all dates [address] [place] [address] Commercial MEDICARE WPS MEDICARE PART B [id number] 04/05/2004-Prese nt [address] [address] [place] [address] Medicare AARP AARP MEDICARE SUPPLEMENT [id number] Effective for all dates [address] [place] [address] Commercial MEDICARE WPS MEDICARE PART B [id number] 04/05/2004-Prese nt [address] [address] [place] [address] Medicare AARP AARP MEDICARE SUPPLEMENT [id number] Effective for all dates [address] [place] [address] Commercial MEDICARE WPS MEDICARE PART B [id number] 04/05/2004-Prese nt [address] [address] [place] [address] Medicare AARP AARP MEDICARE SUPPLEMENT [id number] Effective for all dates [address] [place] [address] Commercial MEDICARE WPS MEDICARE PART B [id number] 04/05/2004-Prese nt [address] [address] [place] [address] Medicare AARP AARP MEDICARE SUPPLEMENT [id number] Effective for all dates [address] [place] [address] Commercial MEDICARE WPS MEDICARE PART B [id number] Effective for all dates [address] [address] [place] [address] Medicare AARP AARP MEDICARE SUPPLEMENT [id number] Effective for all dates [address] [place] [address] Commercial MEDICARE WPS MEDICARE PART B [id number] Effective for all dates [address] [address] [place] [address] Medicare AARP AARP MEDICARE SUPPLEMENT [id number] Effective for all dates [address] [place] [address] Commercial MEDICARE WPS MEDICARE PART B [id number] 04/05/2004-Prese nt [address] [address] [place] [address] Medicare AARP AARP MEDICARE SUPPLEMENT [id number] 08/05/2021-Prese nt [address] [place] [address] Commercial MEDICARE WPS MEDICARE PART B [id number] 04/05/2004-Prese nt [address] [address] [place] [address] Medicare AARP AARP MEDICARE SUPPLEMENT [id number] 08/05/2021-Prese nt [address] [place] [address] Commercial MEDICARE WPS MEDICARE PART B [id number] 04/05/2004-Prese nt [address] [address] [place] [address] Medicare AARP AARP MEDICARE SUPPLEMENT [id number] 08/05/2021-Prese nt [address] [place] [address] Commercial MEDICARE WPS MEDICARE PART B [id number] 04/05/2004-Prese nt [address] [address] [place] [address] Medicare AARP AARP MEDICARE SUPPLEMENT [id number] 08/05/2021-Prese nt [address] [place] [address] Commercial MEDICARE WPS MEDICARE PART B [id number] 04/05/2004-Prese nt [address] [address] [place] [address] Medicare AARP AARP MEDICARE SUPPLEMENT [id number] 08/05/2021-Prese nt [address] [place] [address] Commercial MEDICARE WPS MEDICARE PART B [id number] 04/05/2004-Prese nt [address] [address] [place] [address] Medicare AARP AARP MEDICARE SUPPLEMENT [id number] 08/05/2021-Prese nt [address] [place] [address] Commercial MEDICARE WPS MEDICARE PART B [id number] 04/05/2004-Prese nt [address] [address] [place] [address] Medicare AARP AARP MEDICARE SUPPLEMENT [id number] 08/05/2021-Prese nt [address] [place] [address] Commercial MEDICARE WPS MEDICARE PART B [id number] 04/05/2004-Prese nt [address] [address] [place] [address] Medicare AARP AARP MEDICARE SUPPLEMENT [id number] 08/05/2021-Prese nt [address] [place] [address] Commercial MEDICARE WPS MEDICARE PART B [id number] 04/05/2004-Prese nt [address] [address] [place] [address] Medicare AARP AARP MEDICARE SUPPLEMENT [id number] 08/05/2021-Prese nt [address] [place] [address] Commercial MEDICARE WPS MEDICARE PART B [id number] 04/05/2004-Prese nt [address] [address] [place] [address] Medicare AARP AARP MEDICARE SUPPLEMENT [id number] 08/05/2021-Prese nt [address] [place] [address] Commercial MEDICARE WPS MEDICARE PART B [id number] 04/05/2004-Prese nt [address] [address] [place] [address] Medicare AARP AARP MEDICARE SUPPLEMENT [id number] 08/05/2021-Prese nt [address] [place] [address] Commercial MEDICARE WPS MEDICARE PART B [id number] 04/05/2004-Prese nt [address] [address] [place] [address] Medicare AARP AARP MEDICARE SUPPLEMENT [id number] 08/05/2021-Prese nt [address] [place] [address] Commercial MEDICARE WPS MEDICARE PART B [id number] Effective for all dates [address] [address] [place] [address] Medicare AARP AARP MEDICARE SUPPLEMENT [id number] Effective for all dates [address] [place] [address] Commercial AARP AARP MEDICARE SUPPLEMENT [id number] Effective for all dates [address] [place] [address] Commercial MEDICARE MEDICARE PART A AND B [id number] 04/05/2004-Prese nt [address] [place] [address] Medicare AARP AARP MEDICARE SUPPLEMENT [id number] 08/05/2021-Prese nt [address] [place] [address] Commercial MEDICARE WPS MEDICARE PART B [id number] 04/05/2004-Prese nt [address] [address] [place] [address] Medicare MEDICARE WPS MEDICARE PART B [id number] 04/05/2004-Prese nt [address] [address] [place] [address] Medicare MEDICARE WPS MEDICARE PART B [id number] 04/05/2004-Prese nt [address] [address] [place] [address] Medicare MEDICARE WPS MEDICARE PART B [id number] 04/05/2004-Prese nt [address] [address] [place] [address] Medicare Advance Directives * Full Code (Latest Code Status on File) Date Activated Date Inactivated Comments 09/20/2022 7:17 PM 09/21/2022 2:29 PM * Full Code Date Activated Date Inactivated Comments 03/28/2022 12:49 AM 04/03/2022 3:24 PM Care Teams Basketball Assembler Relationship Specialty Start Date End Date Jordy Connolly MD [address] [facility] [address] [place] [address] PCP - General Internal Medicine 03/26/22
--- OUTSIDE RECORDS SUMMARY | 2024-09-14 11:16 | XMS_ITS | Encounter Summary ---
Author Organization [facility] Address [address] [place] [address] Care Team Providers Care Motel Operator Name Role Phone Tari Gloria MD Primary Care Provider [phone] Reason for Visit * Reason Onset Date Comments Urine culture 08/21/2022 Encounter Details Date Type Department Care Team ([facility] Contact Info) Description 08/21/2022 Telephone [facility] Oncology and Hematology [facility] [address] [place] [address] Bob Price MD [address] [facility] [address] [place] [address] Urine culture Social History Tobacco Use Types Packs/Day Years Used Date Smoking Tobacco: Never Smokeless Tobacco: Never Alcohol Use Standard Drinks/Week Comments Yes 0 (1 standard drink = 0.6 oz pur e alcohol) Comments No Sex and Gender Information Value Date Recorded Sex Assigned at Not on file Legal Sex Female 8:53 AM IN HOME SALES REPRESENTATIVE Gender Identity Not on file Sexual Orientation Not on file COVID-19 Exposure Response Date Recorded In the last 10 days, have yo u been in contact with someone who was confirmed or suspected to have Coronavirus/COVID-19? No / Unsure 08/21/2022 11:22 AM IN HOME SALES REPRESENTATIVE documented as of this encounter Plan of Treatment Upcoming Encounters Date Type Department Care Team ([facility] Contact Info) Description 02/23/2025 1:00 PM CDT Office Visit [facility] Oncology and Hematology [facility] [address] [place] [address] Bob Price MD [address] [facility] [address] [place] [address] Scheduled Orders Name Type Priority Associated Diagnoses [...] (CMS/HCC) documented in this encounter Care Teams Motel Operator Relationship Specialty Start Date End Date Tari Gloria MD [address] [place] [address] [address] [place] [address] PCP - General Family Practice 08/24/24 documented as of this encounter
--- OUTSIDE RECORDS SUMMARY | 2024-09-14 11:16 | XMS_ITS | Continuity of Care Document ---
Author Organization [facility] Address [address] [facility] [address] [place] [address] Phone Care Team Providers Care Occupational Nurse Name Role Phone Kerri Tiffany Unavailable Unavailable [...] Diagnoses Date Provider Providers Copied on Encounter [facility], [address] [place] [address] [address], [place], [place], [address], tel:[phone] [facility] No Information 0 Kerri Allen. [address] [place] , [address], [place], [place], [facility], . tel:[phone] Referring Provider: Taiwo quintana, [address] [place], [place] [address]ate [place] [address], [place], [facility]. tel:[phone] [facility], [address] [place] [address] [address], [place], [place], [address], tel:[phone] [facility] No Information 0 Kerri Cochran [address] [place] , [address], [place], [facility], . tel:[phone] Referring Provider: Taiwo quintana, [address] [place], [place] [address]ate [place] [address], [place], [facility]. tel:[phone] Office/outpat ient Visit, [facility] [address] [place] [address] [address], [place], [place], [address], [place] tel:[phone] [facility] No Information 0 Jada Maravilla. [address] [place], [place] [address]ate [place] [address], [place], [facility], . tel:[phone] Office/outpat ient Visit, [facility] [address], [place], [place], [address], [place] tel:[phone] [facility] No Information Patricio-2 9-201 0 Krishnasamy Taiwo. [facility] Corporate [address], [facility], [place]. tel:[phone] Referring Provider: Taiwo quintana, [address] [facility] [address], [place], [facility]. tel:[phone] [facility], [address] [place] [address] [address], [place], [place], [address], [place] tel:[phone] [facility] No Information Oct-0 5-200 9 Krishnasamy Taiwo. [facility] Corporate Center [facility] [address], [place], [facility], [place]. tel:[phone] Referring Provider: Taiwo quintana, [facility] Corporate [address], [facility]. tel:[phone] [facility], [address], [place], [place], [address], [place] tel:[phone] [facility] No Information Apr-2 8-200 9 Krishnasamy Taiwo. [facility] Corporate [facility] [address], [place], [facility], [place]. tel:[phone] Referring Provider: Taiwo quintana, [facility] Corporate [address], [facility]. tel:[phone] [facility], [address], [place], [place], [address], [place] tel:[phone] [facility] No Information Feb-0 1-200 9 Krishnasamy Taiwo. [facility] [facility] [address], [place], [facility], [place]. tel:[phone] Office/outpat ient Visit, Est [facility], [address], [place], [place], [address], [place] tel:[phone] [facility] No Information b-2 5-200 9 Krishnasamy Taiwo. [facility] Corporate [place] [address], [place], [address], [place]. tel:[phone] Office/outpat ient Visit, Est [facility], [address], [place], [place], [address], [place] tel:[phone] [facility] No Information Oct-2 4-200 8 Krishnasamy Taiwo. [facility] Corporate Center [address], [place], [facility], [place]. tel:[phone] [facility], [address], [place], [place], [address], [place] tel:[phone] [facility] No Information Sep-1 9-200 8 Leiva OD Cayetano. [facility] [address], [place], [facility], [place]. tel:[phone] [facility], [address], [place], [place], [address], [place] tel:[phone] [facility] No Information Sep-1 7-200 8 Krishnasamy Taiwo. [address] [place], [place] [address]ate [facility] [address], [place], [facility], [place]. tel:[phone] Referring Provider: Taiwo quintana, [facility] Corporate [address], [place], [facility]. tel:[phone] [facility], [address], [place], [place], [address], [place] tel:[phone] [facility] No Information Sep-1 6-200 8 Krishnasamy Taiwo. [address] [place], [place] [address]ate [place] [address], [place], [facility], [place]. tel:[phone] Referring Provider: Taiwo quintana, [facility] Corporate [address], [place], [address]. tel:[phone] Office/outpat ient Visit, Est [facility], [address], [place], [place], [address], [place] tel:[phone] [facility] No Information 4 8 Jada Maravilla. [address] [facility] [address], [place], [address], [place]. tel:[phone] [facility], [address], [place], [place], [address], [place] tel:[phone] [facility] No Information 8 Joseph Hancock. [address] [facility], [facility] [place], [address], . tel:[phone] Referring Provider: Santi Oh, [address] [place], [address] . tel:[phone] [facility], [address], [place], [place], [address], [place] tel:[phone] [facility] No Information 0-200 7 Wankfernando Hancock. [address], [facility] [place], [address], . tel:[phone] Referring Provider: Santi Oh, [address] [place] [place], [address] . tel:[phone] Office/outpat ient Visit, Est [facility], [address], [place], [place], [address], [place] tel:[phone] [facility] No Information 4[address] Wankum Santi. [address], [address] [place], [address], [place]. tel:[phone] Office/outpat ient Visit, Est [facility], [address] [place], [place], [place], [address], [place] tel:[phone] [facility] No Information 7 Joseph Hancock. [address] [facility], [address], [place], [place], [address], [place]. tel:[phone] Family History Family Member Type Diagnosis Age At Onset No Information Payers Payer name Insurance type Covered constitution party ID Authoriza tion(s) Medicare [id number] Medicare Supp [place] [id number] Social History Type Description Quantity Date Captured [...]
--- OUTSIDE RECORDS SUMMARY | 2024-09-14 11:16 | XMS_ITS | Referral Summary ---
Author Organization [facility] Address [address] [facility] [place] [address] Care Team Providers Care Independent Trader Name Role Phone Jordy Connolly MD Primary Care Provider [phone] Source Comments [facility],non-owned Affiliates and Associated Physician Practices is amultiple site organization consisting of ambulatory clinics and hospital sitesin [place], [place], [place] and [place]. This disclosure is being madepursuant to the Care Everywhere program and may not contain all information available regarding this patient. Last updated 18.[facility] Encounters Date Type Department Care Team Description 08/03/2024 Refill [facility] - Cardiology [address] [facility], [facility] [address] [place] [address] Jorge Ware MD MEDICATION REFILL [...] daily Active Calcium Carb-Cholecalciferol (CALCIUM+D3 PO) Active Termo-3 Fatty Acids (fish oil) 500 MG capsule [...] 08/05/2018 Immunizations Name Administration Dates Next Due Pingpige[place] primary monoval ent 12+ yr 0.3mL Purple [...] Sex Assigned at Female 06/16/2023 6:57 AM OVEREDGE MACHINE OPERATOR Gender Identity Female 06/16/2023 6:57 AM OVEREDGE MACHINE OPERATOR Sexual Orientation Straight 06/16/2023 6: 57 AM OVEREDGE MACHINE OPERATOR Last Filed Vital Signs Vital Sign Reading Time Taken Comments Blood Pressure 152/84 12/19/2023 10:58 AM CDT Pulse 70 12/19/2023 10:58 AM CDT Temperature 36.6 C (97.8 F) 09/21/2022 7:31 AM OVEREDGE MACHINE OPERATOR Respiratory Rate 20 09/21/2022 7:31 AM OVEREDGE MACHINE OPERATOR Oxygen Saturation 97% 06/18/2023 10:47 AM OVEREDGE MACHINE OPERATOR Inhaled Oxygen Concentration - - Weight [...] on file Medical Devices Implanted Type Area Admissions Counselor Device Identifier Shelf Expiration Date Model / Serial / Lot Coil Azur Cx Hdrcl 4cm 3mm Dtch Loop Sld Implanted:Qty: 1 on 03/28/2022 at [facility] 06/04/2026 [id number] / / [id number] Coil Azur Hdrcl 2cm 2mm .018in Dtch Loop Implanted:Qty: 1 on 03/28/2022 at [facility] 06/04/2026 [id number] / / [id number] Coil Azur Hdrcl 2cm 2mm .018in Dtch Loop Implanted:Qty: 1 on 03/28/2022 at [facility] 05/04/2026 [id number] / / [id number] Insurance Payer Benefit Plan / Group Subscriber ID Effective Dates Phone Address Type MEDICARE WPS MEDICARE PART B [id number] 04/05/2004-Prese nt [address] [address] [place] [address] Medicare AAR AAR MEDICARE SUPPLEMENT [id number] 08/05/2022-Prese nt [address] [place] [address] Commercial MEDICARE WPS MEDICARE PART B [id number] 04/05/2004-Prese nt [address] [address] [place] [address] Medicare AARP AARP MEDICARE SUPPLEMENT [id number] 08/05/2022-Prese nt [address] [place] [address] Commercial MEDICARE WPS MEDICARE PART B [id number] 04/05/2004-Prese nt [address] [address] [place] [address] Medicare AARP AARP MEDICARE SUPPLEMENT [id number] 08/05/2022-Prese nt [address] [place] [address] Commercial MEDICARE WPS MEDICARE PART B [id number] 04/05/2004-Prese nt [address] [address] [place] [address] Medicare AARP AARP MEDICARE SUPPLEMENT [id number] 08/05/2022-Prese nt [address] [place] [id number] Commercial MEDICARE WPS MEDICARE PART B [id number] 04/05/2004-Prese nt [address] [address] [place] [address] Medicare AARP AARP MEDICARE SUPPLEMENT [id number] 08/05/2022-Prese nt [address] [place] [address] Commercial MEDICARE WPS MEDICARE PART B [id number] 04/05/2004-Prese nt [address] [address] [place] [address] Medicare AARP AARP MEDICARE SUPPLEMENT [id number] 08/05/2022-Prese nt [address] [place] [phone] Commercial MEDICARE WPS MEDICARE PART B [id number] 04/05/2004-Prese nt [address] [address] [place] [address] Medicare AARP AARP MEDICARE SUPPLEMENT [id number] 08/05/2022-Prese nt [address] [place] [phone] Commercial MEDICARE WPS MEDICARE PART B [id number] 04/05/2004-Prese nt [address] [address] [place] [address] Medicare AARP AARP MEDICARE SUPPLEMENT [id number] 08/05/2022-Prese nt [address] [place] [phone] Commercial MEDICARE WPS MEDICARE PART B [id number] 04/05/2004-Prese nt [address] [address] [place] [address] Medicare AARP AARP MEDICARE SUPPLEMENT [id number] 08/05/2022-Prese nt [address] [place] [address] Commercial MEDICARE WPS MEDICARE PART B [id number] 04/05/2004-Prese nt [address] [address] [place] [address] Medicare AARP AARP MEDICARE SUPPLEMENT [id number] 08/05/2022-Prese nt [address] [place] [address] Commercial MEDICARE WPS MEDICARE PART B [id number] 04/05/2004-Prese nt [address] [address] [place] [address] Medicare AARP AARP MEDICARE SUPPLEMENT [id number] 08/05/2022-Prese nt [address] [place] [address] Commercial MEDICARE WPS MEDICARE PART B [id number] 04/05/2004-Prese nt [address] [address] [place] [address] Medicare AARP AARP MEDICARE SUPPLEMENT [id number] 08/05/2022-Prese nt [address] [place] [address] Commercial MEDICARE WPS MEDICARE PART B [id number] 04/05/2004-Prese nt [address] [address] [place] [address] Medicare AARP AARP MEDICARE SUPPLEMENT [id number] 08/05/2022-Prese nt [address] [place] [address] Commercial MEDICARE WPS MEDICARE PART B [id number] 04/05/2004-Prese nt [address] [address] [place] [address] Medicare MEDICARE WPS MEDICARE PART B [id number] 04/05/2004-Prese nt [address] [address] [place] [address] Medicare AARP AARP MEDICARE SUPPLEMENT [id number] Effective for all dates [address] [place] [address] Commercial MEDICARE WPS MEDICARE PART B [id number] 04/05/2004-Prese nt [address] [address] [place] [address] Medicare AARP AARP MEDICARE SUPPLEMENT [id number] Effective for all dates [address] [place] [address] Commercial MEDICARE WPS MEDICARE PART B [id number] 04/05/2004-Prese nt [address] [address] [place] [address] Medicare AARP AARP MEDICARE SUPPLEMENT [id number] Effective for all dates [address] [place] [address] Commercial MEDICARE WPS MEDICARE PART B [id number] 04/05/2004-Prese nt [address] [address] [place] [address] Medicare AARP AARP MEDICARE SUPPLEMENT [id number] Effective for all dates [address] [place] [address] Commercial MEDICARE WPS MEDICARE PART B [id number] 04/05/2004-Prese nt [address] [address] [place] [address] Medicare AARP AARP MEDICARE SUPPLEMENT [id number] Effective for all dates [address] [place] [address] Commercial MEDICARE WPS MEDICARE PART B [id number] 04/05/2004-Prese nt [address] [address] [place] [address] Medicare AARP AARP MEDICARE SUPPLEMENT [id number] Effective for all dates [address] [place] [address] Commercial MEDICARE WPS MEDICARE PART B [id number] 04/05/2004-Prese nt [address] [address] [place] [address] Medicare AARP AARP MEDICARE SUPPLEMENT [id number] Effective for all dates [address] [place] [address] Commercial MEDICARE WPS MEDICARE PART B [id number] 04/05/2004-Prese nt [address] [address] [place] [address] Medicare AARP AARP MEDICARE SUPPLEMENT [id number] Effective for all dates [address] [place] [address] Commercial MEDICARE WPS MEDICARE PART B [id number] 04/05/2004-Prese nt [address] [address] [place] [address] Medicare AARP AARP MEDICARE SUPPLEMENT [id number] Effective for all dates [address] [place] [address] Commercial MEDICARE WPS MEDICARE PART B [id number] Effective for all dates [address] [address] [place] [address] Medicare AARP AARP MEDICARE SUPPLEMENT [id number] Effective for all dates [address] [place] [address] Commercial MEDICARE WPS MEDICARE PART B [id number] Effective for all dates [address] [address] [place] [address] Medicare AARP AARP MEDICARE SUPPLEMENT [id number] Effective for all dates [address] [place] [phone] Commercial MEDICARE WPS MEDICARE PART B [id number] 04/05/2004-Prese nt [address] [address] [place] [address] Medicare AARP AARP MEDICARE SUPPLEMENT [id number] 08/05/2021-Prese nt [address] [place] [address] Commercial MEDICARE WPS MEDICARE PART B [id number] 04/05/2004-Prese nt [address] [address] [place] [address] Medicare AARP AARP MEDICARE SUPPLEMENT [id number] 08/05/2021-Prese nt [address] [place] [address] Commercial MEDICARE WPS MEDICARE PART B [id number] 04/05/2004-Prese nt [address] [address] [place] [address] Medicare AARP AARP MEDICARE SUPPLEMENT [id number] 08/05/2021-Prese nt [address] [place] [address] Commercial MEDICARE WPS MEDICARE PART B [id number] 04/05/2004-Prese nt [address] [place] [address] Medicare AARP AARP MEDICARE SUPPLEMENT [id number] 08/05/2021-Prese nt [address] [place] [phone] Commercial MEDICARE WPS MEDICARE PART B [id number] 04/05/2004-Prese nt [address] [address] [place] [address] Medicare AARP AARP MEDICARE SUPPLEMENT [id number] 08/05/2021-Prese nt [address] [place] [address] Commercial MEDICARE WPS MEDICARE PART B [id number] 04/05/2004-Prese nt [address] [address] [place] [address] Medicare AARP AARP MEDICARE SUPPLEMENT [id number] 08/05/2021-Prese nt [address] [place] [address] Commercial MEDICARE WPS MEDICARE PART B [id number] 04/05/2004-Prese nt [address] [address] [place] [address] Medicare AARP AARP MEDICARE SUPPLEMENT [id number] 08/05/2021-Prese nt [address] [place] [address] Commercial MEDICARE WPS MEDICARE PART B [id number] 04/05/2004-Prese nt [address] [address] [place] [address] Medicare AARP AARP MEDICARE SUPPLEMENT [id number] 08/05/2021-Prese nt [address] [place] [address] Commercial MEDICARE WPS MEDICARE PART B [id number] 04/05/2004-Prese nt [address] [address] [place] [address] Medicare AARP AARP MEDICARE SUPPLEMENT [id number] 08/05/2021-Prese nt [address] [place] [address] Commercial MEDICARE WPS MEDICARE PART B [id number] 04/05/2004-Prese nt [address] [address] [place] [address] Medicare AARP AARP MEDICARE SUPPLEMENT [id number] 08/05/2021-Prese nt [address] [place] [address] Commercial MEDICARE WPS MEDICARE PART B [id number] 04/05/2004-Prese nt [address] [address] [place] [address] Medicare AARP AARP MEDICARE SUPPLEMENT [id number] 08/05/2021-Prese nt [address] [place] [phone] Commercial MEDICARE WPS MEDICARE PART B [id number] 04/05/2004-Prese nt [address] [address] [place] [address] Medicare AARP AARP MEDICARE SUPPLEMENT [id number] 08/05/2021-Prese nt [address] [place] [phone] Commercial MEDICARE WPS MEDICARE PART B [id number] Effective for all dates [address] [address] [place] [address] Medicare AARP AARP MEDICARE SUPPLEMENT [id number] Effective for all dates [address] [place] [phone] Commercial AARP AARP MEDICARE SUPPLEMENT [id number] Effective for all dates [address] [place] [phone] Commercial MEDICARE MEDICARE PART A AND B [id number] 04/05/2004-Prese nt [address] [place] [address] Medicare AARP AARP MEDICARE SUPPLEMENT [id number] 08/05/2021-Prese nt [address] [place] [address] Commercial MEDICARE WPS MEDICARE PART B [id number] 04/05/2004-Prese nt [address] [address] [place] [address] Medicare MEDICARE WPS MEDICARE PART B [id number] 04/05/2004-Prese nt [address] [address] [place] [address] Medicare MEDICARE WPS MEDICARE PART B [id number] 04/05/2004-Prese nt [address] [address] [place] [address] Medicare MEDICARE WPS MEDICARE PART B [id number] 04/05/2004-Prese nt [address] [address] [place] [address] Medicare Advance Directives * Full Code (Latest Code Status on File) Date Activated Date Inactivated Comments 09/20/2022 7:17 PM 09/21/2022 2:29 PM * Full Code Date Activated Date Inactivated Comments 03/28/2022 12:49 AM 04/03/2022 3:24 PM Care Teams Independent Trader Relationship Specialty Start Date End Date Jordy Connolly MD [address] [facility] [address] [facility] [address] [place] [address] PCP - General Internal Medicine 03/26/22
--- OUTSIDE RECORDS SUMMARY | 2024-09-14 11:16 | XMS_ITS | Clinical Summary ---
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
[2024-09-14 11:38] LABS: Vitamin D 25 Hydroxy 45.2 ng/mL
== END 2024-09-14 10:22 | disposition home or self-care (01) ==
PROVIDERS: PCP Family Medicine; Visit Provider Family Medicine
DX: M81.0 Age-related osteoporosis without current pathological fracture (principal)
CPT/HCPCS: 36415; 82306

== ENCOUNTER 2024-10-23 14:31 | Outpatient (CLI) | payer MEDICARE, SELFPAY ==
--- OUTSIDE RECORDS SUMMARY | 2024-10-23 14:48 | XMS_ITS | Clinical Summary ---
Author Organization [facility] Address [address] [facility] [place] [address] Care Team Providers Care Train Announcer Name Role Phone Jordy Connolly MD Primary Care Provider [phone] Source Comments [facility],non-owned Affiliates and Associated Physician Practices is amultiple site organization consisting of ambulatory clinics and hospital sitesin [place], [place], [place] and [place]. This disclosure is being madepursuant to the Care Everywhere program and may not contain all information available regarding this patient. Last updated 18.[facility] Allergies Active Allergy Reactions Criticality Noted [...] daily Active Calcium Carb-Cholecalciferol (CALCIUM+D3 PO) Active [place]-3 Fatty Acids (fish oil) 500 MG capsule [...] [facility] - [facility]iology [address] [facility], [facility] [address] [place] [address] Jorge Ware MD MEDICATION REFILL from Last 3 Months Immunizations Name Administration Dates Next Due Covid [employer] primary monoval ent 12+ yr 0.3mL Purple [...] Sex Assigned at Female 06/16/2023 6:57 AM INTERIOR DESIGN INSTRUCTOR Gender Identity Female 06/16/2023 6:57 AM INTERIOR DESIGN INSTRUCTOR Sexual Orientation Straight 06/16/2023 6: 57 AM INTERIOR DESIGN INSTRUCTOR Last Filed Vital Signs Vital Sign Reading Time Taken Comments Blood Pressure 152/84 12/19/2023 10:58 AM CDT Pulse 70 12/19/2023 10:58 AM CDT Temperature 36.6 C (97.8 F) 09/21/2022 7:31 AM INTERIOR DESIGN INSTRUCTOR Respiratory Rate 20 09/21/2022 7:31 AM INTERIOR DESIGN INSTRUCTOR Oxygen Saturation 97% 06/18/2023 10:47 AM INTERIOR DESIGN INSTRUCTOR Inhaled Oxygen Concentration - - Weight 61.2 [...] complete this topic MENINGOCOCCAL (Group B) VACCINE SHARED DECISION-MAKING Aged Out No longer eligible based on patient's age to complete this topic MENINGOCOCCAL GROUPS A/C/Y/W VACCINE Aged Out No longer eligible based on patient's age to complete this topic Medical Devices Implanted Type Area Assistance Representative Device Identifier Shelf Expiration Date Model / Serial / Lot Coil Azur Cx Hdrcl 4cm 3mm Dtch Loop Sld Implanted:Qty: 1 on 03/28/2022 at [facility] 06/04/2026 [id number] / / [id number] Coil Azur Hdrcl 2cm 2mm .018in Dtch Loop Implanted:Qty: 1 on 03/28/2022 at [facility] 06/04/2026 [id number] / / [id number] Coil Azur Hdrcl 2cm 2mm .018in Dtch Loop Implanted:Qty: 1 on 03/28/2022 at [facility] 05/04/2026 [id number] / / [id number] Insurance Payer Benefit Plan / Group Subscriber ID Effective Dates Phone Address Type MEDICARE WPS MEDICARE PART B [id number] 04/05/2004-[place]se [place] [address] [address] [place] [address] Medicare AARP AARP MEDICARE SUPPLEMENT [id number] 08/05/2022-Prese nt [address] [place] [address] Commercial MEDICARE WPS MEDICARE PART B [id number] 04/05/2004-Prese nt [address] [address] [place] [address] Medicare AARP AARP MEDICARE SUPPLEMENT [id number] 08/05/2022-Prese nt [address] [place] [phone] Commercial MEDICARE WPS MEDICARE PART B [id number] 04/05/2004-Prese nt [address] [address] [place] [address] Medicare AARP AARP MEDICARE SUPPLEMENT [id number] 08/05/2022-Prese nt [address] [place] [phone] Commercial MEDICARE WPS MEDICARE PART B [id number] 04/05/2004-Prese nt [address] [address] [place] [address] Medicare AARP AARP MEDICARE SUPPLEMENT [id number] 08/05/2022-Prese nt [address] [place] [phone] Commercial MEDICARE WPS MEDICARE PART B [id number] 04/05/2004-Prese nt [address] [address] [place] [address] Medicare AARP AARP MEDICARE SUPPLEMENT [id number] 08/05/2022-Prese nt [address] [place] [address] Commercial MEDICARE WPS MEDICARE PART B [id number] 04/05/2004-Prese nt [address] [address] [place] [address] Medicare AARP AARP MEDICARE SUPPLEMENT [id number] 08/05/2022-Prese nt [address] [place] [address] Commercial MEDICARE WPS MEDICARE PART B [id number] 04/05/2004-Prese nt [address] [address] [place] [address] Medicare AARP AARP MEDICARE SUPPLEMENT [id number] 08/05/2022-Prese nt [address] [place] [phone] Commercial MEDICARE WPS MEDICARE PART B [id number] 04/05/2004-Prese nt [address] [address] [place] [address] Medicare AARP AARP MEDICARE SUPPLEMENT [id number] 08/05/2022-Prese nt [address] [place] [address] Commercial MEDICARE WPS MEDICARE PART B [id number] 04/05/2004-Prese nt [address] [address] [place] [address] Medicare AARP AARP MEDICARE SUPPLEMENT [id number] 08/05/2022-Prese nt [address] [place] [address] Commercial MEDICARE WPS MEDICARE PART B [id number] 04/05/2004-Prese nt [address] [address] [place] [address] Medicare AARP AARP MEDICARE SUPPLEMENT [id number] 08/05/2022-Prese nt [address] [place] [address] Commercial MEDICARE WPS MEDICARE PART B [id number] 04/05/2004-Prese nt [address] [address] [place] [address] Medicare AARP AARP MEDICARE SUPPLEMENT [id number] 08/05/2022-Prese nt [address] [place] [address] Commercial MEDICARE WPS MEDICARE PART B [id number] 04/05/2004-Prese nt [address] [address] [place] [address] Medicare AARP AARP MEDICARE SUPPLEMENT [id number] 08/05/2022-Prese nt [address] [place] [phone] Commercial MEDICARE WPS MEDICARE PART B [id number] 04/05/2004-Prese nt [address] [address] [place] [address] Medicare AARP AARP MEDICARE SUPPLEMENT [id number] 08/05/2022-Prese nt [address] [place] [address] Commercial MEDICARE WPS MEDICARE PART B [id number] 04/05/2004-Prese nt [address] [address] [place] [address] Medicare MEDICARE WPS MEDICARE PART B [id number] 04/05/2004-Prese nt [address] [address] [place] [address] Medicare AARP AARP MEDICARE SUPPLEMENT [id number] Effective for all dates [address] [place] [phone] Commercial MEDICARE WPS MEDICARE PART B [id number] 04/05/2004-Prese nt [address] [address] [place] [address] Medicare AARP AARP MEDICARE SUPPLEMENT [id number] Effective for all dates [address] [place] [phone] Commercial MEDICARE WPS MEDICARE PART B [id number] 04/05/2004-Prese nt [address] [address] [place] [address] Medicare AARP AARP MEDICARE SUPPLEMENT [id number] Effective for all dates [address] [place] [address] Commercial MEDICARE WPS MEDICARE PART B [id number] 04/05/2004-Prese nt [address] [address] [place] [address] Medicare AARP AARP MEDICARE SUPPLEMENT [id number] Effective for all dates [address] [place] [phone] Commercial MEDICARE WPS MEDICARE PART B [id number] 04/05/2004-Prese nt [address] [address] [place] [address] Medicare AARP AARP MEDICARE SUPPLEMENT [id number] Effective for all dates [address] [place] [address] Commercial MEDICARE WPS MEDICARE PART B [id number] 04/05/2004-Prese nt [address] [address] [place] [address] Medicare AARP AARP MEDICARE SUPPLEMENT [id number] Effective for all dates [address] [place] [address] Commercial MEDICARE WPS MEDICARE PART B [id number] 04/05/2004-Prese nt [address] [address] [place] [address] Medicare AARP AARP MEDICARE SUPPLEMENT [id number] Effective for all dates [address] [place] [address] Commercial MEDICARE WPS MEDICARE PART B [id number] 04/05/2004-Prese nt [address] [address] [place] [address] Medicare AARP AARP MEDICARE SUPPLEMENT [id number] Effective for all dates [address] [place] [address] Commercial MEDICARE WPS MEDICARE PART B [id number] 04/05/2004-Prese nt [address] [address] [place] [address] Medicare AARP AARP MEDICARE SUPPLEMENT [id number] Effective for all dates [address] [place] [address] Commercial MEDICARE WPS MEDICARE PART B [id number] Effective for all dates [address] [address] [place] [address] Medicare AARP AARP MEDICARE SUPPLEMENT [id number] Effective for all dates [address] [place] [address] Commercial MEDICARE WPS MEDICARE PART B [id number] Effective for all dates [address] [address] [place] [address] Medicare AARP AARP MEDICARE SUPPLEMENT [id number] Effective for all dates [address] [place] [phone] Commercial MEDICARE WPS MEDICARE PART B [id number] 04/05/2004-Prese nt [address] [address] [place] [address] Medicare AARP AARP MEDICARE SUPPLEMENT [id number] 08/05/2021-Prese nt [address] [place] [address] Commercial MEDICARE WPS MEDICARE PART B [id number] 04/05/2004-Prese nt [address] [address] [place] [address] Medicare AARP AARP MEDICARE SUPPLEMENT [id number] 08/05/2021-Prese nt [address] [place] [address] Commercial MEDICARE WPS MEDICARE PART B [id number] 04/05/2004-Prese nt [address] [address] [place] [address] Medicare AARP AARP MEDICARE SUPPLEMENT [id number] 08/05/2021-Prese nt [address] [place] [address] Commercial MEDICARE WPS MEDICARE PART B [id number] 04/05/2004-Prese nt [address] [address] [place] [address] Medicare AARP AARP MEDICARE SUPPLEMENT [id number] 08/05/2021-Prese nt [address] [place] [address] Commercial MEDICARE WPS MEDICARE PART B [id number] 04/05/2004-Prese nt [address] [address] [place] [address] Medicare AARP AARP MEDICARE SUPPLEMENT [id number] 08/05/2021-Prese nt [address] [place] [address] Commercial MEDICARE WPS MEDICARE PART B [id number] 04/05/2004-Prese nt [address] [address] [place] [address] Medicare AARP AARP MEDICARE SUPPLEMENT [id number] 08/05/2021-Prese nt [address] [place] [address] Commercial MEDICARE WPS MEDICARE PART B [id number] 04/05/2004-Prese nt [address] [address] [place] [address] Medicare AARP AARP MEDICARE SUPPLEMENT [id number] 08/05/2021-Prese nt [address] [place] [address] Commercial MEDICARE WPS MEDICARE PART B [id number] 04/05/2004-Prese nt [address] [address] [place] [address] Medicare AARP AARP MEDICARE SUPPLEMENT [id number] 08/05/2021-Prese nt [address] [place] [address] Commercial MEDICARE WPS MEDICARE PART B [id number] 04/05/2004-Prese nt [address] [address] [place] [address] Medicare AARP AARP MEDICARE SUPPLEMENT [id number] 08/05/2021-Prese nt [address] [place] [address] Commercial MEDICARE WPS MEDICARE PART B [id number] 04/05/2004-Prese nt [address] [address] [place] [address] Medicare AARP AARP MEDICARE SUPPLEMENT [id number] 08/05/2021-Prese nt [address] [place] [address] Commercial MEDICARE WPS MEDICARE PART B [id number] 04/05/2004-Prese nt [address] [address] [place] [address] Medicare AARP AARP MEDICARE SUPPLEMENT [id number] 08/05/2021-Prese nt [address] [place] [address] Commercial MEDICARE WPS MEDICARE PART B [id number] 04/05/2004-Prese nt [address] [address] [place] [address] Medicare AARP AARP MEDICARE SUPPLEMENT [id number] 08/05/2021-Prese nt [address] [place] [address] Commercial MEDICARE WPS MEDICARE PART B [id number] Effective for all dates [address] [address] [place] [address] Medicare AARP AARP MEDICARE SUPPLEMENT [id number] Effective for all dates [address] [place] [address] Commercial AARP AARP MEDICARE SUPPLEMENT [id number] Effective for all dates [address] [place] [address] Commercial MEDICARE MEDICARE PART A AND B [id number] 04/05/2004-Prese nt [address] [place] [address] Medicare AARP AARP MEDICARE SUPPLEMENT [id number] 08/05/2021-Prese nt [address] [place] [address] Commercial MEDICARE WPS MEDICARE PART B [id number] 04/05/2004-Prese nt [address] [address] [place] [address] Medicare MEDICARE WPS MEDICARE PART B [id number] 04/05/2004-Prese nt [address] [address] [place] [address] Medicare MEDICARE WPS MEDICARE PART B [id number] 04/05/2004-Prese nt [address] [address] [place] [address] Medicare MEDICARE WPS MEDICARE PART B [id number] 04/05/2004-Prese nt [address] [address] [place] [address] Medicare Advance Directives * Full Code (Latest Code Status on File) Date Activated Date Inactivated Comments 09/20/2022 7:17 PM 09/21/2022 2:29 PM * Full Code Date Activated Date Inactivated Comments 03/28/2022 12:49 AM 04/03/2022 3:24 PM Care Teams Train Announcer Relationship Specialty Start Date End Date Jordy Connolly MD [address] [facility] [address] [facility] [address] [place] [address] PCP - General Internal Medicine 03/26/22
--- OUTSIDE RECORDS SUMMARY | 2024-10-23 14:48 | XMS_ITS | Continuity of Care Document ---
Author Organization [facility] Address [address] [facility] [address] [place] [address] Phone Care Team Providers Care Manager Hospital Name Role Phone Kerri Tiffany Unavailable Unavailable [...] Diagnoses Date Provider Providers Copied on Encounter [facility], [address] [place] [address] [address], [place], [place], [address], tel:[phone] [facility] No Information 0 Kerri Allen. [address] [facility], [place], [place], [facility], . tel:[phone] Referring Provider: Taiwo quintana, [address] [place], [place] [address], [place], [place], [facility]. tel:[phone] [facility], [address] [place] [address] [address], [place], [place], [address], tel:[phone] [facility] No Information 0 Kerri Cochran [address] [facility] [address], [place], [place], [facility], . tel:[phone] Referring Provider: Taiwo quintana, [address] [place], [place] [address], [place], [place], [facility]. tel:[phone] Office/outpat ient Visit, [facility], [address] [place] [address] [address], [place], [place], [address], [place] tel:[phone] [facility] No Information 0 Jada Maravilla. [address] [place], [place] [address], [place], [place], [facility], . tel:[phone] Office/outpat ient Visit, [facility], [address], [place], [place], [address], [place] tel:[phone] [facility] No Information Patricio-2 9-201 0 Krishnasamy Taiwo. [facility] Corporate [address], [facility], [place]. tel:[phone] Referring Provider: Taiwo quintana, [address] [facility] [address], [place], [place], [facility]. tel:[phone] [facility], [address] [place] [address] [address], [place], [place], [address], [place] tel:[phone] [facility] No Information Oct-0 5-200 9 Krishnasamy Taiwo. [facility] [address] [facility] [address] [place], [place], [facility], [place]. tel:[phone] Referring Provider: Taiwo quintana, [facility] Corporate [address], [facility]. tel:[phone] [facility], [address], [place], [place], [address], [place] tel:[phone] [facility] No Information Apr-2 8-200 9 Krishnasamy Taiwo. [facility] Corporate [facility] [address] [place], [place], [facility], [place]. tel:[phone] Referring Provider: Taiwo quintana, [facility] Corporate [address], [facility]. tel:[phone] [facility], [address], [place], [place], [address], [place] tel:[phone] [facility] No Information Feb-0 1-200 9 Krishnasamy Taiwo. [facility] [address] [place], [place], [facility], [place]. tel:[phone] Office/outpat ient Visit, Est [facility], [address], [place], [place], [address], [place] tel:[phone] [facility] No Information b-2 5-200 9 Krishnasamy Taiwo. [facility] [address], [place], [address], [place]. tel:[phone] Office/outpat ient Visit, Est [facility] Eye [facility], [address], [place], [place], [address], [place] tel:[phone] [facility] No Information Oct-2 4-200 8 Krishnasamy Taiwo. [facility] Corporate [address], [place], [facility], [place]. tel:[phone] [facility], [address], [place], [place], [address], [place] tel:[phone] [facility] No Information Sep-1 9-200 [address]. [facility] [address], [place], [facility], [place]. tel:[phone] [facility] Eye [facility], [address], [place], [place], [address], [place] tel:[phone] [facility] No Information Sep-1 7-200 8 Krishnasamy Taiwo. [address] [place], [place] [address]ate [facility] [address] [place], [place], [facility], [place]. tel:[phone] Referring Provider: Taiwo quintana, [facility] Corporate [address], [place], [place], [facility]. tel:[phone] [facility] Eye [facility], [address], [place], [place], [address], [place] tel:[phone] [facility] No Information Sep-1 6-200 8 Krishnasamy Taiwo. [address] [place], [place] [address] [address], [place], [facility], [place]. tel:[phone] Referring Provider: Taiwo quintana, [facility] Corporate [address], [place], [address]. tel:[phone] Office/outpat ient Visit, Est [facility] Eye [facility], [address], [place], [place], [address], [place] tel:[phone] [facility] No Information 4 8 Jada Maravilla. [address] [facility] [address], [place], [address], [place]. tel:[phone] [facility], [address], [place], [place], [address], [place] tel:[phone] [facility] No Information 8 Joseph Hancock. [address] [facility], [facility] [place], [address], . tel:[phone] Referring Provider: Santi Oh, [address] [place] [place], [address] . tel:[phone] [facility], [address] [place], [place], [place], [address], [place] tel:[phone] [facility] No Information 0-200 7 Wankfernando Hancock. [address], [facility] [place], [address], . tel:[phone] Referring Provider: Santi Oh, [address] [place] [place], [address] . tel:[phone] Office/outpat ient Visit, Est [facility], [address], [place], [place], [address], [place] tel:[phone] [facility] No Information 4[address] Wankum Santi. [address], [address] [place], [address], [place]. tel:[phone] Office/outpat ient Visit, Est [facility] Eye [facility], [address], [place], [place], [address], [place] tel:[phone] [facility] No Information 7 Joseph Hancock. [address] [facility], [address], [place], [place], [address], [place]. tel:[phone] Family History Family Member Type Diagnosis Age At Onset No Information Payers Payer name Insurance type Covered green party ID Authoriza tion(s) Medicare [facility] [id number] [facility] Medicare Supp [place] [id number] Social History Type Description Quantity Date Captured [...]
--- OUTSIDE RECORDS SUMMARY | 2024-10-23 14:48 | XMS_ITS | Encounter Summary ---
Author Organization [facility] Address [address] [place] [address] Care Team Providers Care Outreach Librarian Name Role Phone Tari Gloria MD Primary Care Provider [phone] Encounter Details Date Type Department Care Team (Late Contact Info) Description 10/21/2024 External Device Data [place] ABSTRACTION Provider, Abstract NO ADDRESS ON FILE Social History Tobacco Use Types Packs/Day Years Used Date Smoking Tobacco: Never Smokeless Tobacco: Never Alcohol Use Standard Drinks/Week Comments Yes 0 (1 standard drink = 0.6 oz pur e alcohol) Comments No Sex and Gender Information Value Date Recorded Sex Assigned at Not on file Legal Sex Female 8:53 AM RETINA SUBSPECIALIST Gender Identity Not on file Sexual Orientation Not on file documented as of this encounter Plan of Treatment Upcoming Encounters Date Type Department Care Team (Late Contact Info) Description 02/23/2025 1:00 PM CDT Office Visit [facility] Oncology and Hematology [place] [address] [facility] [address] [place] [address] Bob Price MD [address] [facility] [address] [place] [address] documented as of this encounter Visit Diagnoses Not on filedocumented in this encounter Care Teams Outreach Librarian Relationship Specialty Start Date End Date Tari Gloria MD [address] [place] [address] [address] [place] [address] PCP - General Family Practice 08/24/24 documented as of this encounter
--- OUTSIDE RECORDS SUMMARY | 2024-10-23 14:48 | XMS_ITS | Encounter Summary ---
Author Organization [facility] Address [address] [place] [address] Care Team Providers Care Construction Worker Name Role Phone Tari Gloria MD Primary Care Provider [phone] Encounter Details Date Type Department Care Team (Late Contact Info) Description 10/06/2019 Chart Note [facility] Radiation Therapy [address] [place] [address] [place] [address] [place] [address] Social History Tobacco Use Types Packs/Day Years Used Date Smoking Tobacco: Never Smokeless Tobacco: Never Alcohol Use Standard Drinks/Week Comments Yes 0 (1 standard drink = 0.6 oz pur e alcohol) Comments Unknown Sex and Gender Information Value Date Recorded Sex Assigned at Not on file Legal Sex Female 8:53 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 Gender Identity Not on file Sexual Orientation Not on file documented as of this encounter Plan of Treatment Upcoming Encounters Date Type Department Care Team (Late Contact Info) Description 02/23/2025 1:00 PM CDT Office Visit [facility] Oncology and Hematology - [place] [address] [facility] [address] [place] [address] Bob Price MD [address] [facility] [address] [place] [address] documented as of this encounter Visit Diagnoses Not on filedocumented in this encounter Care Teams Construction Worker Relationship Specialty Start Date End Date Tari Gloria MD [address] [facility][Note 3] [address] [place] [address] PCP - General Family Practice 08/24/24 documented as of this encounter
--- OUTSIDE RECORDS SUMMARY | 2024-10-23 14:48 | XMS_ITS | Referral Summary ---
Author Organization [facility] [address] Address [address] [place] [address] Care Team Providers Care Instructional Technology Director Name Role Phone Jordy Connolly MD Primary Care Provider Jordy Connolly MD Unavailable [phone] Social History Tobacco Use Types Packs/Day Years Used Date Smoking Tobacco: Never Assessed Personal Safety Answer Date Recorded Getting School Help Needed Not on file 10/17 Comments Unknown Sex and Gender Information Value Date Recorded Sex Assigned at Not on file Legal Sex Female 8:17 AM DIGITAL MEDIA INTERN Gender Identity Not on file Sexual Orientation Not on file Plan of Treatment Not on file Insurance MEDICARE [facility] Care Teams Instructional Technology Director Relationship Specialty Start Date End Date Jordy Connolly MD [address] [place] [address] PCP - General 05/15/19 Jordy Connolly MD [address] [place] [address] Internal Medicine 05/15/19
--- OUTSIDE RECORDS SUMMARY | 2024-10-23 14:48 | XMS_ITS | Clinical Summary ---
Author Organization [facility] Michaelelvispawel Llamas Address [address] [place] [address] Care Team Providers Care Collection Systems Administrator Name Role Phone Tari Gloria MD Primary Care Provider [phone] Allergies Active Allergy Reactions Criticality Noted Date Comments Cefuroxime Axetil Nausea and Vomiting Low 0 Levofloxacin Nausea and Vomiting Low 10/02/2019 Morphine Nausea and Vomiting Low 10/02/2019 Propofol Nausea and Vomiting Low 10/02/2019 Medications rosuvastatin (CRESTOR) 20 mg tablet Take 20 mg by mouth daily at bedtime. Active Fish Oil-[place]-3 Fatty Acids (Fish Oil) 360-1,200 mg Capsule [...] Encounters Date Type Department Care Team Description 10/21/2024 External Device Data ST[facility] ABSTRACTION Provider, Abstract 10/21/2024 External Device Data [facility] ABSTRACTION Provider, Abstract 10/10/2024 External Device Data [facility] ABSTRACTION Provider, Abstract 10/09/2024 External Device Data [facility] ABSTRACTION Provider, Abstract 09/22/2024 External Device Data [facility] ABSTRACTION Provider, Abstract 08/27/2024 External Device Data [facility] ABSTRACTION Provider, Abstract 08/24/2024 1:15 PM REDUCER Office Visit [facility] Oncology and Hematology [facility] [address] [place] [address] Bob Price MD Malignant neoplasm of upper-outer quadrant of left breast in female, estrogen receptor positive (CMS/HCC) (Primary Dx) 08/19/[address] [facility] Oncology and Hematology - [place] [address] [place] [address] Bob Price MD 08/18/[address] [facility] Oncology and Hematology - [place] [address] [place] [address] Scanning, Provider from Last 3 Months Family [...] on file Legal Sex Female 8:53 AM REDUCER Gender Identity Not on file Sexual Orientation Not on file Last Filed Vital Signs Vital Sign Reading Time Taken Comments Blood Pressure 155/95 08/24/2024 1:13 PM REDUCER Pulse 85 08/24/2024 1:06 PM REDUCER Temperature 36.4 C (97.5 F) 08/24/2024 1:06 PM REDUCER Respiratory Rate 15 08/24/2024 1:06 PM REDUCER Oxygen Saturation 93% 08/24/2024 1:06 PM REDUCER Inhaled Oxygen Concentration - - Weight 63.5 kg (140 lb) 08/24/2024 1:06 PM REDUCER Height 162.6 cm (5' 4 ) 02/18/2023 10:51 AM CDT Body Mass Index 24.03 02/18/2023 10:51 AM CDT Plan of Treatment Upcoming Encounters Date Type Department Care Team (Late st Contact Info) Description 02/23/2025 1:00 PM CDT Office Visit [facility] Oncology and Hematology - [place] [address] [facility] [address] [place] [address] Bob Price MD [address] [facility] [address] [place] [address] Health Maintenance Due Date Last Done Comments Traditional Medicare (ACO) A nnual Wellness Visit 1959 ZOSTER VACCINE (1 of 2) 1989 RSV VACCINE (60+ or ) (1 - 1-dose 75+ series) 2014 INFLUENZA VACCINE (#1) 2024 05/22/2022, 2020 COVID-19 Vaccine (4 - 2023-2 5 season) 2024 05/17/2021, 10/26/2020, 10/05/2020 DTAP/TDAP/TD VACCINES (2 - T d or Tdap) 03/27/2032 03/27/2022 PNEUMOCOCCAL VACCINE 50+ YEARS Completed 05/08/2018 , 04/19/2017 OSTEOPOROSIS SCREENING Completed , 08/29/2020, 04/04/2018, Additional history exists Procedures Procedure Name Priority Date/Time Associated Diagnosis Comments CANCER ANTIGEN 15-3 Routine 08/19/2024 1 2:21 PM REDUCER COMPREHENSIVE METABOLIC PANEL Routine 08/17/2024 1:25 PM REDUCER MAMMO SCREENING BILAT Routine 08/17/2024 11:23 AM REDUCER CBC WITH DIFFERENTIAL Routine 08/17/2024 10:35 AM REDUCER XR DEXA BONE DENSITY AXIAL 1 OR MORE SITES Routine 08/29/2020 Osteopenia of multiple sites from Last 3 Months or Most Recently Relevant to Health Maintenance Results * CANCER ANTIGEN 15-3 (08/19/2024 12:21 PM REDUCER) Blood Bob Price MD CHEMISTRY ORDERABLES Final Resu lt * COMPREHENSIVE METABOLIC PANEL (08/17/2024 1:25 PM REDUCER) Blood Bob Price MD CHEMISTRY ORDERABLES Final Resu lt * MAMMO SCREENING BILAT (08/17/2024 11:23 AM REDUCER) Anatomical Region Laterality Modality Breast Bilateral Mammography Bob Price MD MAMMO ORDERABLES Final Result * CBC WITH DIFFERENTIAL (08/17/2024 10:35 AM REDUCER) Blood Provider Scanning HEMATOLOGY ORDERABLES Final Re sult * XR DEXA BONE DENSITY AXIAL 1 OR MORE SITES (08/29/2020) Anatomical Region Laterality Modality Other us Bob Price MD DIAGNOSTIC IMAGING ORDERABLES F inal Result from Last 3 Months or Most Recently Relevant to Health Maintenance Insurance MEDICARE PART A AND B [facility] [id number] Care Teams Collection Systems Administrator Relationship Specialty Start Date End Date Tari Gloria MD [facility] Formerly Named [facility] [address] [place] [phone] PCP - General Family Practice 08/24/24
--- OUTSIDE RECORDS SUMMARY | 2024-10-23 14:48 | XMS_ITS | Encounter Summary ---
Author Organization [facility] Address 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 Gender Identity Not on file Sexual Orientation Not on file documented as of this encounter Plan of Treatment Upcoming Encounters Date Type Department Care Team (Late Contact Info) Description 02/23/2025 1:00 PM CDT Office Visit [facility] Oncology and Hematology - [place] [address] [facility] [address] [place] [address] Bob Price MD [address] [facility] [address] [place] [address] documented as of this encounter Visit Diagnoses Not on filedocumented in this encounter Care Teams Fur Grader Relationship Specialty Start Date End Date Tari Gloria MD [address] [place] [address] [address] [place] [address] PCP - General Family Practice 08/24/24 documented as of this encounter
--- OUTSIDE RECORDS SUMMARY | 2024-10-23 14:48 | XMS_ITS | Encounter Summary ---
Author Organization [facility] Address [address] [place] [address] Care Team Providers Care Bung Sewer Name Role Phone Tari Gloria MD Primary Care Provider [phone] Reason for Visit * Reason Onset Date Comments Urine culture 08/21/2022 Encounter Details Date Type Department Care Team ([facility] Contact Info) Description 08/21/[address] [facility] Oncology and Hematology [facility] [address] [place] [address] Bob Price MD [address] [facility] [address] [place] [address] Urine culture Social History Tobacco Use Types Packs/Day Years Used Date Smoking Tobacco: Never Smokeless Tobacco: Never Alcohol Use Standard Drinks/Week Comments Yes 0 (1 standard drink = 0.6 oz pur e alcohol) Comments No Sex and Gender Information Value Date Recorded Sex Assigned at Not on file Legal Sex Female 8:53 AM CUSTOMER DATA TECHNICIAN Gender Identity Not on file Sexual Orientation Not on file COVID-19 Exposure Response Date Recorded In the last 10 days, have yo u been in contact with someone who was confirmed or suspected to have Coronavirus/COVID-19? No / Unsure 08/21/2022 11:22 AM CUSTOMER DATA TECHNICIAN documented as of this encounter Plan of Treatment Upcoming Encounters Date Type Department Care Team ([facility] Contact Info) Description 02/23/2025 1:00 PM CDT Office Visit [facility] Oncology and Hematology - [place] [address] [place] [address] Bob Price MD [address] [facility] [address] [place] [address] Scheduled Orders Name Type Priority Associated Diagnoses [...] (CMS/HCC) documented in this encounter Care Teams Bung Sewer Relationship Specialty Start Date End Date Tari Gloria MD [address] [place] [address] [address] [place] [address] PCP - General Family Practice 08/24/24 documented as of this encounter
--- OUTSIDE RECORDS SUMMARY | 2024-10-23 14:48 | XMS_ITS | Clinical Summary ---
Author Organization [facility] [address] Address [address] [place] [address] Care Team Providers Care Line Up Worker Name Role Phone Jordy Connolly MD Primary Care Provider [phone] Jordy Connolly MD Unavailable [phone] Social History Tobacco Use Types Packs/Day Years Used Date Smoking Tobacco: Never Assessed Personal Safety Answer Date Recorded Getting School Help Needed Not on file 10/17 Comments Unknown Sex and Gender Information Value Date Recorded Sex Assigned at Not on file Legal Sex Female 8:17 AM INFORMATION TECHNOLOGY TEACHER Gender Identity Not on file Sexual Orientation Not on file Plan of Treatment Not on file Insurance MEDICARE [facility] Care Teams Line Up Worker Relationship Specialty Start Date End Date Jordy Connolly MD [address] [place] [address] PCP - General 05/15/19 Jordy Connolly MD [address] [place] [address] Internal Medicine 05/15/19
--- OUTSIDE RECORDS SUMMARY | 2024-10-23 14:48 | XMS_ITS ---
Author Organization [facility] Address [address] [place] [address] Care Team Providers Care Ob Gyn Name Role Phone Jordy Connolly MD Primary Care Provider [phone] Active Problems Problem Noted Date Diagnosed Date [...] treatments are documented for this patient in [facility]. Treatments may have been administered in another system. Lifetime Dose Tracking * Chemical Lifetime Dose Automatic Entry Manual Entr y Dose Length Product 2,306.8 mGy-cm 2,306.8 mGy-cm 0 mG y-cm Air Kerma 502 mGy 0 mGy 502 mGy
[2024-10-27 12:09] LABS: NIL 0.02 IU/mL; Quantiferon TB Plus, 1T NEGATIVE (NEGATIVE); TB1-NIL 0.01 IU/mL; TB2-NIL 0.05 IU/mL
== END 2024-10-23 14:32 | disposition home or self-care (01) ==
LOC: ANHGOSHLAB 14:32
PROVIDERS: PCP Family Medicine; Visit Provider Family Medicine
DX: Z20.828 Contact with and (suspected) exposure to other viral communicable diseases (principal)
CPT/HCPCS: 36415; 86480

== ENCOUNTER 2025-02-16 09:46 | Outpatient (CLI) | payer MEDICARE, SELFPAY ==
--- OUTSIDE RECORDS SUMMARY | 2025-02-16 10:01 | XMS_ITS ---
Author Organization [facility] Address [address] [facility] [place] [address] Care Team Providers Care Green Tire Inspector Name Role Phone Jordy Connolly MD Primary Care Provider [phone] Active Problems Problem Noted Date Diagnosed Date [...] in female, estrogen receptor positive 08/05/2018 Current Treatment and Therapy Plans No current plan information found. Past Treatment and Therapy Plans No past plan information found. Lifetime Dose Tracking * Chemical Lifetime Dose Automatic Entry Manual Entr y Dose Length Product 2,306.8 mGy-cm 2,306.8 mGy-cm 0 mG y-cm Air Kerma 502 mGy 0 mGy 502 mGy
--- OUTSIDE RECORDS SUMMARY | 2025-02-16 10:01 | XMS_ITS | Encounter Summary ---
Author Organization [facility] Address [address] [place] [address] Care Team Providers Care Area Field Manager Name Role Phone Tari Gloria MD Primary Care Provider [phone] Encounter Details Date Type Department Care Team (Late Contact Info) Description 10/06/2019 Chart Note [facility] Radiation Therapy [address] [place] [address] [place] [address] [place] [address] Social History Tobacco Use Types Packs/Day Years Used Date Smoking Tobacco: Never Smokeless Tobacco: Never Alcohol Use Standard Drinks/Week Comments Yes 0 (1 standard drink = 0.6 oz pur e alcohol) Comments Unknown Sex and Gender Information Value Date Recorded Sex Assigned at Not on file Legal Sex Female 8:53 AM 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 Gender Identity Not on file Sexual Orientation Not on file documented as of this encounter Plan of Treatment Upcoming Encounters Date Type Department Care Team (Late Contact Info) Description 02/23/2025 1:00 PM CDT Office Visit [facility] Oncology and Hematology - [place] [address] [facility] [address] [place] [address] Bob Price MD [address] [facility] [address] [place] [address] documented as of this encounter Visit Diagnoses Not on filedocumented in this encounter Care Teams Area Field Manager Relationship Specialty Start Date End Date Tari Gloria MD [address] [facility] [address] [place] [address] PCP - General Family Practice 08/24/24 documented as of this encounter
--- OUTSIDE RECORDS SUMMARY | 2025-02-16 10:01 | XMS_ITS | Encounter Summary ---
Author Organization [facility] Address [address] [place] [address] Care Team Providers Care Home Economics Expert Name Role Phone Tari Gloria MD Primary Care Provider [phone] Reason for Visit * Reason Onset Date Comments Urine culture 08/21/2022 Encounter Details Date Type Department Care Team ([facility] Contact Info) Description 08/21/[address] [facility] Oncology and Hematology [facility] [address] [place] [address] Bob Price MD [address] [facility] [address] [place] [address] Urine culture Social History Tobacco Use Types Packs/Day Years Used Date Smoking Tobacco: Never Smokeless Tobacco: Never Alcohol Use Standard Drinks/Week Comments Yes 0 (1 standard drink = 0.6 oz pur e alcohol) Comments No Sex and Gender Information Value Date Recorded Sex Assigned at Not on file Legal Sex Female 8:53 AM HOURLY MANAGER Gender Identity Not on file Sexual Orientation Not on file COVID-19 Exposure Response Date Recorded In the last 10 days, have yo u been in contact with someone who was confirmed or suspected to have Coronavirus/COVID-19? No / Unsure 08/21/2022 11:22 AM HOURLY MANAGER documented as of this encounter Plan of Treatment Upcoming Encounters Date Type Department Care Team ([facility] Contact Info) Description 02/23/2025 1:00 PM CDT Office Visit [facility] Oncology and Hematology - [place] [address] [place] [address] Bob Price MD [address] [facility] [address] [place] [address] Scheduled Orders Name Type Priority Associated Diagnoses [...] (CMS/HCC) documented in this encounter Care Teams Home Economics Expert Relationship Specialty Start Date End Date Tari Gloria MD [address] [place] [address] [address] [place] [address] PCP - General Family Practice 08/24/24 documented as of this encounter
--- OUTSIDE RECORDS SUMMARY | 2025-02-16 10:01 | XMS_ITS | Referral Summary ---
Author Organization [facility] [address] Address [address] [place] [address] Care Team Providers Care Appeals Nurse Name Role Phone Jordy Connolly MD Primary Care Provider [phone] Jordy Connolly MD Unavailable [phone] Social History Tobacco Use Types Packs/Day Years Used Date Smoking Tobacco: Never Assessed Personal Safety Answer Date Recorded Getting School Help Needed Not on file 10/17 Comments Unknown Sex and Gender Information Value Date Recorded Sex Assigned at Not on file Legal Sex Female 8:17 AM TRAFFIC LAW ATTORNEY Gender Identity Not on file Sexual Orientation Not on file Plan of Treatment Not on file Insurance MEDICARE [facility] Care Teams Appeals Nurse Relationship Specialty Start Date End Date Jordy Connolly MD [address] [place] [address] PCP - General 05/15/19 Jordy Connolly MD [address] [place] [address] Internal Medicine 05/15/19
--- OUTSIDE RECORDS SUMMARY | 2025-02-16 10:01 | XMS_ITS | Clinical Summary ---
Author Organization [facility] Address [address] [place] [address] Care Team Providers Care Parts Lister Name Role Phone Jordy Connolly MD Primary Care Provider [phone] Source Comments [facility],non-owned Affiliates and Associated Physician Practices is amultiple site organization consisting of ambulatory clinics and hospital sitesin [place], [place], [place] and [place]. This disclosure is being madepursuant to the Care Everywhere program and may not contain all information available regarding this patient. Last updated 18.[facility] Allergies Active Allergy Reactions Criticality Noted Date Comments Cefuroxime Nausea and/or Vomiting Low 10/02/2019 Levofloxacin Nausea and/or Vomiting Low 10/02/2019 Morphine Nausea and/or Vomiting Low 10/02/2019 Propofol Nausea and/or Vomiting Low 10/02/2019 Medications * Be aware that medications may not be up to date on this document. Alwaysverify current medications with the patient. anastrozole (Arimidex) 1 MG tablet Take 1 (one) tablet by mouth once daily 02/06/2022 Active vitamin E (Tocopheryl) 400 UNIT capsule Take 1 (one) capsule by mouth once daily Active rosuvastatin (Crestor) 10 MG tablet Take 1 (one) Half Tablet by mouth once daily Active Calcium Carb-Cholecalci ferol (CALCIUM+D3 PO) Acti ve [place]-3 Fatty Acids (fish oil) 500 MG capsule Take by mouth 2 times daily Hold until after DOS Active Multiple Vitamins-Minera ls (RA VISION-KENZIE PRESERVE PO) Take 1 tablet [...] in female, estrogen receptor positive 08/05/2018 Immunizations Immunization Administration Dates Next Due Girly Stuff primary monoval ent 12+ yr 0.3mL Purple [...] have received? 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 Not on file Not on file N ot on file Last Filed Vital Signs Vital Sign Reading Time Taken Comments Blood Pressure 152/84 12/19/2023 10:58 AM CDT Pulse 70 12/19/2023 10:58 AM CDT Temperature 36.6 C (97.8 F) 09/21/2022 7:31 AM SPONGE BUFFER Respiratory Rate 20 09/21/2022 7:31 AM SPONGE BUFFER Oxygen Saturation 97% 06/18/2023 10:47 AM SPONGE BUFFER Inhaled Oxygen Concentration - - Weight 61.2 kg (135 lb) 12/19/2023 10:58 AM CDT Height 162.6 cm (5' 4) 12/19/2023 10:58 AM CDT Body Mass Index 23.17 12/19/2023 10:58 AM CDT Plan of Treatment Health Maintenance Due Date Last Done Comments MEDICARE AWV 12 MONTHS 1940 ZOSTER VACCINE (1 of 2) 1989 Respiratory Syncytial Virus (RSV) Vaccine Pt: or over 60 yrs (1 - 1-dose 75+ series) 2014 COVID-19 VACCINE ( season) 2024 06/15/2022, 05/17/2021, 10/26/2020, Additional history exists DEPRESSION SCREENING 08/05/2024 INFLUENZA VACCINE (#1) 2025 , 05/17/2021, 04/19/2017, Additional history exists DTAP/TDAP/TD VACCINES (2 - Td or Tdap) [...] this topic Medical Devices Implanted Type Area Invoice Checker Device Identifier Shelf Expiration Date Model / Serial / Lot Coil Azur Cx Hdrcl 4cm 3mm Dtch Loop Sld Implanted:Qty: 1 on 03/28/2022 at [facility] 06/04/2026 [id number] / / [id number] Coil Azur Hdrcl 2cm 2mm .018in Dtch Loop Implanted:Qty: 1 on 03/28/2022 at [facility] 06/04/2026 [id number] / / [id number] Coil Azur Hdrcl 2cm 2mm .018in Dtch Loop Implanted:Qty: 1 on 03/28/2022 at [facility] 05/04/2026 [id number] / / [id number] Insurance MEDICARE [facility] MEDICARE [facility] MEDICARE MEDICARE MEDICARE MEDICARE [facility] MEDICARE [facility] MEDICARE [facility] MEDICARE [facility] MEDICARE Member Subscriber Plan / Payer (Ef fective 2004-Present) Name:Cindy Stanton Member ID:[id number] Relation to Subscriber:Self Name:CINDY STANTON Subscriber ID:[id number] Payer ID:Not on file Group ID:Not on file Type:Medicare Address: [place] [phone] [facility] MEDICARE [facility] MEDICARE Member Subscriber Plan / Payer (Ef fective 2004-Present) Name:Cindy Stanotn Member ID:[id number] Relation to Subscriber:Self Name:CINDY STANTON Subscriber ID:[id number] Payer ID:Not on file Group ID:Not on file Type:Medicare Address: [place] [phone] [facility] Member Subscriber Plan / Payer (Ef fective 2004-) Name:Cindy Stanton Member ID:[id number] Relation to Subscriber:Self Name:CINDY STANTON Subscriber ID:[id number] Payer ID:Not on file Group ID:Not on file Type:Medicare Address: [place] [phone] AARP MEDICARE AARP MEDICARE Member Subscriber Plan / Payer ( fective 2004-) Name:Cindy Stanton Member ID:[id number] Relation to Subscriber:Self Name:CINDY STANTON Subscriber ID:[id number] Payer ID:Not on file Group ID:Not on file Type:Medicare Address: [place] [phone] [facility] MEDICARE [facility] MEDICARE Member Subscriber Plan / Payer (Ef fective 2004-) Name:Cindy Stanton Member ID:[id number] Relation to Subscriber:Self Name:CINDY STANTON Subscriber ID:[id number] Payer ID:Not on file Group ID:Not on file Type:Medicare Address: [place] [address] MEDICARE Member Subscriber Plan / Payer (Ef fective 2004-) Name:Cindy Stanton Member ID:[id number] Relation to Subscriber:Self Name:CINDY STANTON Subscriber ID:[id number] Payer ID:Not on file Group ID:Not on file Type:Medicare Address: [place] [phone] [facility] MEDICARE AARP MEDICARE Member Subscriber Plan / Payer (Ef fective for All Dates) Name:Cindy Stanton Member ID:[id number] Relation to Subscriber:Self Name:CINDY STANTON Subscriber ID:[id number] Payer ID:Not on file Group ID:Not on file Type:Medicare Address: [place] [phone] [facility] MEDICARE Member Subscriber Plan / Payer (Ef fective 2004-Present) Name:Cindy Stanton Member ID:[id number] Relation to Subscriber:Self Name:CINDY STANTON Subscriber ID:[id number] Payer ID:Not on file Group ID:Not on file Type:Medicare Address: [place] [phone] [facility] MEDICARE [facility] MEDICARE [facility] MEDICARE AARP Member Subscriber Plan / Payer (Ef fective for All Dates) Name:Cindy Stanton Relation to Subscriber:Self Name:CINDY STANTON Payer ID:Not on file Group ID:PLAN F Type:Commercial Address: [facility] [address] [place] [phone] MEDICARE [facility] MEDICARE [facility] MEDICARE Member Subscriber Plan / Payer (Ef fective 2004-) Name:Cindy Stanton Member ID:[id number] Relation to Subscriber:Self Name:CINDY STANTON Subscriber ID:[id number] Payer ID:Not on file Group ID:Not on file Type:Medicare Address: [place] [phone] [facility] MEDICARE Member Subscriber Plan / Payer (Ef fective 2004-) Name:Cindy Stanton Member ID:[id number] Relation to Subscriber:Self Name:CINDY STANTON Subscriber ID:[id number] Payer ID:Not on file Group ID:Not on file Type:Medicare Address: [place] [phone] [facility] MEDICARE [facility] MEDICARE MEDICARE Member Subscriber Plan / Payer (Ef fective 2004-Present) Name:Cindy Stanton Member ID:[id number] Relation to Subscriber:Self Name:CINDY STANTON Subscriber ID:[id number] Payer ID:Not on file Group ID:Not on file Type:Medicare Address: [place] [address] [place] [address] MEDICARE AARP MEDICARE [facility] MEDICARE AARP MEDICARE Member Subscriber Plan / Payer ( fective 2004-) Name:Cindy Stanton Member ID:[id number] Relation to Subscriber:Self Name:CINDY STANTON Subscriber ID:[id number] Payer ID:Not on file Group ID:Not on file Type:Medicare Address: [address] MEDICARE Member Subscriber Plan / Payer ( fective 2004-) Name:Cindy Stanton Member ID:[id number] Relation to Subscriber:Self Name:CLOTILDE STANTONAH Laura Subscriber ID:[id number] Payer ID:Not on file Group ID:Not on file Type:Medicare Address: [address] MEDICARE AARP MEDICARE Member Subscriber Plan / Payer (Ef fective 2004-Present) Name:Roseannennamdi Cindy Laura Member ID:[id number] Relation to Subscriber:Self Name:GEOCINDY Sanchez Subscriber ID:[id number] Payer ID:Not on file Group ID:Not on file Type:Medicare Address: [address] MEDICARE Member Subscriber Plan / Payer (Ef fective 2004-) Name:Roseanneladiyunielsarah Cindy Sanchez Member ID:[id number] Relation to Subscriber:Self Name:ROSEANNELADICINDY PORRAS Subscriber ID:[id number] Payer ID:Not on file Group ID:Not on file Type:Medicare Address: [address] MEDICARE Member Subscriber Plan / Payer (Ef fective 2004-) Name:Reneasarah Cindy Sanchez Member ID:[id number] Relation to Subscriber:Self Name:CINDY STANTON Subscriber ID:[id number] Payer ID:Not on file Group ID:Not on file Type:Medicare Address: [place] [address] [place] [address] MEDICARE Member Subscriber Plan / Payer (Ef fective 2004-) Name:Clotilde Stantonah Laura Member ID:[id number] Relation to Subscriber:Self Name:ROSEANNELADIVERNCINDY Sanchez Subscriber ID:[id number] Payer ID:Not on file Group ID:Not on file Type:Medicare Address: [place] [phone] [facility] MEDICARE [facility] Member Subscriber Plan / Payer (Ef fective 2022-Present) Name:Cindy Stanton Relation to Subscriber:Self Name:CINDY STANTON Payer ID:Not on file Group ID:PLAN F Type:Commercial Address: [place] [phone] MEDICARE [facility] Advance Directives * Full Code (Latest Code Status on File) Date Activated Date Inactivated Comments 09/20/2022 7:17 PM 09/21/2022 2:29 PM * Full Code Date Activated Date Inactivated Comments 03/28/2022 12:49 AM 04/03/2022 3:24 PM Care Teams Parts Lister Relationship Specialty Start Date End Date Jordy Connolly MD [address] [address] PCP - General Internal Medicine 8/22/22
--- OUTSIDE RECORDS SUMMARY | 2025-02-16 10:01 | XMS_ITS | Clinical Summary ---
Author Organization [facility] [address] Address [address] [place] [address] Care Team Providers Care Ditching Machine Operating Engineer Name Role Phone Jordy Connolly MD Primary Care Provider [phone] Jordy Connolly MD Unavailable [phone] Social History Tobacco Use Types Packs/Day Years Used Date Smoking Tobacco: Never Assessed Personal Safety Answer Date Recorded Getting School Help Needed Not on file 10/17 Comments Unknown Sex and Gender Information Value Date Recorded Sex Assigned at Not on file Legal Sex Female 8:17 AM DIRECTOR MEDICAL Gender Identity Not on file Sexual Orientation Not on file Plan of Treatment Not on file Insurance MEDICARE [facility] Care Teams Ditching Machine Operating Engineer Relationship Specialty Start Date End Date Jordy Connolly MD [address] [place] [address] PCP - General 05/15/19 Jordy Connolly MD [address] [place] [address] Internal Medicine 05/15/19
--- OUTSIDE RECORDS SUMMARY | 2025-02-16 10:01 | XMS_ITS | Clinical Summary ---
Author Organization [facility]aele[facility]vispawel [facility] Address [address] [place] [address] Care Team Providers Care Job Molder Name Role Phone Tari Gloria MD Primary Care Provider [phone] Allergies Active Allergy Reactions Criticality Noted Date Comments Cefuroxime Axetil Nausea and Vomiting Low 0 Levofloxacin Nausea and Vomiting Low 10/02/2019 Morphine Nausea and Vomiting Low 10/02/2019 Propofol Nausea and Vomiting Low 10/02/2019 Medications rosuvastatin (CRESTOR) 20 mg tablet Take 20 mg by mouth daily at bedtime. Active Fish Oil-[place]-3 Fatty Acids (Fish Oil) 360-1,200 mg Capsule [...] Encounters Date Type Department Care Team Description 01/26/2025 External Device Data [facility] ABSTRACTION Provider, Abstract 01/05/2025 External Device Data [facility] ABSTRACTION Provider, Abstract 12/29/2024 External Device Data [facility] ABSTRACTION Provider, Abstract 12/24/2024 External Device Data [facility] ABSTRACTION Provider, Abstract 12/23/2024 External Device Data [facility] ABSTRACTION Provider, Abstract 12/22/2024 External Device Data [facility] ABSTRACTION Provider, Abstract from Last 3 Months Family History Medical [...] on file Legal Sex Female 8:53 AM NUCLEAR MEDICINE SPECIALIST Gender Identity Not on file Sexual Orientation Not on file Last Filed Vital Signs Vital Sign Reading Time Taken Comments Blood Pressure 155/95 08/24/2024 1:13 PM NUCLEAR MEDICINE SPECIALIST Pulse 85 08/24/2024 1:06 PM NUCLEAR MEDICINE SPECIALIST Temperature 36.4 C (97.5 F) 08/24/2024 1:06 PM NUCLEAR MEDICINE SPECIALIST Respiratory Rate 15 08/24/2024 1:06 PM NUCLEAR MEDICINE SPECIALIST Oxygen Saturation 93% 08/24/2024 1:06 PM NUCLEAR MEDICINE SPECIALIST Inhaled Oxygen Concentration - - Weight 63.5 kg (140 lb) 08/24/2024 1:06 PM NUCLEAR MEDICINE SPECIALIST Height 162.6 cm (5' 4) 02/18/2023 10:51 AM CDT Body Mass Index 24.03 02/18/2023 10:51 AM CDT Plan of Treatment Upcoming Encounters Date Type Department Care Team (Late st Contact Info) Description 02/23/2025 1:00 PM CDT Office Visit [facility] Oncology and Hematology - [place] [address] [place] [address] Bob Price MD [address] [place] [address] Health Maintenance Due Date Last Done Comments Traditional Medicare (ACO) A nnual Wellness Visit 1959 ZOSTER VACCINE (1 of 2) 1989 RSV VACCINE (60+ or ) (1 - 1-dose 75+ series) 2014 COVID-19 Vaccine ( - 2023-2 5 season) 2024 05/17/2021, 10/26/2020, 10/05/2020 INFLUENZA VACCINE (#1) 2025 05/22/2022, 2020 OSTEOPOROSIS SCREENING 09/09/2029 , 08/29/2020, 08/29/2020, Additional history exists DTAP/TDAP/TD VACCINES (2 - T d or Tdap) 03/27/2032 03/27/2022 PNEUMOCOCCAL VACCINE 50+ YEARS Completed 05/08/2018 , 04/19/2017 Procedures Procedure Name Priority Date/Time Associated Diagnosis Comments XR DEXA BONE DENSITY AXIAL 1 OR MORE SITES Routine 08/29/2020 Osteopenia of multiple sites from Last 3 Months or Most Recently Relevant to Health Maintenance Results * XR DEXA BONE DENSITY AXIAL 1 OR MORE SITES (08/29/2020) Anatomical Region Laterality Modality Other Bob Price MD DIAGNOSTIC IMAGING ORDERABLES F inal Result from Last 3 Months or Most Recently Relevant to Health Maintenance Insurance MEDICARE PART A AND B [facility] [id number] Member Subscriber Plan / Payer (Ef fective 2021-Present) Name:Mariia Stanton Relation to Subscriber:Self Name:Mariia Stanton Payer ID:[id number] (NAIC) Type:Supplemental Address: [place] [id number] Care Teams Job Molder Relationship Specialty Start Date End Date Tari Gloria MD [facility] [address] [id number] PCP - General Family Practice 08/24/24
--- OUTSIDE RECORDS SUMMARY | 2025-02-16 10:01 | XMS_ITS | Continuity of Care Document ---
Author Organization [facility] Address [address] [place] [address] Phone Care Team Providers Care Welder Helper Name Role Phone Kerri Tiffany Unavailable Unavailable [...] Diagnoses Date Provider Providers Copied on Encounter Located within [facility], [address] [place] [address] [address], [place], [place], [address], tel:[phone] [facility] No Information 0 Kerri Allen. [address] [place] , [address], [place], [place], [facility], . tel:[phone] Referring Provider: Taiwo quintana, [address] [place], [place] [address]ate [address], [place], [place], [facility]. tel:[phone] Located within [facility], [address] [place] [address] [address], [place], [place], [address], tel:[phone] [facility] No Information 0 Kerri Cochran [address] [place] , [address], [place], [place], [facility], . tel:[phone] Referring Provider: Taiwo quintana, [address] [place], [place] [address]ate [place], [place], [place], [facility]. tel:[phone] Office/outpat ient Visit, [facility], [address] [place] [address] [address], [place], [place], [address], [place] tel:[phone] [facility] No Information 0 Jada Maravilla. [address] [place], [place] [address]ate [address], [place], [place], [facility], . tel:[phone] Office/outpat ient Visit, [facility], [address], [place], [place], [address], [place] tel:[phone] [facility] No Information Patricio-2 9-201 0 Krishnasamy Taiwo. [facility] [address], [facility], [place]. tel:[phone] Referring Provider: Taiow quintana, [address] [facility] [address], [place], [place], [facility]. tel:[phone] [facility], [address] [place] [address] [address], [place], [place], [address], [place] tel:[phone] [facility] No Information Oct-0 5-200 9 Krishnasamy Taiwo. [facility] [address] [facility] [address], [place], [facility], [place]. tel:[phone] Referring Provider: Taiwo quintana, [facility] [address], [facility]. tel:[phone] Located within [facility], [address], [place], [place], [address], [place] tel:[phone] [facility] No Information Apr-2 8-200 9 Krishnasamy Taiwo. [facility] Corporate [facility] [address], [place], [facility], [place]. tel:[phone] Referring Provider: Taiwo quintana, [facility] Corporate [address], [facility]. tel:[phone] Located within [facility], [address], [place], [place], [address], [place] tel:[phone] [facility] No Information Feb-0 1-200 9 Krishnasamy Taiwo. [facility] [address] [facility] [address], [place], [facility], [place]. tel:[phone] Office/outpat ient Visit, Est Located within [facility], [address], [place], [place], [address], [place] tel:[phone] [facility] No Information b-2 5-200 9 Krishnasamy Taiwo. [facility] [address] [place] [address], [place], [address], [place]. tel:[phone] Office/outpat ient Visit, Est [facility], [address], [place], [place], [address], [place] tel:[phone] [facility] No Information Oct-2 4-200 8 Krishnasamy Taiwo. [facility] [address], [place], [place], [facility], [place]. tel:[phone] Located within [facility], [address], [place], [place], [address], [place] tel:[phone] [facility] No Information Sep-1 9-200 8 Leiva OD Cayetano. [facility] [address], [place], [place], [facility], [place]. tel:[phone] [facility], [address], [place], [place], [address], [place] tel:[phone] [facility] No Information Sep-1 7-200 8 Krishnasamy Taiwo. [address] [place], [place] [address]ate [facility] [address], [place], [facility], [place]. tel:[phone] Referring Provider: Taiwo quintana, [facility] [address], [place], [place], [facility]. tel:[phone] [facility], [address], [place], [place], [address], [place] tel:[phone] [facility] No Information Sep-1 6-200 8 Krishnasamy Taiwo. [address] [place], [place] [address]ate [place] [address], [place], [facility], [place]. tel:[phone] Referring Provider: Taiwo quintana, [facility] [address], [place], [address]. tel:[phone] Office/outpat ient Visit, Est [facility], [address], [place], [place], [address], [place] tel:[phone] [facility] No Information 4 8 Jada Maravilla. [address] [facility] [address], [place], [address], [place]. tel:[phone] Located within [facility], [address], [place], [place], [address], [place] tel:[phone] [facility] No Information 8 Joseph Hancock. [address] [facility], [facility] [place], [address], . tel:[phone] Referring Provider: Santi Oh, [address] [place] [place], [address] . tel:[phone] Located within [facility], [address], [place], [place], [address], [place] tel:[phone] [facility] No Information 0-200 7 Wankfernando Hancock. [address], [facility] [place], [place], [address], . tel:[phone] Referring Provider: Santi Oh, [address] [place], [address] . tel:[phone] Office/outpat ient Visit, Est Located within [facility], [address], [place], [place], [address], [place] tel:[phone] [facility] No Information 4[address] Wankum Santi. [address], [address] [place], [address], [place]. tel:[phone] Office/outpat ient Visit, Est [facility], [address], [place], [place], [address], [place] tel:[phone] [facility] No Information [address]. [address] [facility], [address], [place], [place], [address], [place]. tel:[phone] Family History Family Member Type Diagnosis Age At Onset No Information Payers Payer name Insurance type Covered libertarian ID Authoriza tion(s) Medicare [facility] [id number] [facility] Medicare Supp CI [id number] Social History Type Description Quantity Date Captured [...]
[2025-02-16 10:52] LABS: Hematocrit 41.7 % (37.0-47.0); Hemoglobin 13.6 g/dL (12.0-15.0); Immature Granulocyte Percent A 0.2 % (0-0.5); Lymphocytes Absolute Auto 1.38 K/mm3 (0.9-3.2); Mean Corpuscular HGB Conc 32.6 g/dl (32-36); Mean Corpuscular Hemoglobin 31.4 pg (26-34); Mean Corpuscular Volume 96.3 fl (80-100); Nucleated Red Blood Cells Absolute Auto 0.000 K/mm3 (0.0-0.012); Nucleated Red Blood Cells Perc 0.0 % (0.0-0.2); Platelet Count Result 304 k/mm3 (150-375); Red Blood Count 4.33 M/mm3 (4.2-5.4); White Blood Count 6.5 K/mm3 (4.5-10.0)
[2025-02-16 17:01] LABS: Alanine Aminotransferase 19 U/L (6-35); Albumin Level 4.2 g/dL (3.5-5.1); Alkaline Phosphatase 79 U/L (38-126); Anion Gap 8 mmol/L (4-12); Aspartate Amino Transferase 65 U/L (14-36); Bilirubin,Total 0.4 mg/dL (0.2-1.3); Blood Urea Nitrogen 17 mg/dL (7-17); Calcium 9.3 mg/dL (8.4-10.2); Carbon Dioxide 26 mmol/L (22-30); Chloride 103 mmol/L (98-107); Estimated Glomerular Filt Rate > 60; Glucose 93 mg/dL (65-110); Potassium 3.9 mmol/L (3.4-5.0); Sodium 137 mmol/L (137-145); Total Protein 7.3 g/dL (6.3-8.2)
== END 2025-02-16 09:47 | disposition home or self-care (01) ==
PROVIDERS: PCP Family Medicine; Visit Provider Internal Medicine Hematology & Oncology
DX: C50.412 Malignant neoplasm of upper-outer quadrant of left female breast (principal); Z17.0 Estrogen receptor positive status [ER+]
CPT/HCPCS: 36415; 80053; 85025; 86300

== ENCOUNTER 2025-02-24 08:38 | Outpatient (CLI) | payer MEDICARE, SELFPAY ==
--- OUTSIDE RECORDS SUMMARY | 2025-02-24 08:44 | XMS_ITS | Clinical Summary ---
Author Organization [facility] [address] Address [address] [place] [address] Care Team Providers Care Privacy Manager Name Role Phone Jrody Connolly MD Primary Care Provider [phone] Jordy Connolly MD Unavailable [phone] Social History Tobacco Use Types Packs/Day Years Used Date Smoking Tobacco: Never Assessed Personal Safety Answer Date Recorded Getting School Help Needed Not on file 10/17 Comments Unknown Sex and Gender Information Value Date Recorded Sex Assigned at Not on file Legal Sex Female 8:17 AM YARD CALLER Gender Identity Not on file Sexual Orientation Not on file Plan of Treatment Not on file Insurance MEDICARE [facility] Care Teams Privacy Manager Relationship Specialty Start Date End Date Jordy Connolly MD [address] [place] [address] PCP - General 05/15/19 Jordy Connolly MD [address] [place] [address] Internal Medicine 05/15/19
--- OUTSIDE RECORDS SUMMARY | 2025-02-24 08:44 | XMS_ITS | Encounter Summary ---
Author Organization [facility] [employer] [facility] Address [address] [place] [address] Care Team Providers Care Coding Spec Name Role Phone Tari Gloria MD Primary Care Provider [phone] Reason for Referral * Radiology Services (Routine) - Closed Specialty Diagnoses / Procedures Referred By Contac t Referred To Contact Diagnoses Visit for screening mammogram Procedures MAMMO 3D WALE SCREEN BILAT W OR WO CAD CHG SCREENING MAMMOGRAPHY BI 2-VIEW BREAST INC CAD CHG SCREENING DIGITAL BREAST TOMOSYNTHESIS BI Bob Price MD [address] [place] [address] Phone: tel: fax: [place] [phone] Referral ID Status Reason Start Date Expiration Date V isits Requested Visits Authorized [id number] Closed [facility] CTS 02/23/2025 03/26/2026 1 1 Reason for Visit * Reason Comments Cancer Follow Up Encounter Details Date Type Department Care Team (Late st Contact Info) Description 02/23/2025 1:00 PM CDT Office Visit [facility] Oncology and Hematology - [facility] [address] [place] [address] Bob Price MD [address] [place] [address] Malignant neoplasm of upper-outer quadrant of left breast in female, estrogen receptor positive (CMS/HCC) (Primary Dx); Visit for screening mammogram Social History Tobacco Use Types Packs/Day Years Used Date Smoking Tobacco: Never Smokeless Tobacco: Never Tobacco Cessation:Counseling Given: Not Answered Alcohol Use Standard Drinks/Week Comments Yes 0 (1 standard drink = 0.6 oz pur e alcohol) Comments No Sex and Gender Information Value Date Recorded Sex Assigned at Not on file Legal Sex Female 8:53 AM PERCUSSION 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 TUNER Gender Identity Not on file Sexual Orientation Not on file documented as of this encounter Last Filed Vital Signs Vital Sign Reading Time Taken Comments Blood Pressure 128/77 02/23/2025 1:06 PM CDT Pulse 84 02/23/2025 1:06 PM CDT Temperature 36.3 C (97.3 F) 02/23/2025 1:06 PM CDT Respiratory Rate 16 02/23/2025 1:06 PM CDT Oxygen Saturation 94% 02/23/2025 1:06 PM CDT Inhaled Oxygen Concentration - - Weight 63.5 kg (140 lb) 02/23/2025 1:06 PM CDT Height - - Body Mass Index 24.03 02/18/2023 10:51 AM CDT documented in this encounter Progress Notes * Bob Price MD - 02/23/2025 1:58 PM CDT HEMATOLOGY / ONCOLOGY PROGRESS NOTE Patient Identification: Name: aMriia Stanton Age: 84 y.o. 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 5 lymph nodes examined all came back negative for malignancy. Oncotype DX score of 24 Right breast ductal excision showed intraductal papilloma with sclerosis done on September 10, 2019 Osteopenia. CURRENT TREATMENT Surveillance TREATMENT HISTORY Completed radiation therapy treatment to the left breast on November 26, 2019. Right-sided hemicolectomy done on August 11, 2021 showed multiple tubular adenomas. Arimidex 1 mg daily started November 2019. Patient completed Arimidex in November 2024. SUBJECTIVE Patient came to the office for follow-up visit. She denies any chest pain and shortness of breath. Denies any new lumps bumps or lymphadenopathy. Weight and appetite stable. No other new complaints. Review of system Constitutional: denies fevers, sweats, weight and appetite stable, denies any tiredness and fatigueHEENT: denies sinus congestion, hearing or vision problems Respiratory: denies cough, dyspnea, wheeze Cardiovascular: denies chest pain, exertional chest pressure/discomfort, nausea, syncope, shortnessof breath GI: denies constipation, diarrhea, dsyphagia, reflux symptoms, vomiting, melena, : denies dysuria, frequency, incontinence, urgency Integumentary system: no lymphadenopathy, sweats, flushing Musculoskeletal: denies: myalgia, complain of right knee arthralgia Neurological: denies blurry or disturbed vision, numbness/weakness, dizziness Skin: No lumps, bumps or rashes. 12 point review of system was reviewed Objective: Vital signs in last 24 hours: As per nursing note Exam: General appearance: alert, cooperative, no distress, appears stated age Head: normocephalic, without obvious abnormality, atraumatic Eyes: conjunctivae/corneas clear, EOM's intact Ears: normal external ear canals AU Nose: Nares normal. Septum midline. Mucosa normal. No drainage or sinus tenderness Throat: Lips, mucosa, and tongue normal. Teeth and gums normal Neck: supple, symmetrical, trachea midline. Lungs: clear to auscultation bilaterally Heart: regular rate and rhythm, S1, S2 normal, no murmur, click, rub or gallop Abdomen: soft, non-tender. Bowel sounds normal. No masses, No organomegaly Extremities: extremities normal, atraumatic, no cyanosis or edema Skin: Skin color, texture, turgor normal. No rashes or lesions Lymph nodes: No lymphadenopathy Neuro: No obvious focal deficit Bilateral breast examination showed postoperative and radiation changes in the left breast without any masses lymphadenopathy. Exam as above PATH LABS Labs from November 29 showed WBC 4.8 hemoglobin 12.9 platelet 312,000 creatinine 0.9. Labs from May 31 showed hemoglobin 12.8 CA 27 29-23 Labs from April 06 showed potassium 3.7 creatinine 1.1 WBC 4.8 hemoglobin 13.2 platelet 266,000 monocyte 1200 Labs from November 29 showed hemoglobin 12.8 WBC 4.5 platelet 288,000 creatinine 0.8 CA 15-3 was 13. Neutrophils 53% lymphocyte 26% monocytes 17%. Labs from April 05 showed creatinine 0.8 WBC 5.3 hemoglobin 13.3 platelet 179,000 CA 15-3 14 Labs from August 09 showed hemoglobin 12.8 creatinine 1.0 total bilirubin 0.4 CA 15-3 14 Labs from February 06 showed CA 15-3 16 WBC 4.9 hemoglobin 13.6 platelet 277,000 creatinine 0.9 total protein 7.0 Labs from August 07 showed WBC 5.4 hemoglobin 14.1 platelet 321,000 CA 15-3 18 Labs from February 11 showed creatinine 0.8 total bilirubin 0.6 WBC 5.4 hemoglobin 13.2 platelet 342,000 CA 15-3 16 Labs from August 12 showed CA 15-3 17 creatinine 1.0 total bilirubin 0.4 WBC 5.8 hemoglobin 13.5 platelet 331,000 Labs from February 09 showed creatinine 0.7 total bilirubin 0.6 hemoglobin 14 CA 15-3 14 Labs from August 17 showed CA 15-3 15 creatinine 0.8 total bilirubin 0.5 WBC 6.4 hemoglobin 13.8 platelet 407,000 Labs from February 16 showed WBC 6.5 hemoglobin 13.6 platelet 304,000 creatinine 0.7 CA 15-3 18.9 Assessment: Plan: Patient Active Problem List Diagnosis Date Noted Malignant neoplasm of left breast in female, estrogen receptor positive (CMS/HCC) 11/30/2019 T1 cN0 MX 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 5 lymph nodes examined all came back negative for malignancy. Oncotype DX recurrence score of 24. Patient completed radiation therapy treatment on November 26, 2019. Patient started Arimidex in November 2019. Patient completed Arimidex in November 2024. There is no evidence of relapse of disease on my examination. Labs including tumor marker are stable. I will order bilateral screening mammogram in 6 months and follow-up in 6 months. After the next appointment I will see her back in 9 months. Osteopenia. Continue vitamin D. A-fib status post ablation. She is asymptomatic. Hypertension. Stable. History of bowel obstruction is status post hemicolectomy in August 2022. She is asymptomatic. 02/23/2025 Bob Price MD documented in this encounter Plan of Treatment Upcoming Encounters Date Type Department Care Team (Late st Contact Info) Description 09/17/2025 12:45 PM PERCUSSION INSTRUMENT TUNER Office Visit [facility] Oncology and Hematology [facility] [address] [place] [address] Bob Price MD [address] [facility] [address] [place] [address] Scheduled Orders Name Type Priority Associated Diagnoses Orde r Schedule CBC WITH DIFFERENTIAL Lab Stat Malignant neoplasm of upper-outer quadrant of left breast in female, estrogen receptor positive (CMS/HCC) Expected: 08/26/2025, Expires: 02/23/2026 COMPREHENSIVE METABOLIC PANEL Lab Stat Malignant neoplasm of upper-outer quadrant of left breast in female, estrogen receptor positive (CMS/HCC) Expected: 08/26/2025, Expires: 02/23/2026 CANCER ANTIGEN 15-3 Lab Routine Malignant neoplasm of upper-outer quadrant of left breast in female, estrogen receptor positive (CMS/HCC) Expected: 08/26/2025, Expires: 02/23/2026 MAMMO 3D WALE SCREEN BILAT W OR WO CAD Imaging Routine Visit for screening mammogram Expected: 08/26/2025, Expires: 08/26/2026 documented as of this encounter Visit Diagnoses Diagnosis Malignant neoplasm of upper-outer quadrant of left breast in female, estrogen receptor positive (CMS/HCC)- Primary Visit for screening mammogram Other screening mammogram documented in this encounter Care Teams Coding Spec Relationship Specialty Start Date End Date Tari Gloria MD [facility] [facility] [address] [place] [address] PCP - General Family Practice 08/24/24 documented as of this encounter
--- OUTSIDE RECORDS SUMMARY | 2025-02-24 08:44 | XMS_ITS | Continuity of Care Document ---
Author Organization [facility] Address [address] [place] [address] Phone Care Team Providers Care Production Line Welder Name Role Phone Kerri Tiffany Unavailable Unavailable [...] Diagnoses Date Provider Providers Copied on Encounter [facility], [address] [place] [address] [address], [place], [place], [id number], tel:[phone] [facility] No Information 0 Kerri Allen. [address] , [address], [place], [place], [facility], . tel:[phone] Referring Provider: Taiwo quintana, [address] [place], [place] [address]ate [address], [place], [place], [facility]. tel:[phone] [facility], [address] [place] [address] [address], [place], [place], [id number], tel:[phone] [facility] No Information 0 Kerri Cochran [address] , [address], [place], [place], [facility], . tel:[phone] Referring Provider: Taiwo quintana, [address] [place], [place] [address]ate [address], [place], [facility]. tel:[phone] Office/outpat ient Visit, [facility], [address] [place] [address] [address], [place], [place], [address], [place] tel:[phone] [facility] No Information 0 Jada Maravilla. [address] [place], [place] [address]ate [address], [place], [facility], . tel:[phone] Office/outpat ient Visit, [facility], [address], [place], [place], [address], [place] tel:[phone] [facility] No Information Patricio-2 9-201 0 Krishnasamy Taiwo. [facility] Corporate [address], [facility], [place]. tel:[phone] Referring Provider: Taiwo quintana, [address] [facility] [address], [place], [place], [facility]. tel:[phone] [facility], [address] [place] [address] [address], [place], [place], [address], [place] tel:[phone] [facility] No Information Oct-0 5-200 9 Krishnasamy Taiwo. [facility] [address], [place], [facility], [place]. tel:[phone] Referring Provider: Taiwo quintana, [facility] Corporate [address], [facility]. tel:[phone] [facility], [address], [place], [place], [address], [place] tel:[phone] [facility] No Information Apr-2 8-200 9 Krishnasamy Taiwo. [facility] Corporate [facility] [address], [place], [facility], [place]. tel:[phone] Referring Provider: Taiwo quintana, [facility] Corporate [address], [facility]. tel:[phone] [facility], [address], [place], [place], [id number], [place] tel:[phone] [facility] No Information Feb-0 1-200 9 Krishnasamy Taiwo. [facility] [address], [place], [facility], [place]. tel:[phone] Office/outpat ient Visit, Est [facility], [address], [place], [place], [address], [place] tel:[phone] [facility] No Information b-2 5-200 9 Krishnasamy Taiwo. [facility] [address], [place], [address], [place]. tel:[phone] Office/outpat ient Visit, Est [facility], [address], [place], [place], [address], [place] tel:[phone] [facility] No Information Oct-2 4-200 8 Krishnasamy Taiwo. [facility] Corporate [address], [place], [facility], [place]. tel:[phone] [facility], [address], [place], [place], [id number], [place] tel:[phone] [facility] No Information Sep-1 9-200 8 Leiva OD Cayetano. [facility] [address], [place], [facility], [place]. tel:[phone] [facility], [address], [place], [place], [address], [place] tel:[phone] [facility] No Information Sep-1 7-200 8 Krishnasamy Taiwo. [address] [place], [place] [address]ate [facility] [address], [place], [facility], [place]. tel:[phone] Referring Provider: Taiwo quintana, [facility] [address], [place], [facility]. tel:[phone] [facility], [address], [place], [place], [address], [place] tel:[phone] [facility] No Information Sep-1 6-200 8 Krishnasamy Taiwo. [address] [place], [place] [address]ate [address], [place], [facility], [place]. tel:[phone] Referring Provider: Taiwo quintana, [facility] [address], [place], [address]. tel:[phone] Office/outpat ient Visit, Est [facility], [address], [place], [place], [address], [place] tel:[phone] [facility] No Information 4 8 Jada Maravilla. [address] [facility] [address], [place], [address], [place]. tel:[phone] [facility], [address], [place], [place], [address], [place] tel:[phone] [facility] No Information 8 Joseph [address]. [address] [facility], [facility] [place], [address], . tel:[phone] Referring Provider: Santi Oh, [address] [place], [address] . tel:[phone] [facility], [address], [place], [place], [address], [place] tel:[phone] [facility] No Information 0-200 7 Wankfernando [address]. [address], [facility] [place], [address], . tel:[phone] Referring Provider: Santi Oh, [address] [place], [address] . tel:[phone] Office/outpat ient Visit, Est [facility], [address], [place], [place], [address], [place] tel:[phone] [facility] No Information [address] Wankum Santi. [address], [address] [place], [address], [place]. tel:[phone] Office/outpat ient Visit, Est [facility], [address], [place], [place], [address], [place] tel:[phone] [facility] No Information 7 Joseph [address]. [address] [facility], [place], [place], [address], [place]. tel:[phone] Family History Family Member Type Diagnosis Age At Onset No Information Payers Payer name Insurance type Covered democrat ID Authoriza tion(s) Medicare [facility] [id number] [facility] Medicare Supp [place] [id number] Social History Type Description Quantity Date Captured [...]
--- OUTSIDE RECORDS SUMMARY | 2025-02-24 08:44 | XMS_ITS | Clinical Summary ---
Author Organization [facility] Osmany Llamas Address [address] [place] [address] Care Team Providers Care Nurse Instructor Name Role Phone Tari Gloria MD Primary Care Provider [phone] Allergies Active Allergy Reactions Criticality Noted Date Comments Cefuroxime Axetil Nausea and Vomiting Low 0 Levofloxacin Nausea and Vomiting Low 10/02/2019 Morphine Nausea and Vomiting Low 10/02/2019 Propofol Nausea and Vomiting Low 10/02/2019 Medications rosuvastatin (CRESTOR) 20 mg tablet Take 20 mg by mouth daily at bedtime. Active Fish Oil-[place]-3 Fatty Acids (Fish Oil) 360-1,200 mg Capsule [...] times daily. Active Eliquis 5 mg tablet 2 Active diltiaZEM (TIAZAC) 240 mg Extended Release capsule 2 Active Rocklatan 0.02-0.005 % Drops 0.02 mg. 3 Active anastrozole (ARIMIDEX) 1 mg tabletIndicatio ns:Malignant neoplasm of upper-outer quadrant of left breast in female, estrogen receptor positive (CMS/HCC) take 1 tablet by mouth daily 90 Tablet 3 4 Active Additional Information Patient not taking.Reported on 02/23/2025 Active Problems Problem Noted Date Diagnosed Date Malignant neoplasm of left b reast in female, estrogen receptor positive 11/30/2019 Encounters Date Type Department Care Team Description 02/23/2025 1:00 PM CDT Office Visit [facility] Oncology [facility] [address] [place] [address] Bob Price MD Malignant neoplasm of upper-outer quadrant of left breast in female, estrogen receptor positive (CMS/HCC) (Primary Dx); Visit for screening mammogram 02/19/2025 Orders Only [facility] Oncology [facility] [address] [place] [address] Bob Price MD 02/17/2025 External Device Data STL ABSTRACTION Provider, Abstract 02/17/2025 Orders Only [facility] Oncology and [facility] [address] [place] [address] Bob Price MD 02/16/2025 External Device Data STL ABSTRACTION Provider, Abstract 01/26/2025 External Device Data STL ABSTRACTION Provider, [...] on file Legal Sex Female 8:53 AM LOOPER OPERATOR Gender Identity Not on file Sexual [...] (140 lb) 02/23/2025 1:06 PM CDT Height 162.6 cm (5' 4) 02/18/2023 10:51 AM CDT Body Mass Index 24.03 02/18/2023 10:51 AM CDT Plan of Treatment Upcoming Encounters Date Type Department Care Team (Late st Contact Info) Description 09/17/2025 12:45 PM LOOPER OPERATOR Office Visit [facility] Oncology and Hematology [facility] [address] [facility] [address] [place] [address] Bob Price MD [address] [facility] [address] [place] [address] Health Maintenance Due Date Last Done Comments Traditional Medicare (ACO) A nnual Wellness Visit 1959 ZOSTER VACCINE (1 of 2) 1989 RSV VACCINE (60+ or ) (1 - 1-dose 75+ series) 2014 COVID-19 Vaccine (2023-2 5 season) 2024 05/17/2021, 10/26/2020, 10/05/2020 INFLUENZA VACCINE (#1) 2025 05/22/2022, 2020 OSTEOPOROSIS SCREENING 09/09/2029 5, 08/29/2020, 08/29/2020, Additional history exists DTAP/TDAP/TD VACCINES (2 - T d or Tdap) 03/27/2032 03/27/2022 PNEUMOCOCCAL VACCINE 50+ YEARS Completed 05/08/2018 , 04/19/2017 Procedures Procedure Name Priority Date/Time Associated Diagnosis Comments CANCER ANTIGEN 15-3 Routine 02/16/2025 2 :41 PM CDT COMPREHENSIVE METABOLIC PANEL Routine 02/16/2025 8:42 AM CDT XR DEXA BONE DENSITY AXIAL 1 OR MORE SITES Routine 08/29/2020 Osteopenia of multiple sites from Last 3 Months or Most Recently Relevant to Health Maintenance Results * CANCER ANTIGEN 15-3 (02/16/2025 2:41 PM CDT) Blood us Bob Price MD CHEMISTRY ORDERABLES Final Resu lt * COMPREHENSIVE METABOLIC PANEL (02/16/2025 8:42 AM CDT) Blood us Bob Price MD CHEMISTRY ORDERABLES Final Resu lt * XR DEXA BONE DENSITY AXIAL 1 OR MORE SITES (08/29/2020) Anatomical Region Laterality Modality Other us Bob Price MD DIAGNOSTIC IMAGING ORDERABLES F inal Result from Last 3 Months or Most Recently Relevant to Health Maintenance Insurance MEDICARE PART A AND B [facility] [id number] Care Teams Nurse Instructor Relationship Specialty Start Date End Date Tari Gloria MD [facility] [facility] [address] [place] [address] PCP - General Family Practice 08/24/24
--- OUTSIDE RECORDS SUMMARY | 2025-02-24 08:44 | XMS_ITS | Referral Summary ---
Author Organization [facility] [address] Address [address] [place] [address] Care Team Providers Care Podiatry Doctor Name Role Phone Jordy Connolly MD Primary Care Provider [phone] Jordy Connolly MD Unavailable Social History Tobacco Use Types Packs/Day Years Used Date Smoking Tobacco: Never Assessed Personal Safety Answer Date Recorded Getting School Help Needed Not on file 10/17 Comments Unknown Sex and Gender Information Value Date Recorded Sex Assigned at Not on file Legal Sex Female 8:17 AM FINISHER [employer] Gender Identity Not on file Sexual Orientation Not on file Plan of Treatment Not on file Insurance MEDICARE [facility] Care Teams Podiatry Doctor Relationship Specialty Start Date End Date Jordy Connolly MD [address] [place] [address] PCP - General 05/15/19 Jordy Connolly MD [address] [place] [address] Internal Medicine 05/15/19
--- OUTSIDE RECORDS SUMMARY | 2025-02-24 08:44 | XMS_ITS | Encounter Summary ---
Author Organization [facility] [employer] Address [address] [place] [address] Care Team Providers Care Measuring Machine Operator Name Role Phone Tari Gloria MD Primary Care Provider [phone] Reason for Visit * Reason Onset Date Comments Urine culture 08/21/2022 Encounter Details Date Type Department Care Team ([facility] Contact Info) Description 08/21/2022 Telephone [facility] Oncology [facility] [address] [place] [address] Bob Price MD [address] [facility] [address] [place] [address] Urine culture Social History Tobacco Use Types Packs/Day Years Used Date Smoking Tobacco: Never Smokeless Tobacco: Never Alcohol Use Standard Drinks/Week Comments Yes 0 (1 standard drink = 0.6 oz pur e alcohol) Comments No Sex and Gender Information Value Date Recorded Sex Assigned at Not on file Legal Sex Female 8:53 AM DECORATING INSPECTOR Gender Identity Not on file Sexual Orientation Not on file COVID-19 Exposure Response Date Recorded In the last 10 days, have yo u been in contact with someone who was confirmed or suspected to have Coronavirus/COVID-19? No / Unsure 08/21/2022 11:22 AM DECORATING INSPECTOR documented as of this encounter Plan of Treatment Upcoming Encounters Date Type Department Care Team (Late Contact Info) Description 09/17/2025 12:45 PM DECORATING INSPECTOR Office Visit [facility] Oncology [facility] [address] [place] [address] Bob Price MD [address] [facility] [address] [place] [address] Scheduled Orders Name Type Priority Associated Diagnoses [...] (CMS/HCC) documented in this encounter Care Teams Measuring Machine Operator Relationship Specialty Start Date End Date Tari Gloria MD [address] [place] [address] [address] [place] [address] PCP - General Family Practice 08/24/24 documented as of this encounter
--- OUTSIDE RECORDS SUMMARY | 2025-02-24 08:44 | XMS_ITS | Clinical Summary ---
Author Organization [facility] Address [address] [facility] [place] [address] Care Team Providers Care Health And Safety Inspector Name Role Phone Jordy Connolly MD Primary Care Provider [phone] Source Comments [facility],non-owned Affiliates and Associated Physician Practices is amultiple site organization consisting of ambulatory clinics and hospital sitesin [place], [place], [place] and [place]. This disclosure is being madepursuant to the Care Everywhere program and may not contain all information available regarding this patient. 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 Not on file Not on file N ot on file Last Filed Vital Signs Vital Sign Reading Time Taken Comments Blood Pressure 152/84 12/19/2023 10:58 AM CDT Pulse 70 12/19/2023 10:58 AM CDT Temperature 36.6 C (97.8 F) 09/21/2022 7:31 AM AVIATION ELECTRONICS TECHNICIAN Respiratory Rate 20 09/21/2022 7:31 AM AVIATION ELECTRONICS TECHNICIAN Oxygen Saturation 97% 06/18/2023 10:47 AM AVIATION ELECTRONICS TECHNICIAN Inhaled Oxygen Concentration - - Weight 61.2 [...] this topic Medical Devices Implanted Type Area Talent Acquisition Partner Device Identifier Shelf Expiration Date Model / Serial / Lot Coil Azur Cx Hdrcl 4cm 3mm Dtch Loop Sld Implanted:Qty: 1 on 03/28/2022 at [facility] 06/04/2026 [id number] / / [id number] Coil Azur Hdrcl 2cm 2mm .018in Dtch Loop Implanted:Qty: 1 on 03/28/2022 at [facility] 06/04/2026 [id number] / / [id number] Coil Azur Hdrcl 2cm 2mm .018in Dtch Loop Implanted:Qty: 1 on 03/28/2022 at [facility] 05/04/2026 [id number] / / [id number] Insurance MEDICARE [facility] MEDICARE [facility] MEDICARE MEDICARE MEDICARE MEDICARE [facility] MEDICARE [facility] MEDICARE [facility] MEDICARE [facility] MEDICARE Member Subscriber Plan / Payer (Ef fective 2004-Present) Name:Cindy Stanton Member ID:[id number] Relation to Subscriber:Self Name:CINDY STANTON Subscriber ID:[id number] Payer ID:Not on file Group ID:Not on file Type:Medicare Address: [place] [phone] [facility] MEDICARE [facility] MEDICARE Member Subscriber Plan / Payer (Ef fective 2004-Present) Name:Cindy Stanton Member ID:[id number] Relation to Subscriber:Self Name:CINDY STANTON Subscriber ID:[id number] Payer ID:Not on file Group ID:Not on file Type:Medicare Address: [place] [phone] [facility] Member Subscriber Plan / Payer (Ef fective 2004-) Name:Cindy Stanton Member ID:[id number] Relation to Subscriber:Self Name:CINDY STANTON Subscriber ID:[id number] Payer ID:Not on file Group ID:Not on file Type:Medicare Address: [place] [phone] AARP MEDICARE AARP MEDICARE Member Subscriber Plan / Payer ( fective 2004-) Name:Cindy Stanton Member ID:[id number] Relation to Subscriber:Self Name:CINDY STANTON Subscriber ID:[id number] Payer ID:Not on file Group ID:Not on file Type:Medicare Address: [place] [phone] [facility] MEDICARE [facility] MEDICARE Member Subscriber Plan / Payer (Ef fective 2004-) Name:Cindy Stanton Member ID:[id number] Relation to Subscriber:Self Name:CINDY STANTON Subscriber ID:[id number] Payer ID:Not on file Group ID:Not on file Type:Medicare Address: [place] [address] MEDICARE Member Subscriber Plan / Payer (Ef fective 2004-) Name:Cindy Stanton Member ID:[id number] Relation to Subscriber:Self Name:CINDY STANTON Subscriber ID:[id number] Payer ID:Not on file Group ID:Not on file Type:Medicare Address: [place] [phone] [facility] MEDICARE AARP MEDICARE Member Subscriber Plan / Payer (Ef fective for All Dates) Name:Cindy Stanton Member ID:[id number] Relation to Subscriber:Self Name:CINDY STANTON Subscriber ID:[id number] Payer ID:Not on file Group ID:Not on file Type:Medicare Address: [place] [phone] [facility] MEDICARE Member Subscriber Plan / Payer (Ef fective 2004-Present) Name:Cindy Stanton Member ID:[id number] Relation to Subscriber:Self Name:CINDY STANTON Subscriber ID:[id number] Payer ID:Not on file Group ID:Not on file Type:Medicare Address: [place] [phone] [facility] MEDICARE [facility] MEDICARE [facility] MEDICARE AARP Member Subscriber Plan / Payer (Ef fective for All Dates) Name:Cindy Stanton Relation to Subscriber:Self Name:CINDY STANTON Payer ID:Not on file Group ID:PLAN [id number] Type:Commercial Address: [facility] [address] [place] [phone] MEDICARE [facility] MEDICARE [facility] MEDICARE Member Subscriber Plan / Payer (Ef fective 2004-) Name:Cindy Stanton Member ID:[id number] Relation to Subscriber:Self Name:CINDY STANTON Subscriber ID:[id number] Payer ID:Not on file Group ID:Not on file Type:Medicare Address: [place] [phone] [facility] MEDICARE Member Subscriber Plan / Payer (Ef fective 2004-) Name:Cindy Stanton Member ID:[id number] Relation to Subscriber:Self Name:CINDY STANTON Subscriber ID:[id number] Payer ID:Not on file Group ID:Not on file Type:Medicare Address: [place] [phone] [facility] MEDICARE [facility] MEDICARE MEDICARE Member Subscriber Plan / Payer (Ef fective 2004-Present) Name:Cindy Stanton Member ID:[id number] Relation to Subscriber:Self Name:CINDY STANTON Subscriber ID:[id number] Payer ID:Not on file Group ID:Not on file Type:Medicare Address: [place] [address] [place] [address] MEDICARE AARP MEDICARE [facility] MEDICARE AARP MEDICARE Member Subscriber Plan / Payer ( fective 2004-) Name:Cindy Stanton Member ID:[id number] Relation to Subscriber:Self Name:CINDY STANTON Subscriber ID:[id number] Payer ID:Not on file Group ID:Not on file Type:Medicare Address: [address] MEDICARE Member Subscriber Plan / Payer ( fective 2004-) Name:Cindy Stanton Member ID:[id number] Relation to Subscriber:Self Name:CLOTILDE STANTONAH Laura Subscriber ID:[id number] Payer ID:Not on file Group ID:Not on file Type:Medicare Address: [address] MEDICARE AARP MEDICARE Member Subscriber Plan / Payer (Ef fective 2004-Present) Name:Roseannennamdi Cindy Laura Member ID:[id number] Relation to Subscriber:Self Name:GEOCINDY Sanchez Subscriber ID:[id number] Payer ID:Not on file Group ID:Not on file Type:Medicare Address: [address] MEDICARE Member Subscriber Plan / Payer (Ef fective 2004-) Name:Roseanneladiyunielsarah Cindy Sanchez Member ID:[id number] Relation to Subscriber:Self Name:ROSEANNELADICINDY PORRAS Subscriber ID:[id number] Payer ID:Not on file Group ID:Not on file Type:Medicare Address: [address] MEDICARE Member Subscriber Plan / Payer (Ef fective 2004-) Name:Reneasarah Cindy Sanchez Member ID:[id number] Relation to Subscriber:Self Name:CINDY STANTON Subscriber ID:[id number] Payer ID:Not on file Group ID:Not on file Type:Medicare Address: [place] [address] [place] [address] MEDICARE Member Subscriber Plan / Payer (Ef fective 2004-) Name:Clotilde Stantonah Laura Member ID:[id number] Relation to Subscriber:Self Name:ROSEANNELADIVERNCINDY Sanchez Subscriber ID:[id number] Payer ID:Not on file Group ID:Not on file Type:Medicare Address: [place] [phone] [facility] MEDICARE [facility] Member Subscriber Plan / Payer (Ef fective 2022-Present) Name:Cindy Stanton Relation to Subscriber:Self Name:CINDY STANTON Payer ID:Not on file Group ID:PLAN [id number] Type:Commercial Address: [place] [phone] MEDICARE [facility] Advance Directives * Full Code (Latest Code Status on File) Date Activated Date Inactivated Comments 09/20/2022 7:17 PM 09/21/2022 2:29 PM * Full Code Date Activated Date Inactivated Comments 03/28/2022 12:49 AM 04/03/2022 3:24 PM Care Teams Health And Safety Inspector Relationship Specialty Start Date End Date Jordy Connolly MD [address] [address] PCP - General Internal Medicine 8/22/22
--- OUTSIDE RECORDS SUMMARY | 2025-02-24 08:44 | XMS_ITS | Encounter Summary ---
Author Organization [facility] Address [address] [place] [address] Care Team Providers Care Liner Installer Name Role Phone Tari Gloria MD Primary Care Provider [phone] Encounter Details Date Type Department Care Team (Late st Contact Info) Description 10/06/2019 Chart Note [facility] Radiation Therapy [address] [place] [address] [place] [address] [place] [address] Social History Tobacco Use Types Packs/Day Years Used Date Smoking Tobacco: Never Smokeless Tobacco: Never Alcohol Use Standard Drinks/Week Comments Yes 0 (1 standard drink = 0.6 oz pur e alcohol) Comments Unknown Sex and Gender Information Value Date Recorded Sex Assigned at Not on file Legal Sex Female 8:53 AM ASSOCIATE ACCOUNTANT Gender Identity Not on file Sexual Orientation Not on file documented as of this encounter Plan of Treatment Upcoming Encounters Date Type Department Care Team (Late st Contact Info) Description 09/17/2025 12:45 PM ASSOCIATE ACCOUNTANT Office Visit [facility] Oncology and Hematology - [place] [address] [facility] [address] [place] [address] Bob Price MD [address] [facility] [address] [place] [address] documented as of this encounter Visit Diagnoses Not on filedocumented in this encounter Care Teams Liner Installer Relationship Specialty Start Date End Date Tari Gloria MD [address] [facility] [address] [place] [address] PCP - General Family Practice 08/24/24 documented as of this encounter
--- OUTSIDE RECORDS SUMMARY | 2025-02-24 08:44 | XMS_ITS | Encounter Summary ---
Author Organization [facility] [employer] [facility] Address [address] [place] [address] Care Team Providers Care Supervisor Detasseling Crew Name Role Phone Tari Gloria MD Primary Care Provider [phone] Encounter Details Date Type Department Care Team (Late Contact Info) Description 02/17/2025 Orders Only [facility] Oncology and Hematology [facility] [address] [place] [address] Bob Price MD [address] [place], [place] [address] [address] [place] [address] Social History Tobacco Use Types Packs/Day Years Used Date Smoking Tobacco: Never Smokeless Tobacco: Never Alcohol Use Standard Drinks/Week Comments Yes 0 (1 standard drink = 0.6 oz pur e alcohol) Comments No Sex and Gender Information Value Date Recorded Sex Assigned at Not on file Legal Sex Female 8:53 AM SERVICE PROVIDER Gender Identity Not on file Sexual Orientation Not on file documented as of this encounter Plan of Treatment Upcoming Encounters Date Type Department Care Team (Late st Contact Info) Description 09/17/2025 12:45 PM SERVICE PROVIDER Office Visit [facility] Oncology and Hematology [facility] [address] [place] [address] Bob Price MD [address] [place], [place] [address] [facility] [employer] [address] [place] [address] documented as of this encounter Procedures Procedure Name Priority Date/Time Associated Diagnosis Comments COMPREHENSIVE METABOLIC PANEL Routine 02/16/2025 8:42 AM CDT documented in this encounter Results * COMPREHENSIVE METABOLIC PANEL (02/16/2025 8:42 AM CDT) Blood Bob Price MD CHEMISTRY ORDERABLES Final Resu lt documented in this encounter Visit Diagnoses Not on filedocumented in this encounter Care Teams Supervisor Detasseling Crew Relationship Specialty Start Date End Date Tari Gloria MD [address] [facility] [address] [place] [address] PCP - General Family Practice 08/24/24 documented as of this encounter
--- OUTSIDE RECORDS SUMMARY | 2025-02-24 08:44 | XMS_ITS | Encounter Summary ---
Author Organization [facility] [employer] [facility] Address [address] [place] [address] Care Team Providers Care Loom Stop Checker Name Role Phone Tari Gloria MD Primary Care Provider [phone] Encounter Details Date Type Department Care Team (Late Contact Info) Description 02/19/[address] [facility] Oncology and Hematology [facility] [address] [place] [address] Bob Price MD [address] [place], [place] [address] [address] [place] [address] Social History Tobacco Use Types Packs/Day Years Used Date Smoking Tobacco: Never Smokeless Tobacco: Never Alcohol Use Standard Drinks/Week Comments Yes 0 (1 standard drink = 0.6 oz pur e alcohol) Comments No Sex and Gender Information Value Date Recorded Sex Assigned at Not on file Legal Sex Female 8:53 AM 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 RECRUITER Gender Identity Not on file Sexual Orientation Not on file documented as of this encounter Plan of Treatment Upcoming Encounters Date Type Department Care Team (Late st Contact Info) Description 09/17/2025 12:45 PM 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 RECRUITER Office Visit [facility] Oncology and Hematology [facility] [address] [place] [address] Bob Price MD [address] [place], [place] [address] [address] [place] [address] documented as of this encounter Procedures Procedure Name Priority Date/Time Associated Diagnosis Comments CANCER ANTIGEN 15-3 Routine 02/16/2025 2:41 PM CDT documented in this encounter Results * CANCER ANTIGEN 15-3 (02/16/2025 2:41 PM CDT) Blood Bob Price MD CHEMISTRY ORDERABLES Final Resu lt documented in this encounter Visit Diagnoses Not on filedocumented in this encounter Care Teams Loom Stop Checker Relationship Specialty Start Date End Date Tari Gloria MD [facility] [address] [place] [address] PCP - General Family Practice 08/24/24 documented as of this encounter
--- OUTSIDE RECORDS SUMMARY | 2025-02-24 08:44 | XMS_ITS ---
Author Organization [facility] Address [address] [facility] [place] [address] Care Team Providers Care Leather Tanner Name Role Phone Jordy Connolly MD Primary Care Provider [phone] Active Problems Problem Noted Date Diagnosed Date [...]
[2025-02-24 15:32] LABS: Alanine Aminotransferase 18 U/L (6-35); Albumin Level 4.3 g/dL (3.5-5.1); Alkaline Phosphatase 79 U/L (38-126); Anion Gap 8 mmol/L (4-12); Aspartate Amino Transferase 31 U/L (14-36); Bilirubin,Total 0.4 mg/dL (0.2-1.3); Blood Urea Nitrogen 18 mg/dL (7-17); Calcium 9.9 mg/dL (8.4-10.2); Carbon Dioxide 28 mmol/L (22-30); Chloride 99 mmol/L (98-107); Cholesterol 155 mg/dL (0-200); Estimated Glomerular Filt Rate 55; Glucose 79 mg/dL (65-110); HDL Direct 77 mg/dL; Potassium 4.0 mmol/L (3.4-5.0); Sodium 135 mmol/L (137-145); Total Protein 7.3 g/dL (6.3-8.2); Triglycerides 60 mg/dL (<150)
== END 2025-02-24 08:39 | disposition home or self-care (01) ==
PROVIDERS: PCP Family Medicine; Visit Provider Family Medicine
DX: E78.2 Mixed hyperlipidemia (principal)
CPT/HCPCS: 36415; 80053; 80061